=== PATIENT | female | born 1960 | race Caucasian/White ===

== ENCOUNTER 2022-04-19 19:52 | Inpatient (IN) | payer MEDICARE, OTHER ==
--- NOTE | 2022-04-19 20:38 | ED ---
Altered Mental Status HPI - General Chief Complaint: Altered Mental Status Stated Complaint: Urosepsis Time Seen by Provider: 04/19/22 19:55 - History of Present Illness Initial Comments: 61-year-old female with past medical history of developmental delay, cerebral palsy, seizure disorder presents to the emergency department at [facility] for altered mental status. The patient's sister went to see her today at her ECF and noted that she was not at her baseline. She was taken to [facility] where they found that she had urosepsis. Blood pressures are low and therefore central line was placed and the patient was started on levothyroid. She did receive a dose of Zosyn for her UTI. She did receive 3 L of fluid. She arrives on 30 mics of levo. Lactic was 3.5. Urinalysis shows 3+ bacteria. Creatinine 0.5. Mag 2. White count 2.6. Patient cannot provide any history and family is not at bedside. She does have a public guardian - Related Data Home Medications Medication Instructions Recorded Confirmed Acetaminophen Tab [Tylenol] 650 mg PO Q4H PRN MDD 3000 04/19/22 04/19/22 Apixaban [Eliquis] 5 mg PO BID@0700,1700 04/19/22 04/19/22 Docusate [Colace] 100 mg PO BID@0700,1700 04/19/22 04/19/22 Furosemide [Lasix] 80 mg PO DAILY@0700 04/19/22 04/19/22 Losartan Potassium [Cozaar] 100 mg PO DAILY@0700 04/19/22 04/19/22 Potassium Chloride [Potassium 20 meq PO DAILY@1700 04/19/22 04/19/22 Chloride ER] amLODIPine [Norvasc] 5 mg PO DAILY@0700 04/19/22 04/19/22 bisacodyL 10 mg RECTAL Q72H PRN 04/19/22 04/19/22 Allergies Allergy/AdvReac Type Severity Reaction Status Date / Time cephalexin [From Keflex] Allergy Unknown Verified 04/19/22 20:46 doxycycline Allergy Unknown Verified 04/19/22 20:46 sulfamethoxazole Allergy Unknown Verified 04/19/22 20:46 [From Bactrim] trimethoprim [From Bactrim] Allergy Unknown Verified 04/19/22 20:46 vancomycin Allergy Unknown Verified 04/19/22 20:46 Review of Systems ROS Statement: Those systems with pertinent positive or pertinent negative responses have been documented in the HPI. ROS Other: All systems not noted in ROS Statement are negative. General Exam Limitations: altered mental status, physical limitation General appearance: in no apparent distress, other (Nonverbal. moaning) Head exam: Present: atraumatic, normocephalic, normal inspection Eye exam: Present: normal appearance, PERRL, EOMI. Absent: scleral icterus, conjunctival injection, periorbital swelling ENT exam: Present: mucous membranes dry Respiratory exam: Present: rales, decreased breath sounds. Absent: respiratory distress, accessory muscle use Cardiovascular Exam: Present: regular rate, normal rhythm, normal heart sounds. Absent: systolic murmur, diastolic murmur, rubs, gallop, clicks GI/Abdominal exam: Present: soft Rectal exam: Present: other (Contreras in place. Significant amount of watery, yellow stool) Extremities exam: Present: pedal edema Neurological exam: Present: altered Skin exam: Present: warm, dry, intact, normal color. Absent: rash Course Vital Signs 04/19/22 04/19/22 04/19/22 19:53 20:33 20:40 Temperature Pulse Rate 50 L 81 83 Respiratory 18 13 14 Rate Blood Pressure 54/36 84/57 90/57 O2 Sat by Pulse 97 100 99 Oximetry 04/19/22 04/19/22 04/19/22 20:50 21:00 21:30 Temperature Pulse Rate 84 88 91 Respiratory 14 9 L 10 L Rate Blood Pressure 71/48 86/32 103/66 O2 Sat by Pulse 92 L 98 Oximetry 04/19/22 04/19/22 04/19/22 21:37 21:40 21:50 Temperature 88.7 F L Pulse Rate 66 68 Respiratory 6 L 14 Rate Blood Pressure 103/66 91/46 O2 Sat by Pulse 95 99 Oximetry 04/19/22 04/19/22 04/19/22 22:00 22:10 22:20 Temperature Pulse Rate 79 82 80 Respiratory 10 L 13 7 L Rate Blood Pressure 81/58 82/45 81/58 O2 Sat by Pulse 100 100 100 Oximetry 04/19/22 04/19/22 04/19/22 22:30 22:40 22:50 Temperature Pulse Rate 88 89 88 Respiratory 7 L 5 L 6 L Rate Blood Pressure 77/65 96/81 78/54 O2 Sat by Pulse 97 96 97 Oximetry 04/19/22 04/19/22 04/19/22 23:00 23:10 23:20 Temperature Pulse Rate 89 88 93 Respiratory 6 L 3 L 4 L Rate Blood Pressure 85/28 94/52 90/70 O2 Sat by Pulse 97 97 98 Oximetry 04/19/22 04/19/22 04/19/22 23:30 23:40 23:50 Temperature Pulse Rate 93 96 94 Respiratory 13 5 L 9 L Rate Blood Pressure 133/48 77/62 95/47 O2 Sat by Pulse 97 97 97 Oximetry 04/20/22 04/20/22 04/20/22 00:00 00:10 00:14 Temperature Pulse Rate 96 100 99 Respiratory 8 L 6 L 8 L Rate Blood Pressure 86/58 77/59 103/68 O2 Sat by Pulse 98 98 98 Oximetry 04/20/22 00:15 Temperature Pulse Rate 98 Respiratory 5 L Rate Blood Pressure 103/68 O2 Sat by Pulse 97 Oximetry Medical Decision Making - Medical Decision Making Upon arrival the patient was placed in trauma 1. I did review her labs at the outside facility. CT had not been performed at the patient's abdomen and therefore I did obtain one. It shows bilateral lower lobe pulmonary infiltrates and atelectasis. Small pleural effusions. Dilated gallbladder. No bowel obstruction. No septic stone. Chest x-ray demonstrates appropriate placement of the right sided central line in the superior vena cava. I did repeat laboratory studies which demonstrated continued lactic of 3.3. Patient will be admitted to ICU as she is on Levophed. Spoke with Carley from [facility]. Spoke with Dr. Auguste from ICU - Lab Data Result diagrams: 04/23/22 05:21 04/23/22 05:21 Lab Results 04/19/22 04/19/22 04/19/22 Range/Units 21:30 21:30 21:30 WBC 26.8 H (3.8-10.6) k/uL RBC 4.75 (3.80-5.40) m/uL Hgb 14.9 (11.4-16.0) gm/dL Hct 47.7 H (34.0-46.0) % MCV 100.6 H (80.0-100.0) fL MCH 31.5 (25.0-35.0) pg MCHC 31.3 (31.0-37.0) g/dL RDW 15.6 H (11.5-15.5) % Plt Count 224 (150-450) k/uL MPV 9.1 Neutrophils % (Manual) 65 % Band Neuts % (Manual) 28 % Lymphocytes % (Manual) 2 % Monocytes % (Manual) 2 % Eosinophils % (Manual) 1 % Metamyelocytes % 3 % Neutrophils # (Manual) 24.90 H (1.3-7.7) k/uL Lymphocytes # (Manual) 0.54 L (1.0-4.8) k/uL Monocytes # (Manual) 0.54 (0-1.0) k/uL Eosinophils # (Manual) 0.27 (0-0.7) k/uL Metamyelocytes # (Man) 0.80 H (0) k/uL Nucleated RBCs 5 H (0-0) /100 WBC Manual Slide Review Performed Toxic Vacuolation Present Large Platelets Present Polychromasia Present Hypochromasia Marked Poikilocytosis (manual Present Anisocytosis (manual) Present Macrocytosis Slight VBG pH (7.31-7.41) VBG pCO2 (37-51) mmHg VBG HCO3 (24-28) mmol/L Sodium 138 (137-145) mmol/L Potassium 4.4 (3.5-5.1) mmol/L Chloride 109 H (98-107) mmol/L Carbon Dioxide 15 L (22-30) mmol/L Anion Gap 14 mmol/L BUN 22 H (7-17) mg/dL Creatinine 0.64 (0.52-1.04) mg/dL Est GFR (CKD-EPI)AfAm >90 (>60 ml/min/1.73 sqM) Est GFR (CKD-EPI)NonAf >90 (>60 ml/min/1.73 sqM) Glucose 184 H (74-99) mg/dL Lactic Ac Sepsis Rflx Plasma Lactic Acid Miquel 3.3 H* (0.7-2.0) mmol/L Calcium 8.4 (8.4-10.2) mg/dL Total Bilirubin 0.2 (0.2-1.3) mg/dL AST 31 (14-36) U/L ALT 28 (4-34) U/L Alkaline Phosphatase 171 H (38-126) U/L Total Protein 5.8 L (6.3-8.2) g/dL Albumin 3.0 L (3.5-5.0) g/dL C. difficile (EIA) Intrp (Negative) 04/19/22 04/19/22 04/19/22 Range/Units 21:30 21:30 22:02 WBC (3.8-10.6) k/uL RBC (3.80-5.40) m/uL Hgb (11.4-16.0) gm/dL Hct (34.0-46.0) % MCV (80.0-100.0) fL MCH (25.0-35.0) pg MCHC (31.0-37.0) g/dL RDW (11.5-15.5) % Plt Count (150-450) k/uL MPV Neutrophils % (Manual) % Band Neuts % (Manual) % Lymphocytes % (Manual) % Monocytes % (Manual) % Eosinophils % (Manual) % Metamyelocytes % % Neutrophils # (Manual) (1.3-7.7) k/uL Lymphocytes # (Manual) (1.0-4.8) k/uL Monocytes # (Manual) (0-1.0) k/uL Eosinophils # (Manual) (0-0.7) k/uL Metamyelocytes # (Man) (0) k/uL Nucleated RBCs (0-0) /100 WBC Manual Slide Review Toxic Vacuolation Large Platelets Polychromasia Hypochromasia Poikilocytosis (manual Anisocytosis (manual) Macrocytosis VBG pH 7.11 L* (7.31-7.41) VBG pCO2 59 H (37-51) mmHg VBG HCO3 19 L (24-28) mmol/L Sodium (137-145) mmol/L Potassium (3.5-5.1) mmol/L Chloride (98-107) mmol/L Carbon Dioxide (22-30) mmol/L Anion Gap mmol/L BUN (7-17) mg/dL Creatinine (0.52-1.04) mg/dL Est GFR (CKD-EPI)AfAm (>60 ml/min/1.73 sqM) Est GFR (CKD-EPI)NonAf (>60 ml/min/1.73 sqM) Glucose (74-99) mg/dL Lactic Ac Sepsis Rflx Y Plasma Lactic Acid Miquel (0.7-2.0) mmol/L Calcium (8.4-10.2) mg/dL Total Bilirubin (0.2-1.3) mg/dL AST (14-36) U/L ALT (4-34) U/L Alkaline Phosphatase (38-126) U/L Total Protein (6.3-8.2) g/dL Albumin (3.5-5.0) g/dL C. difficile (EIA) Intrp Negative (Negative) Critical Care Time Critical Care Time: Yes Critical Care Time: 35 minutes Disposition Clinical Impression: UTI (urinary tract infection), Lactic acid acidosis, Septic shock Disposition: ADMITTED IP TO THIS [facility] Condition: Serious Is patient prescribed a controlled substance at d/c from ED?: No Time of Disposition: 22:05 Decision to Admit Reason: Admit from EC Decision Date: 04/19/22 Decision Time: 22:05
--- NOTE | 2022-04-19 21:13 | XR ---
EXAMINATION TYPE: XR chest [facility] DATE OF EXAM: 04/19/2022 COMPARISON: NONE HISTORY: Line placement TECHNIQUE: Single view FINDINGS: There is some mild infiltrate left lower lobe. The right lung is clear. There is right jugu lar catheter with tip in the superior vena cava. There is left axillary pacemaker. No heart failure. IMPRESSION: There is some left lower lobe pneumonia and atelectasis. No heart failure seen.
[2022-04-19 21:47] LABS: VBG PH 7.11 (7.31-7.41)
[2022-04-19] MEDS: NOREPINEPHRINE 32 MG in SODIUM CHLORIDE 0.9% 218 ML IV ONE (21:50)
[2022-04-19 22:00] LABS: ALT 28 U/L (4-34); AST 31 U/L (14-36); African American GFR (CKD) >90 (>60 ml/min/1.73 sqM); Alkaline Phosphatase 171 U/L (38-126); Anion Gap 14 mmol/L; Blood Urea Nitrogen 22 mg/dL (7-17); Calcium 8.4 mg/dL (8.4-10.2); Carbon Dioxide 15 mmol/L (22-30); Chloride 109 mmol/L (98-107); Glucose 184 mg/dL (74-99); Non-African American GFR(CKD) >90 (>60 ml/min/1.73 sqM); Potassium 4.4 mmol/L (3.5-5.1); Sodium 138 mmol/L (137-145); Total Bilirubin 0.2 mg/dL (0.2-1.3); Total Protein 5.8 g/dL (6.3-8.2)
--- NOTE | 2022-04-19 22:01 | CT ---
EXAMINATION TYPE: CT abdomen pelvis w con DATE OF EXAM: 04/19/2022 COMPARISON: None HISTORY: Abdominal pain, urosepsis. CT DLP: 2975.4 mGycm Automated exposure control for dose reduction was used. CONTRAST: Performed with IV Contrast, patient injected with 100 mL of Isovue 300. Images obtained from the diaphragm to the floor the pelvis with IV contrast. There is infiltrate or atelectasis at both lung bases. Heart is enlarged. No pericardial effusion. Th ere are small pleural effusions. There is abdominal ascites fluid. Gallbladder is dilated and measure s 5 cm in diameter. No pancreatic mass. Spleen is intact. The bile ducts are not dilated. No focal li manan defect. The stomach is intact. There is no adrenal mass. Kidneys show satisfactory contrast opacification. Th ere is no hydronephrosis. Ureters are not dilated. No retroperitoneal adenopathy. There is a Contreras ca theter in urinary bladder. Bladder is empty. No pelvic mass. There is a 3 cm cyst on the left ovary. Appendix not definitely seen. No sign of thickened appendix. No sign of a bowel obstruction. There is multilevel lumbar spondylotic changes. There is posterior fusion surgery from L4 to L5. The lumbar v ertebrae have normal alignment. Delayed images show very little renal excretion. The bony pelvis is intact. The hip joints are intact. No evidence of free air. IMPRESSION: Bilateral lower lobe pulmonary infiltrates and atelectasis. Small pleural effusions. Abdominal ascite s. Dilated gallbladder suggestive of cholecystitis. Left ovarian cyst. No bowel obstruction. Decreased renal excretion on the delayed images could be some renal failure.
[2022-04-19] MEDS ORDERED: NALOXONE 0.4 MG/ML 1 ML VIAL IV PRN (22:05)
[2022-04-19 22:10] LABS: HCT 47.7 % (34.0-46.0); HGB 14.9 gm/dL (11.4-16.0); Hypochromasia Marked; MCH 31.5 pg (25.0-35.0); MCHC 31.3 g/dL (31.0-37.0); MCV 100.6 fL (80.0-100.0); Macrocytosis Slight; Mean Platelet Volume 9.1; Platelet Count 224 k/uL (150-450); RBC 4.75 m/uL (3.80-5.40); RDW 15.6 % (11.5-15.5)
[2022-04-19 22:41] LABS: ABG Base Excess -13.3 mmol/L; ABG HCO3 14 mmol/L (21-25); ABG Oxygen Saturation 97.9 % (94-97); ABG PCO2 34 mmHg (35-45); ABG PH 7.23 (7.35-7.45); ABG PO2 146 mmHg (83-108); ABG TCO2 15 mmol/L (19-24); Allen Test Performed? Yes
[2022-04-20] MEDS: PIPERACILLIN-TAZOBACTAM 3.375 GM in SODIUM CHLORIDE 0.9% 100 ML IVPB SCH ×3 (00:24→14:39)
[2022-04-20 00:30] LABS: Band Neutrophils % 28 %; Eosinophils # (M) 0.27 k/uL (0-0.7); Lymphocytes # (M) 0.54 k/uL (1.0-4.8); Metamyelocytes % 3 %; Monocytes # (M) 0.54 k/uL (0-1.0); Neutrophils % (M) 65 %; Nucleated Red Blood Cells 5 /100 WBC (0-0); Total Cells Counted 200; WBC 26.8 k/uL (3.8-10.6)
[2022-04-20 00:31] LABS: Anisocytosis (M) Present; Poikilocytosis (M) Present
[2022-04-20 00:33] LABS: Polychromasia Present
[2022-04-20 00:41] LABS: Glucose,Whole Blood 152 mg/dL (70-110)
[2022-04-20 01:03] LABS: Large Platelets Present; Toxic Vacuolation Present
[2022-04-20] MEDS: SODIUM CHLORIDE 0.9% 1,000 ML IV SCH ×2 (02:48→08:12)
[2022-04-20] MEDS ORDERED: FUROSEMIDE 10 MG/ML 10 ML VIAL IV STA (02:50)
[2022-04-20 04:04] LABS: African American GFR (CKD) >90 (>60 ml/min/1.73 sqM); Anion Gap 14 mmol/L; Blood Urea Nitrogen 23 mg/dL (7-17); Calcium 8.8 mg/dL (8.4-10.2); Carbon Dioxide 15 mmol/L (22-30); Chloride 111 mmol/L (98-107); Glucose 184 mg/dL (74-99); Magnesium 1.6 mg/dL (1.6-2.3); Non-African American GFR(CKD) 82 (>60 ml/min/1.73 sqM); Potassium 4.7 mmol/L (3.5-5.1); Sodium 140 mmol/L (137-145)
[2022-04-20 04:29] LABS: HCT 48.3 % (34.0-46.0); HGB 14.9 gm/dL (11.4-16.0); Hypochromasia Marked; MCH 31.5 pg (25.0-35.0); MCHC 30.8 g/dL (31.0-37.0); MCV 102.2 fL (80.0-100.0); Macrocytosis Slight; Mean Platelet Volume 11.2; Platelet Count 197 k/uL (150-450); RBC 4.72 m/uL (3.80-5.40); RDW 15.5 % (11.5-15.5)
[2022-04-20 05:52] LABS: Band Neutrophils % 43 %; Metamyelocytes % 1 %; Neutrophils % (M) 54 %; Nucleated Red Blood Cells 5 /100 WBC (0-0); Total Cells Counted 200
[2022-04-20 05:53] LABS: Large Platelets Present; Lymphocytes # (M) 0.77 k/uL (1.0-4.8); Metamyelocytes # (M) 0.39 k/uL (0); Monocytes # (M) 0.77 k/uL (0-1.0); WBC 38.7 k/uL (3.8-10.6)
[2022-04-20 05:54] LABS: Anisocytosis (M) Present; Toxic Vacuolation Present
[2022-04-20 05:57] LABS: Poikilocytosis (M) Present
[2022-04-20 06:32] LABS: Calcium 8.9 mg/dL (8.4-10.2)
[2022-04-20 06:53] LABS: HCT 45.3 % (34.0-46.0); HGB 14.1 gm/dL (11.4-16.0); Hypochromasia Marked; MCH 31.7 pg (25.0-35.0); MCV 102.3 fL (80.0-100.0); Macrocytosis Slight; Mean Platelet Volume 9.1; Platelet Count 175 k/uL (150-450); RBC 4.43 m/uL (3.80-5.40); RDW 15.7 % (11.5-15.5)
--- NOTE | 2022-04-20 08:11 | US ---
EXAMINATION TYPE: US kidneys/renal and bladder DATE OF EXAM: 04/20/2022 COMPARISON: CT abdomen and pelvis 04/19/2022 CLINICAL HISTORY: low urine output. EXAM MEASUREMENTS: Right Kidney: Accurate measurements unable to be obtained due to diffuse shadowing and technical limi tations. Left Kidney: 9.8 x 5.1 x 5.6 cm Technically difficult study performed portably on an ICU patient who is unable to cooperate for exam. Right Kidney: Only the upper pole is visualized due to overlying bowel gas and patient body habitus, there is no hydro seen in this limited visualization. Left Kidney: No hydronephrosis or masses seen Bladder: Not visualized, patient has catheter IMPRESSION: Technically limited examination with suboptimal visualization of the right kidney. There is no eviden ce for hydronephrosis bilaterally.
[2022-04-20] MEDS: NOREPINEPHRINE 32 MG in SODIUM CHLORIDE 0.9% 218 ML IV ONE ×2 (08:12→19:02)
[2022-04-20 08:30] LABS: Band Neutrophils % 6 %
[2022-04-20 08:34] LABS: Neutrophils % (M) 89 %; Nucleated Red Blood Cells 2 /100 WBC (0-0); Total Cells Counted 300; WBC 39.9 k/uL (3.8-10.6)
[2022-04-20 08:36] LABS: Toxic Vacuolation Present
[2022-04-20] MEDS ORDERED: SODIUM BICARB 8.4% 50 ML SYR (1 MEQ/ML) IV STA (08:49)
[2022-04-20] MEDS ORDERED: FUROSEMIDE 100 MG in SODIUM CHLORIDE 0.9% 90 ML IV SCH (09:00)
[2022-04-20 09:11] LABS: ABG Base Excess -12.2 mmol/L; ABG HCO3 15 mmol/L (21-25); ABG Oxygen Saturation 96.9 % (94-97); ABG PCO2 33 mmHg (35-45); ABG PH 7.26 (7.35-7.45); ABG PO2 106 mmHg (83-108); ABG TCO2 16 mmol/L (19-24); Allen Test Performed? Yes
[2022-04-20] MEDS ORDERED: HEPARIN SODIUM,PORCINE/PF 5,000 UNIT/0.5 ML SYRINGE SQ SCH (09:15)
[2022-04-20 10:00] LABS: Appearance,Urine Turbid (Clear); Bacteria,Urine Occasional /hpf; Bilirubin,Urine Negative (Negative); Blood,Urine Large (Negative); Budding Yeast,Urine Few /hpf; Color,Urine Yellow; Glucose,Urine (UA) Trace (Negative); Ketones,Urine Trace (Negative); Leukocyte Esterase,Urine Large (Negative); Nitrite,Urine Negative (Negative); Protein,Urine 1+ (Negative); RBC,Urine >182 /hpf (0-5); Squamous Epithelial Cell,Urine 3 /hpf (0-4); Urobilinogen,Urine <2.0 mg/dL (<2.0); WBC,Urine 111 /hpf (0-5)
[2022-04-20 10:04] LABS: Specific Gravity,Urine >1.050 (1.001-1.035)
[2022-04-20] MEDS: FUROSEMIDE 10 MG/ML 10 ML VIAL IV STA ×2 (10:18→10:19)
[2022-04-20] MEDS: PANTOPRAZOLE 40 MG/10 ML VIAL IVP SCH ×2 (10:18→21:11)
[2022-04-20] MEDS: DEXTROSE 5% IN WATER 1,000 ML with SODIUM BICARB (1 MEQ/ML) 150 ML IV SCH (10:20)
--- NOTE | 2022-04-20 11:22 | P.NPCON ---
History of Present Illness - Reason for Consult Consult date: 04/20/22 acute renal failure - Chief Complaint MS changes - History of Present Illness 61-year-old female who is seen in consultation because of acute kidney injury. Her creatinine is 0.9 but she is not making any urine in spite of being on Lasix IV drip that was just started She was initially admitted to [facility] for altered mental status after being noted to have changes in her mental status. She has developmental delay and she is somewhat obese supposedly a longterm resident. She was supposedly diagnosed as UTI and received a dose of Zosyn. She also received 3 L of IV fluids. Here in the ICU she is obtunded, Currently on levo fed up 0.3 mics, sodium chloride with bicarbonate at 50 mL an hour and IV Lasix drip, just started. Prior to this she was given 80 mg of IV Lasix twice since midnight Pain ultrasound of the kidney shows left kidney is 9.8) is not well visualized computed tomography scan of the abdomen with contrast showed bilateral pneumonia no hydronephrosis noted. Labs showed creatinine 0.97 BUN 25 Sodium 140 potassium 5 chloride 110 bicarb 13 and anion gap 17 Blood gases 7.26 PCO2 33 PO2 106 on Room Air Chest X-Ray Is Suggested Pneumonia No CHF Reported Urinalysis Shows 1+ Protein WBCs 111 and RBCs Greater Than 182 Large Leukocyte Estrace. Past Medical History History of Any Multi-Drug Resistant Organisms: Unobtainable Smoking Status: Unknown if ever smoked Medications and Allergies Home Medications Medication Instructions Recorded Confirmed Type Acetaminophen Tab [Tylenol] 650 mg PO Q4H PRN MDD 3000 04/19/22 04/19/22 History Apixaban [Eliquis] 5 mg PO BID@0700,1700 04/19/22 04/19/22 History Docusate [Colace] 100 mg PO BID@0700,1700 04/19/22 04/19/22 History Furosemide [Lasix] 80 mg PO DAILY@0704/19/22 04/19/22 History Losartan Potassium [Cozaar] 100 mg PO DAILY@0704/19/22 04/19/22 History Potassium Chloride [Potassium 20 meq PO DAILY@1700 04/19/22 04/19/22 History Chloride ER] amLODIPine [Norvasc] 5 mg PO DAILY@0704/19/22 04/19/22 History bisacodyL 10 mg RECTAL Q72H PRN 04/19/22 04/19/22 History Allergies Allergy/AdvReac Type Severity Reaction Status Date / Time cephalexin [From Keflex] Allergy Unknown Verified 04/19/22 20:46 doxycycline Allergy Unknown Verified 04/19/22 20:46 sulfamethoxazole Allergy Unknown Verified 04/19/22 20:46 [From Bactrim] trimethoprim [From Bactrim] Allergy Unknown Verified 04/19/22 20:46 vancomycin Allergy Unknown Verified 04/19/22 20:46 Physical Exam Vitals: Vital Signs Temp Pulse Resp BP Pulse Ox 04/20/22 08:00 97.7 F 111 H 18 97/54 98 04/20/22 07:00 117 H 19 103/56 95 04/20/22 06:00 116 H 18 104/50 93 L 04/20/22 05:15 118 H 3 L 95/72 96 04/20/22 05:00 116 H 21 103/61 95 04/20/22 04:45 111 H 10 L 89/72 96 04/20/22 04:30 108 H 19 88/65 97 04/20/22 04:15 105 H 18 89/68 97 04/20/22 04:00 104 H 24 97/67 96 04/20/22 03:45 104 H 22 93/62 91 L 04/20/22 03:30 105 H 20 78/58 96 04/20/22 03:15 99 24 91/57 96 04/20/22 03:00 104 H 12 93/66 97 04/20/22 02:45 99 12 95/52 95 04/20/22 02:30 101 H 16 90/62 97 04/20/22 02:18 100 17 90/62 97 04/20/22 00:30 100/42 04/20/22 00:15 98 5 L 103/68 97 04/20/22 00:14 99 8 L 103/68 98 04/20/22 00:10 100 6 L 77/59 98 04/20/22 00:00 96 8 L 86/58 98 04/19/22 23:50 94 9 L 95/47 97 04/19/22 23:40 96 5 L 77/62 97 04/19/22 23:30 93 13 133/48 97 04/19/22 23:20 93 4 L 90/70 98 04/19/22 23:10 88 3 L 94/52 97 04/19/22 23:00 89 6 L 85/28 97 04/19/22 22:50 88 6 L 78/54 97 04/19/22 22:40 89 5 L 96/81 96 04/19/22 22:30 88 7 L 77/65 97 04/19/22 22:20 80 7 L 81/58 100 04/19/22 22:10 82 13 82/45 100 04/19/22 22:00 79 10 L 81/58 100 04/19/22 21:50 68 14 91/46 99 04/19/22 21:40 66 6 L 103/66 95 04/19/22 21:37 88.7 F L 04/19/22 21:30 91 10 L 103/66 98 04/19/22 21:00 88 9 L 86/32 92 L 04/19/22 20:50 84 14 71/48 04/19/22 20:40 83 14 90/57 99 04/19/22 20:33 81 13 84/57 100 04/19/22 19:53 50 L 18 54/36 97 Intake and Output 04/19/22 04/20/22 04/20/22 22:59 06:59 14:59 Intake Total 12.105 482.430 284.787 Output Total 0 5 Balance 12.105 482.430 279.787 Intake: IV 400 100 Sodium Chloride 0.9% 1, 400 100 000 ml @ 100 mls/hr IV . Q10H [facility] Rx#:[id number] Intake, IV Titration 12.105 82.430 184.787 Amount Norepinephrine 32 mg In 12.105 82.430 84.787 Sodium Chloride 0.9% 218 ml @ 0.05 MCG/KG/MIN 3. 117 mls/hr IV .Q24H [facility] Rx#:[id number] Piperacillin-Tazobactam 3 100 .375 gm In Sodium Chloride 0.9% 100 ml @ 25 mls/hr IVPB Q8HR [facility] Rx# :[id number] Output: Urine 0 5 Other: Voiding Method Indwelling Catheter Weight 132.5 kg 132.5 kg Exam she is obtunded. On nasal cannula oxygen HEENT exam no facial asymmetry noted Lungs are clear to auscultation fair air entry bilaterally Heart sounds unremarkable for any murmur rub gallop Abdomen obese no masses felt Extremity examination reveals trace edema Neurologically obtunded Results - Lab Results Most recent lab results ABG pH 7.26 (7.35-7.45) L 04/20/22 09:09 ABG pCO2 33 mmHg (35-45) L 04/20/22 09:09 ABG pO2 106 mmHg (83-108) 04/20/22 09:09 ABG HCO3 15 mmol/L (21-25) L 04/20/22 09:09 ABG O2 Saturation 96.9 % (94-97) 04/20/22 09:09 Calcium 8.9 mg/dL (8.4-10.2) 04/20/22 05:54 Magnesium 1.6 mg/dL (1.6-2.3) 04/20/22 01:07 04/20/22 05:54 04/20/22 05:54 Assessment and Plan Assessment: Impression 1. Acute kidney injury with minimal urine output. Etiology is combination of toxicity from computed tomography scan as well as from possible sepsis, and low blood pressure. 2. Bilateral pneumonia on computed tomography scan, Rule out urine tract infection and pyelonephritis. COVID status is negative PCR 3. Significant lactic acidosis from sepsis. 4. History of developmental delay. 5. Mental status changes and obtundation secondary to sepsis, and low blood p ressure. Recommendation 1. Redo blood gases to see where her acid base status is as lactic acidosis would revert if her blood pressure improves and antibiotics aren't effective 2. Reassess need for sodium bicarbonate. 3. Continue IV fluids to maintain blood pressure under careful monitoring b ecause of possibility of congestive heart failure. Thank you for this consultation and we'll continue to follow closely
--- NOTE | 2022-04-20 11:25 | P.CNPUL ---
History of Present Illness Consult date: 04/20/22 Requesting physician: Rosalee Marr Reason for consult: other (Sepsis and septic shock) Chief complaint: Altered mental status History of present illness: This is a 61-year-old female with history of cerebral palsy, developmental delay, seizure disorder, patient was seen yesterday at [facility] with altered mental status according to her sister. Apparently the patient lives at [facility] and with her sister saw her yesterday she felt that she was off her baseline/had altered mental status. Patient was sent to [place] [facility], and she was noted to have abnormal urinalysis, and she was hypotensive. Patient was felt to have urosepsis. A right IJ central line was placed in the ER, patient was placed on norepinephrine and transferred to [facility]. Her lactic acid initially was 3.5. Patient arrived, briefly evaluated in our ER, I was made aware about this patient by the ER physician, and arrange for the patient to be started on antibiotics empirically, continue norepinephrine, and transfer the patient to the ICU. Labs in our ER showed leukocytosis with WBC count almost 40 ,000. Hemoglobin of 14.1. ABG this morning showed a pO2 of 106 pCO2 33 pH of 7.26 and this was on 2 L nasal cannula. Basic metabolic profile showed low bicarb of 13 with anion gap of 17. BUN of 25 creatinine 0.9 7 repeat lactic acid this morning was 5.8. Patient did receive at least 4 L of fluid boluses and her IV fluid is running at 1 25 mL per hour. Urinalysis is showing evidence of pyuria and bacteriuria. Patient is oliguric. In spite of multiple liters of fluid boluses given chest x-ray showed mostly left lower lobe atelectasis, possible pneumonia I favor atelectasis rather than pneumonia. CT abdomen and pelvis showed bibasilar atelectasis, possible infiltrates, small pleural ef fusions, abdominal ascites, dilated gallbladder suggestive of cholecystitis Review of Systems ROS unobtainable: due to mental status Past Medical History History of Any Multi-Drug Resistant Organisms: Unobtainable Smoking Status: Unknown if ever smoked Medications and Allergies Home Medications Medication Instructions Recorded Confirmed Type Acetaminophen Tab [Tylenol] 650 mg PO Q4H PRN MDD 3000 04/19/22 04/19/22 History Apixaban [Eliquis] 5 mg PO BID@0700,1700 04/19/22 04/19/22 History Docusate [Colace] 100 mg PO BID@0700,1700 04/19/22 04/19/22 History Furosemide [Lasix] 80 mg PO DAILY@0700 04/19/22 04/19/22 History Losartan Potassium [Cozaar] 100 mg PO DAILY@0700 04/19/22 04/19/22 History Potassium Chloride [Potassium 20 meq PO DAILY@17004/19/22 04/19/22 History Chloride ER] amLODIPine [Norvasc] 5 mg PO DAILY@0704/19/22 04/19/22 History bisacodyL 10 mg RECTAL Q72H PRN 04/19/22 04/19/22 History Allergies Allergy/AdvReac Type Severity Reaction Status Date / Time cephalexin [From Keflex] Allergy Unknown Verified 04/19/22 20:46 doxycycline Allergy Unknown Verified 04/19/22 20:46 sulfamethoxazole Allergy Unknown Verified 04/19/22 20:46 [From Bactrim] trimethoprim [From Bactrim] Allergy Unknown Verified 04/19/22 20:46 vancomycin Allergy Unknown Verified 04/19/22 20:46 Physical Exam Vitals: Vital Signs Temp Pulse Resp BP Pulse Ox 04/20/22 08:00 97.7 F 111 H 18 97/54 98 04/20/22 07:00 117 H 19 103/56 95 04/20/22 06:00 116 H 18 104/50 93 L 04/20/22 05:15 118 H 3 L 95/72 96 04/20/22 05:00 116 H 21 103/61 95 04/20/22 04:45 111 H 10 L 89/72 96 04/20/22 04:30 108 H 19 88/65 97 04/20/22 04:15 105 H 18 89/68 97 04/20/22 04:00 104 H 24 97/67 96 04/20/22 03:45 104 H 22 93/62 91 L 04/20/22 03:30 105 H 20 78/58 96 04/20/22 03:15 99 24 91/57 96 04/20/22 03:00 104 H 12 93/66 97 04/20/22 02:45 99 12 95/52 95 04/20/22 02:30 101 H 16 90/62 97 08/21/22 02:18 100 17 90/62 97 04/20/22 00:30 100/42 04/20/22 00:15 98 5 L 103/68 97 04/20/22 00:14 99 8 L 103/68 98 04/20/22 00:10 100 6 L 77/59 98 04/20/22 00:00 96 8 L 86/58 98 04/19/22 23:50 94 9 L 95/47 97 04/19/22 23:40 96 5 L 77/62 97 04/19/22 23:30 93 13 133/48 97 04/19/22 23:20 93 4 L 90/70 98 04/19/22 23:10 88 3 L 94/52 97 04/19/22 23:00 89 6 L 85/28 97 04/19/22 22:50 88 6 L 78/54 97 04/19/22 22:40 89 5 L 96/81 96 04/19/22 22:30 88 7 L 77/65 97 04/19/22 22:20 80 7 L 81/58 100 04/19/22 22:10 82 13 82/45 100 04/19/22 22:00 79 10 L 81/58 100 04/19/22 21:50 68 14 91/46 99 04/19/22 21:40 66 6 L 103/66 95 04/19/22 21:37 88.7 F L 04/19/22 21:30 91 10 L 103/66 98 04/19/22 21:00 88 9 L 86/32 92 L 04/19/22 20:50 84 14 71/48 04/19/22 20:40 83 14 90/57 99 04/19/22 20:33 81 13 84/57 100 04/19/22 19:53 50 L 18 54/36 97 Intake and Output 04/19/22 04/20/22 04/20/22 22:59 06:59 14:59 Intake Total 12.105 482.430 284.787 Output Total 0 5 Balance 12.105 482.430 279.787 Intake: IV 400 100 Sodium Chloride 0.9% 1, 400 100 000 ml @ 100 mls/hr IV . Q10H [facility] Rx#:[id number] Intake, IV Titration 12.105 82.430 184.787 Amount Norepinephrine 32 mg In 12.105 82.430 84.787 Sodium Chloride 0.9% 218 ml @ 0.05 MCG/KG/MIN 3. 117 mls/hr IV .Q24H ONE Rx#:[id number] Piperacillin-Tazobactam 3 100 .375 gm In Sodium Chloride 0.9% 100 ml @ 25 mls/hr IVPB Q8HR [facility] Rx# :[id number] Output: Urine 0 5 Other: Voiding Method Indwelling Catheter Weight 132.5 kg 132.5 kg Limitations: Patient has cerebral palsy and developmental delay. General appearance: Revealed a 61-year-old female, obese, on room air during my evaluation, not in distress. Head exam: Atraumatic, normocephalic Eye exam: PERRLA, EOMI, nonicteric, no neck masses, no JVD. ENT exam: Dry mucous membranes, otherwise unremarkable. Respiratory exam: Diminished breath sounds at the bases, no crackles or rhonchi or wheezes Cardiovascular Exam: Distant S1 and S2, no S3 gallop, no murmur. GI/Abdominal exam: Obese, soft, nontender, no megaly, no rebound, no guarding. Extremities exam: No clubbing, trace of bipedal edema, no cyanosis. Neurological exam: Patient grimaces and moans with deep painful stimuli. Pupils are equally reactive to light. Patient does not respond to any other stimuli. No purposeful movement. Skin exam: No rashes. Results - Laboratory Findings CBC and BMP: 04/20/22 05:54 04/20/22 05:54 ABG ABG pH 7.26 (7.35-7.45) L 04/20/22 09:09 ABG pCO2 33 mmHg (35-45) L 04/20/22 09:09 ABG pO2 106 mmHg (83-108) 04/20/22 09:09 ABG O2 Saturation 96.9 % (94-97) 04/20/22 09:09 Abnormal lab findings: Abnormal Labs 04/19/22 04/19/22 04/19/22 21:30 21:30 21:30 WBC 26.8 H Hct 47.7 H MCV 100.6 H MCHC RDW 15.6 H Neutrophils # (Manual) 24.90 H Lymphocytes # (Manual) 0.54 L Monocytes # (Manual) Metamyelocytes # (Man) 0.80 H Nucleated RBCs 5 H ABG pH ABG pCO2 ABG pO2 ABG HCO3 ABG Total CO2 ABG O2 Saturation VBG pH VBG pCO2 VBG HCO3 Chloride 109 H Carbon Dioxide 15 L BUN 22 H Glucose 184 H POC Glucose (mg/dL) Plasma Lactic Acid [place] 3.3 H* Alkaline Phosphatase 171 H Total Protein 5.8 L Albumin 3.0 L Urine Appearance Ur Specific [place] Urine Protein Urine Glucose (UA) Urine Ketones Urine Blood Ur Leukocyte Esterase Urine RBC Urine WBC Urine Bacteria Urine Yeast (Budding) 04/19/22 04/19/22 04/20/22 21:30 22:40 00:39 WBC Hct MCV MCHC RDW Neutrophils # (Manual) Lymphocytes # (Manual) Monocytes # (Manual) Metamyelocytes # (Man) Nucleated RBCs ABG pH 7.23 L ABG pCO2 34 L ABG pO2 146 H ABG HCO3 14 L ABG Total CO2 15 L ABG O2 Saturation 97.9 H VBG pH 7.11 L* VBG pCO2 59 H VBG HCO3 19 L Chloride Carbon Dioxide BUN Glucose POC Glucose (mg/dL) 152 H Plasma Lactic Acid [place] Alkaline Phosphatase Total Protein Albumin Urine Appearance Ur Specific [place] Urine Protein Urine Glucose (UA) Urine Ketones Urine Blood Ur Leukocyte Esterase Urine RBC Urine WBC Urine Bacteria Urine Yeast (Budding) 04/20/22 04/20/22 04/20/22 01:07 01:07 01:07 WBC 38.7 H Hct 48.3 H MCV 102.2 H MCHC 30.8 L RDW Neutrophils # (Manual) 37.50 H Lymphocytes # (Manual) 0.77 L Monocytes # (Manual) Metamyelocytes # (Man) 0.39 H Nucleated RBCs 5 H ABG pH ABG pCO2 ABG pO2 ABG HCO3 ABG Total CO2 ABG O2 Saturation VBG pH VBG pCO2 VBG HCO3 Chloride 111 H Carbon Dioxide 15 L BUN 23 H Glucose 184 H POC Glucose (mg/dL) Plasma Lactic Acid [place] 3.7 H* Alkaline Phosphatase Total Protein Albumin Urine Appearance Ur Specific [place] Urine Protein Urine Glucose (UA) Urine Ketones Urine Blood Ur Leukocyte Esterase Urine RBC Urine WBC Urine Bacteria Urine Yeast (Budding) 04/20/22 04/20/22 04/20/22 05:54 05:54 05:54 WBC 39.9 H Hct MCV 102.3 H MCHC RDW 15.7 H Neutrophils # (Manual) 37.90 H Lymphocytes # (Manual) 0.40 L Monocytes # (Manual) 1.20 H Metamyelocytes # (Man) Nucleated RBCs 2 H ABG pH ABG pCO2 ABG pO2 ABG HCO3 ABG Total CO2 ABG O2 Saturation VBG pH VBG pCO2 VBG HCO3 Chloride 110 H Carbon Dioxide 13 L BUN 25 H Glucose 192 H POC Glucose (mg/dL) Plasma Lactic Acid [place] 5.8 H* Alkaline Phosphatase Total Protein Albumin Urine Appearance Ur Specific [place] Urine Protein Urine Glucose (UA) Urine Ketones Urine Blood Ur Leukocyte Esterase Urine RBC Urine WBC Urine Bacteria Urine Yeast (Budding) 04/20/22 04/20/22 09:09 09:17 WBC Hct MCV MCHC RDW Neutrophils # (Manual) Lymphocytes # (Manual) Monocytes # (Manual) Metamyelocytes # (Man) Nucleated RBCs ABG pH 7.26 L ABG pCO2 33 L ABG pO2 ABG HCO3 15 L ABG Total CO2 16 L ABG O2 Saturation VBG pH VBG pCO2 VBG HCO3 Chloride Carbon Dioxide BUN Glucose POC Glucose (mg/dL) Plasma Lactic Acid [place] Alkaline Phosphatase Total Protein Albumin Urine Appearance Turbid H Ur Specific [place] >1.050 H Urine Protein 1+ H Urine Glucose (UA) Trace H Urine Ketones Trace H Urine Blood Large H Ur Leukocyte Esterase Large H Urine RBC >182 H Urine WBC 111 H Urine Bacteria Occasional H Urine Yeast (Budding) Few H - Diagnostic Findings Chest x-ray: image reviewed (As noted in HPI) Additional studies: CT of abdomen and pelvis as noted in HPI Assessment and Plan Assessment: Impression: Sepsis secondary to acute urinary tract infection Septic shock secondary to UTI and possible pneumonia, healthcare acquired pneumonia. Oliguria secondary to sepsis Acute anion gap metabolic acidosis History of cerebral palsy History of hypertension Multiple ALLERGIES to different antibiotics Acute metabolic encephalopathy Recommendation: Continue present supportive care measures Continue to monitor in the ICU Continue norepinephrine, continue hemodynamic monitoring right brachial arterial line was placed. Continue fluids however considering the patient is oliguric, may have to stop fluid boluses and possibly give the patient Lasix trial. Otherwise the patient rosibel likely develop pulmonary edema and fluid overload. Patient received at least 4 L of fluid boluses since admission. Continue antibiotics patient is presently on Zosyn and adjust according to final cultures of urine and blood sputum Continue sepsis protocol. GI and DVT prophylaxis Sodium bicarb drip Nephrology consultation Infectious disease consultation Prognosis is guarded, we'll continue to follow. Patient is critically ill, Critical care time is over 55 minutes not including the time spent on p rocedures. Time with Patient: Greater than 30
[2022-04-20] MEDS ORDERED: SODIUM CHLORIDE 0.9% 1,000 ML IV ONE (13:20)
[2022-04-20] MEDS: SODIUM CHLORIDE 0.9% 50 ML with VASOPRESSIN 20 UNIT IVPB SCH ×4 (14:39→21:49)
[2022-04-20] MEDS: APIXABAN 5 MG TAB PO SCH ×2 (14:40→21:11)
--- NOTE | 2022-04-20 16:54 | OP ---
OPERATIVE REPORT PROCEDURE PERFORMED: Placement of right brachial arterial line. PREOPERATIVE DIAGNOSES: Sepsis and septic shock. POSTOPERATIVE DIAGNOSES: Sepsis and septic shock. ANESTHESIA USED: None deployed. DESCRIPTION OF PROCEDURE: The patient was placed in a supine position. The right brachial area was prepared in a sterile fashion, and the drapes were applied. The right brachial artery was palpated, cannulated, and a guidewire was placed. A Cook catheter was inserted over the guidewire, and the guidewire was removed. Good blood flow and good waveform noted. No complications. Line was secured using 3-0 silk sutures. MMODL / IJN: [id number] /
[2022-04-20] MEDS: NOREPINEPHRINE 32 MG in SODIUM CHLORIDE 0.9% 218 ML IV SCH (21:53)
[2022-04-21] MEDS: PIPERACILLIN-TAZOBACTAM 3.375 GM in SODIUM CHLORIDE 0.9% 100 ML IVPB SCH ×4 (00:06→23:40)
[2022-04-21] MEDS: DEXTROSE 5% IN WATER 1,000 ML with SODIUM BICARB (1 MEQ/ML) 150 ML IV SCH (01:36)
[2022-04-21] MEDS: SODIUM CHLORIDE 0.9% 1,000 ML IV SCH ×2 (04:16→06:53)
[2022-04-21 06:29] LABS: Basophils # (A) 0.1 k/uL (0-0.2); Basophils % (A) 1 %; Eosinophils # (A) 0.2 k/uL (0-0.7); Eosinophils % (A) 2 %; HCT 27.5 % (34.0-46.0); Hypochromasia Moderate; Lymphocytes # (A) 0.5 k/uL (1.0-4.8); Lymphocytes % (A) 4 %; MCH 31.9 pg (25.0-35.0); MCHC 32.4 g/dL (31.0-37.0); MCV 98.4 fL (80.0-100.0); Macrocytosis Slight; Mean Platelet Volume 8.8; Monocytes # (A) 0.6 k/uL (0-1.0); Monocytes % (A) 5 %; Neutrophils % (A) 88 %; RBC 2.79 m/uL (3.80-5.40); RDW 15.7 % (11.5-15.5); WBC 12.4 k/uL (3.8-10.6)
[2022-04-21 06:33] LABS: HGB 8.9 gm/dL (11.4-16.0)
[2022-04-21 07:00] LABS: Platelet Count 47 k/uL (150-450)
[2022-04-21 07:14] LABS: Calcium 7.4 mg/dL (8.4-10.2); Potassium 4.4 mmol/L (3.5-5.1)
[2022-04-21] MEDS: PANTOPRAZOLE 40 MG/10 ML VIAL IVP SCH ×2 (08:36→21:08)
--- NOTE | 2022-04-21 09:37 | P.PN ---
Subjective Patient is seen for follow-up for acute kidney injury secondary to severe anemia and hemoglobin of 3.3 on admission associated with hypotension from vaginal bleeding from fibroids. Patient has had multiple packed RBCs transfusion. Hemoglobin today at 7.1 g/dL. Patient continueS to have vaginal clots although not as much as on initial admission. Serum creatinine down to 1.06 from 1.7 on initial admission. Objective - Vital Signs Vital signs: Vital Signs Temp 97.9 F 04/21/22 04:00 Pulse 71 04/21/22 07:00 Resp 16 04/21/22 07:00 BP 97/57 04/21/22 07:00 Pulse Ox 99 04/21/22 07:00 FiO2 Intake & Output 04/20/22 04/21/22 04/21/22 18:59 06:59 18:59 Intake Total 2975.502 1580.694 132.349 Output Total 1080 1700 175 Balance 1895.502 -119.306 -42.651 Weight 134.5 kg Intake: IV 650 1475 125 Dextrose 5% in Water 1, 825 75 000 ml @ 75 mls/hr IV . [id number] MAC with Sodium Bicarb (1 Meq/ml) 150 ml Rx#:[id number] Piperacillin-Tazobactam 3 100 .375 gm In Sodium Chloride 0.9% 100 ml @ 25 mls/hr IVPB Q8HR [facility] Rx# :[id number] Sodium Chloride 0.9% 1, 650 550 50 000 ml @ 50 mls/hr IV . Q20H [facility] Rx#:[id number] Intake, IV Titration 2325.502 105.694 7.349 Amount Dextrose 5% in Water 1, 825 000 ml @ 75 mls/hr IV . [id number] MAC with Sodium Bicarb (1 Meq/ml) 150 ml Rx#:[id number] Furosemide 100 mg In 11.333 Sodium Chloride 0.9% 90 ml @ 10 MG/HR 10 mls/hr IV .Q10H [facility] Rx#: [id number] Norepinephrine 32 mg In 61.077 7.349 Sodium Chloride 0.9% 218 ml @ 0.05 MCG/KG/MIN 3. 105 mls/hr IV .Q24H [facility] Rx#:[id number] Norepinephrine 32 mg In 289.169 44.617 Sodium Chloride 0.9% 218 ml @ 0.05 MCG/KG/MIN 3. 117 mls/hr IV .Q24H [facility] Rx#:[id number] Piperacillin-Tazobactam 3 200 .375 gm In Sodium Chloride 0.9% 100 ml @ 25 mls/hr IVPB Q8HR [facility] Rx# :[id number] Sodium Chloride 0.9% 1, 1000 000 ml @ 999 mls/hr IV . Q1H1M ONE Rx#:[id number] Output: Urine 1080 1700 175 Other: Voiding Method Indwelling Catheter ABP, PAP, CO, CI - Last Documented Arterial Blood Pressure 106/52 - Exam Awake, comfortable, not in any acute distress Examination of the heart S1 and S2 Examination of the lungs bilateral breath sounds are heard Abdomen is soft morbidly obese Examination lower extremity shows chronic edema with chronic skin changes edema 2-3+ bilaterally [employer] exam is grossly intact - Labs CBC & Chem 7: 04/21/22 06:06 04/21/22 06:06 Labs: Abnormal Lab Results - Last 24 Hours (Table) 04/20/22 04/20/22 04/21/22 Range/Units 09:17 11:00 06:06 WBC 12.4 H (3.8-10.6) k/uL RBC 2.79 L (3.80-5.40) m/uL Hgb 8.9 L D (11.4-16.0) gm/dL Hct 27.5 L (34.0-46.0) % RDW 15.7 H (11.5-15.5) % Plt Count 47 L D (150-450) k/uL Neutrophils # 11.0 H (1.3-7.7) k/uL Lymphocytes # 0.5 L (1.0-4.8) k/uL Chloride (98-107) mmol/L BUN (7-17) mg/dL Glucose (74-99) mg/dL Plasma Lactic Acid Miquel 4.3 H* (0.7-2.0) mmol/L Calcium (8.4-10.2) mg/dL Urine Appearance Turbid H (Clear) Ur Specific [place] >1.050 H (1.001-1.035) Urine Protein 1+ H (Negative) Urine Glucose (UA) Trace H (Negative) Urine Ketones Trace H (Negative) Urine Blood Large H (Negative) Ur Leukocyte Esterase Large H (Negative) Urine RBC >182 H (0-5) /hpf Urine WBC 111 H (0-5) /hpf Urine Bacteria Occasional H (None) /hpf Urine Yeast (Budding) Few H (None) /hpf 04/21/22 Range/Units 06:06 WBC (3.8-10.6) k/uL RBC (3.80-5.40) m/uL Hgb (11.4-16.0) gm/dL Hct (34.0-46.0) % RDW (11.5-15.5) % Plt Count (150-450) k/uL Neutrophils # (1.3-7.7) k/uL Lymphocytes # (1.0-4.8) k/uL Chloride 108 H (98-107) mmol/L BUN 24 H (7-17) mg/dL Glucose 213 H (74-99) mg/dL Plasma Lactic Acid Miquel (0.7-2.0) mmol/L Calcium 7.4 L (8.4-10.2) mg/dL Urine Appearance (Clear) Ur Specific [place] (1.001-1.035) Urine Protein (Negative) Urine Glucose (UA) (Negative) Urine Ketones (Negative) Urine Blood (Negative) Ur Leukocyte Esterase (Negative) Urine RBC (0-5) /hpf Urine WBC (0-5) /hpf Urine Bacteria (None) /hpf Urine Yeast (Budding) (None) /hpf Assessment and Plan Assessment: 1. Acute kidney injury secondary to severe anemia with hemoglobin of 3.3 and hypotension. Currently improved 2. Severe blood loss from vaginal bleeding from fibroids. Status post 7 units packed RBCs. Hemoglobin 7.1 today. Bleeding has slowed down 3. Chronic leukocytosis with possible myelodysplastic syndrome 4. Morbid obesity 5. Severe bilateral lower extremity edema with chronic stasis 6. Mild hyponatremia associated with acute kidney injury. Sodium at 132 and staying stable. Currently off of IV fluids Plan: Continue with by mouth Lasix. Increase to twice a day Continue to monitor renal function and electrolytes Continue to avoid nephrotoxic agents
--- NOTE | 2022-04-21 09:54 | P.PN ---
Subjective Progress Note Date: 04/21/22 Principal diagnosis: Sepsis. This is a 61-year-old female with history of cerebral palsy, developmental delay, seizure disorder, patient was seen yesterday at [facility] with altered mental status according to her sister. Apparently the patient lives at [facility] and with her sister saw her yesterday she felt that she was off her baseline/had altered mental status. Patient was sent to [facility], and she was noted to have abnormal urinalysis, and she was hypotensive. Patient was felt to have urosepsis. A right IJ central line was placed in the ER, patient was placed on norepinephrine and transferred to [facility]. Her lactic acid initially was 3.5. Patient arrived, briefly evaluated in our ER, I was made aware about this patient by the ER physician, and arrange for the patient to be started on antibiotics empirically, continue norepinephrine, and transfer the patient to the ICU. Labs in our ER showed leukocytosis with WBC count almost 40,000. Hemoglobin of 14.1. ABG this morning showed a pO2 of 106 pCO2 33 pH of 7.26 and this was on 2 L nasal cannula. Basic metabolic profile showed low bicarb of 13 with anion gap of 17. BUN of 25 creatinine 0.9 7 repeat lactic acid this morning was 5.8. Patient did receive at least 4 L of fluid boluses and her IV fluid is running at 1 25 mL per hour. Urinalysis is showing evidence of pyuria and bacteriuria. Patient is oliguric. In spite of multiple liters of fluid boluses given chest x-ray showed mostly left lower lobe atelectasis, possible pneumonia I favor atelectasis rather than pneumonia. CT abdomen and pelvis showed bibasilar atelectasis, possible infiltrates, small pleural effusions, abdominal ascites, dilated gallbladder suggestive of cholecystitis Progress note dated 04/21/2022. 61-year-old female seen by my partner yesterday in consultation. She apparently was transferred down from one of the outside hospitals, with mental status changes, and suspected urosepsis. She has a history of cerebral palsy, developmental delay, seizure disorder. She has an indwelling Contreras catheter. Currently, she is on 2 L nasal cannula. She has an NG tube in place. She's getting saline at 50 mL an hour, and dextrose with 3 ampules of sodium bicarbonate at 75 mL an hour. She's doing norepinephrine at 3-4 mcg/m, and vasopressin at 0.03 units per minute. She is on IV Zosyn. I've asked the nurses to check a random cortisol level and TSH. I've also asked the nurses to attempt to wean one or both of the pressors, and discontinue the sodium bicarbonate drip. White count 12.4, hemoglobin 8.9, hematocrit 27.5, platelet count 47,000. Sodium 140, potassium 4.4, chlorides 108, CO2 24, BUN and creatinine were 24 and 0.90 respectively. Lactic acid was 4.3, and repeat was 1.6. Urine is suspicious for urinary tract infection. Testing for campos virus was negative. Chest x-ray shows some left lower lobe infiltrate. Objective - Vital Signs Vital signs: Vital Signs Temp 97.9 F 04/21/22 04:00 Pulse 71 04/21/22 07:00 Resp 16 04/21/22 07:00 BP 97/57 04/21/22 07:00 Pulse Ox 99 04/21/22 07:00 FiO2 Intake & Output 04/20/22 04/21/22 04/21/22 18:59 06:59 18:59 Intake Total 2975.502 1580.694 132.349 Output Total 1080 1700 175 Balance 1895.502 -119.306 -42.651 Weight 134.5 kg Intake: IV 650 1475 125 Dextrose 5% in Water 1, 825 75 000 ml @ 75 mls/hr IV . [id number] MAC with Sodium Bicarb (1 Meq/ml) 150 ml Rx#:[id number] Piperacillin-Tazobactam 3 100 .375 gm In Sodium Chloride 0.9% 100 ml @ 25 mls/hr IVPB Q8HR MAC Rx# :[id number] Sodium Chloride 0.9% 1, 650 550 50 000 ml @ 50 mls/hr IV . Q20H MAC Rx#:[id number] Intake, IV Titration 2325.502 105.694 7.349 Amount Dextrose 5% in Water 1, 825 000 ml @ 75 mls/hr IV . [id number] MAC with Sodium Bicarb (1 Meq/ml) 150 ml Rx#:[id number] Furosemide 100 mg In 11.333 Sodium Chloride 0.9% 90 ml @ 10 MG/HR 10 mls/hr IV .Q10H [facility] Rx#: [id number] Norepinephrine 32 mg In 61.077 7.349 Sodium Chloride 0.9% 218 ml @ 0.05 MCG/KG/MIN 3. 105 mls/hr IV .Q24H [facility] Rx#:[id number] Norepinephrine 32 mg In 289.169 44.617 Sodium Chloride 0.9% 218 ml @ 0.05 MCG/KG/MIN 3. 117 mls/hr IV .Q24H [facility] Rx#:[id number] Piperacillin-Tazobactam 3 200 .375 gm In Sodium Chloride 0.9% 100 ml @ 25 mls/hr IVPB Q8HR [facility] Rx# :[id number] Sodium Chloride 0.9% 1, 1000 000 ml @ 999 mls/hr IV . Q1H1M [facility] Rx#:[id number] Output: Urine 1080 1700 175 Other: Voiding Method Indwelling Catheter ABP, PAP, CO, CI - Last Documented Arterial Blood Pressure 106/52 - Exam No acute distress, patient moans, nasal O2 in place, along with an NG tube. HEENT examination is grossly unremarkable. Neck supple. Full range of motion. No adenopathy thyromegaly or neck vein distention. Cardiovascular examination reveals regular rhythm rate. S1-S2 normal. No S3 or S4. No discernible murmur noted. Heart rate 71 bpm. Lungs reveal mostly clear breath sounds. Minimal rhonchi. No wheezes. No crackles. 2 L saturation 99%. Abdomen soft bowel sounds are heard. No masses or tenderness. Extremities are intact. No cyanosis clubbing or edema. Skin is without rash or lesion. Neurologic examination is difficult to evaluate given her history of developmental delay, and cerebral palsy. - Labs CBC & Chem 7: 04/21/22 06:06 04/21/22 06:06 Labs: Abnormal Lab Results - Last 24 Hours (Table) 04/20/22 04/20/22 04/21/22 Range/Units 09:17 11:00 06:06 WBC 12.4 H (3.8-10.6) k/uL RBC 2.79 L (3.80-5.40) m/uL Hgb 8.9 L D (11.4-16.0) gm/dL Hct 27.5 L (34.0-46.0) % RDW 15.7 H (11.5-15.5) % Plt Count 47 L D (150-450) k/uL Neutrophils # 11.0 H (1.3-7.7) k/uL Lymphocytes # 0.5 L (1.0-4.8) k/uL Chloride (98-107) mmol/L BUN (7-17) mg/dL Glucose (74-99) mg/dL Plasma Lactic Acid Miquel 4.3 H* (0.7-2.0) mmol/L Calcium (8.4-10.2) mg/dL Urine Appearance Turbid H (Clear) Ur Specific Ch[place]m >1.050 H (1.001-1.035) Urine Protein 1+ H (Negative) Urine Glucose (UA) Trace H (Negative) Urine Ketones Trace H (Negative) Urine Blood Large H (Negative) Ur Leukocyte Esterase Large H (Negative) Urine RBC >182 H (0-5) /hpf Urine WBC 111 H (0-5) /hpf Urine Bacteria Occasional H (None) /hpf Urine Yeast (Budding) Few H (None) /hpf 04/21/ Range/Units 06:06 WBC (3.8-10.6) k/uL RBC (3.80-5.40) m/uL Hgb (11.4-16.0) gm/dL Hct (34.0-46.0) % RDW (11.5-15.5) % Plt Count (150-450) k/uL Neutrophils # (1.3-7.7) k/uL Lymphocytes # (1.0-4.8) k/uL Chloride 108 H (98-107) mmol/L BUN 24 H (7-17) mg/dL Glucose 213 H (74-99) mg/dL Plasma Lactic Acid Miquel (0.7-2.0) mmol/L Calcium 7.4 L (8.4-10.2) mg/dL Urine Appearance (Clear) Ur Specific Ch[place]m (1.001-1.035) Urine Protein (Negative) Urine Glucose (UA) (Negative) Urine Ketones (Negative) Urine Blood (Negative) Ur Leukocyte Esterase (Negative) Urine RBC (0-5) /hpf Urine WBC (0-5) /hpf Urine Bacteria (None) /hpf Urine Yeast (Budding) (None) /hpf Assessment and Plan Assessment: Sepsis/septic shock, secondary to presumed urinary tract infection. Possible pneumonia, left lower lobe. Oliguria, secondary to sepsis. Acute anion gap metabolic acidosis. History of cerebral palsy. History of hypertension. Multiple ALLERGIES to antibiotics. Acute metabolic encephalopathy. History of DVT. Plan: Plan dated 04/21/2022. The patient remains on both vasopressin and norepinephrine. The patient will have a stat cortisol done and TSH. We'll attempt to wean the pressors. The patient's sodium bicarbonate drip can be discontinued. Patient remains on IV Zosyn. Cultures are currently pending. Urine is suspicious for urinary tract infection. In addition, chest x-ray shows either infiltrate or atelectasis in the left lower lobe. We will continue to follow make recommendations where appropriate. Prognosis is guarded. Time with Patient: Greater than 30
[2022-04-21] MEDS: LACTATED RINGERS 1,000 ML IV SCH ×2 (10:33→23:39)
[2022-04-21] MEDS: APIXABAN 5 MG TAB PO SCH ×2 (10:34→21:08)
[2022-04-21] MEDS: SODIUM CHLORIDE 0.9% 50 ML with VASOPRESSIN 20 UNIT IVPB SCH ×4 (10:34→23:37)
--- NOTE | 2022-04-21 17:42 | CA ---
Transthoracic Echo Report Name: Nay Brownlee Age: 61 Gender: F : 1960 Exam Date: 04/21/2022 07:58 Exam Location: [facility] Ht (in): 64 Wt (lb): 296 Ordering Physician: Briana Luz Attending/Referring Phys: [id number], S[employer] Support Technician Nella Martinez RDCS Procedure CPT: Indications: hypotension, sepsis Cardiac Hx: Technical Quality: Technically difficult study Contrast 1: Lumason Total Dose (mL): 3 Contrast 2: Total Dose (mL): MEASUREMENTS (Male / Female) Normal Values 2D ECHO LV Diastolic Diameter PLAX 5.0 cm 4.2 - 5.9 / 3.9 - 5.3 cm LV Systolic Diameter PLAX 3.8 cm IVS Diastolic Thickness 1.0 cm 0.6 - 1.0 / 0.6 - 0.9 cm LVPW Diastolic Thickness 1.2 cm 0.6 - 1.0 / 0.6 - 0.9 cm LV Relative Wall Thickness 0.5 RV Internal Dim ED PLAX 3.0 cm M-MODE Aortic Root Diameter MM 2.8 cm LA Systolic Diameter MM 3.1 cm LA Ao Ratio MM 1.1 AV Cusp Separation MM 1.6 cm DOPPLER AV Peak Velocity 151.2 cm/s AV Peak Gradient 9.1 mmHg LVOT Peak Velocity 110.9 cm/s LVOT Peak Gradient 4.9 mmHg MV Area PHT 5.0 cm??? Mitral E Point Velocity 88.1 cm/s Mitral A Point Velocity 92.8 cm/s Mitral E to A Ratio 0.9 MV Deceleration Time 151.7 ms MV E' Velocity 11.1 cm/s Mitral E to MV E' Ratio 7.9 TR Peak Velocity 270.6 cm/s TR Peak Gradient 29.3 mmHg Right Ventricular Systolic Press 34.3 mmHg FINDINGS Left Ventricle Mildly increased left ventricular wall thickness. Left ventricular ejection fraction is estimated at 45-50 %. Mildly reduced global left ventricular systolic function. Right Ventricle Normal right ventricular size and function. Right ventricular systolic pressure within normal limits. Right Atrium Right atrium not well visualized. Left Atrium Normal left atrial size. Mitral Valve Structurally normal mitral valve. No mitral stenosis. Mild mitral regurgitation. Aortic Valve Not well-visualized Tricuspid Valve Mild tricuspid regurgitation.structurally normal tricuspid valve. Pulmonic Valve Pulmonic valve not well visualized. Pericardium No pericardial effusion. Aorta Normal size aortic root and proximal ascending aorta. CONCLUSIONS Technically difficult study. 1. Mildly impaired systolic function with global hypokinesis 2. Mild mitral and tricuspid regurgitation with no evidence of pulmonary hypertension Previewed by: Dr. Estella Yancey MD (Electronically Signed) Final Date: 21 April 2022 17:42
[2022-04-21] MEDS: NOREPINEPHRINE 32 MG in SODIUM CHLORIDE 0.9% 218 ML IV SCH (22:00)
--- NOTE | 2022-04-21 22:20 | P.CONS ---
History of Present Illness - Reason for Consult Consult date: 04/21/22 sepsis/pneumonia Requesting physician: Carley Salazar - Chief Complaint Mental status changes x 1 day - History of Present Illness History of Present Illness : Patient is 61 female with a past medical history significant for developmental delay cerebral palsy seizure disorder presented to hospital 2 days ago for evaluation of mental status changes apparently the patient's sister went to check on her the day of presentation to the hospital at the [facility] and noted the patient to be not herself patient was evaluated at [facility] and has been diagnosed with urosepsis she received a dose of Zosyn and subsequently transferred to [facility] for further evaluation on arrival to this hospital the patient was hypothermic tachycardic and hypertensive requiring pressor support and admission to the ICU patient did have white count of 26.8 which has come down to 12.4 lactic acid was elevated creatinine has been normal liver enzymes are normal patient did have a positive UA stool for C. difficile: Patient was negative blood cultures obtained which are currently pending patient did have a chest x-ray some left lower lobe pneumonia versus atelectasis CT abdominal pelvis dilated however suggestive of cholecystitis bilateral lower lobe infiltrate ultrasound abdomen no evidence of hydronephrosis bilaterally patient is currently being treated with Zosyn infectious disease was consulted for further management of antibiotic therapy most information has been obtained from review the chart talking to nursing staff and the patient did not provide any history Review of system: Positive points mentioned in history of present illness complete review could not be obtained because of his underlying medical condition. Past medical history : Reviewed, documented below Past surgical history : Reviewed, documented below Social history: Reviewed, documented below Medications: Reviewed, as documented below EXAMINATION: Vital sigans= Reviewed and documented below GENERAL DESCRIPTION: Middle-aged female lying in bed, no distress. No tachypnea or accessory muscle of respiration use. HEENT: Shows Pallor , no scleral icterus. Oral mucous membrane is dry. NECK: Trachea central, no thyromegaly. LUNGS: Unlabored breathing. Decreased breath sound at the base HEART: S1, S2, regular rate and rhythm. ABDOMEN: Soft, no tenderness , guarding or rigidity EXTREMITIES: No edema feet SKIN: No rash, no masses palpable. NEUROLOGICAL: The patient is awake, but nonverbal orientation could not be determined because of underlying mental status LABS AND RADIOLOGY: Reviewed results see below Assessment : Patient presented to hospital with sepsis in this patient who did have a hypothermic tachycardia elevated lactic acid and leukocytosis concerning for a urinary source plus minus a left lower lobe pneumonia as it is very hard to get any history from this patient and likely from a enteric gram-negative pathogen Plan: 1-patient to continue with Zosyn in view of clinical response while waiting for the culture to finalize 2-gentle IV fluid We will follow on clinical condition and cultures to further adjust medication if needed Thank you for this consultation we will follow the patient along with you Past Medical History Past Medical History: Hypertension, Pneumonia, Seizure Disorder History of Any Multi-Drug Resistant Organisms: Unobtainable Past Surgical History: AICD, Back Surgery Past Anesthesia/Blood Transfusion Reactions: No Reported Reaction Type of Cardiac Device: AICD Device Placement Date:: 2021 Smoking Status: Unknown if ever smoked Medications and Allergies Home Medications Medication Instructions Recorded Confirmed Type Acetaminophen Tab [Tylenol] 650 mg PO Q4H PRN MDD 3000 04/19/22 04/19/22 History Apixaban [Eliquis] 5 mg PO BID@0700,1700 04/19/22 04/19/22 History Docusate [Colace] 100 mg PO BID@0700,1700 04/19/22 04/19/22 History Furosemide [Lasix] 80 mg PO DAILY@0700 04/19/22 04/19/22 History Losartan Potassium [Cozaar] 100 mg PO DAILY@0700 04/19/22 04/19/22 History Potassium Chloride [Potassium 20 meq PO DAILY@1700 04/19/22 04/19/22 History Chloride ER] amLODIPine [Norvasc] 5 mg PO DAILY@0700 04/19/22 04/19/22 History bisacodyL 10 mg RECTAL Q72H PRN 04/19/22 04/19/22 History Allergies Allergy/AdvReac Type Severity Reaction Status Date / Time cephalexin [From Keflex] Allergy Unknown Verified 04/19/22 20:46 doxycycline Allergy Unknown Verified 04/19/22 20:46 sulfamethoxazole Allergy Unknown Verified 04/19/22 20:46 [From Bactrim] trimethoprim [From Bactrim] Allergy Unknown Verified 04/19/22 20:46 vancomycin Allergy Unknown Verified 04/19/22 20:46 Physical Exam Vitals: Vital Signs Temp Pulse Resp BP Pulse Ox 04/21/22 22:00 94.8 F L 60 17 93/60 96 04/21/22 21:00 94 F L 60 13 93/60 96 04/21/22 20:00 93 F L 60 16 112/67 96 04/21/22 19:00 60 7 L 96 04/21/22 18:00 60 13 95 04/21/22 17:00 71 13 151/74 98 04/21/22 16:00 60 4 L 86/63 94 L 04/21/22 15:00 60 8 L 120/66 96 04/21/22 14:00 62 6 L 86/45 98 04/21/22 13:00 67 12 158/84 98 04/21/22 12:00 96.0 F L 68 9 L 88/42 97 04/21/22 11:00 60 7 L 110/63 100 04/21/22 10:00 66 6 L 100/59 100 04/21/22 09:00 74 8 L 97/59 99 04/21/22 08:00 96.8 F L 70 13 119/60 99 04/21/22 07:00 71 16 97/57 99 04/21/22 06:00 73 18 106/60 99 04/21/22 05:00 74 12 106/61 99 04/21/22 04:00 97.9 F 76 16 106/55 99 04/21/22 03:00 81 13 101/64 99 04/21/22 02:00 86 12 106/60 100 04/21/22 01:00 85 13 127/69 100 04/21/22 00:00 98.2 F 90 18 126/65 99 04/20/22 23:00 89 12 138/57 100 Intake and Output 04/21/22 04/21/22 04/21/22 06:59 14:59 22:59 Intake Total 1153.272 913.736 709.687 Output Total 1200 810 500 Balance -46.728 103.736 209.687 Intake: IV 1100 600 325 Dextrose 5% in Water 1, 600 300 000 ml @ 75 mls/hr IV . [id number] MAC with Sodium Bicarb (1 Meq/ml) 150 ml Rx#:[id number] Lactated Ringers 1,000 ml 225 @ 75 mls/hr IV .[id number] MAC Rx#:[id number] Piperacillin-Tazobactam 3 100 100 100 .375 gm In Sodium Chloride 0.9% 100 ml @ 25 mls/hr IVPB Q8HR [facility] Rx# :[id number] Sodium Chloride 0.9% 1, 400 200 000 ml @ 50 mls/hr IV . Q20H [facility] Rx#:[id number] Intake, IV Titration 53.272 313.736 384.687 Amount Lactated Ringers 1,000 ml 300 375 @ 75 mls/hr IV .[id number] [facility] Rx#:[id number] Norepinephrine 32 mg In 53.272 13.736 9.687 Sodium Chloride 0.9% 218 ml @ 0.05 MCG/KG/MIN 3. 105 mls/hr IV .Q24H [facility] Rx#:[id number] Output: Urine 1200 810 500 Other: Voiding Method Indwelling Catheter Indwelling Catheter Indwelling Catheter Weight 134.5 kg 134.5 kg ABP, PAP, CO, CI - Last 8 Hours Arterial Blood Pressure 96/51 Arterial Blood Pressure 93/53 Arterial Blood Pressure 124/67 Arterial Blood Pressure 140/75 Arterial Blood Pressure 132/70 Arterial Blood Pressure 143/73 Arterial Blood Pressure 82/50 Arterial Blood Pressure 113/62 Results CBC & Chem 7: 04/21/22 06:06 04/21/22 06:06 Labs: Abnormal Lab Results - Last 24 Hours (Table) 04/21/22 04/21/22 Range/Units 06:06 06:06 WBC 12.4 H (3.8-10.6) k/uL RBC 2.79 L (3.80-5.40) m/uL Hgb 8.9 L D (11.4-16.0) gm/dL Hct 27.5 L (34.0-46.0) % RDW 15.7 H (11.5-15.5) % Plt Count 47 L D (150-450) k/uL Neutrophils # 11.0 H (1.3-7.7) k/uL Lymphocytes # 0.5 L (1.0-4.8) k/uL Chloride 108 H (98-107) mmol/L BUN 24 H (7-17) mg/dL Glucose 213 H (74-99) mg/dL Calcium 7.4 L (8.4-10.2) mg/dL Microbiology - Last 24 Hours (Table) 04/20/22 11:00 Blood Culture - Preliminary Blood No Growth after 24 hours 04/20/22 11:00 Blood Culture - Preliminary Blood No Growth after 24 hours 04/20/22 09:17 Urine Culture - Preliminary Urine,Voided
--- NOTE | 2022-04-21 23:57 | HP ---
HISTORY AND PHYSICAL CHIEF COMPLAINT: Change in mental status, UTI with sepsis. HISTORY OF PRESENT ILLNESS: This is a 61-year-old woman with a past medical history of multiple medical problems including hypertension, seizure disorder, cerebral palsy, resident of [facility]. The patient was subsequently sent to [facility] and admitted to [facility] for change in mental status as well as hypotension. The patient was found to have UTI with sepsis. The patient is on broad-spectrum antibiotics. Cultures are pending at this time. The patient is monitored in ICU. The patient is on Levophed drip at this time. Multiple consultants are following the patient. PAST MEDICAL HISTORY: Reviewed and includes cerebral palsy and hypertension. HOME MEDICATIONS: Reviewed and include: 1. Norvasc. 2. Lasix. Doses and rest of medications are noted. ALLERGIES: Reviewed and include Keflex. Rest of the allergies are noted. FAMILY HISTORY AND SOCIAL HISTORY: Could not be taken because the patient's change in mental status. PHYSICAL EXAMINATION: VITAL SIGNS: Pulse is 68, blood pressure 88/42, respirations 20, temperature 96 degrees, pulse ox 97% on room air. HEENT: Conjunctivae are normal. Oral mucosa moist. NECK: No jugular venous distention. CARDIOVASCULAR: S1 and S2 muffled. RESPIRATORY: Few scattered rhonchi and crackles. ABDOMEN: Soft and obese. LEGS: No edema. NERVOUS SYSTEM: Could not be examined completely. SKIN: No ulcer, rash, or bleeding. LYMPHATICS: No lymphadenopathy in neck, axilla, or groin. LABORATORY DATA: Initial WBC 12.2, hemoglobin is 8.9. Other labs are reviewed. ASSESSMENT: 1. Acute urinary tract infection with sepsis present on admission. 2. Change in mental status, acute metabolic encephalopathy. 3. Cerebral palsy. 4. Hypertension. 5. Pneumonia. 6. History of automatic implantable cardioverter-defibrillator. 7. History of back surgery. 8. FULL CODE. RECOMMENDATIONS AND DISCUSSION: This is a 61-year-old woman, who was admitted with UTI with sepsis. At this time, we will initiate broad-spectrum IV antibiotics. Final cultures are pending at this time. I would also recommend Infectious Disease evaluation. Nephrology also has been consulted. We will continue to monitor. Repeat labs will be ordered. Overall prognosis is extremely guarded because of multiple complex medical issues. Levophed has been initiated. Lactic acid is still high. COVID is negative. Further recommendations to follow. MMODL / IJN: [id number] /
[2022-04-22 05:16] LABS: African American GFR (CKD) >90 (>60 ml/min/1.73 sqM); Anion Gap 7 mmol/L; Blood Urea Nitrogen 17 mg/dL (7-17); Calcium 8.6 mg/dL (8.4-10.2); Carbon Dioxide 24 mmol/L (22-30); Chloride 109 mmol/L (98-107); Glucose 82 mg/dL (74-99); Non-African American GFR(CKD) >90 (>60 ml/min/1.73 sqM); Potassium 4.2 mmol/L (3.5-5.1); Sodium 140 mmol/L (137-145)
[2022-04-22 05:23] LABS: Basophils % (A) 0 %; Eosinophils # (A) 0.5 k/uL (0-0.7); Eosinophils % (A) 7 %; HCT 25.6 % (34.0-46.0); HGB 8.2 gm/dL (11.4-16.0); Hypochromasia Slight; Lymphocytes # (A) 0.6 k/uL (1.0-4.8); Lymphocytes % (A) 8 %; MCH 30.9 pg (25.0-35.0); MCHC 32.2 g/dL (31.0-37.0); Monocytes # (A) 0.2 k/uL (0-1.0); Monocytes % (A) 3 %; Neutrophils # (A) 6.2 k/uL (1.3-7.7); Neutrophils % (A) 82 %; RBC 2.67 m/uL (3.80-5.40); WBC 7.6 k/uL (3.8-10.6)
[2022-04-22 05:24] LABS: Platelet Count 32 k/uL (150-450)
--- NOTE | 2022-04-22 06:48 | P.PN ---
Subjective Progress Note Date: 04/22/22 Principal diagnosis: Sepsis. This is a 61-year-old female with history of cerebral palsy, developmental delay, seizure disorder, patient was seen yesterday at [facility] with altered mental status according to her sister. Apparently the patient lives at [facility] and with her sister saw her yesterday she felt that she was off her baseline/had altered mental status. Patient was sent to [facility], and she was noted to have abnormal urinalysis, and she was hypotensive. Patient was felt to have urosepsis. A right IJ central line was placed in the ER, patient was placed on norepinephrine and transferred to [facility]. Her lactic acid initially was 3.5. Patient arrived, briefly evaluated in our ER, I was made aware about this patient by the ER physician, and arrange for the patient to be started on antibiotics empirically, continue norepinephrine, and transfer the patient to the ICU. Labs in our ER showed leukocytosis with WBC count almost 40,000. Hemoglobin of 14.1. ABG this morning showed a pO2 of 106 pCO2 33 pH of 7.26 and this was on 2 L nasal cannula. Basic metabolic profile showed low bicarb of 13 with anion gap of 17. BUN of 25 creatinine 0.9 7 repeat lactic acid this morning was 5.8. Patient did receive at least 4 L of fluid boluses and her IV fluid is running at 1 25 mL per hour. Urinalysis is showing evidence of pyuria and bacteriuria. Patient is oliguric. In spite of multiple liters of fluid boluses given chest x-ray showed mostly left lower lobe atelectasis, possible pneumonia I favor atelectasis rather than pneumonia. CT abdomen and pelvis showed bibasilar atelectasis, possible infiltrates, small pleural effusions, abdominal ascites, dilated gallbladder suggestive of cholecystitis Progress note dated 04/21/2022. 61-year-old female seen by my partner yesterday in consultation. She apparently was transferred down from one of the outside hospitals, with mental status changes, and suspected urosepsis. She has a history of cerebral palsy, developmental delay, seizure disorder. She has an indwelling Contreras catheter. Currently, she is on 2 L nasal cannula. She has an NG tube in place. She's getting saline at 50 mL an hour, and dextrose with 3 ampules of sodium bicarbonate at 75 mL an hour. She's doing norepinephrine at 3-4 mcg/m, and vasopressin at 0.03 units per minute. She is on IV Zosyn. I've asked the nurses to check a random cortisol level and TSH. I've also asked the nurses to attempt to wean one or both of the pressors, and discontinue the sodium bicarbonate drip. White count 12.4, hemoglobin 8.9, hematocrit 27.5, platelet count 47,000. Sodium 140, potassium 4.4, chlorides 108, CO2 24, BUN and creatinine were 24 and 0.90 respectively. Lactic acid was 4.3, and repeat was 1.6. Urine is suspicious for urinary tract infection. Testing for campos virus was negative. Chest x-ray shows some left lower lobe infiltrate. Progress note dated 04/22/2022. 61-year-old female seen 2 days ago in consultation. The patient is again seen in room 263. She was transferred down from an outside hospital with mental status changes, and suspected sepsis, from a urinary source. She has a history of cerebral palsy, developmental delay, and seizure disorder. Currently, she is on room air. An NG tube is noted. She's getting saline at 10 mL an hour. Vasopressin has been off. The nurse tells me that periodically, she needs to restart the norepinephrine, and a very small dose, her transient periods of time. White count 7.6, hemoglobin 8.2, hematocrit 25.6, and platelet count is 32,000. Sodium 140, potassium 4.2, chlorides 109, CO2 24, BUN 17, and creatinine 0.69. Microbiologic studies are pending or negative. No chest x-ray today. Objective - Vital Signs Vital signs: Vital Signs Temp 97.7 F 04/22/22 04:00 Pulse 60 04/22/22 06:00 Resp 12 04/22/22 06:00 BP 107/66 04/22/22 06:00 Pulse Ox 97 04/22/22 06:00 FiO2 Intake & Output 04/21/22 04/21/22 04/22/22 06:59 18:59 06:59 Intake Total 7295.444 9121.158 1011.716 Output Total 1700 1035 665 Balance -119.306 281.158 346.716 Weight 134.5 kg 134.5 kg 134.8 kg Intake: IV 1475 700 925 Dextrose 5% in Water 1, 825 300 000 ml @ 75 mls/hr IV . [id number] MAC with Sodium Bicarb (1 Meq/ml) 150 ml Rx#:[id number] Lactated Ringers 1,000 ml 825 @ 75 mls/hr IV .[id number] MAC Rx#:[id number] Piperacillin-Tazobactam 3 100 200 100 .375 gm In Sodium Chloride 0.9% 100 ml @ 25 mls/hr IVPB Q8HR MAC Rx# :[id number] Sodium Chloride 0.9% 1, 550 200 000 ml @ 50 mls/hr IV . Q20H MAC Rx#:[id number] Intake, IV Titration 105.694 616.158 86.716 Amount Lactated Ringers 1,000 ml 600 75 @ 75 mls/hr IV .[id number] MAC Rx#:[id number] Norepinephrine 32 mg In 61.077 16.158 11.716 Sodium Chloride 0.9% 218 ml @ 0.05 MCG/KG/MIN 3. 105 mls/hr IV .Q24H [facility] Rx#:[id number] Norepinephrine 32 mg In 44.617 Sodium Chloride 0.9% 218 ml @ 0.05 MCG/KG/MIN 3. 117 mls/hr IV .Q24H [facility] Rx#:[id number] Output: Urine 1700 1035 665 Other: Voiding Method Indwelling Catheter Indwelling Catheter Indwelling Catheter ABP, PAP, CO, CI - Last Documented Arterial Blood Pressure 111/60 - Exam No acute distress, patient moans, NG tube in place. Patient on room air. HEENT examination is grossly unremarkable. Neck supple. Full range of motion. No adenopathy thyromegaly or neck vein distention. Cardiovascular examination reveals regular rhythm rate. S1-S2 normal. No S3 or S4. No discernible murmur noted. Heart rate 60 bpm. Lungs reveal mostly clear breath sounds. Minimal rhonchi. No wheezes. No crackles. Room air saturation is 97%. Abdomen soft bowel sounds are heard. No masses or tenderness. Extremities are intact. No cyanosis clubbing or edema. Skin is without rash or lesion. Neurologic examination is difficult to evaluate given her history of developmental delay, and cerebral palsy. - Labs CBC & Chem 7: 04/22/22 04:40 04/22/22 04:40 Labs: Abnormal Lab Results - Last 24 Hours (Table) 04/21/22 04/21/22 04/22/22 Range/Units 06:06 06:06 04:40 RBC 2.67 L (3.80-5.40) m/uL Hgb 8.2 L (11.4-16.0) gm/dL Hct 25.6 L (34.0-46.0) % RDW 16.0 H (11.5-15.5) % Plt Count 47 L D 32 L (150-450) k/uL Neutrophils # 11.0 H (1.3-7.7) k/uL Lymphocytes # 0.5 L 0.6 L (1.0-4.8) k/uL Chloride 108 H (98-107) mmol/L BUN 24 H (7-17) mg/dL Glucose 213 H (74-99) mg/dL Calcium 7.4 L (8.4-10.2) mg/dL 04/22/22 Range/Units 04:40 RBC (3.80-5.40) m/uL Hgb (11.4-16.0) gm/dL Hct (34.0-46.0) % RDW (11.5-15.5) % Plt Count (150-450) k/uL Neutrophils # (1.3-7.7) k/uL Lymphocytes # (1.0-4.8) k/uL Chloride 109 H (98-107) mmol/L BUN (7-17) mg/dL Glucose (74-99) mg/dL Calcium (8.4-10.2) mg/dL Microbiology - Last 24 Hours (Table) 04/20/22 11:00 Blood Culture - Preliminary Blood No Growth after 24 hours 04/20/22 11:00 Blood Culture - Preliminary Blood No Growth after 24 hours 04/20/22 09:17 Urine Culture - Preliminary Urine,Voided Assessment and Plan Assessment: Sepsis/septic shock, secondary to presumed urinary tract infection. Possible pneumonia, left lower lobe. Oliguria, secondary to sepsis. Acute anion gap metabolic acidosis. History of cerebral palsy. History of hypertension. Multiple ALLERGIES to antibiotics. Acute metabolic encephalopathy. History of DVT. Plan: Plan dated 04/21/2022. The patient remains on both vasopressin and norepinephrine. The patient will have a stat cortisol done and TSH. We'll attempt to wean the pressors. The patient's sodium bicarbonate drip can be discontinued. Patient remains on IV Zosyn. Cultures are currently pending. Urine is suspicious for urinary tract infection. In addition, chest x-ray shows either infiltrate or atelectasis in the left lower lobe. We will continue to follow make recommendations where appropriate. Prognosis is guarded. Plan dated 04/22/2022. The patient is better today than she was yesterday. She's been off the vasopre ssin for some time. In addition, she goes on and off the norepinephrine at a relatively low dose, periodically. The patient is now on room air. Saturations are excellent. NG tube remains in place. Currently, the patient is on Zosyn. She is getting lactated Ringer's at 75 mL an hour. Overall prognosis remains very guarded. Time with Patient: Less than 30
[2022-04-22] MEDS: PIPERACILLIN-TAZOBACTAM 3.375 GM in SODIUM CHLORIDE 0.9% 100 ML IVPB SCH ×3 (07:54→23:54)
[2022-04-22] MEDS: PANTOPRAZOLE 40 MG/10 ML VIAL IVP SCH ×2 (07:54→21:06)
[2022-04-22] MEDS: APIXABAN 5 MG TAB PO SCH ×2 (07:54→21:06)
--- NOTE | 2022-04-22 09:48 | P.PN ---
Subjective Patient is seen for follow-up for acute kidney injury secondary to severe anemia and hemoglobin of 3.3 on admission associated with hypotension from vaginal bleeding from fibroids. Patient has had multiple packed RBCs transfusion. Hemoglobin today at 8.2 g/dL. Vaginal bleeding has significantly decreased Maintained on low-dose levo fed Objective - Vital Signs Vital signs: Vital Signs Temp 97.0 F L 04/22/22 08:00 Pulse 60 04/22/22 08:00 Resp 10 L 04/22/22 08:00 BP 131/77 04/22/22 08:00 Pulse Ox 97 04/22/22 08:00 FiO2 Intake & Output 04/21/22 04/22/22 04/22/22 18:59 06:59 18:59 Intake Total 1753.296 6755.716 76.294 Output Total 1035 665 40 Balance 281.158 346.716 36.294 Weight 134.5 kg 134.8 kg Intake: IV 700 925 75 Dextrose 5% in Water 1, 300 000 ml @ 75 mls/hr IV . [id number] MAC with Sodium Bicarb (1 Meq/ml) 150 ml Rx#:[id number] Lactated Ringers 1,000 ml 825 75 @ 75 mls/hr IV .[id number] [facility] Rx#:[id number] Piperacillin-Tazobactam 3 200 100 .375 gm In Sodium Chloride 0.9% 100 ml @ 25 mls/hr IVPB Q8HR MAC Rx# :[id number] Sodium Chloride 0.9% 1, 200 000 ml @ 50 mls/hr IV . Q20H MAC Rx#:[id number] Intake, IV Titration 616.158 86.716 1.294 Amount Lactated Ringers 1,000 ml 600 75 @ 75 mls/hr IV .[id number] MAC Rx#:[id number] Norepinephrine 32 mg In 16.158 11.716 1.294 Sodium Chloride 0.9% 218 ml @ 0.05 MCG/KG/MIN 3. 105 mls/hr IV .Q24H MAC Rx#:[id number] Output: Urine 1035 665 40 Other: Voiding Method Indwelling Catheter Indwelling Catheter Indwelling Catheter ABP, PAP, CO, CI - Last Documented Arterial Blood Pressure 132/69 - Exam Awake, comfortable, not in any acute distress Patient does not communicate much Examination of the heart S1 and S2 Examination of the lungs bilateral breath sounds are heard Abdomen is soft morbidly obese Examination lower extremity shows chronic edema with chronic skin changes edema 1+ bilaterally [employer] exam is grossly intact - Labs CBC & Chem 7: 04/22/22 04:40 04/22/22 04:40 Labs: Abnormal Lab Results - Last 24 Hours (Table) 04/22/22 04/22/22 Range/Units 04:40 04:40 RBC 2.67 L (3.80-5.40) m/uL Hgb 8.2 L (11.4-16.0) gm/dL Hct 25.6 L (34.0-46.0) % RDW 16.0 H (11.5-15.5) % Plt Count 32 L (150-450) k/uL Lymphocytes # 0.6 L (1.0-4.8) k/uL Chloride 109 H (98-107) mmol/L Microbiology - Last 24 Hours (Table) 04/20/22 11:00 Blood Culture - Preliminary Blood No Growth after 24 hours 04/20/22 11:00 Blood Culture - Preliminary Blood No Growth after 24 hours 04/20/22 09:17 Urine Culture - Preliminary Urine,Voided Assessment and Plan Assessment: 1. Acute kidney injury secondary to severe anemia with hemoglobin of 3.3 and hypotension. Currently improved. Urine output was low but but currently adequate. 2. Severe blood loss from vaginal bleeding from fibroids. Status post 7 units packed RBCs. Hemoglobin 7.1 today. Bleeding has slowed down 3. Chronic leukocytosis with possible myelodysplastic syndrome 4. Morbid obesity 5. Severe bilateral lower extremity edema with chronic stasis 6. Mild hyponatremia associated with acute kidney injury. Sodium at 132 and staying stable. Currently off of IV fluids Plan: Continue to monitor renal function and electrolytes Continue to avoid nephrotoxic agents Add midodrine Decrease IV fluids
[2022-04-22] MEDS: MIDODRINE 5 MG TAB PO SCH ×2 (12:48→16:27)
[2022-04-22] MEDS: LACTATED RINGERS 1,000 ML IV SCH (12:49)
[2022-04-22] MEDS: NOREPINEPHRINE 32 MG in SODIUM CHLORIDE 0.9% 218 ML IV SCH (23:53)
[2022-04-23 06:17] LABS: African American GFR (CKD) >90 (>60 ml/min/1.73 sqM); Anion Gap 7 mmol/L; Blood Urea Nitrogen 16 mg/dL (7-17); Calcium 8.6 mg/dL (8.4-10.2); Carbon Dioxide 22 mmol/L (22-30); Chloride 113 mmol/L (98-107); Glucose 61 mg/dL (74-99); Non-African American GFR(CKD) 87 (>60 ml/min/1.73 sqM); Potassium 4.2 mmol/L (3.5-5.1); Sodium 142 mmol/L (137-145)
[2022-04-23 06:32] LABS: Basophils % (A) 1 %; Eosinophils # (A) 0.5 k/uL (0-0.7); Eosinophils % (A) 15 %; HCT 25.8 % (34.0-46.0); HGB 8.4 gm/dL (11.4-16.0); Hypochromasia Slight; Lymphocytes # (A) 0.6 k/uL (1.0-4.8); Lymphocytes % (A) 18 %; MCH 31.2 pg (25.0-35.0); MCHC 32.6 g/dL (31.0-37.0); MCV 95.9 fL (80.0-100.0); Mean Platelet Volume 11.9; Monocytes # (A) 0.2 k/uL (0-1.0); Monocytes % (A) 4 %; Neutrophils # (A) 2.1 k/uL (1.3-7.7); Neutrophils % (A) 61 %; RBC 2.69 m/uL (3.80-5.40); RDW 15.6 % (11.5-15.5); WBC 3.4 k/uL (3.8-10.6)
--- NOTE | 2022-04-23 06:32 | PN ---
PROGRESS NOTE This is a 61-year-old woman who was admitted with UTI and sepsis, is being closely monitored. Apparently, the patient was in rehab and the sister is concerned that the patient is admitted with multiple episodes of hospitalization recently with multiple episodes of sepsis, at least 2 or them were E coli related to UTI and subsequently aspiration pneumonia. The patient is slightly more alert today. PAST MEDICAL HISTORY: Reviewed. REVIEW OF SYSTEMS: Could not be taken. MEDICATIONS: Current medications reviewed include norepinephrine and Zosyn. Doses are reviewed. PHYSICAL EXAMINATION: VITAL SIGNS: Pulse is 69, blood pressure 107/60, respirations 20. HEENT: Conjunctivae normal. NECK: No JVD. CARDIOVASCULAR: S1, S2 muffled. RESPIRATION: Breath sounds diminished at the bases. A few scattered rhonchi. ABDOMEN: Soft, obese. LEGS: No edema. NERVOUS SYSTEM: Diffusely weak. LABS: Reviewed. Hemoglobin 8.2. The rest of the labs are reviewed. ASSESSMENT: 1. Acute urinary tract infection with possible sepsis present on admission. 2. Change in mental status and acute metabolic encephalopathy. 3. History of recent multiple episodes of sepsis, urinary tract infection, and aspiration pneumonia. 4. Cerebral palsy. 5. Hypertension. 6. History of pneumonia. 7. History of automatic implantable cardioverter-defibrillator. 8. History of back surgery. 9. FULL CODE. RECOMMENDATIONS AND DISCUSSION: I recommend to continue current management. Continue with broad-spectrum IV antibiotics. Continue rest of medications. Follow the cultures. The final cultures are pending at this time. Repeat labs. Closely follow. The patient is off pressor support. The patient is closely monitored in ICU. Discussed with staff and as well as I discussed at length with sister at the bedside and further recommendations to follow. MMODL / IJN: [id number] /
[2022-04-23] MEDS ORDERED: DEXTROSE 50% SYRINGE 50 ML IVP STA (06:39)
[2022-04-23 06:40] LABS: Platelet Count 24 k/uL (150-450)
[2022-04-23] MEDS: LACTATED RINGERS 1,000 ML IV SCH ×2 (06:43→13:56)
[2022-04-23 06:48] LABS: Glucose,Whole Blood 64 mg/dL (70-110)
[2022-04-23 07:09] LABS: Glucose,Whole Blood 156 mg/dL (70-110)
[2022-04-23] MEDS: MIDODRINE 5 MG TAB PO SCH ×3 (07:23→16:50)
--- NOTE | 2022-04-23 07:36 | P.PN ---
Subjective Progress Note Date: 04/23/22 Principal diagnosis: Sepsis. This is a 61-year-old female with history of cerebral palsy, developmental delay, seizure disorder, patient was seen yesterday at [facility] with altered mental status according to her sister. Apparently the patient lives at [facility] and with her sister saw her yesterday she felt that she was off her baseline/had altered mental status. Patient was sent to [facility], and she was noted to have abnormal urinalysis, and she was hypotensive. Patient was felt to have urosepsis. A right IJ central line was placed in the ER, patient was placed on norepinephrine and transferred to [facility]. Her lactic acid initially was 3.5. Patient arrived, briefly evaluated in our ER, I was made aware about this patient by the ER physician, and arrange for the patient to be started on antibiotics empirically, continue norepinephrine, and transfer the patient to the ICU. Labs in our ER showed leukocytosis with WBC count almost 40,000. Hemoglobin of 14.1. ABG this morning showed a pO2 of 106 pCO2 33 pH of 7.26 and this was on 2 L nasal cannula. Basic metabolic profile showed low bicarb of 13 with anion gap of 17. BUN of 25 creatinine 0.9 7 repeat lactic acid this morning was 5.8. Patient did receive at least 4 L of fluid boluses and her IV fluid is running at 1 25 mL per hour. Urinalysis is showing evidence of pyuria and bacteriuria. Patient is oliguric. In spite of multiple liters of fluid boluses given chest x-ray showed mostly left lower lobe atelectasis, possible pneumonia I favor atelectasis rather than pneumonia. CT abdomen and pelvis showed bibasilar atelectasis, possible infiltrates, small pleural effusions, abdominal ascites, dilated gallbladder suggestive of cholecystitis Progress note dated 04/21/2022. 61-year-old female seen by my partner yesterday in consultation. She apparently was transferred down from one of the outside hospitals, with mental status changes, and suspected urosepsis. She has a history of cerebral palsy, developmental delay, seizure disorder. She has an indwelling Contreras catheter. Currently, she is on 2 L nasal cannula. She has an NG tube in place. She's getting saline at 50 mL an hour, and dextrose with 3 ampules of sodium bicarbonate at 75 mL an hour. She's doing norepinephrine at 3-4 mcg/m, and vasopressin at 0.03 units per minute. She is on IV Zosyn. I've asked the nurses to check a random cortisol level and TSH. I've also asked the nurses to attempt to wean one or both of the pressors, and discontinue the sodium bicarbonate drip. White count 12.4, hemoglobin 8.9, hematocrit 27.5, platelet count 47,000. Sodium 140, potassium 4.4, chlorides 108, CO2 24, BUN and creatinine were 24 and 0.90 respectively. Lactic acid was 4.3, and repeat was 1.6. Urine is suspicious for urinary tract infection. Testing for campos virus was negative. Chest x-ray shows some left lower lobe infiltrate. Progress note dated 04/22/2022. 61-year-old female seen 2 days ago in consultation. The patient is again seen in room 263. She was transferred down from an outside hospital with mental status changes, and suspected sepsis, from a urinary source. She has a history of cerebral palsy, developmental delay, and seizure disorder. Currently, she is on room air. An NG tube is noted. She's getting saline at 10 mL an hour. Vasopressin has been off. The nurse tells me that periodically, she needs to restart the norepinephrine, and a very small dose, her transient periods of time. White count 7.6, hemoglobin 8.2, hematocrit 25.6, and platelet count is 32,000. Sodium 140, potassium 4.2, chlorides 109, CO2 24, BUN 17, and creatinine 0.69. Microbiologic studies are pending or negative. No chest x-ray today. Progress note dated 04/23/2022. 61-year-old female seen 3 days ago in consultation. She seen again in room 263. Her mental status is unchanged. She's on room air. NG tube is noted. She's getting lactated Ringer's at 75 mL an hour. She's also getting saline at KVO. This morning's glucose was a bit low. She did receive convalescent dextrose. Yesterday, she failed her swallow evaluation, and I will be readdressed today. Today's lab work showing white count of 3.4, he will 8.4, hematocrit 25.8, and a platelet count that is 24,000. Sodium 142, potassium 4.2, chlorides 113, CO2 22, within normal BUN and creatinine. Cortisol level from April 21 was 13. Blood and urine cultures are negative. Objective - Vital Signs Vital signs: Vital Signs Temp 97.4 F L 04/23/22 04:00 Pulse 73 04/23/22 07:00 Resp 10 L 04/23/22 07:00 BP 151/133 04/23/22 07:00 Pulse Ox 97 04/23/22 06:00 FiO2 Intake & Output 04/22/22 04/23/22 04/23/22 18:59 06:59 18:59 Intake Total 5926.316 4225 Output Total 440 461 25 Balance 661.978 649 -25 Weight 132.9 kg Intake: IV 1000 1110 KVO 110 Lactated Ringers 1,000 ml 900 900 @ 75 mls/hr IV .[id number] MAC Rx#:[id number] Piperacillin-Tazobactam 3 100 100 .375 gm In Sodium Chloride 0.9% 100 ml @ 25 mls/hr IVPB Q8HR MAC Rx# :[id number] Intake, IV Titration 101.978 Amount Norepinephrine 32 mg In 1.978 Sodium Chloride 0.9% 218 ml @ 0.05 MCG/KG/MIN 3. 105 mls/hr IV .Q24H MAC Rx#:[id number] Piperacillin-Tazobactam 3 100 .375 gm In Sodium Chloride 0.9% 100 ml @ 25 mls/hr IVPB Q8HR MAC Rx# :[id number] Output: Urine 440 461 25 Other: Voiding Method Indwelling Catheter Indwelling Catheter ABP, PAP, CO, CI - Last Documented Arterial Blood Pressure 153/90 - Exam No acute distress, patient moans, NG tube in place. Patient on room air. HEENT examination is grossly unremarkable. Neck supple. Full range of motion. No adenopathy thyromegaly or neck vein distention. Cardiovascular examination reveals regular rhythm rate. S1-S2 normal. No S3 or S4. No discernible murmur noted. Heart rate 73 bpm. Lungs reveal mostly clear breath sounds. Minimal rhonchi. No wheezes. No crackles. Room air saturation is 97%. Abdomen soft bowel sounds are heard. No masses or tenderness. Extremities are intact. No cyanosis clubbing or edema. Skin is without rash or lesion. Neurologic examination is difficult to evaluate given her history of developmental delay, and cerebral palsy. - Labs CBC & Chem 7: 04/23/22 05:21 04/23/22 05:21 Labs: Abnormal Lab Results - Last 24 Hours (Table) 04/23/22 04/23/22 04/23/22 Range/Units 05:21 05:21 06:35 WBC 3.4 L (3.8-10.6) k/uL RBC 2.69 L (3.80-5.40) m/uL Hgb 8.4 L (11.4-16.0) gm/dL Hct 25.8 L (34.0-46.0) % RDW 15.6 H (11.5-15.5) % Plt Count 24 L (150-450) k/uL Lymphocytes # 0.6 L (1.0-4.8) k/uL Chloride 113 H (98-107) mmol/L Glucose 61 L (74-99) mg/dL POC Glucose (mg/dL) 64 L (70-110) mg/dL 04/23/22 Range/Units 07:07 WBC (3.8-10.6) k/uL RBC (3.80-5.40) m/uL Hgb (11.4-16.0) gm/dL Hct (34.0-46.0) % RDW (11.5-15.5) % Plt Count (150-450) k/uL Lymphocytes # (1.0-4.8) k/uL Chloride (98-107) mmol/L Glucose (74-99) mg/dL POC Glucose (mg/dL) 156 H (70-110) mg/dL Microbiology - Last 24 Hours (Table) 04/20/22 11:00 Blood Culture - Preliminary Blood No Growth after 48 hours 04/20/22 11:00 Blood Culture - Preliminary Blood No Growth after 48 hours 04/20/22 09:17 Urine Culture - Final Urine,Voided Assessment and Plan Assessment: Sepsis/septic shock, secondary to presumed urinary tract infection. Possible pneumonia, left lower lobe. Oliguria, secondary to sepsis. Acute anion gap metabolic acidosis. History of cerebral palsy. History of hypertension. Multiple ALLERGIES to antibiotics. Acute metabolic encephalopathy. History of DVT. Plan: Plan dated 04/21/2022. The patient remains on both vasopressin and norepinephrine. The patient will have a stat cortisol done and TSH. We'll attempt to wean the pressors. The patient's sodium bicarbonate drip can be discontinued. Patient remains on IV Zosyn. Cultures are currently pending. Urine is suspicious for urinary tract infection. In addition, chest x-ray shows either infiltrate or atelectasis in the left lower lobe. We will continue to follow make recommendations where appropriate. Prognosis is guarded. Plan dated 04/22/2022. The patient is better today than she was yesterday. She's been off the vasopr essin for some time. In addition, she goes on and off the norepinephrine at a relatively low dose, periodically. The patient is now on room air. Saturations are excellent. NG tube remains in place. Currently, the patient is on Zosyn. She is getting lactated Ringer's at 75 mL an hour. Overall prognosis remains very guarded. Plan dated 04/23/2022. The patient remains on Zosyn empirically, with all cultures as far been negative. The patient's also getting lactated Ringer's, and saline as mentioned above. She did fail her swallow evaluation. That will be reevaluated today. She's on room air. NG tube in place. Mental status is unchanged. This is likely her baseline. We will continue to follow make recommendations along the way. Overall prognosis remains guarded. Hematology consultation should be considered for low platelet count. Time with Patient: Less than 30
[2022-04-23] MEDS: PANTOPRAZOLE 40 MG/10 ML VIAL IVP SCH ×2 (08:00→20:44)
[2022-04-23] MEDS: APIXABAN 5 MG TAB PO SCH ×2 (08:00→20:44)
[2022-04-23] MEDS: PIPERACILLIN-TAZOBACTAM 3.375 GM in SODIUM CHLORIDE 0.9% 100 ML IVPB SCH ×2 (08:00→16:50)
--- NOTE | 2022-04-23 10:22 | P.PN ---
Subjective Progress Note Date: 04/22/22 Principal diagnosis: Sepsis/UTI ?Pneumonia Patient is a 61-year-old female with a past medical history significant for developmental delay cerebral palsy seizure disorder presented to hospital mental status changes, diagnosed with the sepsis source likely urinary and a question of left lower lobe pneumonia. On today's evaluation that is 04/22/2022, the patient is afebrile the patient is slightly more awake and alert patient is hemodynamically stable not requiring pressor support no vomiting diarrhea or any other changes reported by nursing staff. Objective - Vital Signs Vital signs: Vital Signs Temp 96.9 F L 04/22/22 13:00 Pulse 70 04/22/22 14:00 Resp 0 L 04/22/22 14:00 BP 110/76 04/22/22 14:00 Pulse Ox 95 04/22/22 14:00 FiO2 Intake & Output 04/21/22 04/22/22 04/22/22 18:59 06:59 18:59 Intake Total 2898.773 4750.716 701.978 Output Total 1035 665 295 Balance 281.158 346.716 406.978 Weight 134.5 kg 134.8 kg Intake: IV 700 925 600 Dextrose 5% in Water 1, 300 000 ml @ 75 mls/hr IV . [id number] MAC with Sodium Bicarb (1 Meq/ml) 150 ml Rx#:[id number] Lactated Ringers 1,000 ml 825 600 @ 75 mls/hr IV .[id number] MAC Rx#:[id number] Piperacillin-Tazobactam 3 200 100 .375 gm In Sodium Chloride 0.9% 100 ml @ 25 mls/hr IVPB Q8HR MAC Rx# :[id number] Sodium Chloride 0.9% 1, 200 000 ml @ 50 mls/hr IV . Q20H MAC Rx#:[id number] Intake, IV Titration 616.158 86.716 101.978 Amount Lactated Ringers 1,000 ml 600 75 @ 75 mls/hr IV .[id number] MAC Rx#:[id number] Norepinephrine 32 mg In 16.158 11.716 1.978 Sodium Chloride 0.9% 218 ml @ 0.05 MCG/KG/MIN 3. 105 mls/hr IV .Q24H MAC Rx#:[id number] Piperacillin-Tazobactam 3 100 .375 gm In Sodium Chloride 0.9% 100 ml @ 25 mls/hr IVPB Q8HR [facility] Rx# :[id number] Output: Urine 1035 665 295 Other: Voiding Method Indwelling Catheter Indwelling Catheter Indwelling Catheter ABP, PAP, CO, CI - Last Documented Arterial Blood Pressure 99/59 - Exam GENERAL DESCRIPTION: Middle-aged female lying in bed, no distress. No tachypnea or accessory muscle of respiration use. LUNGS: Unlabored breathing. Decreased breath sound at the base HEART: S1, S2, regular rate and rhythm. No loud murmur ABDOMEN: Soft, no tenderness , guarding or rigidity, no organomegaly EXTREMITIES: No edema of feet. - Labs CBC & Chem 7: 04/23/22 05:21 04/23/22 05:21 Labs: Abnormal Lab Results - Last 24 Hours (Table) 04/22/22 04/22/22 Range/Units 04:40 04:40 RBC 2.67 L (3.80-5.40) m/uL Hgb 8.2 L (11.4-16.0) gm/dL Hct 25.6 L (34.0-46.0) % RDW 16.0 H (11.5-15.5) % Plt Count 32 L (150-450) k/uL Lymphocytes # 0.6 L (1.0-4.8) k/uL Chloride 109 H (98-107) mmol/L Microbiology - Last 24 Hours (Table) 04/20/22 11:00 Blood Culture - Preliminary Blood No Growth after 48 hours 04/20/22 11:00 Blood Culture - Preliminary Blood No Growth after 48 hours 04/20/22 09:17 Urine Culture - Final Urine,Voided Assessment and Plan (1) UTI (urinary tract infection) Current Visit: Yes Status: Acute Code(s): N39.0 - URINARY TRACT INFECTION, SITE NOT SPECIFIED SNOMED Code(s): 07289662 Plan: 1patient presented to hospital with sepsis source likely urinary plus minus a left lower lobe pneumonia in this patient seem to have shown some clinical improvement the patient is afebrile white count has normalized cultures so far negative to continue with Zosyn and monitor clinical course closely Time with Patient: Less than 30
--- NOTE | 2022-04-23 10:24 | P.PN ---
Subjective Progress Note Date: 04/23/22 Principal diagnosis: Sepsis/UTI ?Pneumonia Patient is a 61-year-old female with a past medical history significant for developmental delay cerebral palsy seizure disorder presented to hospital mental status changes, diagnosed with the sepsis source likely urinary and a question of left lower lobe pneumonia. On today's evaluation that is 04/23/2022, the patient remains to be afebrile the patient is slightly more sleepy and lethargic today per the nursing staff however the patient is hemodynamically stable not requiring pressor support no vomiting diarrhea or any other changes reported patient was unable to provide any history. Objective - Vital Signs Vital signs: Vital Signs Temp 97.1 F L 04/23/22 08:00 Pulse 60 04/23/22 09:00 Resp 12 04/23/22 09:00 BP 131/89 04/23/22 09:00 Pulse Ox 94 L 04/23/22 09:00 FiO2 Intake & Output 04/22/22 04/23/22 04/23/22 18:59 06:59 18:59 Intake Total 9463.539 5767 Output Total 440 461 25 Balance 661.978 649 -25 Weight 132.9 kg Intake: IV 1000 1110 KVO 110 Lactated Ringers 1,000 ml 900 900 @ 75 mls/hr IV .[id number] MAC Rx#:[id number] Piperacillin-Tazobactam 3 100 100 .375 gm In Sodium Chloride 0.9% 100 ml @ 25 mls/hr IVPB Q8HR MAC Rx# :[id number] Intake, IV Titration 101.978 Amount Norepinephrine 32 mg In 1.978 Sodium Chloride 0.9% 218 ml @ 0.05 MCG/KG/MIN 3. 105 mls/hr IV .Q24H MAC Rx#:[id number] Piperacillin-Tazobactam 3 100 .375 gm In Sodium Chloride 0.9% 100 ml @ 25 mls/hr IVPB Q8HR MAC Rx# :[id number] Output: Urine 440 461 25 Other: Voiding Method Indwelling Catheter Indwelling Catheter Indwelling Catheter ABP, PAP, CO, CI - Last Documented Arterial Blood Pressure 134/78 - Exam GENERAL DESCRIPTION: Middle-aged female lying in bed, no distress. No tachypnea or accessory muscle of respiration use. LUNGS: Unlabored breathing. Decreased breath sound at the base HEART: S1, S2, regular rate and rhythm. No loud murmur ABDOMEN: Soft, no tenderness , guarding or rigidity, no organomegaly EXTREMITIES: No edema of feet. - Labs CBC & Chem 7: 04/23/22 05:21 04/23/22 05:21 Labs: Abnormal Lab Results - Last 24 Hours (Table) 04/23/22 04/23/22 04/23/22 Range/Units 05:21 05:21 06:35 WBC 3.4 L (3.8-10.6) k/uL RBC 2.69 L (3.80-5.40) m/uL Hgb 8.4 L (11.4-16.0) gm/dL Hct 25.8 L (34.0-46.0) % RDW 15.6 H (11.5-15.5) % Plt Count 24 L (150-450) k/uL Lymphocytes # 0.6 L (1.0-4.8) k/uL Chloride 113 H (98-107) mmol/L Glucose 61 L (74-99) mg/dL POC Glucose (mg/dL) 64 L (70-110) mg/dL 04/23/22 Range/Units 07:07 WBC (3.8-10.6) k/uL RBC (3.80-5.40) m/uL Hgb (11.4-16.0) gm/dL Hct (34.0-46.0) % RDW (11.5-15.5) % Plt Count (150-450) k/uL Lymphocytes # (1.0-4.8) k/uL Chloride (98-107) mmol/L Glucose (74-99) mg/dL POC Glucose (mg/dL) 156 H (70-110) mg/dL Microbiology - Last 24 Hours (Table) 04/20/22 11:00 Blood Culture - Preliminary Blood No Growth after 48 hours 04/20/22 11:00 Blood Culture - Preliminary Blood No Growth after 48 hours 04/20/22 09:17 Urine Culture - Final Urine,Voided Assessment and Plan (1) UTI (urinary tract infection) Current Visit: Yes Status: Acute Code(s): N39.0 - URINARY TRACT INFECTION, SITE NOT SPECIFIED SNOMED Code(s): 02275926 Plan: patient presented to hospital with sepsis source likely urinary plus minus a left lower lobe pneumonia, patient has shown clinical improvement as the patient is afebrile white count has normalized, both blood and urine cultures has been negative so far, patient to continue with Zosyn and monitor clinical course closely Time with Patient: Less than 30
[2022-04-23] MEDS ORDERED: FUROSEMIDE 10 MG/ML 4 ML VIAL IV STA (11:22)
[2022-04-23 11:52] LABS: Glucose,Whole Blood 70 mg/dL (70-110)
[2022-04-23 14:25] VITALS: BMI 50.3
[2022-04-23 16:27] LABS: Glucose,Whole Blood 76 mg/dL (70-110)
[2022-04-24] MEDS: PIPERACILLIN-TAZOBACTAM 3.375 GM in SODIUM CHLORIDE 0.9% 100 ML IVPB SCH ×2 (00:54→08:43)
[2022-04-24] MEDS: NOREPINEPHRINE 32 MG in SODIUM CHLORIDE 0.9% 218 ML IV SCH (01:52)
--- NOTE | 2022-04-24 04:16 | PN ---
PROGRESS NOTE SUBJECTIVE: This 61-year-old woman was admitted with acute UTI and sepsis, is being closely monitored. The patient continues to be confused. The patient had multiple episodes of sepsis recently with related aspiration pneumonia as well as UTI according to the family. The most recent cultures are negative. The patient is on broad spectrum IV antibiotics. PAST MEDICAL HISTORY: Reviewed. REVIEW OF SYSTEMS: Could not be taken. CURRENT MEDICATIONS: Reviewed include Zosyn, dose and rest of medications reviewed. PHYSICAL EXAMINATION: VITAL SIGNS: Pulse is 62, blood pressure is 113/80, respiration 12. HEENT: Conjunctivae normal. CARDIOVASCULAR: S1, S2 muffled. RESPIRATION: Breath sounds diminished at the bases. No rhonchi. No crackles. ABDOMEN: Soft, nontender. LEGS: No edema. NERVOUS SYSTEM: Unresponsive. LABS: Reviewed include WBC ntd, hemoglobin is 8.5. The rest of labs reviewed. ASSESSMENT: 1. Acute urinary tract infection with possible sepsis present on admission. 2. Negative cultures so far. 3. Change in mental status, acute metabolic encephalopathy. 4. History of recent multiple episodes of sepsis, urinary tract infection, and aspiration pneumonia. 5. Cerebral palsy. 6. Hypertension. 7. History of pneumonia. 8. History of automatic implantable cardioverter-defibrillator. 9. History of back surgery. 10.FULL CODE. RECOMMENDATIONS AND DISCUSSION: I recommend to continue current management. Continue with broad-spectrum IV antibiotics. Continue the rest of supporting treatment. Repeat labs. Overall prognosis guarded. The patient is off pressor support. Further recommendations to follow. See orders for further details. MMODL / IJN: [id number] / MTDD
[2022-04-24 06:47] LABS: Basophils % (A) 1 %; Eosinophils # (A) 0.4 k/uL (0-0.7); Eosinophils % (A) 16 %; HCT 25.1 % (34.0-46.0); HGB 8.3 gm/dL (11.4-16.0); Hypochromasia Slight; Lymphocytes # (A) 0.4 k/uL (1.0-4.8); Lymphocytes % (A) 18 %; MCH 31.9 pg (25.0-35.0); MCHC 33.1 g/dL (31.0-37.0); MCV 96.5 fL (80.0-100.0); Mean Platelet Volume 12.5; Monocytes # (A) 0.1 k/uL (0-1.0); Monocytes % (A) 4 %; Neutrophils # (A) 1.3 k/uL (1.3-7.7); Neutrophils % (A) 59 %; RDW 15.4 % (11.5-15.5); WBC 2.3 k/uL (3.8-10.6)
[2022-04-24 06:52] LABS: Platelet Count 21 k/uL (150-450)
[2022-04-24 06:55] LABS: African American GFR (CKD) >90 (>60 ml/min/1.73 sqM); Anion Gap 6 mmol/L; Blood Urea Nitrogen 16 mg/dL (7-17); Calcium 8.1 mg/dL (8.4-10.2); Carbon Dioxide 25 mmol/L (22-30); Chloride 111 mmol/L (98-107); Glucose 116 mg/dL (74-99); Non-African American GFR(CKD) 88 (>60 ml/min/1.73 sqM); Potassium 3.7 mmol/L (3.5-5.1); Sodium 142 mmol/L (137-145)
[2022-04-24] MEDS: MIDODRINE 5 MG TAB PO SCH ×3 (08:36→16:53)
[2022-04-24] MEDS: APIXABAN 5 MG TAB PO SCH (08:43)
[2022-04-24] MEDS: PANTOPRAZOLE 40 MG/10 ML VIAL IVP SCH ×2 (08:44→20:55)
[2022-04-24] MEDS: LACTATED RINGERS 1,000 ML IV SCH (08:44)
--- NOTE | 2022-04-24 08:59 | PN ---
PROGRESS NOTE SUBJECTIVE: The patient is seen for followup for acute kidney injury. The patient is currently comfortable. She denies any significant complaints. The patient does not communicate much. Blood pressure had been on the lower side and the patient was started on midodrine. PHYSICAL EXAMINATION: VITAL SIGNS: This morning, blood pressure was 149/88, heart rate 60 per minute. The patient is afebrile. HEART: Examination of the heart S1, S2. LUNGS: Examination of lungs, bilateral breath sounds are heard. ABDOMEN: Soft, obese. EXTREMITIES: Examination of lower extremities shows 1+ edema bilaterally. OPTOMETRIC AIDE: Exam shows the patient does not communicate much. LAB: Shows sodium 142, potassium 4.2, BUN 16, serum creatinine 0.74, hemoglobin 8.4 g/dL. ASSESSMENT: 1. Acute kidney injury with decreased urine output initially, now resolved. 2. Cerebral palsy with developmental delay. 3. Sepsis possibly related to pneumonia and underlying urinary tract infection. Urine culture, however, did not grow any specific bacteria. I am not sure if this was after the antibiotics. 4. Volume overload. 5. Anemia. Check iron profile. PLAN: Check iron profile. Continue with midodrine. Continue off IV fluids and repeat labs in a.m. MMODL / IJN: [id number] /
[2022-04-24] MEDS ORDERED: FUROSEMIDE 10 MG/ML 4 ML VIAL IV STA (09:16)
--- NOTE | 2022-04-24 10:22 | P.PN ---
Subjective Progress Note Date: 04/24/22 Principal diagnosis: Sepsis. This is a 61-year-old female with history of cerebral palsy, developmental delay, seizure disorder, patient was seen yesterday at [facility] with altered mental status according to her sister. Apparently the patient lives at [facility] and with her sister saw her yesterday she felt that she was off her baseline/had altered mental status. Patient was sent to [facility], and she was noted to have abnormal urinalysis, and she was hypotensive. Patient was felt to have urosepsis. A right IJ central line was placed in the ER, patient was placed on norepinephrine and transferred to [facility]. Her lactic acid initially was 3.5. Patient arrived, briefly evaluated in our ER, I was made aware about this patient by the ER physician, and arrange for the patient to be started on antibiotics empirically, continue norepinephrine, and transfer the patient to the ICU. Labs in our ER showed leukocytosis with WBC count almost 40,000. Hemoglobin of 14.1. ABG this morning showed a pO2 of 106 pCO2 33 pH of 7.26 and this was on 2 L nasal cannula. Basic metabolic profile showed low bicarb of 13 with anion gap of 17. BUN of 25 creatinine 0.9 7 repeat lactic acid this morning was 5.8. Patient did receive at least 4 L of fluid boluses and her IV fluid is running at 1 25 mL per hour. Urinalysis is showing evidence of pyuria and bacteriuria. Patient is oliguric. In spite of multiple liters of fluid boluses given chest x-ray showed mostly left lower lobe atelectasis, possible pneumonia I favor atelectasis rather than pneumonia. CT abdomen and pelvis showed bibasilar atelectasis, possible infiltrates, small pleural effusions, abdominal ascites, dilated gallbladder suggestive of cholecystitis Progress note dated 04/21/2022. 61-year-old female seen by my partner yesterday in consultation. She apparently was transferred down from one of the outside hospitals, with mental status changes, and suspected urosepsis. She has a history of cerebral palsy, developmental delay, seizure disorder. She has an indwelling Contreras catheter. Currently, she is on 2 L nasal cannula. She has an NG tube in place. She's getting saline at 50 mL an hour, and dextrose with 3 ampules of sodium bicarbonate at 75 mL an hour. She's doing norepinephrine at 3-4 mcg/m, and vasopressin at 0.03 units per minute. She is on IV Zosyn. I've asked the nurses to check a random cortisol level and TSH. I've also asked the nurses to attempt to wean one or both of the pressors, and discontinue the sodium bicarbonate drip. White count 12.4, hemoglobin 8.9, hematocrit 27.5, platelet count 47,000. Sodium 140, potassium 4.4, chlorides 108, CO2 24, BUN and creatinine were 24 and 0.90 respectively. Lactic acid was 4.3, and repeat was 1.6. Urine is suspicious for urinary tract infection. Testing for campos virus was negative. Chest x-ray shows some left lower lobe infiltrate. Progress note dated 04/22/2022. 61-year-old female seen 2 days ago in consultation. The patient is again seen in room 263. She was transferred down from an outside hospital with mental status changes, and suspected sepsis, from a urinary source. She has a history of cerebral palsy, developmental delay, and seizure disorder. Currently, she is on room air. An NG tube is noted. She's getting saline at 10 mL an hour. Vasopressin has been off. The nurse tells me that periodically, she needs to restart the norepinephrine, and a very small dose, her transient periods of time. White count 7.6, hemoglobin 8.2, hematocrit 25.6, and platelet count is 32,000. Sodium 140, potassium 4.2, chlorides 109, CO2 24, BUN 17, and creatinine 0.69. Microbiologic studies are pending or negative. No chest x-ray today. Progress note dated 04/23/2022. 61-year-old female seen 3 days ago in consultation. She seen again in room 263. Her mental status is unchanged. She's on room air. NG tube is noted. She's getting lactated Ringer's at 75 mL an hour. She's also getting saline at KVO. This morning's glucose was a bit low. She did receive convalescent dextrose. Yesterday, she failed her swallow evaluation, and I will be readdressed today. Today's lab work showing white count of 3.4, he will 8.4, hematocrit 25.8, and a platelet count that is 24,000. Sodium 142, potassium 4.2, chlorides 113, CO2 22, within normal BUN and creatinine. Cortisol level from April 21 was 13. Blood and urine cultures are negative. Progress note dated 04/24/2022. 61-year-old female again seen in room 263. The patient's mental status is about the same, or slightly improved. She remains on 2 L nasal cannula, and lactated Ringer's at 75 mL an hour. She's getting an NG tube in place. She is going for a modified barium swallow today. She is also getting saline at 10 mL an hour, and Jevity 30 mL an hour, with a goal of 40. She will get Lasix 40 mg IV push t heather. She remains on Zosyn empirically. The patient is a candidate to go to the general medical floor, with telemetry. We also will have hematology see her, for her low platelet count. White count 2.3, hemoglobin 8.3, hematocrit 25.1, and platelet count 21,000. Sodium 142, potassium 3.7, chlorides 111, CO2 25, BUN 16, creatinine 0.73. Blood and urine cultures are currently negative. No recent chest x-ray. Objective - Vital Signs Vital signs: Vital Signs Temp 99 F 04/24/22 04:00 Pulse 60 04/24/22 08:00 Resp 12 04/24/22 08:00 BP 144/87 04/24/22 08:00 Pulse Ox 98 04/24/22 08:00 FiO2 Intake & Output 04/23/22 04/24/22 04/24/22 18:59 06:59 18:59 Intake Total 1135 1120 435 Output Total 1685 490 60 Balance -550 630 375 Weight 132.9 kg Intake: IV 1135 1120 355 KVO 110 120 30 Lactated Ringers 1,000 ml 825 900 225 @ 75 mls/hr IV .[id number] MAC Rx#:[id number] Piperacillin-Tazobactam 3 200 100 100 .375 gm In Sodium Chloride 0.9% 100 ml @ 25 mls/hr IVPB Q8HR MAC Rx# :[id number] Tube Feeding 50 Other 30 Output: Urine 1685 490 60 Other: Voiding Method Indwelling Catheter Indwelling Catheter Indwelling Catheter ABP, PAP, CO, CI - Last Documented Arterial Blood Pressure 136/80 - Exam No acute distress, patient moans, NG tube in place. Patient on nasal cannula at 2 L. HEENT examination is grossly unremarkable. Neck supple. Full range of motion. No adenopathy thyromegaly or neck vein distention. Cardiovascular examination reveals regular rhythm rate. S1-S2 normal. No S3 or S4. No discernible murmur noted. Heart rate 60 bpm. Lungs reveal mostly clear breath sounds. Minimal rhonchi. No wheezes. No crackles. Room air saturation is 98 %. Abdomen soft bowel sounds are heard. No masses or tenderness. Extremities are intact. No cyanosis clubbing or edema. Skin is without rash or lesion. Neurologic examination is difficult to evaluate given her history of developmental delay, and cerebral palsy. - Labs CBC & Chem 7: 04/24/22 06:25 04/24/22 06:25 Labs: Abnormal Lab Results - Last 24 Hours (Table) 04/24/22 04/24/22 Range/Units 06:25 06:25 WBC 2.3 L (3.8-10.6) k/uL RBC 2.60 L (3.80-5.40) m/uL Hgb 8.3 L (11.4-16.0) gm/dL Hct 25.1 L (34.0-46.0) % Plt Count 21 L (150-450) k/uL Lymphocytes # 0.4 L (1.0-4.8) k/uL Chloride 111 H (98-107) mmol/L Glucose 116 H (74-99) mg/dL Calcium 8.1 L (8.4-10.2) mg/dL Microbiology - Last 24 Hours (Table) 04/20/22 11:00 Blood Culture - Preliminary Blood No Growth after 72 hours 04/20/22 11:00 Blood Culture - Preliminary Blood No Growth after 72 hours Assessment and Plan Assessment: Sepsis/septic shock, secondary to presumed urinary tract infection. Possible pneumonia, left lower lobe. Oliguria, secondary to sepsis. Acute anion gap metabolic acidosis. History of cerebral palsy. History of hypertension. Multiple ALLERGIES to antibiotics. Acute metabolic encephalopathy. History of DVT. Plan: Plan dated 04/21/2022. The patient remains on both vasopressin and norepinephrine. The patient will have a stat cortisol done and TSH. We'll attempt to wean the pressors. The patient's sodium bicarbonate drip can be discontinued. Patient remains on IV Zosyn. Cultures are currently pending. Urine is suspicious for urinary tract infection. In addition, chest x-ray shows either infiltrate or atelectasis in the left lower lobe. We will continue to follow make recommendations where appropriate. Prognosis is guarded. Plan dated 04/22/2022. The patient is better today than she was yesterday. She's been off the vasopressin for some time. In addition, she goes on and off the norepinephrine at a relatively low dose, periodically. The patient is now on room air. Saturations are excellent. NG tube remains in place. Currently, the patient is on Zosyn. She is getting lactated Ringer's at 75 mL an hour. Overall prognosis remains very guarded. Plan dated 04/23/2022. The patient remains on Zosyn empirically, with all cultures as far been negative. The patient's also getting lactated Ringer's, and saline as mentioned above. She did fail her swallow evaluation. That will be reevaluated today. She's on room air. NG tube in place. Mental status is unchanged. This is likely her baseline. We will continue to follow make recommendations along the way. Overall prognosis remains guarded. Hematology consultation should be considered for low platelet count. Plan dated 04/24/2022. The patient remains on Zosyn. The patient's also getting LR at 75 mL an hour. We'll have hematology see her for her thrombocytopenia, as well as her pancytopenia. She does remain on Zosyn which may be the culprit drug. She will get Lasix 40 mg IV push today. She will have a modified barium swallow. We will continue to follow and make recommendations along the way. Labs, x-rays, and medications are reviewed. Prognosis is guarded. Time with Patient: Less than 30
[2022-04-24] MEDS ORDERED: SODIUM CHLORIDE 0.9% 500 ML 500 ML IV ONE (16:17)
[2022-04-24] MEDS: SODIUM CHLORIDE 0.9% 1,000 ML IV SCH (16:32)
[2022-04-24 18:45] LABS: Glucose,Whole Blood 119 mg/dL (70-110)
[2022-04-24] MEDS: CHOLESTYRAMINE (WITH SUGAR) 4 GM PACKET PO SCH (18:45)
--- NOTE | 2022-04-24 18:46 | CT ---
EXAMINATION TYPE: CT brain wo con DATE OF EXAM: 04/24/2022 HISTORY: ams CT DLP: 1141.4 mGycm. Automated Exposure Control for Dose Reduction was Utilized. TECHNIQUE: CT scan of the head is performed without contrast. COMPARISON: None. FINDINGS: There is no acute intracranial hemorrhage or midline shift identified. There is diffuse moise tricular and sulcal prominence consistent with diffuse age-related cerebral atrophy. There is low-at tenuation in the periventricular white matter consistent with chronic small vessel ischemic change. The globes are intact and the visualized sinuses are clear. IMPRESSION: No acute intracranial hemorrhage or midline shift. There is diffuse age-related cerebra l atrophy and chronic small vessel ischemic change noted.
--- NOTE | 2022-04-24 19:34 | P.CONS ---
History of Present Illness - Reason for Consult Consult date: 04/24/22 Thrombocytopenia Requesting physician: Qian Arias - Chief Complaint Altered mental status - History of Present Illness Patient has a history of cerebral palsy and developmental this leg, seizure disorder, she can relay no history. She presented to the emergency department at [facility] for altered mental status. Her sister was visiting her at the [facility] when she noted that she was not behaving normally. Patient was diagnosed at that time with urosepsis. Patient was experiencing hypotension so she had a central line placed and was started on vasoconstrictive medications and transferred here. CT of the abdomen and pelvis shows bilateral lower lobe pulmonary infiltrates and atelectasis. Small pleural effusions. Some abdominal ascites. No masses, left ovarian cyst. Dilated gallbladder, possible old cholecystitis, decrease renal excretion. We have been consulted for progressive pancytopenia. Review of Systems ROS unobtainable: due to mental status Past Medical History Past Medical History: Hypertension, Pneumonia, Seizure Disorder History of Any Multi-Drug Resistant Organisms: Unobtainable Past Surgical History: AICD, Back Surgery Past Anesthesia/Blood Transfusion Reactions: No Reported Reaction Type of Cardiac Device: AICD Device Placement Date:: 2021 Smoking Status: Unknown if ever smoked Medications and Allergies Home Medications Medication Instructions Recorded Confirmed Type Acetaminophen Tab [Tylenol] 650 mg PO Q4H PRN MDD 3000 04/19/22 04/19/22 History Apixaban [Eliquis] 5 mg PO BID@0700,1700 04/19/22 04/19/22 History Docusate [Colace] 100 mg PO BID@0700,1700 04/19/22 04/19/22 History Furosemide [Lasix] 80 mg PO DAILY@0700 04/19/22 04/19/22 History Losartan Potassium [Cozaar] 100 mg PO DAILY@0700 04/19/22 04/19/22 History Potassium Chloride [Potassium 20 meq PO DAILY@1700 04/19/22 04/19/22 History Chloride ER] amLODIPine [Norvasc] 5 mg PO DAILY@0700 04/19/22 04/19/22 History bisacodyL 10 mg RECTAL Q72H PRN 04/19/22 04/19/22 History Allergies Allergy/AdvReac Type Severity Reaction Status Date / Time cephalexin [From Keflex] Allergy Unknown Verified 04/19/22 20:46 doxycycline Allergy Unknown Verified 04/19/22 20:46 sulfamethoxazole Allergy Unknown Verified 04/19/22 20:46 [From Bactrim] trimethoprim [From Bactrim] Allergy Unknown Verified 04/19/22 20:46 vancomycin Allergy Unknown Verified 04/19/22 20:46 Physical Exam Vitals: Vital Signs Temp Pulse Pulse Resp BP BP Pulse Ox 04/24/22 16:54 96.2 F L 60 14 90/52 97 04/24/22 15:07 82/42 04/24/22 14:00 68 8 L 111/66 91 L 04/24/22 13:00 68 12 106/65 94 L 04/24/22 12:00 92.9 F L 60 12 95/56 94 L 04/24/22 11:00 60 11 L 107/65 97 04/24/22 10:25 92.9 F L 04/24/22 10:00 60 18 98 04/24/22 09:00 62 12 135/83 99 04/24/22 08:00 60 12 144/87 98 04/24/22 07:00 60 19 128/74 99 04/24/22 06:00 64 16 130/80 99 04/24/22 05:00 60 18 140/79 99 04/24/22 04:00 99 F 60 18 143/93 98 04/24/22 03:00 60 20 127/72 99 04/24/22 02:00 60 18 99 04/24/22 01:00 60 18 134/86 99 04/24/22 00:00 60 21 141/86 99 04/23/22 23:00 60 20 129/79 98 04/23/22 22:00 60 20 122/72 100 04/23/22 21:00 60 18 125/76 100 04/23/22 20:00 60 19 139/88 99 04/23/22 19:00 60 10 L 144/91 Intake and Output 04/24/22 04/24/22 04/24/22 06:59 14:59 22:59 Intake Total 780 930 Output Total 250 2780 Balance 530 -1850 Intake: IV 780 520 KVO 80 80 Lactated Ringers 1,000 ml 600 340 @ 20 mls/hr IV .Q24H [facility] Rx#:[id number] Piperacillin-Tazobactam 3 100 100 .375 gm In Sodium Chloride 0.9% 100 ml @ 25 mls/hr IVPB Q8HR [facility] Rx# :[id number] Oral 0 Tube Feeding 200 Other 210 Output: Urine 250 2780 Other: Voiding Method Indwelling Catheter Indwelling Catheter ABP, PAP, CO, CI - Last 8 Hours Arterial Blood Pressure 102/56 Arterial Blood Pressure 110/61 Arterial Blood Pressure 108/59 Arterial Blood Pressure 104/59 - Constitutional General appearance: mild distress, obese - EENT Eyes: anicteric sclerae, EOMI ENT: normal oropharynx - Neck Neck: no lymphadenopathy - Respiratory Respiratory: bilateral: CTA - Cardiovascular Rhythm: regular Heart sounds: normal: S1, S2 Abnormal Heart Sounds: no systolic murmur, no diastolic murmur, no rub, no S3 Gallop, no S4 Gallop, no click, no other leg Peripheral Edema: bilateral: 1+ - Gastrointestinal General gastrointestinal: normal bowel sounds, soft - Musculoskeletal Musculoskeletal: generalized weakness - Psychiatric Psychiatric: no A&O x's 3, no appropriate affect, no intact judgment & insight Results CBC & Chem 7: 04/24/22 06:25 04/24/22 06:25 Labs: Abnormal Lab Results - Last 24 Hours (Table) 04/24/22 04/24/22 Range/Units 06:25 06:25 WBC 2.3 L (3.8-10.6) k/uL RBC 2.60 L (3.80-5.40) m/uL Hgb 8.3 L (11.4-16.0) gm/dL Hct 25.1 L (34.0-46.0) % Plt Count 21 L (150-450) k/uL Lymphocytes # 0.4 L (1.0-4.8) k/uL Chloride 111 H (98-107) mmol/L Glucose 116 H (74-99) mg/dL Calcium 8.1 L (8.4-10.2) mg/dL Microbiology - Last 24 Hours (Table) 04/20/22 11:00 Blood Culture - Preliminary Blood No Growth after 96 hours 04/20/22 11:00 Blood Culture - Preliminary Blood No Growth after 96 hours Abdominal x-ray: report reviewed CT scan - abdomen: report reviewed CT Scan - head: report reviewed CT scan - pelvis: report reviewed Assessment and Plan (1) Pancytopenia Current Visit: Yes Status: Acute Priority: High Code(s): D61.818 - OTHER PANCYTOPENIA SNOMED Code(s): 976621400 Plan: Eliquis was held for platelets below 50,000. SCDs for DVT prophylaxis. Baseline plt count for pt is low normal. Noted to drop with acute illness. Transfuse for plt <10K or if symptomatic. WBC slightly low, ANC is adequate. No G-CSF needed. Hemoglobin did drop since admit. When labs reviewed her hemoglobin was as high as 11, mostly 9-10 range at baseline. No documentation or signs or symptoms of overt bleeding. Continue to monitor CBC. Transfuse for hemoglobin less than 7. Pancytopenia work up ordered.
[2022-04-24] MEDS: AMOXIC-POT CLAV 875-125MG 1 EACH TAB PO SCH (21:56)
[2022-04-25 00:23] LABS: Glucose,Whole Blood 130 mg/dL (70-110)
[2022-04-25 04:47] LABS: Basophils % (A) 0 %; Eosinophils # (A) 0.5 k/uL (0-0.7); Eosinophils % (A) 10 %; HCT 25.4 % (34.0-46.0); HGB 8.3 gm/dL (11.4-16.0); Hypochromasia Slight; Lymphocytes # (A) 0.4 k/uL (1.0-4.8); Lymphocytes % (A) 8 %; MCH 31.5 pg (25.0-35.0); MCHC 32.7 g/dL (31.0-37.0); MCV 96.3 fL (80.0-100.0); Mean Platelet Volume 12.8; Monocytes # (A) 0.2 k/uL (0-1.0); Monocytes % (A) 3 %; Neutrophils # (A) 3.7 k/uL (1.3-7.7); Neutrophils % (A) 77 %; RBC 2.64 m/uL (3.80-5.40); RDW 15.8 % (11.5-15.5); WBC 4.8 k/uL (3.8-10.6)
[2022-04-25 04:52] LABS: Platelet Count 31 k/uL (150-450)
[2022-04-25 04:53] LABS: ALT 24 U/L (4-34); AST 26 U/L (14-36); African American GFR (CKD) >90 (>60 ml/min/1.73 sqM); Albumin 2.7 g/dL (3.5-5.0); Alkaline Phosphatase 97 U/L (38-126); Anion Gap 6 mmol/L; Blood Urea Nitrogen 16 mg/dL (7-17); Calcium 7.9 mg/dL (8.4-10.2); Carbon Dioxide 27 mmol/L (22-30); Chloride 110 mmol/L (98-107); Glucose 126 mg/dL (74-99); Non-African American GFR(CKD) >90 (>60 ml/min/1.73 sqM); Potassium 3.5 mmol/L (3.5-5.1); Sodium 143 mmol/L (137-145); Total Bilirubin 0.1 mg/dL (0.2-1.3); Total Protein 5.3 g/dL (6.3-8.2)
[2022-04-25] MEDS: LACTATED RINGERS 1,000 ML IV SCH (06:49)
[2022-04-25] MEDS: NOREPINEPHRINE 32 MG in SODIUM CHLORIDE 0.9% 218 ML IV SCH (06:49)
[2022-04-25] MEDS: POTASSIUM CHLORIDE 20 MEQ in WATER FOR INJECTION 1 100ML.BAG IVPB SCH ×2 (06:50→09:00)
[2022-04-25] MEDS: SODIUM CHLORIDE 0.9% 1,000 ML IV SCH ×2 (06:51→15:45)
[2022-04-25 06:58] LABS: Glucose,Whole Blood 141 mg/dL (70-110)
--- NOTE | 2022-04-25 08:16 | PN ---
PROGRESS NOTE SUBJECTIVE: This 61-year-old woman was admitted with UTI, sepsis, continues to be minimally responsive. The patient on IV antibiotics. Cultures are negative so far. The patient is hypotensive, the patient. The patient is closely monitored in ICU. PAST MEDICAL HISTORY: Reviewed. REVIEW OF SYSTEMS: Could not be taken. The patient is nonverbal at this time. CURRENT MEDICATIONS: Reviewed include Protonix, and Augmentin. Doses are reviewed. PHYSICAL EXAMINATION: VITAL SIGNS: Pulse is 68, blood pressure is 100/60, respiration 18. HEENT: Conjunctivae normal. NECK: No JVD. CARDIOVASCULAR: S1, S2 muffled. RESPIRATIONS: Breath sounds diminished in the bases. Scattered rhonchi and crackles. ABDOMEN: Soft, nontender. LEGS: No edema. NERVOUS SYSTEM: Could not be examined completely. LABS: Reviewed. Hemoglobin 8.3. Other labs are reviewed. ASSESSMENT: 1. Acute urinary tract infection with possible sepsis present on admission with negative cultures. 2. Change in mental status, acute metabolic encephalopathy. 3. History of recent multiple episodes of sepsis, urinary tract infection, and aspiration pneumonia. 4. Cerebral palsy. 5. Hypertension. 6. History of pneumonia. 7. History of automatic implantable cardioverter-defibrillator. 8. History of back surgery. 9. FULL CODE. RECOMMENDATIONS AND DISCUSSION: I recommend to continue current management. Continue with antibiotics. Continue with bronchodilators. Continue with rest of medications. I would also recommend a CT scan of the brain to complete the workup. Closely follow with multiple consultants. Prognosis guarded. Further recommendation to follow. MMODL / IJN: [id number] / MTDD
[2022-04-25] MEDS: MIDODRINE 5 MG TAB PO SCH ×3 (09:00→17:37)
[2022-04-25] MEDS: AMOXIC-POT CLAV 875-125MG 1 EACH TAB PO SCH ×2 (09:00→20:39)
[2022-04-25] MEDS: CHOLESTYRAMINE (WITH SUGAR) 4 GM PACKET PO SCH ×2 (09:01→18:37)
[2022-04-25] MEDS: PANTOPRAZOLE 40 MG/10 ML VIAL IVP SCH ×2 (09:01→20:40)
[2022-04-25] MEDS ORDERED: Magnesium Replacement Protocol 1 EACH MISC MISCELLANE PRN (10:14)
--- NOTE | 2022-04-25 10:18 | P.PN ---
Subjective Progress Note Date: 04/25/22 Principal diagnosis: Sepsis. This is a 61-year-old female with history of cerebral palsy, developmental delay, seizure disorder, patient was seen yesterday at [facility] with altered mental status according to her sister. Apparently the patient lives at [facility] and with her sister saw her yesterday she felt that she was off her baseline/had altered mental status. Patient was sent to [facility], and she was noted to have abnormal urinalysis, and she was hypotensive. Patient was felt to have urosepsis. A right IJ central line was placed in the ER, patient was placed on norepinephrine and transferred to [facility]. Her lactic acid initially was 3.5. Patient arrived, briefly evaluated in our ER, I was made aware about this patient by the ER physician, and arrange for the patient to be started on antibiotics empirically, continue norepinephrine, and transfer the patient to the ICU. Labs in our ER showed leukocytosis with WBC count almost 40,000. Hemoglobin of 14.1. ABG this morning showed a pO2 of 106 pCO2 33 pH of 7.26 and this was on 2 L nasal cannula. Basic metabolic profile showed low bicarb of 13 with anion gap of 17. BUN of 25 creatinine 0.9 7 repeat lactic acid this morning was 5.8. Patient did receive at least 4 L of fluid boluses and her IV fluid is running at 1 25 mL per hour. Urinalysis is showing evidence of pyuria and bacteriuria. Patient is oliguric. In spite of multiple liters of fluid boluses given chest x-ray showed mostly left lower lobe atelectasis, possible pneumonia I favor atelectasis rather than pneumonia. CT abdomen and pelvis showed bibasilar atelectasis, possible infiltrates, small pleural effusions, abdominal ascites, dilated gallbladder suggestive of cholecystitis Progress note dated 04/21/2022. 61-year-old female seen by my partner yesterday in consultation. She apparently was transferred down from one of the outside hospitals, with mental status changes, and suspected urosepsis. She has a history of cerebral palsy, developmental delay, seizure disorder. She has an indwelling Contreras catheter. Currently, she is on 2 L nasal cannula. She has an NG tube in place. She's getting saline at 50 mL an hour, and dextrose with 3 ampules of sodium bicarbonate at 75 mL an hour. She's doing norepinephrine at 3-4 mcg/m, and vasopressin at 0.03 units per minute. She is on IV Zosyn. I've asked the nurses to check a random cortisol level and TSH. I've also asked the nurses to attempt to wean one or both of the pressors, and discontinue the sodium bicarbonate drip. White count 12.4, hemoglobin 8.9, hematocrit 27.5, platelet count 47,000. Sodium 140, potassium 4.4, chlorides 108, CO2 24, BUN and creatinine were 24 and 0.90 respectively. Lactic acid was 4.3, and repeat was 1.6. Urine is suspicious for urinary tract infection. Testing for campos virus was negative. Chest x-ray shows some left lower lobe infiltrate. Progress note dated 04/22/2022. 61-year-old female seen 2 days ago in consultation. The patient is again seen in room 263. She was transferred down from an outside hospital with mental status changes, and suspected sepsis, from a urinary source. She has a history of cerebral palsy, developmental delay, and seizure disorder. Currently, she is on room air. An NG tube is noted. She's getting saline at 10 mL an hour. Vasopressin has been off. The nurse tells me that periodically, she needs to restart the norepinephrine, and a very small dose, her transient periods of time. White count 7.6, hemoglobin 8.2, hematocrit 25.6, and platelet count is 32,000. Sodium 140, potassium 4.2, chlorides 109, CO2 24, BUN 17, and creatinine 0.69. Microbiologic studies are pending or negative. No chest x-ray today. Progress note dated 04/23/2022. 61-year-old female seen 3 days ago in consultation. She seen again in room 263. Her mental status is unchanged. She's on room air. NG tube is noted. She's getting lactated Ringer's at 75 mL an hour. She's also getting saline at KVO. This morning's glucose was a bit low. She did receive convalescent dextrose. Yesterday, she failed her swallow evaluation, and I will be readdressed today. Today's lab work showing white count of 3.4, he will 8.4, hematocrit 25.8, and a platelet count that is 24,000. Sodium 142, potassium 4.2, chlorides 113, CO2 22, within normal BUN and creatinine. Cortisol level from April 21 was 13. Blood and urine cultures are negative. Progress note dated 04/24/2022. 61-year-old female again seen in room 263. The patient's mental status is about the same, or slightly improved. She remains on 2 L nasal cannula, and lactated Ringer's at 75 mL an hour. She's getting an NG tube in place. She is going for a modified barium swallow today. She is also getting saline at 10 mL an hour, and Jevity 30 mL an hour, with a goal of 40. She will get Lasix 40 mg IV push t heather. She remains on Zosyn empirically. The patient is a candidate to go to the general medical floor, with telemetry. We also will have hematology see her, for her low platelet count. White count 2.3, hemoglobin 8.3, hematocrit 25.1, and platelet count 21,000. Sodium 142, potassium 3.7, chlorides 111, CO2 25, BUN 16, creatinine 0.73. Blood and urine cultures are currently negative. No recent chest x-ray. Progress note dated 04/25/2022. 61-year-old female again seen in room 263. Mental status is unchanged. Her blood pressure was a bit low yesterday, but she never required norepinephrine. She's currently on room air. NG tube is in place. She's getting saline at 75 mL an hour. Jevity is running at 40 mL an hour. White count 4.8, hemoglobin 8.3, hematocrit 25.4, and platelet count is 31,000. Sodium 143, potassium 3.5, chlorides 110, CO2 27, BUN 16, creatinine 0.68. Albumin is 2.7. Microbiologic data is thus far negative. Brain CT was negative for anything acute. Objective - Vital Signs Vital signs: Vital Signs Temp 97.5 F L 04/25/22 08:00 Pulse 60 04/25/22 08:00 Resp 16 04/25/22 08:00 BP 90/46 04/24/22 19:10 Pulse Ox 96 04/25/22 08:00 FiO2 Intake & Output 08/25/22 08/26/22 08/26/22 18:59 06:59 18:59 Intake Total 1330 1416 118 Output Total 3380 440 35 Balance -2049 976 83 Intake: IV 520 936 78 KVO 80 Lactated Ringers 1,000 ml 340 @ 20 mls/hr IV .Q24H [facility] Rx#:[id number] Piperacillin-Tazobactam 3 100 .375 gm In Sodium Chloride 0.9% 100 ml @ 25 mls/hr IVPB Q8HR [facility] Rx# :[id number] Pressure Bag 36 3 Sodium Chloride 0.9% 1, 900 75 000 ml @ 75 mls/hr IV . [id number] [facility] Rx#:[id number] Intake, IV Titration 400 Amount Sodium Chloride 0.9% 1, 150 000 ml @ 75 mls/hr IV . [id number] [facility] Rx#:[id number] Sodium Chloride 0.9% 500 250 ml 500 ml @ 250 mls/hr IV .Q2H [facility] Rx#:[id number] Oral 0 Tube Feeding 200 480 40 Other 210 Output: Urine 3380 440 35 Other: Voiding Method Indwelling Catheter Indwelling Catheter Indwelling Catheter ABP, PAP, CO, CI - Last Documented Arterial Blood Pressure 108/59 - Exam No acute distress, patient moans, NG tube in place. Patient on room air. HEENT examination is grossly unremarkable. Neck supple. Full range of motion. No adenopathy thyromegaly or neck vein distention. Cardiovascular examination reveals regular rhythm rate. S1-S2 normal. No S3 or S4. No discernible murmur noted. Heart rate 60 bpm. Lungs reveal mostly clear breath sounds. Minimal rhonchi. No wheezes. No crackles. Room air saturation is 97 %. Abdomen soft bowel sounds are heard. No masses or tenderness. Extremities are intact. No cyanosis clubbing or edema. Skin is without rash or lesion. Neurologic examination is difficult to evaluate given her history of developmental delay, and cerebral palsy. - Labs CBC & Chem 7: 04/25/22 04:20 04/25/22 04:20 Labs: Abnormal Lab Results - Last 24 Hours (Table) 04/24/22 04/25/22 04/25/22 Range/Units 18:43 00:21 04:20 RBC 2.64 L (3.80-5.40) m/uL Hgb 8.3 L (11.4-16.0) gm/dL Hct 25.4 L (34.0-46.0) % RDW 15.8 H (11.5-15.5) % Plt Count 31 L (150-450) k/uL Lymphocytes # 0.4 L (1.0-4.8) k/uL Chloride (98-107) mmol/L Glucose (74-99) mg/dL POC Glucose (mg/dL) 119 H 130 H (70-110) mg/dL Calcium (8.4-10.2) mg/dL Total Bilirubin (0.2-1.3) mg/dL Total Protein (6.3-8.2) g/dL Albumin (3.5-5.0) g/dL 04/25/22 04/25/22 Range/Units 04:20 06:56 RBC (3.80-5.40) m/uL Hgb (11.4-16.0) gm/dL Hct (34.0-46.0) % RDW (11.5-15.5) % Plt Count (150-450) k/uL Lymphocytes # (1.0-4.8) k/uL Chloride 110 H (98-107) mmol/L Glucose 126 H (74-99) mg/dL POC Glucose (mg/dL) 141 H (70-110) mg/dL Calcium 7.9 L (8.4-10.2) mg/dL Total Bilirubin 0.1 L (0.2-1.3) mg/dL Total Protein 5.3 L (6.3-8.2) g/dL Albumin 2.7 L (3.5-5.0) g/dL Microbiology - Last 24 Hours (Table) 04/20/22 11:00 Blood Culture - Preliminary Blood No Growth after 96 hours 04/20/22 11:00 Blood Culture - Preliminary Blood No Growth after 96 hours Assessment and Plan Assessment: Sepsis/septic shock, secondary to presumed urinary tract infection. Possible pneumonia, left lower lobe. Oliguria, secondary to sepsis. Acute anion gap metabolic acidosis. History of cerebral palsy. History of hypertension. Multiple ALLERGIES to antibiotics. Acute metabolic encephalopathy. History of DVT. Plan: Plan dated 04/21/2022. The patient remains on both vasopressin and norepinephrine. The patient will have a stat cortisol done and TSH. We'll attempt to wean the pressors. The patient's sodium bicarbonate drip can be discontinued. Patient remains on IV Zosyn. Cultures are currently pending. Urine is suspicious for urinary tract infection. In addition, chest x-ray shows either infiltrate or atelectasis in the left lower lobe. We will continue to follow make recommendations where appropriate. Prognosis is guarded. Plan dated 04/22/2022. The patient is better today than she was yesterday. She's been off the v asopressin for some time. In addition, she goes on and off the norepinephrine at a relatively low dose, periodically. The patient is now on room air. Saturations are excellent. NG tube remains in place. Currently, the patient is on Zosyn. She is getting lactated Ringer's at 75 mL an hour. Overall prognosis remains very guarded. Plan dated 04/23/2022. The patient remains on Zosyn empirically, with all cultures as far been negative. The patient's also getting lactated Ringer's, and saline as mentioned above. She did fail her swallow evaluation. That will be reevaluated today. She's on room air. NG tube in place. Mental status is unchanged. This is likely her baseline. We will continue to follow make recommendations along the way. Overall prognosis remains guarded. Hematology consultation should be considered for low platelet count. Plan dated 04/24/2022. The patient remains on Zosyn. The patient's also getting LR at 75 mL an hour. We'll have hematology see her for her thrombocytopenia, as well as her pancytopenia. She does remain on Zosyn which may be the culprit drug. She will get Lasix 40 mg IV push today. She will have a modified barium swallow. We will continue to follow and make recommendations along the way. Labs, x-rays, and medications are reviewed. Prognosis is guarded. Plan dated 04/25/2022. The patient appears to be stable. She's currently on Augmentin per infectious diseases. The patient never required norepinephrine yesterday. The patient could be considered for transfer out to the general medical floor. Telemetry is not necessary. Other medications are reviewed. Labs, x-rays, and medications are all reviewed. Prognosis is certainly guarded given her mental status. Time with Patient: Less than 30
[2022-04-25 11:03] LABS: % Iron Saturation 22.49 (12.00-45.00); Iron 64 ug/dL (50-170); Rheumatoid Factor, Qnt <10 IU/mL (0-15); Total Iron Binding Capacity 283 ug/dL (228-460)
--- NOTE | 2022-04-25 12:03 | FL ---
EXAMINATION TYPE: FL barium swallow w video DATE OF EXAM: 04/25/2022 COMPARISON: NONE HISTORY: Aspiration TECHNIQUE: Fluoroscopy. FINDINGS: Fluoroscopic guidance was provided for the procedure performed in conjunction with the [facility] pathology department. Please see complete report forthcoming from the Speech Pathology departmen t. Various consistencies from thin liquid to solids were administered. Fluoroscopy time 1 minute 36 seconds. Number of images: 0. No aspiration or penetration was evident. There is moderate pooling within the vallecula. There was normal propulsion of the bolus. IMPRESSION: 1. No aspiration or penetration evident during this exam.
[2022-04-25 12:17] LABS: Glucose,Whole Blood 97 mg/dL (70-110)
--- NOTE | 2022-04-25 15:18 | P.PN ---
Subjective Progress Note Date: 04/24/22 Principal diagnosis: Sepsis/UTI ?Pneumonia Patient is a 61-year-old female with a past medical history significant for developmental delay cerebral palsy seizure disorder presented to hospital mental status changes, diagnosed with the sepsis source likely urinary and a question of left lower lobe pneumonia. On today's evaluation that is 04/24/2022, the patient continues to be afebrile the patient is slightly more awake today however not a good historian, the patient is hemodynamically stable not requiring pressor support no vomiting has been reported by the nursing staff, however the patient did have significant diarrhea requiring the fecal management system Objective - Vital Signs Vital signs: Vital Signs Temp 92.9 F L 04/24/22 12:00 Pulse 60 04/24/22 12:00 Resp 12 04/24/22 12:00 BP 95/56 04/24/22 12:00 Pulse Ox 94 L 04/24/22 12:00 FiO2 Intake & Output 04/23/22 04/24/22 04/24/22 18:59 06:59 18:59 Intake Total 1135 1120 830 Output Total 1685 490 855 Balance -550 630 -25 Weight 132.9 kg Intake: IV 1135 1120 480 KVO 110 120 60 Lactated Ringers 1,000 ml 825 900 320 @ 20 mls/hr IV .Q24H [facility] Rx#:[id number] Piperacillin-Tazobactam 3 200 100 100 .375 gm In Sodium Chloride 0.9% 100 ml @ 25 mls/hr IVPB Q8HR [facility] Rx# :[id number] Tube Feeding 140 Other 210 Output: Urine 1685 490 855 Other: Voiding Method Indwelling Catheter Indwelling Catheter Indwelling Catheter ABP, PAP, CO, CI - Last Documented Arterial Blood Pressure 108/59 - Exam GENERAL DESCRIPTION: Middle-aged female lying in bed, no distress. No tachypnea or accessory muscle of respiration use. LUNGS: Unlabored breathing. Decreased breath sound at the base HEART: S1, S2, regular rate and rhythm. No loud murmur ABDOMEN: Soft, no tenderness , guarding or rigidity, no organomegaly EXTREMITIES: No edema of feet. - Labs CBC & Chem 7: 04/25/22 04:20 04/25/22 04:20 Labs: Abnormal Lab Results - Last 24 Hours (Table) 04/24/22 04/24/22 Range/Units 06:25 06:25 WBC 2.3 L (3.8-10.6) k/uL RBC 2.60 L (3.80-5.40) m/uL Hgb 8.3 L (11.4-16.0) gm/dL Hct 25.1 L (34.0-46.0) % Plt Count 21 L (150-450) k/uL Lymphocytes # 0.4 L (1.0-4.8) k/uL Chloride 111 H (98-107) mmol/L Glucose 116 H (74-99) mg/dL Calcium 8.1 L (8.4-10.2) mg/dL Microbiology - Last 24 Hours (Table) 04/20/22 11:00 Blood Culture - Preliminary Blood No Growth after 72 hours 04/20/22 11:00 Blood Culture - Preliminary Blood No Growth after 72 hours Assessment and Plan (1) UTI (urinary tract infection) Current Visit: Yes Status: Acute Code(s): N39.0 - URINARY TRACT INFECTION, SITE NOT SPECIFIED SNOMED Code(s): 18766039 Plan: patient presented to hospital with sepsis source likely urinary plus minus a left lower lobe pneumonia, patient has shown clinical improvement as the patient is afebrile white count has normalized, both blood and urine cultures has been negative so far, patient has developed significant diarrhea could be related to Zosyn with a culture negative for any resistant pathogen antibiotic will be switched to Augmentin and we'll monitor clinical course closely Time with Patient: Less than 30
--- NOTE | 2022-04-25 15:32 | P.PN ---
Subjective Progress Note Date: 04/25/22 Principal diagnosis: Sepsis/UTI ?Pneumonia Patient is a 61-year-old female with a past medical history significant for developmental delay cerebral palsy seizure disorder presented to hospital mental status changes, diagnosed with the sepsis source likely urinary and a question of left lower lobe pneumonia. On today's evaluation that is 04/25/2022, the patient remains to be afebrile the patient is more awake today however did not answer any question, the patient is hemodynamically stable not requiring pressor support no vomiting has been reported by the nursing staff, and the patient diarrhea has decreased in frequency per the nursing staff Objective - Vital Signs Vital signs: Vital Signs Temp 97.5 F L 04/25/22 08:00 Pulse 60 04/25/22 08:00 Resp 16 04/25/22 08:00 BP 90/46 04/24/22 19:10 Pulse Ox 96 04/25/22 08:00 FiO2 Intake & Output 04/24/22 04/25/22 04/25/22 18:59 06:59 18:59 Intake Total 1330 1416 426 Output Total 3380 440 120 Balance -2050 976 306 Intake: IV 520 936 306 KVO 80 Lactated Ringers 1,000 ml 340 @ 20 mls/hr IV .Q24H [facility] Rx#:[id number] Piperacillin-Tazobactam 3 100 .375 gm In Sodium Chloride 0.9% 100 ml @ 25 mls/hr IVPB Q8HR [facility] Rx# :[id number] Pressure Bag 36 6 Sodium Chloride 0.9% 1, 900 300 000 ml @ 75 mls/hr IV . [id number] [facility] Rx#:[id number] Intake, IV Titration 400 Amount Sodium Chloride 0.9% 1, 150 000 ml @ 75 mls/hr IV . [id number] [facility] Rx#:[id number] Sodium Chloride 0.9% 500 250 ml 500 ml @ 250 mls/hr IV .Q2H [facility] Rx#:[id number] Oral 0 Tube Feeding 200 480 120 Other 210 Output: Urine 3380 440 120 Other: Voiding Method Indwelling Catheter Indwelling Catheter Indwelling Catheter ABP, PAP, CO, CI - Last Documented Arterial Blood Pressure 108/59 - Exam GENERAL DESCRIPTION: Middle-aged female lying in bed, no distress. No tachypnea or accessory muscle of respiration use. LUNGS: Unlabored breathing. Decreased breath sound at the base HEART: S1, S2, regular rate and rhythm. No loud murmur ABDOMEN: Soft, no tenderness , guarding or rigidity, no organomegaly EXTREMITIES: No edema of feet. - Labs CBC & Chem 7: 04/25/22 04:20 04/25/22 04:20 Labs: Abnormal Lab Results - Last 24 Hours (Table) 04/24/22 04/25/22 04/25/22 Range/Units 18:43 00:21 04:20 RBC 2.64 L (3.80-5.40) m/uL Hgb 8.3 L (11.4-16.0) gm/dL Hct 25.4 L (34.0-46.0) % RDW 15.8 H (11.5-15.5) % Plt Count 31 L (150-450) k/uL Lymphocytes # 0.4 L (1.0-4.8) k/uL Chloride (98-107) mmol/L Glucose (74-99) mg/dL POC Glucose (mg/dL) 119 H 130 H (70-110) mg/dL Calcium (8.4-10.2) mg/dL Transferrin (204.0-354.0) mg/dL Ferritin (10.0-291.0) ng/mL Total Bilirubin (0.2-1.3) mg/dL Total Protein (6.3-8.2) g/dL Albumin (3.5-5.0) g/dL Vitamin B12 (200.0-944.0) pg/mL 04/25/22 04/25/22 Range/Units 04:20 06:56 RBC (3.80-5.40) m/uL Hgb (11.4-16.0) gm/dL Hct (34.0-46.0) % RDW (11.5-15.5) % Plt Count (150-450) k/uL Lymphocytes # (1.0-4.8) k/uL Chloride 110 H (98-107) mmol/L Glucose 126 H (74-99) mg/dL POC Glucose (mg/dL) 141 H (70-110) mg/dL Calcium 7.9 L (8.4-10.2) mg/dL Transferrin 202.0 L (204.0-354.0) mg/dL Ferritin 444.0 H (10.0-291.0) ng/mL Total Bilirubin 0.1 L (0.2-1.3) mg/dL Total Protein 5.3 L (6.3-8.2) g/dL Albumin 2.7 L (3.5-5.0) g/dL Vitamin B12 946.0 H (200.0-944.0) pg/mL Microbiology - Last 24 Hours (Table) 04/20/22 11:00 Blood Culture - Preliminary Blood No Growth after 96 hours 04/20/22 11:00 Blood Culture - Preliminary Blood No Growth after 96 hours Assessment and Plan (1) UTI (urinary tract infection) Current Visit: Yes Status: Acute Code(s): N39.0 - URINARY TRACT INFECTION, SITE NOT SPECIFIED SNOMED Code(s): 04235958 Plan: patient presented to hospital with sepsis source likely urinary plus minus a left lower lobe pneumonia, patient has shown clinical improvement as the patient is afebrile white count has normalized, both blood and urine cultures has been negative so far, patient has developed significant diarrhea more likely related to Zosyn and the patient had improved after discontinuation of Zosyn we will continue Augmentin and monitor clinical course closely Time with Patient: Less than 30
[2022-04-25] MEDS ORDERED: FUROSEMIDE 10 MG/ML 4 ML VIAL IV STA (15:37)
[2022-04-25] MEDS: MAGNESIUM SULFATE-D5W PMX 1 GM in DEXTROSE/WATER 1 100ML.BAG IVPB SCH ×2 (15:44→18:38)
[2022-04-25 16:05] LABS: INR 0.9 (<1.2); Prothrombin Time 10.3 sec (9.0-12.0)
[2022-04-25 16:30] LABS: Glucose,Whole Blood 148 mg/dL (70-110)
[2022-04-25 16:45] LABS: Protein, Total 5.3 g/dL (6.2-8.2)
[2022-04-25] MEDS ORDERED: Potassium Replacement Protocol 1 EACH MISC MISCELLANE PRN (19:14)
[2022-04-25] MEDS ORDERED: POTASSIUM BICARBONATE/CIT AC 20 MEQ TABLET.EFF NG-TUBE SCH (20:00)
--- NOTE | 2022-04-25 20:33 | P.PN ---
Subjective Progress Note Date: 04/25/22 will check coags in additition to other cytopenia work up Objective - Vital Signs Vital signs: Vital Signs Temp 97.5 F L 04/25/22 08:00 Pulse 60 04/25/22 08:00 Resp 16 04/25/22 08:00 BP 90/46 04/24/22 19:10 Pulse Ox 96 04/25/22 08:00 FiO2 Intake & Output 04/24/22 04/25/22 04/25/22 18:59 06:59 18:59 Intake Total 1330 1416 426 Output Total 3380 440 120 Balance -205 976 306 Intake: IV 520 936 306 KVO 80 Lactated Ringers 1,000 ml 340 @ 20 mls/hr IV .Q24H [facility] Rx#:[id number] Piperacillin-Tazobactam 3 100 .375 gm In Sodium Chloride 0.9% 100 ml @ 25 mls/hr IVPB Q8HR [facility] Rx# :[id number] Pressure Bag 36 6 Sodium Chloride 0.9% 1, 900 300 000 ml @ 75 mls/hr IV . [id number] [facility] Rx#:[id number] Intake, IV Titration 400 Amount Sodium Chloride 0.9% 1, 150 000 ml @ 75 mls/hr IV . [id number] [facility] Rx#:[id number] Sodium Chloride 0.9% 500 250 ml 500 ml @ 250 mls/hr IV .Q2H [facility] Rx#:[id number] Oral 0 Tube Feeding 200 480 120 Other 210 Output: Urine 3380 440 120 Other: Voiding Method Indwelling Catheter Indwelling Catheter Indwelling Catheter ABP, PAP, CO, CI - Last Documented Arterial Blood Pressure 108/59 - Exam - Constitutional General appearance: mild distress, obese - EENT Eyes: anicteric sclerae, EOMI ENT: normal oropharynx - Neck Neck: no lymphadenopathy - Respiratory Respiratory: bilateral: CTA - Cardiovascular Rhythm: regular Heart sounds: normal: S1, S2 Abnormal Heart Sounds: no systolic murmur, no diastolic murmur, no rub, no S3 Gallop, no S4 Gallop, no click, no other leg Peripheral Edema: bilateral: 1+ - Gastrointestinal General gastrointestinal: normal bowel sounds, soft - Musculoskeletal Musculoskeletal: generalized weakness - Psychiatric Psychiatric: no A&O x's 3, no appropriate affect, no intact judgment & insight - Labs CBC & Chem 7: 04/25/22 04:20 04/25/22 15:42 Labs: Abnormal Lab Results - Last 24 Hours (Table) 04/24/22 04/25/22 04/25/22 Range/Units 18:43 00:21 04:20 RBC 2.64 L (3.80-5.40) m/uL Hgb 8.3 L (11.4-16.0) gm/dL Hct 25.4 L (34.0-46.0) % RDW 15.8 H (11.5-15.5) % Plt Count 31 L (150-450) k/uL Lymphocytes # 0.4 L (1.0-4.8) k/uL Chloride (98-107) mmol/L Glucose (74-99) mg/dL POC Glucose (mg/dL) 119 H 130 H (70-110) mg/dL Calcium (8.4-10.2) mg/dL Transferrin (204.0-354.0) mg/dL Ferritin (10.0-291.0) ng/mL Total Bilirubin (0.2-1.3) mg/dL Total Protein (6.3-8.2) g/dL Albumin (3.5-5.0) g/dL Vitamin B12 (200.0-944.0) pg/mL 04/25/22 04/25/22 Range/Units 04:20 06:56 RBC (3.80-5.40) m/uL Hgb (11.4-16.0) gm/dL Hct (34.0-46.0) % RDW (11.5-15.5) % Plt Count (150-450) k/uL Lymphocytes # (1.0-4.8) k/uL Chloride 110 H (98-107) mmol/L Glucose 126 H (74-99) mg/dL POC Glucose (mg/dL) 141 H (70-110) mg/dL Calcium 7.9 L (8.4-10.2) mg/dL Transferrin 202.0 L (204.0-354.0) mg/dL Ferritin 444.0 H (10.0-291.0) ng/mL Total Bilirubin 0.1 L (0.2-1.3) mg/dL Total Protein 5.3 L (6.3-8.2) g/dL Albumin 2.7 L (3.5-5.0) g/dL Vitamin B12 946.0 H (200.0-944.0) pg/mL Microbiology - Last 24 Hours (Table) 04/20/22 11:00 Blood Culture - Preliminary Blood No Growth after 96 hours 04/20/22 11:00 Blood Culture - Preliminary Blood No Growth after 96 hours Assessment and Plan Plan: Assessment and Plan (1) Pancytopenia Current Visit: Yes Status: Acute Priority: High Code(s): D61.818 - OTHER PANCYTOPENIA SNOMED Code(s): 875432098 Plan: Eliquis was held for platelets below 50,000. Platelets 31K today SCDs for DVT prophylaxis. Baseline plt count for pt is low normal. Noted to drop with acute illness. Transfuse for plt <10K or if symptomatic. WBC slightly low, ANC is adequate. No G-CSF needed. Transfuse hg less than 7 Monitor Daily CBC
[2022-04-26 00:39] LABS: Glucose,Whole Blood 71 mg/dL (70-110)
--- NOTE | 2022-04-26 04:49 | PN ---
PROGRESS NOTE SUBJECTIVE: This is a 61-year-old woman who was admitted with UTI and sepsis, continues to be confused. The sensorium is slightly improved. The patient is hypotensive. A CT of the brain was done yesterday, which was reviewed personally by me and showed no acute abnormality. The patient failed swallow evaluation. The patient has G-tube at this time. The cultures are negative so far. PAST MEDICAL HISTORY: Could not be taken. REVIEW OF SYSTEMS: Could not be taken. CURRENT MEDICATIONS: Reviewed, which include Zofran, rest of the medications. PHYSICAL EXAMINATION: VITAL SIGNS: Pulse is 60, blood pressure is NTD, respirations 16. HEENT: Conjunctivae normal. CARDIOVASCULAR: S1, S2. RESPIRATIONS: Breath sounds diminished at the bases. A few scattered rhonchi. ABDOMEN: Soft. NERVOUS SYSTEM: Diffusely weak. SKIN: No ulcer. LABS: Hemoglobin 8.3. Other labs are noted. Ferritin is elevated. ASSESSMENT: 1. Acute urinary tract infection with possible sepsis, present on admission with negative cultures. 2. Change in mental status, acute metabolic encephalopathy. 3. History of recent multiple episodes of urosepsis, urinary tract infection and aspiration pneumonia. 4. Dysphagia. 5. Cerebral palsy. 6. Hypertension. 7. History of pneumonia. 8. History of AICD. 9. History of back surgery. 10.FULL CODE. RECOMMENDATIONS AND DISCUSSION: I recommend to continue the current management and symptomatic treatment. Continue the bronchodilators. Continue the antibiotics. Speech pathology to evaluate swallow eval. Prognosis guarded. Further recommendations to follow. See orders for further details. MMODL / IJN: [id number] / THERESA
[2022-04-26 08:14] LABS: ALT 21 U/L (4-34); AST 25 U/L (14-36); African American GFR (CKD) >90 (>60 ml/min/1.73 sqM); Albumin 2.9 g/dL (3.5-5.0); Alkaline Phosphatase 103 U/L (38-126); Anion Gap 6 mmol/L; Blood Urea Nitrogen 12 mg/dL (7-17); Calcium 8.3 mg/dL (8.4-10.2); Carbon Dioxide 25 mmol/L (22-30); Chloride 110 mmol/L (98-107); Glucose 65 mg/dL (74-99); Magnesium 2.1 mg/dL (1.6-2.3); Non-African American GFR(CKD) >90 (>60 ml/min/1.73 sqM); Potassium 4.2 mmol/L (3.5-5.1); Sodium 141 mmol/L (137-145); Total Bilirubin 0.2 mg/dL (0.2-1.3); Total Protein 5.6 g/dL (6.3-8.2)
[2022-04-26] MEDS: LACTATED RINGERS 1,000 ML IV SCH (08:25)
--- NOTE | 2022-04-26 09:26 | P.PN ---
Subjective Patient is seen in follow-up for low urine output. She did receive a dose of IV Lasix yesterday and urine output overnight was over 1 L. She has been refusing medications per the nurse. Tolerating oral intake. Vital signs are stable. General: Awake. HEENT: NG tube noted. LUNGS: Breath sounds decreased. HEART: Rate and Rhythm are regular. ABDOMEN: Soft, obese. EXTREMITITES: 2+ edema. Objective - Vital Signs Vital signs: Vital Signs Temp 97.5 F L 04/25/22 20:00 Pulse 60 04/25/22 20:00 Resp 16 04/25/22 20:00 BP 112/72 04/25/22 20:00 Pulse Ox 96 04/25/22 08:00 FiO2 Intake & Output 04/25/22 04/26/22 04/26/22 18:59 06:59 18:59 Intake Total 1101 1000 Output Total 2395 1100 Balance -1294 -100 Weight 127.732 kg 133.6 kg Intake: IV 831 1000 Pressure Bag 6 Sodium Chloride 0.9% 1, 825 1000 000 ml @ 75 mls/hr IV . [id number] [facility] Rx#:[id number] Oral 150 Tube Feeding 120 Output: Urine 2395 1100 Other: Voiding Method Indwelling Catheter Indwelling Catheter ABP, PAP, CO, CI - Last Documented Arterial Blood Pressure 108/59 - Labs CBC & Chem 7: 04/25/22 04:20 04/26/22 07:34 Labs: Abnormal Lab Results - Last 24 Hours (Table) 04/25/22 04/25/22 04/25/22 Range/Units 04:20 04:20 16:27 Chloride (98-107) mmol/L Glucose (74-99) mg/dL POC Glucose (mg/dL) 148 H (70-110) mg/dL Calcium (8.4-10.2) mg/dL Transferrin 202.0 L (204.0-354.0) mg/dL Ferritin 444.0 H (10.0-291.0) ng/mL Total Protein (6.3-8.2) g/dL Total Protein (PEP) 5.3 L (6.2-8.2) g/dL Albumin (3.5-5.0) g/dL Vitamin B12 946.0 H (200.0-944.0) pg/mL 04/26/22 Range/Units 07:34 Chloride 110 H (98-107) mmol/L Glucose 65 L (74-99) mg/dL POC Glucose (mg/dL) (70-110) mg/dL Calcium 8.3 L (8.4-10.2) mg/dL Transferrin (204.0-354.0) mg/dL Ferritin (10.0-291.0) ng/mL Total Protein 5.6 L (6.3-8.2) g/dL Total Protein (PEP) (6.2-8.2) g/dL Albumin 2.9 L (3.5-5.0) g/dL Vitamin B12 (200.0-944.0) pg/mL Microbiology - Last 24 Hours (Table) 04/20/22 11:00 Blood Culture - Preliminary Blood No Growth after 120 hours 04/20/22 11:00 Blood Culture - Preliminary Blood No Growth after 120 hours Assessment and Plan Plan: Assessment: 1. Low urine output. Resolved post IV Lasix. Creatinine 0.6 today. 2. Pancytopenia. Hematology following. 3. Lower extremity edema. Plan: Hep-Lock IV fluids. Add oral Lasix 40 mg once daily. Continue to monitor renal function and urine output. Repeat labs in the morning.
[2022-04-26 09:58] LABS: Glucose,Whole Blood 69 mg/dL (70-110)
[2022-04-26] MEDS: MIDODRINE 5 MG TAB PO SCH ×3 (10:30→17:14)
[2022-04-26] MEDS: PANTOPRAZOLE 40 MG/10 ML VIAL IVP SCH ×2 (10:30→21:00)
[2022-04-26] MEDS: AMOXIC-POT CLAV 875-125MG 1 EACH TAB PO SCH ×2 (10:30→20:59)
[2022-04-26] MEDS: FUROSEMIDE 40 MG TAB PO SCH (10:31)
[2022-04-26] MEDS: CHOLESTYRAMINE (WITH SUGAR) 4 GM PACKET PO SCH ×2 (10:31→17:15)
[2022-04-26] MEDS: SODIUM CHLORIDE 0.9% 1,000 ML IV SCH (10:32)
[2022-04-26 10:41] LABS: Glucose,Whole Blood 103 mg/dL (70-110)
--- NOTE | 2022-04-26 10:52 | P.PN ---
Subjective Progress Note Date: 04/26/22 Principal diagnosis: Sepsis. This is a 61-year-old female with history of cerebral palsy, developmental delay, seizure disorder, patient was seen yesterday at [facility] with altered mental status according to her sister. Apparently the patient lives at [facility] and with her sister saw her yesterday she felt that she was off her baseline/had altered mental status. Patient was sent to [facility], and she was noted to have abnormal urinalysis, and she was hypotensive. Patient was felt to have urosepsis. A right IJ central line was placed in the ER, patient was placed on norepinephrine and transferred to [facility]. Her lactic acid initially was 3.5. Patient arrived, briefly evaluated in our ER, I was made aware about this patient by the ER physician, and arrange for the patient to be started on antibiotics empirically, continue norepinephrine, and transfer the patient to the ICU. Labs in our ER showed leukocytosis with WBC count almost 40,000. Hemoglobin of 14.1. ABG this morning showed a pO2 of 106 pCO2 33 pH of 7.26 and this was on 2 L nasal cannula. Basic metabolic profile showed low bicarb of 13 with anion gap of 17. BUN of 25 creatinine 0.9 7 repeat lactic acid this morning was 5.8. Patient did receive at least 4 L of fluid boluses and her IV fluid is running at 1 25 mL per hour. Urinalysis is showing evidence of pyuria and bacteriuria. Patient is oliguric. In spite of multiple liters of fluid boluses given chest x-ray showed mostly left lower lobe atelectasis, possible pneumonia I favor atelectasis rather than pneumonia. CT abdomen and pelvis showed bibasilar atelectasis, possible infiltrates, small pleural effusions, abdominal ascites, dilated gallbladder suggestive of cholecystitis Progress note dated 04/21/2022. 61-year-old female seen by my partner yesterday in consultation. She apparently was transferred down from one of the outside hospitals, with mental status changes, and suspected urosepsis. She has a history of cerebral palsy, developmental delay, seizure disorder. She has an indwelling Contreras catheter. Currently, she is on 2 L nasal cannula. She has an NG tube in place. She's getting saline at 50 mL an hour, and dextrose with 3 ampules of sodium bicarbonate at 75 mL an hour. She's doing norepinephrine at 3-4 mcg/m, and vasopressin at 0.03 units per minute. She is on IV Zosyn. I've asked the nurses to check a random cortisol level and TSH. I've also asked the nurses to attempt to wean one or both of the pressors, and discontinue the sodium bicarbonate drip. White count 12.4, hemoglobin 8.9, hematocrit 27.5, platelet count 47,000. Sodium 140, potassium 4.4, chlorides 108, CO2 24, BUN and creatinine were 24 and 0.90 respectively. Lactic acid was 4.3, and repeat was 1.6. Urine is suspicious for urinary tract infection. Testing for campos virus was negative. Chest x-ray shows some left lower lobe infiltrate. Progress note dated 04/22/2022. 61-year-old female seen 2 days ago in consultation. The patient is again seen in room 263. She was transferred down from an outside hospital with mental status changes, and suspected sepsis, from a urinary source. She has a history of cerebral palsy, developmental delay, and seizure disorder. Currently, she is on room air. An NG tube is noted. She's getting saline at 10 mL an hour. Vasopressin has been off. The nurse tells me that periodically, she needs to restart the norepinephrine, and a very small dose, her transient periods of time. White count 7.6, hemoglobin 8.2, hematocrit 25.6, and platelet count is 32,000. Sodium 140, potassium 4.2, chlorides 109, CO2 24, BUN 17, and creatinine 0.69. Microbiologic studies are pending or negative. No chest x-ray today. Progress note dated 04/23/2022. 61-year-old female seen 3 days ago in consultation. She seen again in room 263. Her mental status is unchanged. She's on room air. NG tube is noted. She's getting lactated Ringer's at 75 mL an hour. She's also getting saline at KVO. This morning's glucose was a bit low. She did receive convalescent dextrose. Yesterday, she failed her swallow evaluation, and I will be readdressed today. Today's lab work showing white count of 3.4, he will 8.4, hematocrit 25.8, and a platelet count that is 24,000. Sodium 142, potassium 4.2, chlorides 113, CO2 22, within normal BUN and creatinine. Cortisol level from April 21 was 13. Blood and urine cultures are negative. Progress note dated 04/24/2022. 61-year-old female again seen in room 263. The patient's mental status is about the same, or slightly improved. She remains on 2 L nasal cannula, and lactated Ringer's at 75 mL an hour. She's getting an NG tube in place. She is going for a modified barium swallow today. She is also getting saline at 10 mL an hour, and Jevity 30 mL an hour, with a goal of 40. She will get Lasix 40 mg IV push t heather. She remains on Zosyn empirically. The patient is a candidate to go to the general medical floor, with telemetry. We also will have hematology see her, for her low platelet count. White count 2.3, hemoglobin 8.3, hematocrit 25.1, and platelet count 21,000. Sodium 142, potassium 3.7, chlorides 111, CO2 25, BUN 16, creatinine 0.73. Blood and urine cultures are currently negative. No recent chest x-ray. Progress note dated 04/25/2022. 61-year-old female again seen in room 263. Mental status is unchanged. Her blood pressure was a bit low yesterday, but she never required norepinephrine. She's currently on room air. NG tube is in place. She's getting saline at 75 mL an hour. Jevity is running at 40 mL an hour. White count 4.8, hemoglobin 8.3, hematocrit 25.4, and platelet count is 31,000. Sodium 143, potassium 3.5, chlorides 110, CO2 27, BUN 16, creatinine 0.68. Albumin is 2.7. Microbiologic data is thus far negative. Brain CT was negative for anything acute. Progress note dated 04/26/2022. 61-year-old female again seen in room 263. Her mental status is unchanged. She is on 2 L of O2. She's got an NG tube in place. She's getting saline at 75 mL an hour, to be reduced on the 20 mL an hour. Currently, tube feedings on hold. She apparently passed her modified barium swallow. Recommendations regards to oral feeds, had been given by dietary. Labs today include a sodium 141, potassium 4.2, chlorides 110, CO2 25 BUN 12, creatinine 0.6. Albumin is 2.9. No chest x-ray today. Microbiologic studies are thus far negative. Objective - Vital Signs Vital signs: Vital Signs Temp 97.5 F L 04/25/22 20:00 Pulse 60 04/25/22 20:00 Resp 16 04/25/22 20:00 BP 112/72 04/25/22 20:00 Pulse Ox 96 04/25/22 08:00 FiO2 Intake & Output 04/25/22 04/26/22 04/26/22 18:59 06:59 18:59 Intake Total 1101 1000 Output Total 2395 1100 Balance -1294 -100 Weight 127.732 kg 133.6 kg Intake: IV 831 1000 Pressure Bag 6 Sodium Chloride 0.9% 1, 825 1000 000 ml @ 75 mls/hr IV . [id number] [facility] Rx#:[id number] Oral 150 Tube Feeding 120 Output: Urine 2395 1100 Other: Voiding Method Indwelling Catheter Indwelling Catheter ABP, PAP, CO, CI - Last Documented Arterial Blood Pressure 108/59 - Exam No acute distress, patient moans, NG tube in place. Patient on room air. HEENT examination is grossly unremarkable. Neck supple. Full range of motion. No adenopathy thyromegaly or neck vein distention. Cardiovascular examination reveals regular rhythm rate. S1-S2 normal. No S3 or S4. No discernible murmur noted. Heart rate 60 bpm. Lungs reveal mostly clear breath sounds. Minimal rhonchi. No wheezes. No crackles. Room air saturation is 96 %. Abdomen soft bowel sounds are heard. No masses or tenderness. Extremities are intact. No cyanosis clubbing or edema. Skin is without rash or lesion. Neurologic examination is difficult to evaluate given her history of developmental delay, and cerebral palsy. - Labs CBC & Chem 7: 04/25/22 04:20 04/26/22 07:34 Labs: Abnormal Lab Results - Last 24 Hours (Table) 04/25/22 04/25/22 04/25/22 Range/Units 04:20 04:20 16:27 Chloride (98-107) mmol/L Glucose (74-99) mg/dL POC Glucose (mg/dL) 148 H (70-110) mg/dL Calcium (8.4-10.2) mg/dL Transferrin 202.0 L (204.0-354.0) mg/dL Ferritin 444.0 H (10.0-291.0) ng/mL Total Protein (6.3-8.2) g/dL Total Protein (PEP) 5.3 L (6.2-8.2) g/dL Albumin (3.5-5.0) g/dL Vitamin B12 946.0 H (200.0-944.0) pg/mL 04/26/22 04/26/22 Range/Units 07:34 09:55 Chloride 110 H (98-107) mmol/L Glucose 65 L (74-99) mg/dL POC Glucose (mg/dL) 69 L (70-110) mg/dL Calcium 8.3 L (8.4-10.2) mg/dL Transferrin (204.0-354.0) mg/dL Ferritin (10.0-291.0) ng/mL Total Protein 5.6 L (6.3-8.2) g/dL Total Protein (PEP) (6.2-8.2) g/dL Albumin 2.9 L (3.5-5.0) g/dL Vitamin B12 (200.0-944.0) pg/mL Microbiology - Last 24 Hours (Table) 04/20/22 11:00 Blood Culture - Preliminary Blood No Growth after 120 hours 04/20/22 11:00 Blood Culture - Preliminary Blood No Growth after 120 hours Assessment and Plan Assessment: Sepsis/septic shock, secondary to presumed urinary tract infection. Possible pneumonia, left lower lobe. Oliguria, secondary to sepsis. Acute anion gap metabolic acidosis. History of cerebral palsy. History of hypertension. Multiple ALLERGIES to antibiotics. Acute metabolic encephalopathy. History of DVT. Plan: Plan dated 04/21/2022. The patient remains on both vasopressin and norepinephrine. The patient will have a stat cortisol done and TSH. We'll attempt to wean the pressors. The patient's sodium bicarbonate drip can be discontinued. Patient remains on IV Zosyn. Cultures are currently pending. Urine is suspicious for urinary tract infection. In addition, chest x-ray shows either infiltrate or atelectasis in the left lower lobe. We will continue to follow make recommendations where appropriate. Prognosis is guarded. Plan dated 04/22/2022. The patient is better today than she was yesterday. She's been off the vasopressin for some time. In addition, she goes on and off the norepinephrine at a relatively low dose, periodically. The patient is now on room air. Saturations are excellent. NG tube remains in place. Currently, the patient is on Zosyn. She is getting lactated Ringer's at 75 mL an hour. Overall prognosis remains very guarded. Plan dated 04/23/2022. The patient remains on Zosyn empirically, with all cultures as far been negative. The patient's also getting lactated Ringer's, and saline as mentioned above. She did fail her swallow evaluation. That will be reevaluated today. She's on room air. NG tube in place. Mental status is unchanged. This is likely her baseline. We will continue to follow make recommendations along the way. Overall prognosis remains guarded. Hematology consultation should be considered for low platelet count. Plan dated 04/24/2022. The patient remains on Zosyn. The patient's also getting LR at 75 mL an hour. We'll have hematology see her for her thrombocytopenia, as well as her pancytopenia. She does remain on Zosyn which may be the culprit drug. She will get Lasix 40 mg IV push today. She will have a modified barium swallow. We will continue to follow and make recommendations along the way. Labs, x-rays, and medications are reviewed. Prognosis is guarded. Plan dated 04/25/2022. The patient appears to be stable. She's currently on Augmentin per infectious diseases. The patient never required norepinephrine yesterday. The patient could be considered for transfer out to the general medical floor. Telemetry is not necessary. Other medications are reviewed. Labs, x-rays, and medications are all reviewed. Prognosis is certainly guarded given her mental status. Plan dated 04/26/2022. The patient appears to be doing about the same. The patient remains on antibiotics as per infectious diseases. The patient did pass her modified barium swallow. She remains on 2 L, and an NG tube is still in place. She's getting saline now at 20 mL an hour. Labs, x-rays, and medications are all reviewed. Prognosis is guarded. The patient is a candidate for general medical floor, without telemetry. No beds are apparently available. Time with Patient: Less than 30
[2022-04-26 12:04] LABS: Glucose,Whole Blood 80 mg/dL (70-110)
[2022-04-26 13:35] LABS: Albumin 2.64 g/dL (3.80-4.90); Gamma Globulin 0.88 g/dL (0.70-1.50)
[2022-04-26 17:21] LABS: Glucose,Whole Blood 76 mg/dL (70-110)
[2022-04-26] MEDS ORDERED: IPRATROPIUM-ALBUTEROL 3 ML NEB INHALATION PRN (21:04)
--- NOTE | 2022-04-26 21:48 | XR ---
EXAMINATION TYPE: XR chest 1V portable DATE OF EXAM: 04/26/2022 COMPARISON: 04/19/2022 HISTORY: Short of breath TECHNIQUE: FINDINGS: There is left axillary pacemaker. There is nasogastric tube in the stomach. There is appare nt right jugular catheter with tip in the superior vena cava. There is some atelectasis left lung bas e. No heart failure. There are chest leads. IMPRESSION: Atelectasis left lung base not significantly different than recent exam. No heart failure seen.
--- NOTE | 2022-04-26 23:04 | P.PN ---
Subjective Progress Note Date: 04/26/22 Principal diagnosis: Sepsis/UTI ?Pneumonia Patient is a 61-year-old female with a past medical history significant for developmental delay cerebral palsy seizure disorder presented to hospital mental status changes, diagnosed with the sepsis source likely urinary and a question of left lower lobe pneumonia. On today's evaluation that is 04/26/2022, the patient continues to be afebrile the patient is hemodynamically stable not requiring pressor support no vomiting has been reported by the nursing staff, the patient diarrhea has resolved and the fecal management system has been discontinued Objective - Vital Signs Vital signs: Vital Signs Temp 97.5 F L 04/25/22 20:00 Pulse 60 04/25/22 20:00 Resp 16 04/25/22 20:00 BP 112/72 04/25/22 20:00 Pulse Ox 96 04/25/22 08:00 FiO2 Intake & Output 04/25/22 04/26/22 04/26/22 18:59 06:59 18:59 Intake Total 1101 1000 Output Total 2395 1100 Balance -1294 -100 Weight 127.732 kg 133.6 kg Intake: IV 831 1000 Pressure Bag 6 Sodium Chloride 0.9% 1, 825 1000 000 ml @ 75 mls/hr IV . [id number] [facility] Rx#:[id number] Oral 150 Tube Feeding 120 Output: Urine 2395 1100 Other: Voiding Method Indwelling Catheter Indwelling Catheter Indwelling Catheter ABP, PAP, CO, CI - Last Documented Arterial Blood Pressure 108/59 - Exam GENERAL DESCRIPTION: Middle-aged female lying in bed, no distress. No tachypnea or accessory muscle of respiration use. LUNGS: Unlabored breathing. Decreased breath sound at the base HEART: S1, S2, regular rate and rhythm. No loud murmur ABDOMEN: Soft, no tenderness , guarding or rigidity, no organomegaly EXTREMITIES: No edema of feet. - Labs CBC & Chem 7: 04/25/22 04:20 04/26/22 07:34 Labs: Abnormal Lab Results - Last 24 Hours (Table) 04/25/22 04/25/22 04/26/22 Range/Units 04:20 16:27 07:34 Chloride 110 H (98-107) mmol/L Glucose 65 L (74-99) mg/dL POC Glucose (mg/dL) 148 H (70-110) mg/dL Calcium 8.3 L (8.4-10.2) mg/dL Total Protein 5.6 L (6.3-8.2) g/dL Total Protein (PEP) 5.3 L (6.2-8.2) g/dL Albumin 2.9 L (3.5-5.0) g/dL Albumin (PEP) 2.64 L (3.80-4.90) g/dL [id number]-6-[id number] 0.45 H (0.10-0.40) g/dL 04/26/22 Range/Units 09:55 Chloride (98-107) mmol/L Glucose (74-99) mg/dL POC Glucose (mg/dL) 69 L (70-110) mg/dL Calcium (8.4-10.2) mg/dL Total Protein (6.3-8.2) g/dL Total Protein (PEP) (6.2-8.2) g/dL Albumin (3.5-5.0) g/dL Albumin (PEP) (3.80-4.90) g/dL Bjgqg-7-Rqzgtgjjo (0.10-0.40) g/dL Microbiology - Last 24 Hours (Table) 04/20/22 11:00 Blood Culture - Final Blood No Growth after 144 hours 04/20/22 11:00 Blood Culture - Final Blood No Growth after 144 hours Assessment and Plan (1) UTI (urinary tract infection) Current Visit: Yes Status: Acute Code(s): N39.0 - URINARY TRACT INFECTION, SITE NOT SPECIFIED SNOMED Code(s): 07243729 Plan: patient presented to hospital with sepsis source likely urinary plus minus a left lower lobe pneumonia, patient has shown clinical improvement as the patient is afebrile white count has normalized, both blood and urine cultures has been negative so far, patient has developed significant diarrhea more likely related to Zosyn and the patient diarrhea did improved after discontinuation of Zosyn, the patient will continue Augmentin and monitor clinical course closely Time with Patient: Less than 30
[2022-04-26 23:55] LABS: Glucose,Whole Blood 69 mg/dL (70-110)
[2022-04-26] MEDS ORDERED: DEXTROSE 50% SYRINGE 50 ML IVP STA (23:56)
[2022-04-27] MEDS ORDERED: DEXTROSE 50% SYRINGE 50 ML IVP ONE (00:06)
--- NOTE | 2022-04-27 01:05 | PN ---
PROGRESS NOTE SUBJECTIVE: This is a 61-year-old woman who was admitted with acute urinary tract infection with sepsis and change in mental status also. The patient also had a very diminished p.o. intake. The patient apparently is in the ECF for the last 1 year. According to the family, the patient currently is noncommunicative. CT brain has been noted. PAST MEDICAL HISTORY: Reviewed. REVIEW OF SYSTEMS: Could not be taken. CURRENT MEDICATIONS: Reviewed and include Questran, Augmentin, doses and rest of medication noted. PHYSICAL EXAMINATION: VITAL SIGNS: Pulse is 60, blood pressure is 112/72, respirations 16. HEENT: Conjunctivae normal. NECK: No JVD. CARDIOVASCULAR: S1, S2 muffled. RESPIRATIONS: Breath sounds diminished at the bases. A few scattered rhonchi. ABDOMEN: Soft, obese. NERVOUS SYSTEM: Diffuse weakness. LABS: Reviewed. Calcium 8.3. The rest of the labs are reviewed. ASSESSMENT: 1. Acute urinary tract infection with possible sepsis, present on admission with negative cultures. 2. Change in mental status, acute metabolic encephalopathy. 3. History of recent multiple episodes of sepsis including urinary tract infection and aspiration pneumonia. 4. Dysphagia. 5. Cerebral palsy. 6. Hypertension. 7. Multiple complex medical issues. RECOMMENDATIONS AND DISCUSSION: This is a 61-year-old woman who presented with multiple complex medical issues, we will monitor the patient closely. Continue the current management and symptomatic treatment. Continue the antibiotics. Continue the bronchodilators. Continue with feeding. Otherwise, prognosis guarded. PT/OT evaluation, possible ECF rehab. Further recommendations to follow. MMODL / IJN: [id number] /
[2022-04-27 02:21] LABS: Glucose,Whole Blood 86 mg/dL (70-110)
[2022-04-27] MEDS: LACTATED RINGERS 1,000 ML IV SCH (04:54)
[2022-04-27] MEDS: MIDODRINE 5 MG TAB PO SCH ×3 (06:09→16:57)
[2022-04-27 06:17] LABS: Glucose,Whole Blood 69 mg/dL (70-110)
[2022-04-27 06:37] LABS: ALT 19 U/L (4-34); AST 28 U/L (14-36); African American GFR (CKD) >90 (>60 ml/min/1.73 sqM); Alkaline Phosphatase 90 U/L (38-126); Anion Gap 4 mmol/L; Blood Urea Nitrogen 11 mg/dL (7-17); Calcium 8.4 mg/dL (8.4-10.2); Carbon Dioxide 25 mmol/L (22-30); Chloride 111 mmol/L (98-107); Glucose 63 mg/dL (74-99); Magnesium 2.2 mg/dL (1.6-2.3); Non-African American GFR(CKD) >90 (>60 ml/min/1.73 sqM); Potassium 4.5 mmol/L (3.5-5.1); Sodium 140 mmol/L (137-145); Total Bilirubin 0.3 mg/dL (0.2-1.3); Total Protein 6.1 g/dL (6.3-8.2)
[2022-04-27] MEDS: IPRATROPIUM-ALBUTEROL 3 ML NEB INHALATION SCH ×3 (07:33→19:17)
[2022-04-27 09:00] LABS: Glucose,Whole Blood 141 mg/dL (70-110)
[2022-04-27] MEDS: SODIUM CHLORIDE 0.9% 1,000 ML IV SCH (09:03)
[2022-04-27] MEDS: PANTOPRAZOLE 40 MG/10 ML VIAL IVP SCH ×2 (09:07→20:02)
[2022-04-27] MEDS: FUROSEMIDE 40 MG TAB PO SCH (09:07)
[2022-04-27] MEDS: CHOLESTYRAMINE (WITH SUGAR) 4 GM PACKET PO SCH ×2 (09:07→18:45)
[2022-04-27] MEDS: AMOXIC-POT CLAV 875-125MG 1 EACH TAB PO SCH ×2 (09:07→20:02)
[2022-04-27] MEDS: DEXTROSE 5% IN WATER 1,000 ML IV SCH (09:08)
--- NOTE | 2022-04-27 09:12 | P.PN ---
Subjective Patient is seen in follow-up for low urine output - resolved. She is on oral Lasix. NG tube removed. Tolerating oral intake. Vital signs are stable. General: Awake. HEENT: Atraumatic. LUNGS: Breath sounds decreased. HEART: Rate and Rhythm are regular. ABDOMEN: Soft, obese. EXTREMITITES: 2+ edema. Chronic changes noted. Objective - Vital Signs Vital signs: Vital Signs Temp 97.2 F L 04/27/22 08:00 Pulse 60 04/27/22 08:00 Resp 16 04/27/22 08:00 BP 108/51 04/27/22 08:00 Pulse Ox 96 04/27/22 08:00 FiO2 Intake & Output 04/26/22 04/27/22 04/27/22 18:59 06:59 18:59 Intake Total 1240 470 Output Total 1435 540 Balance -195 -70 Weight 136.3 kg Intake: IV 1240 220 Sodium Chloride 0.9% 1, 1240 220 000 ml @ 20 mls/hr IV . Q24H [facility] Rx#:[id number] Oral 250 Output: Urine 1435 540 Other: Voiding Method Indwelling Catheter Indwelling Catheter ABP, PAP, CO, CI - Last Documented Arterial Blood Pressure 108/59 - Labs CBC & Chem 7: 04/25/22 04:20 04/27/22 05:33 Labs: Abnormal Lab Results - Last 24 Hours (Table) 04/25/22 04/26/22 04/26/22 Range/Units 04:20 09:55 23:52 Chloride (98-107) mmol/L Glucose (74-99) mg/dL POC Glucose (mg/dL) 69 L 69 L (70-110) mg/dL Total Protein (6.3-8.2) g/dL Albumin (3.5-5.0) g/dL Albumin (PEP) 2.64 L (3.80-4.90) g/dL [id number]-2-Halvlplfk 0.45 H (0.10-0.40) g/dL 04/27/22 04/27/22 04/27/22 Range/Units 05:33 06:15 08:58 Chloride 111 H (98-107) mmol/L Glucose 63 L (74-99) mg/dL POC Glucose (mg/dL) 69 L 141 H (70-110) mg/dL Total Protein 6.1 L (6.3-8.2) g/dL Albumin 3.0 L (3.5-5.0) g/dL Albumin (PEP) (3.80-4.90) g/dL Ndhoh-3-Mspfyzcix (0.10-0.40) g/dL Microbiology - Last 24 Hours (Table) 04/20/22 11:00 Blood Culture - Final Blood No Growth after 144 hours 04/20/22 11:00 Blood Culture - Final Blood No Growth after 144 hours Assessment and Plan Plan: Assessment: 1. Low urine output. Resolved. Creatinine 0.61 today. 2. Pancytopenia. Hematology following. 3. Lower extremity edema. Plan: Maintain oral Lasix. I will sign off. Please call with any questions or concerns.
--- NOTE | 2022-04-27 10:46 | P.PN ---
Subjective Progress Note Date: 04/27/22 Principal diagnosis: Sepsis. This is a 61-year-old female with history of cerebral palsy, developmental delay, seizure disorder, patient was seen yesterday at [facility] with altered mental status according to her sister. Apparently the patient lives at [facility], [facility] and with her sister saw her yesterday she felt that she was off her baseline/had altered mental status. Patient was sent to [facility], and she was noted to have abnormal urinalysis, and she was hypotensive. Patient was felt to have urosepsis. A right IJ central line was placed in the ER, patient was placed on norepinephrine and transferred to [facility]. Her lactic acid initially was 3.5. Patient arrived, briefly evaluated in our ER, I was made aware about this patient by the ER physician, and arrange for the patient to be started on antibiotics empirically, continue norepinephrine, and transfer the patient to the ICU. Labs in our ER showed leukocytosis with WBC count almost 40,000. Hemoglobin of 14.1. ABG this morning showed a pO2 of 106 pCO2 33 pH of 7.26 and this was on 2 L nasal cannula. Basic metabolic profile showed low bicarb of 13 with anion gap of 17. BUN of 25 creatinine 0.9 7 repeat lactic acid this morning was 5.8. Patient did receive at least 4 L of fluid boluses and her IV fluid is running at 1 25 mL per hour. Urinalysis is showing evidence of pyuria and bacteriuria. Patient is oliguric. In spite of multiple liters of fluid boluses given chest x-ray showed mostly left lower lobe atelectasis, possible pneumonia I favor atelectasis rather than pneumonia. CT abdomen and pelvis showed bibasilar atelectasis, possible infiltrates, small pleural effusions, abdominal ascites, dilated gallbladder suggestive of cholecystitis Progress note dated 04/21/2022. 61-year-old female seen by my partner yesterday in consultation. She apparently was transferred down from one of the outside hospitals, with mental status changes, and suspected urosepsis. She has a history of cerebral palsy, developmental delay, seizure disorder. She has an indwelling Contreras catheter. Currently, she is on 2 L nasal cannula. She has an NG tube in place. She's getting saline at 50 mL an hour, and dextrose with 3 ampules of sodium bicarbonate at 75 mL an hour. She's doing norepinephrine at 3-4 mcg/m, and vasopressin at 0.03 units per minute. She is on IV Zosyn. I've asked the nurses to check a random cortisol level and TSH. I've also asked the nurses to attempt to wean one or both of the pressors, and discontinue the sodium bicarbonate drip. White count 12.4, hemoglobin 8.9, hematocrit 27.5, platelet count 47,000. Sodium 140, potassium 4.4, chlorides 108, CO2 24, BUN and creatinine were 24 and 0.90 respectively. Lactic acid was 4.3, and repeat was 1.6. Urine is suspicious for urinary tract infection. Testing for campos virus was negative. Chest x-ray shows some left lower lobe infiltrate. Progress note dated 04/22/2022. 61-year-old female seen 2 days ago in consultation. The patient is again seen in room 263. She was transferred down from an outside hospital with mental status changes, and suspected sepsis, from a urinary source. She has a history of cerebral palsy, developmental delay, and seizure disorder. Currently, she is on room air. An NG tube is noted. She's getting saline at 10 mL an hour. Vasopressin has been off. The nurse tells me that periodically, she needs to restart the norepinephrine, and a very small dose, her transient periods of time. White count 7.6, hemoglobin 8.2, hematocrit 25.6, and platelet count is 32,000. Sodium 140, potassium 4.2, chlorides 109, CO2 24, BUN 17, and creatinine 0.69. Microbiologic studies are pending or negative. No chest x-ray today. Progress note dated 04/23/2022. 61-year-old female seen 3 days ago in consultation. She seen again in room 263. Her mental status is unchanged. She's on room air. NG tube is noted. She's getting lactated Ringer's at 75 mL an hour. She's also getting saline at KVO. This morning's glucose was a bit low. She did receive convalescent dextrose. Yesterday, she failed her swallow evaluation, and I will be readdressed today. Today's lab work showing white count of 3.4, he will 8.4, hematocrit 25.8, and a platelet count that is 24,000. Sodium 142, potassium 4.2, chlorides 113, CO2 22, within normal BUN and creatinine. Cortisol level from April 21 was 13. Blood and urine cultures are negative. Progress note dated 04/24/2022. 61-year-old female again seen in room 263. The patient's mental status is about the same, or slightly improved. She remains on 2 L nasal cannula, and lactated Ringer's at 75 mL an hour. She's getting an NG tube in place. She is going for a modified barium swallow today. She is also getting saline at 10 mL an hour, and Jevity 30 mL an hour, with a goal of 40. She will get Lasix 40 mg IV push t heather. She remains on Zosyn empirically. The patient is a candidate to go to the general medical floor, with telemetry. We also will have hematology see her, for her low platelet count. White count 2.3, hemoglobin 8.3, hematocrit 25.1, and platelet count 21,000. Sodium 142, potassium 3.7, chlorides 111, CO2 25, BUN 16, creatinine 0.73. Blood and urine cultures are currently negative. No recent chest x-ray. Progress note dated 04/25/2022. 61-year-old female again seen in room 263. Mental status is unchanged. Her blood pressure was a bit low yesterday, but she never required norepinephrine. She's currently on room air. NG tube is in place. She's getting saline at 75 mL an hour. Jevity is running at 40 mL an hour. White count 4.8, hemoglobin 8.3, hematocrit 25.4, and platelet count is 31,000. Sodium 143, potassium 3.5, chlorides 110, CO2 27, BUN 16, creatinine 0.68. Albumin is 2.7. Microbiologic data is thus far negative. Brain CT was negative for anything acute. Progress note dated 04/26/2022. 61-year-old female again seen in room 263. Her mental status is unchanged. She is on 2 L of O2. She's got an NG tube in place. She's getting saline at 75 mL an hour, to be reduced on the 20 mL an hour. Currently, tube feedings on hold. She apparently passed her modified barium swallow. Recommendations regards to oral feeds, had been given by dietary. Labs today include a sodium 141, potassium 4.2, chlorides 110, CO2 25 BUN 12, creatinine 0.6. Albumin is 2.9. No chest x-ray today. Microbiologic studies are thus far negative. Progress note dated 04/27/2022. 61-year-old female again seen in room 263. He is a bit more alert today. She is on room air. NG tube is out. She ate about 70% of her morning meal. She is getting dextrose, at 40 mL an hour. Tube feedings are off. Today's labs include a sodium 140, potassium 4.5, chlorides 111, CO2 25, BUN 11, creatinine 0.61. Albumin is 3. Chest x-ray from yesterday shows some atelectasis at the left lung base. Objective - Vital Signs Vital signs: Vital Signs Temp 97.2 F L 04/27/22 08:00 Pulse 60 04/27/22 08:00 Resp 16 04/27/22 08:00 BP 108/51 04/27/22 08:00 Pulse Ox 96 04/27/22 08:00 FiO2 Intake & Output 04/26/22 04/27/22 04/27/22 18:59 06:59 18:59 Intake Total 1240 470 Output Total 1435 540 Balance -195 -70 Weight 136.3 kg Intake: IV 1240 220 Sodium Chloride 0.9% 1, 1240 220 000 ml @ 20 mls/hr IV . Q24H [facility] Rx#:[id number] Oral 250 Output: Urine 1435 540 Other: Voiding Method Indwelling Catheter Indwelling Catheter ABP, PAP, CO, CI - Last Documented Arterial Blood Pressure 108/59 - Exam No acute distress, patient is much more awake today. Patient on room air. HEENT examination is grossly unremarkable. Neck supple. Full range of motion. No adenopathy thyromegaly or neck vein distention. Cardiovascular examination reveals regular rhythm rate. S1-S2 normal. No S3 or S4. No discernible murmur noted. Heart rate 60 bpm. Lungs reveal mostly clear breath sounds. Minimal rhonchi. No wheezes. No crackles. Room air saturation is 96 %. Abdomen soft bowel sounds are heard. No masses or tenderness. Extremities are intact. No cyanosis clubbing or edema. Skin is without rash or lesion. Neurologic examination is difficult to evaluate given her history of developmental delay, and cerebral palsy. - Labs CBC & Chem 7: 04/25/22 04:20 04/27/22 05:33 Labs: Abnormal Lab Results - Last 24 Hours (Table) 04/25/22 04/26/22 04/27/22 Range/Units 04:20 23:52 05:33 Chloride 111 H (98-107) mmol/L Glucose 63 L (74-99) mg/dL POC Glucose (mg/dL) 69 L (70-110) mg/dL Total Protein 6.1 L (6.3-8.2) g/dL Albumin 3.0 L (3.5-5.0) g/dL Albumin (PEP) 2.64 L (3.80-4.90) g/dL Coaje-4-Oykdjdsnb 0.45 H (0.10-0.40) g/dL 04/27/22 04/27/22 Range/Units 06:15 08:58 Chloride (98-107) mmol/L Glucose (74-99) mg/dL POC Glucose (mg/dL) 69 L 141 H (70-110) mg/dL Total Protein (6.3-8.2) g/dL Albumin (3.5-5.0) g/dL Albumin (PEP) (3.80-4.90) g/dL Rrmyc-3-Iuneeylxx (0.10-0.40) g/dL Microbiology - Last 24 Hours (Table) 04/20/22 11:00 Blood Culture - Final Blood No Growth after 144 hours 04/20/22 11:00 Blood Culture - Final Blood No Growth after 144 hours Assessment and Plan Assessment: Sepsis/septic shock, secondary to presumed urinary tract infection. Possible pneumonia, left lower lobe. Oliguria, secondary to sepsis. Acute anion gap metabolic acidosis. History of cerebral palsy. History of hypertension. Multiple ALLERGIES to antibiotics. Acute metabolic encephalopathy. History of DVT. Plan: Plan dated 04/21/2022. The patient remains on both vasopressin and norepinephrine. The patient will have a stat cortisol done and TSH. We'll attempt to wean the pressors. The patient's sodium bicarbonate drip can be discontinued. Patient remains on IV Zosyn. Cultures are currently pending. Urine is suspicious for urinary tract infection. In addition, chest x-ray shows either infiltrate or atelectasis in the left lower lobe. We will continue to follow make recommendations where appropriate. Prognosis is guarded. Plan dated 04/22/2022. The patient is better today than she was yesterday. She's been off the vasopressin for some time. In addition, she goes on and off the norepinephrine at a relatively low dose, periodically. The patient is now on room air. Saturations are excellent. NG tube remains in place. Currently, the patient is on Zosyn. She is getting lactated Ringer's at 75 mL an hour. Overall prognosis remains very guarded. Plan dated 04/23/2022. The patient remains on Zosyn empirically, with all cultures as far been negativ e. The patient's also getting lactated Ringer's, and saline as mentioned above. She did fail her swallow evaluation. That will be reevaluated today. She's on room air. NG tube in place. Mental status is unchanged. This is likely her baseline. We will continue to follow make recommendations along the way. Overall prognosis remains guarded. Hematology consultation should be considered for low platelet count. Plan dated 04/24/2022. The patient remains on Zosyn. The patient's also getting LR at 75 mL an hour. We'll have hematology see her for her thrombocytopenia, as well as her panc ytopenia. She does remain on Zosyn which may be the culprit drug. She will get Lasix 40 mg IV push today. She will have a modified barium swallow. We will continue to follow and make recommendations along the way. Labs, x-rays, and medications are reviewed. Prognosis is guarded. Plan dated 04/25/2022. The patient appears to be stable. She's currently on Augmentin per infectious diseases. The patient never required norepinephrine yesterday. The patient could be considered for transfer out to the general medical floor. Telemetry is not necessary. Other medications are reviewed. Labs, x-rays, and medications are all reviewed. Prognosis is certainly guarded given her mental status. Plan dated 04/26/2022. The patient appears to be doing about the same. The patient remains on a ntibiotics as per infectious diseases. The patient did pass her modified barium swallow. She remains on 2 L, and an NG tube is still in place. She's getting saline now at 20 mL an hour. Labs, x-rays, and medications are all reviewed. Prognosis is guarded. The patient is a candidate for general medical floor, without telemetry. No beds are apparently available. Plan dated 04/27/2022. She is on room air. The NG tube removed. The patient is getting dextrose at 40 mL an hour. Labs are reviewed. Medications and x-rays are reviewed. The patient is a bit more awake today. No additional recommendations are made. We will continue to follow. Prognosis is guarded. The patient is a candidate for the general medical floor, without telemetry. Time with Patient: Less than 30
[2022-04-27 12:00] LABS: Glucose,Whole Blood 123 mg/dL (70-110)
--- NOTE | 2022-04-27 15:44 | P.PN ---
Subjective Progress Note Date: 04/27/22 Principal diagnosis: Sepsis/UTI ?Pneumonia Patient is a 61-year-old female with a past medical history significant for developmental delay cerebral palsy seizure disorder presented to hospital mental status changes, diagnosed with the sepsis source likely urinary and a question of left lower lobe pneumonia. On today's evaluation that is 04/27/2022, the patient remains to be afebrile the patient is breathing comfortably on room air the patient is slightly more awake and the NG tube is out however the patient did not answer any questions no vomiting or diarrhea was reported by the nursing staff Objective - Vital Signs Vital signs: Vital Signs Temp 97.2 F L 04/27/22 08:00 Pulse 62 04/27/22 11:42 Resp 16 04/27/22 08:00 BP 98/73 04/27/22 11:43 Pulse Ox 96 04/27/22 08:00 FiO2 Intake & Output 04/26/22 04/27/22 04/27/22 18:59 06:59 18:59 Intake Total 1240 470 Output Total 1435 540 Balance -195 -70 Weight 136.3 kg Intake: IV 1240 220 Sodium Chloride 0.9% 1, 1240 220 000 ml @ 20 mls/hr IV . Q24H [facility] Rx#:[id number] Oral 250 Output: Urine 1435 540 Other: Voiding Method Indwelling Catheter Indwelling Catheter Indwelling Catheter ABP, PAP, CO, CI - Last Documented Arterial Blood Pressure 108/59 - Exam GENERAL DESCRIPTION: Middle-aged female lying in bed, no distress. No tachypnea or accessory muscle of respiration use. LUNGS: Unlabored breathing. Decreased breath sound at the base HEART: S1, S2, regular rate and rhythm. No loud murmur ABDOMEN: Soft, no tenderness , guarding or rigidity, no organomegaly EXTREMITIES: No edema of feet. - Labs CBC & Chem 7: 04/25/22 04:20 04/27/22 05:33 Labs: Abnormal Lab Results - Last 24 Hours (Table) 04/26/22 04/27/22 04/27/22 Range/Units 23:52 05:33 06:15 Chloride 111 H (98-107) mmol/L Glucose 63 L (74-99) mg/dL POC Glucose (mg/dL) 69 L 69 L (70-110) mg/dL Total Protein 6.1 L (6.3-8.2) g/dL Albumin 3.0 L (3.5-5.0) g/dL 04/27/22 04/27/22 Range/Units 08:58 11:58 Chloride (98-107) mmol/L Glucose (74-99) mg/dL POC Glucose (mg/dL) 141 H 123 H (70-110) mg/dL Total Protein (6.3-8.2) g/dL Albumin (3.5-5.0) g/dL Microbiology - Last 24 Hours (Table) 04/20/22 11:00 Blood Culture - Final Blood No Growth after 144 hours 04/20/22 11:00 Blood Culture - Final Blood No Growth after 144 hours Assessment and Plan (1) UTI (urinary tract infection) Current Visit: Yes Status: Acute Code(s): N39.0 - URINARY TRACT INFECTION, S ITE NOT SPECIFIED SNOMED Code(s): 28068466 Plan: 1-patient presented to hospital with sepsis source likely urinary plus minus a left lower lobe pneumonia, patient has shown clinical improvement as the patient is afebrile white count has normalized, both blood and urine cultures has been negative so far, patient did developed significant diarrhea more likely related to Zosyn which was discontinued and that he has resolved 2-patient to continue with Augmentin and we'll monitor clinical course closely Time with Patient: Less than 30
[2022-04-27 17:52] LABS: Glucose,Whole Blood 122 mg/dL (70-110)
[2022-04-27 22:06] LABS: Glucose,Whole Blood 123 mg/dL (70-110)
[2022-04-28 02:16] LABS: Glucose,Whole Blood 112 mg/dL (70-110)
[2022-04-28] MEDS: LACTATED RINGERS 1,000 ML IV SCH (05:10)
[2022-04-28 06:00] LABS: Anisocytosis Slight; Basophils % (A) 0 %; Eosinophils # (A) 0.5 k/uL (0-0.7); Eosinophils % (A) 16 %; HCT 24.3 % (34.0-46.0); HGB 7.9 gm/dL (11.4-16.0); Hypochromasia Slight; Lymphocytes # (A) 0.6 k/uL (1.0-4.8); Lymphocytes % (A) 18 %; MCH 30.7 pg (25.0-35.0); MCHC 32.3 g/dL (31.0-37.0); MCV 94.9 fL (80.0-100.0); Mean Platelet Volume 8.9; Monocytes # (A) 0.2 k/uL (0-1.0); Monocytes % (A) 5 %; Neutrophils # (A) 2.1 k/uL (1.3-7.7); Neutrophils % (A) 60 %; RBC 2.56 m/uL (3.80-5.40); WBC 3.4 k/uL (3.8-10.6)
[2022-04-28 06:19] LABS: African American GFR (CKD) >90 (>60 ml/min/1.73 sqM); Anion Gap 8 mmol/L; Blood Urea Nitrogen 8 mg/dL (7-17); Calcium 8.6 mg/dL (8.4-10.2); Carbon Dioxide 24 mmol/L (22-30); Chloride 109 mmol/L (98-107); Glucose 86 mg/dL (74-99); Non-African American GFR(CKD) >90 (>60 ml/min/1.73 sqM); Sodium 141 mmol/L (137-145)
[2022-04-28 06:25] LABS: Platelet Count 93 k/uL (150-450)
[2022-04-28 06:27] LABS: Glucose,Whole Blood 88 mg/dL (70-110)
[2022-04-28] MEDS: IPRATROPIUM-ALBUTEROL 3 ML NEB INHALATION SCH ×3 (08:46→20:26)
[2022-04-28] MEDS: SODIUM CHLORIDE 0.9% 1,000 ML IV SCH (09:35)
[2022-04-28] MEDS: PANTOPRAZOLE 40 MG/10 ML VIAL IVP SCH ×2 (09:57→20:43)
[2022-04-28] MEDS: FUROSEMIDE 40 MG TAB PO SCH (09:57)
[2022-04-28] MEDS: AMOXIC-POT CLAV 875-125MG 1 EACH TAB PO SCH ×2 (09:57→20:43)
[2022-04-28] MEDS: MIDODRINE 5 MG TAB PO SCH ×4 (09:57→17:29)
[2022-04-28] MEDS: CHOLESTYRAMINE (WITH SUGAR) 4 GM PACKET PO SCH ×2 (09:58→17:29)
[2022-04-28] MEDS: DEXTROSE 5% IN WATER 1,000 ML IV SCH (09:59)
--- NOTE | 2022-04-28 10:29 | P.PN ---
Subjective Progress Note Date: 04/28/22 Platelets are greater than 50K, ok to restart summer from oncology, monitor closely Objective - Vital Signs Vital signs: Vital Signs Temp 96.3 F L 04/28/22 09:16 Pulse 60 04/28/22 05:00 Resp 16 04/28/22 05:00 BP 139/84 04/28/22 05:00 Pulse Ox 97 04/28/22 05:00 FiO2 Intake & Output 04/27/22 04/28/22 04/28/22 18:59 06:59 18:59 Intake Total 480 790 Output Total 1200 2000 Balance -720 -1210 Weight 133 kg Intake: IV 480 200 Dextrose 5% in Water 1, 480 200 000 ml @ 40 mls/hr IV . Q24H [facility] Rx#:[id number] Oral 590 Output: Urine 1200 2000 Other: Voiding Method External Catheter External Catheter ABP, PAP, CO, CI - Last Documented Arterial Blood Pressure 108/59 - Exam - Constitutional General appearance: mild distress, obese - EENT Eyes: anicteric sclerae, EOMI ENT: normal oropharynx - Neck Neck: no lymphadenopathy - Respiratory Respiratory: bilateral: CTA - Cardiovascular Rhythm: regular Heart sounds: normal: S1, S2 Abnormal Heart Sounds: no systolic murmur, no diastolic murmur, no rub, no S3 Gallop, no S4 Gallop, no click, no other leg Peripheral Edema: bilateral: 1+ - Gastrointestinal General gastrointestinal: normal bowel sounds, soft - Musculoskeletal Musculoskeletal: generalized weakness - Psychiatric Psychiatric: no A&O x's 3, no appropriate affect, no intact judgment & insight - Labs CBC & Chem 7: 04/28/22 05:38 04/28/22 05:38 Labs: Abnormal Lab Results - Last 24 Hours (Table) 04/27/22 04/27/22 04/27/22 Range/Units 11:58 17:50 21:54 WBC (3.8-10.6) k/uL RBC (3.80-5.40) m/uL Hgb (11.4-16.0) gm/dL Hct (34.0-46.0) % RDW (11.5-15.5) % Plt Count (150-450) k/uL Lymphocytes # (1.0-4.8) k/uL Chloride (98-107) mmol/L Creatinine (0.52-1.04) mg/dL POC Glucose (mg/dL) 123 H 122 H 123 H (70-110) mg/dL 04/28/22 04/28/22 04/28/22 Range/Units 02:14 05:38 05:38 WBC 3.4 L (3.8-10.6) k/uL RBC 2.56 L (3.80-5.40) m/uL Hgb 7.9 L (11.4-16.0) gm/dL Hct 24.3 L (34.0-46.0) % RDW 16.0 H (11.5-15.5) % Plt Count 93 L D (150-450) k/uL Lymphocytes # 0.6 L (1.0-4.8) k/uL Chloride 109 H (98-107) mmol/L Creatinine 0.51 L (0.52-1.04) mg/dL POC Glucose (mg/dL) 112 H (70-110) mg/dL Assessment and Plan Plan: Assessment and Plan (1) Pancytopenia Current Visit: Yes Status: Acute Priority: High Code(s): D61.818 - OTHER PANCYTOPENIA SNOMED Code(s): 699588943 Plan: Eliquis was held for platelets below 50,000. Platelets are greater than 50K today Baseline plt count for pt is low normal. Noted to drop with acute illness. Transfuse for plt <10K or if symptomatic. Transfuse hg less than 7 Monitor Daily CBC
--- NOTE | 2022-04-28 10:39 | PN ---
PROGRESS NOTE SUBJECTIVE: This is a 61 year old woman, who was admitted with acute UTI with sepsis, is being closely monitored. The patient's mentation has slightly improved. The patient has failed swallow evaluation, but currently able to tolerate some p.o. fluids. Chest x-ray was done today, which was reviewed. Multiple consultants are following the patient closely. The patient is on , with a recent history of multiple episodes of sepsis. The patient is closely monitored in the ICU. PAST MEDICAL HISTORY: Reviewed. REVIEW OF SYSTEMS: Could not be taken, the patient is still confused. CURRENT MEDICATIONS: Reviewed, include DuoNeb. Doses and rest of medication noted. PHYSICAL EXAMINATION: VITAL SIGNS: Pulse is 60, blood pressure ntd, respirations 16. HEENT: Conjunctivae normal. NECK: No JVD. CARDIOVASCULAR: S1, S2. RESPIRATION: Few scattered rhonchi. ABDOMEN: Soft, obese. NERVOUS SYSTEM: Diffusely weak. Contreras catheter present. LABORATORY DATA: Labs are reviewed. Hemoglobin 8.3. ASSESSMENT: 1. Acute urinary tract infection with possible sepsis, present on admission with negative cultures. 2. Change in mental status, acute metabolic encephalopathy. 3. History of recent multiple episodes of sepsis including urinary tract infection and aspiration pneumonia. 4. Dysphagia. 5. Cerebral palsy. 6. Hypertension. 7. Multiple medical problems. RECOMMENDATIONS AND DISCUSSION: I recommend to continue current management and symptomatic treatment. Repeat labs tomorrow. PT/OT evaluation. Remove the Contreras catheter. Otherwise, once the patient is stabilized back to the overall prognosis remains extremely guarded because of the multiple complex medical issues as mentioned earlier. Aspiration precautions. Head of the bed elevated to 45 degrees. Discussed with staff. Further recommendations to follow. MMODL / IJN: [id number] / MTDD
[2022-04-28 11:48] LABS: Glucose,Whole Blood 92 mg/dL (70-110)
--- NOTE | 2022-04-28 12:42 | P.PN ---
Subjective Progress Note Date: 04/28/22 The patient is seen today April 28 and in follow-up on the regular medical floor. She is transferred out of the ICU. She had been found to have altered mental status and possible urosepsis. She does have a history of cerebral palsy, developmental delay, seizure disorder. She is presently resting comfortably in bed. Awake and alert. Minimal verbal response. Cultures had revealed no growth. Urine culture no growth. White count 3.4. Hemoglobin 7.9. Platelets 93,000. Sodium 141. Potassium 4.0. Chloride 109. Bicarb 24. BUN 8. Creatinine 0.51. Glucose 86. She remains on DuoNeb inhalations, antibiotics in form of Augmentin. She is maintaining good O2 saturations in the 90s on room air. Afebrile. Hemodynamically stable. Objective - Vital Signs Vital signs: Vital Signs Temp 96.2 F L 04/28/22 11:27 Pulse 61 04/28/22 12:28 Resp 16 04/28/22 11:27 BP 125/80 04/28/22 11:27 Pulse Ox 94 L 04/28/22 11:27 FiO2 Intake & Output 04/27/22 04/28/22 04/28/22 18:59 06:59 18:59 Intake Total 480 790 Output Total 1200 2000 Balance -720 -1210 Weight 133 kg Intake: IV 480 200 Dextrose 5% in Water 1, 480 200 000 ml @ 40 mls/hr IV . Q24H [facility] Rx#:[id number] Oral 590 Output: Urine 1200 2000 Other: Voiding Method External Catheter External Catheter External Catheter ABP, PAP, CO, CI - Last Documented Arterial Blood Pressure 108/59 - Exam Alert, 62-year-old female patient, minimal verbal response. No acute distress, patient is more awake today. Patient on room air. HEENT examination is grossly unremarkable. Neck supple. Full range of motion. No adenopathy thyromegaly or neck vein distention. Cardiovascular examination reveals regular rhythm rate. S1-S2 normal. No S3 or S4. No discernible murmur noted. m. Lungs reveal mostly clear breath sounds. Minimal rhonchi. No wheezes. No crackles. Room air saturation is 94 %. Abdomen soft bowel sounds are heard. No masses or tenderness. Extremities are intact. No cyanosis clubbing or edema. Skin is without rash or lesion. Neurologic examination is difficult to evaluate given her history of developme ntal delay, and cerebral palsy. - Labs CBC & Chem 7: 04/28/22 05:38 04/28/22 05:38 Labs: Abnormal Lab Results - Last 24 Hours (Table) 04/25/22 04/27/22 04/27/22 Range/Units 04:20 17:50 21:54 WBC (3.8-10.6) k/uL RBC (3.80-5.40) m/uL Hgb (11.4-16.0) gm/dL Hct (34.0-46.0) % RDW (11.5-15.5) % Plt Count (150-450) k/uL Lymphocytes # (1.0-4.8) k/uL Chloride (98-107) mmol/L Creatinine (0.52-1.04) mg/dL POC Glucose (mg/dL) 122 H 123 H (70-110) mg/dL RBC Folate 1,181 H (280 - 791) ng/mL 04/28/22 04/28/22 04/28/22 Range/Units 02:14 05:38 05:38 WBC 3.4 L (3.8-10.6) k/uL RBC 2.56 L (3.80-5.40) m/uL Hgb 7.9 L (11.4-16.0) gm/dL Hct 24.3 L (34.0-46.0) % RDW 16.0 H (11.5-15.5) % Plt Count 93 L D (150-450) k/uL Lymphocytes # 0.6 L (1.0-4.8) k/uL Chloride 109 H (98-107) mmol/L Creatinine 0.51 L (0.52-1.04) mg/dL POC Glucose (mg/dL) 112 H (70-110) mg/dL RBC Folate (280 - 791) ng/mL Assessment and Plan Assessment: Sepsis/septic shock, secondary to presumed urinary tract infection. Possible pneumonia, left lower lobe. Oliguria, secondary to sepsis. Acute anion gap metabolic acidosis. History of cerebral palsy. History of hypertension. Multiple ALLERGIES to antibiotics. Acute metabolic encephalopathy. History of DVT. Plan: The patient was seen and evaluated Medications and labs reviewed Currently stable and on room air Tolerating a dysphagia level II ground diet We will continue to follow and make further recommendations based on her clinical status I have personally seen and examined the patient, performed the documentation and the assessment and plan as written. Number of minutes spent on the visit: 10. I have personally seen and examined the patient and reviewed the documentation. I performed a joint evaluation with the nurse practitioner in this evaluation was done more than 20 minutes. I fully agree with the documentation above and the plan of care.. The patient is doing well. Patient is currently on room air oxygen. Triple-lumen catheter over the right IJ can be removed and the patient should be able to given a peripheral line. Continue oral Augmentin. Aspiration precautions. Level II diet
[2022-04-28 17:55] LABS: Glucose,Whole Blood 109 mg/dL (70-110)
--- NOTE | 2022-04-29 00:52 | P.PN ---
Subjective Progress Note Date: 04/28/22 This is a 61-year-old female who was recently admitted with an acute urinary tract infection with sepsis, present on admission and being closely monitored. Patient was monitored closely in the ICU and currently transition to a MedSur unit. Mentation slightly improved. Patient continues to be delayed and currently under a bear hugger for temperature maintenance. Per nursing staff patient's temperatures have been low. Multiple medical consultations following including hematology, infectious disease, pulmonary, nephrology. Platelets today are improved above 93 and hematology reports okay to resume anticoagulant. Hemoglobin is 7.9 with no active bleeding noted. Recommend continue monitoring blood sugars before meals and at bedtime. Patient is also maintained on daily Lasix with nephrology following closely and oral Augmentin. Cultures have been negative and ID following. Recommend strict aspiration precautions and head of the bed elevated 30-45 at all times with supervision with meals as patient is high risk for aspiration. Patient is maintained on dysphasia to ground diet. Afebrile with no chest pain or shortness of breath noted. Review of systems: unable to completely assess as patient is mostly nonverbal All medications have been reviewed Active Medications Albuterol/Ipratropium (Ipratropium-Albuterol 3 Ml Neb) 3 ml INHALATION RT-TID PRN PRN Reason: Shortness Of Breath Or Wheezing Last Admin: 04/26/22 21:14 Dose: 3 ml Albuterol/Ipratropium (Ipratropium-Albuterol 3 Ml Neb) 3 ml INHALATION RT-TID [facility] Last Admin: 04/28/22 20:26 Dose: 3 ml Amoxicillin/Clavulanate Potassium (Amoxic-Pot Clav 875-125mg 1 Each Tab) 1 each PO Q12HR [facility]; Protocol Last Admin: 04/28/22 20:43 Dose: 1 each Cholestyramine Resin (Cholestyramine (With Sugar) 4 Gm Packet) 4 gm PO BID@1000,1800 [facility] Last Admin: 04/28/22 17:29 Dose: 4 gm Furosemide (Furosemide 40 Mg Tab) 40 mg PO DAILY [facility] Last Admin: 04/28/22 09:57 Dose: 40 mg Lactated Ringer's (Lactated Ringers) 1,000 mls @ 20 mls/hr IV .Q24H [facility] Last Admin: 04/28/22 05:10 Dose: Not Given Sodium Chloride (Saline 0.9%) 1,000 mls @ 20 mls/hr IV .Q24H [facility] Last Admin: 04/28/22 09:35 Dose: Not Given Dextrose/Water (Dextrose 5%-Water Iv Soln) 1,000 mls @ 40 mls/hr IV .Q24H [facility] Last Admin: 04/28/22 09:59 Dose: Not Given Midodrine (Midodrine 5 Mg Tab) 5 mg PO AC-TID [facility] Last Admin: 04/28/22 17:29 Dose: 5 mg Miscellaneous Information (Magnesium Replacement Protocol 1 Each Misc) 1 each MISCELLANE DAILY PRN; Protocol PRN Reason: Per Protocol Miscellaneous Information (Potassium Replacement Protocol 1 Each Misc) 1 each MISCELLANE DAILY PRN; Protocol PRN Reason: Per Protocol Naloxone HCl (Naloxone 0.4 Mg/Ml 1 Ml Vial) 0.2 mg IV Q2M PRN PRN Reason: Opioid Reversal Pantoprazole Sodium (Pantoprazole 40 Mg/10 Ml Vial) 40 mg IVP BID [facility] Last Admin: 04/28/22 20:43 Dose: 40 mg PHYSICAL EXAMINATION: GENERAL: The patient is alert and oriented x1-2, Well developed, well nourished. HEENT: Pupils are round and equally reacting to light. EOMI. no scleral icterus. No conjunctival pallor. Normocephalic, atraumatic. No pharyngeal erythema. No thyromegaly. CARDIOVASCULAR: S1 and S2 muffled PULMONARY: diminished breath sounds bilaterally with no wheezing, some scattered rhonchi noted. ABDOMEN: soft. Nontender on exam. obese. non-distended, normoactive bowel sounds. No palpable organomegaly. MUSCULOSKELETAL: No joint swelling or deformity. EXTREMITIES: No cyanosis, clubbing, generalized edema. NEUROLOGICAL: Gross neurological examination did not reveal any focal deficits. Diffuse weakness SKIN: No rashes. Assessment: Acute urinary tract infection with possible sepsis, present on admission with negative cultures Change in mental status, acute metabolic encephalopathy History of recent multiple episodes of sepsis including UTIs and aspiration pneumonia dysphagia cerebral palsy hypertension multiple medical issues GI prophylaxis DVT prophylaxis Full code Plan: Recommend to continue with current medications and management with multiple medical consultations following. Cultures have been negative with ID following and has been transitioned from IV abx to oral augmentin. Recommend dysphagia 2 diet and strict aspiration precautions. Supervised feeds. Patient is having low temp readings per nursing staff and being placed on bear hugger. Patient also being followed by hematology for thrombocytopenia and platelets above 50 and ok to resume anticoagulant of eliquis. Patient is documented to be on 5mg bid and unsure why and will call sister or [facility]. Recommend repeat labs and PT/OT evaluation. Case management following and will be returning to [facility] once stabilized and discharged. Due to multiple complex medical issues, prognosis is guarded. The impression and plan of care has been dictated by Carley Salazar, nurse practitioner as directed. Dr. Tejinder MD I have performed a history and examination and MDM of this patient, discussed the same with the dictator, and agree with the dictator's assessment and plan as written ,documented as a scribe. Based on total visit time, I have performed more than 50% of the visit. Any additional findings or plans will be noted. Objective - Vital Signs Vital signs: Vital Signs Temp 96.2 F L 04/28/22 11:27 Pulse 61 04/28/22 12:28 Resp 16 04/28/22 11:27 BP 125/80 04/28/22 11:27 Pulse Ox 94 L 04/28/22 11:27 FiO2 Intake & Output 04/27/22 04/28/22 04/28/22 18:59 06:59 18:59 Intake Total 480 790 Output Total 1200 2000 Balance -720 -1210 Weight 133 kg Intake: IV 480 200 Dextrose 5% in Water 1, 480 200 000 ml @ 40 mls/hr IV . Q24H [facility] Rx#:[id number] Oral 590 Output: Urine 1200 2000 Other: Voiding Method External Catheter External Catheter External Catheter ABP, PAP, CO, CI - Last Documented Arterial Blood Pressure 108/59 - Labs CBC & Chem 7: 04/28/22 05:38 04/28/22 05:38 Labs: Abnormal Lab Results - Last 24 Hours (Table) 04/25/22 04/27/22 04/27/22 Range/Units 04:20 17:50 21:54 WBC (3.8-10.6) k/uL RBC (3.80-5.40) m/uL Hgb (11.4-16.0) gm/dL Hct (34.0-46.0) % RDW (11.5-15.5) % Plt Count (150-450) k/uL Lymphocytes # (1.0-4.8) k/uL Chloride (98-107) mmol/L Creatinine (0.52-1.04) mg/dL POC Glucose (mg/dL) 122 H 123 H (70-110) mg/dL RBC Folate 1,181 H (280 - 791) ng/mL 04/28/22 04/28/22 04/28/22 Range/Units 02:14 05:38 05:38 WBC 3.4 L (3.8-10.6) k/uL RBC 2.56 L (3.80-5.40) m/uL Hgb 7.9 L (11.4-16.0) gm/dL Hct 24.3 L (34.0-46.0) % RDW 16.0 H (11.5-15.5) % Plt Count 93 L D (150-450) k/uL Lymphocytes # 0.6 L (1.0-4.8) k/uL Chloride 109 H (98-107) mmol/L Creatinine 0.51 L (0.52-1.04) mg/dL POC Glucose (mg/dL) 112 H (70-110) mg/dL RBC Folate (280 - 791) ng/mL
[2022-04-29 01:05] LABS: Glucose,Whole Blood 124 mg/dL (70-110)
[2022-04-29] MEDS: LACTATED RINGERS 1,000 ML IV SCH (05:18)
[2022-04-29 05:50] VITALS: RESP 18
[2022-04-29 06:24] LABS: Glucose,Whole Blood 99 mg/dL (70-110)
[2022-04-29 07:50] LABS: Methylmalonic Acid 0.17 umol/L (<0.40)
[2022-04-29] MEDS: MIDODRINE 5 MG TAB PO SCH ×2 (07:54→12:02)
[2022-04-29] MEDS: SODIUM CHLORIDE 0.9% 1,000 ML IV SCH (07:55)
[2022-04-29] MEDS: IPRATROPIUM-ALBUTEROL 3 ML NEB INHALATION SCH ×2 (07:57→12:28)
[2022-04-29] MEDS: CHOLESTYRAMINE (WITH SUGAR) 4 GM PACKET PO SCH (09:07)
[2022-04-29] MEDS: FUROSEMIDE 40 MG TAB PO SCH (09:07)
[2022-04-29] MEDS: PANTOPRAZOLE 40 MG/10 ML VIAL IVP SCH (09:07)
[2022-04-29] MEDS: AMOXIC-POT CLAV 875-125MG 1 EACH TAB PO SCH (09:07)
[2022-04-29] MEDS: DEXTROSE 5% IN WATER 1,000 ML IV SCH (09:08)
[2022-04-29 11:48] LABS: Glucose,Whole Blood 105 mg/dL (70-110)
--- NOTE | 2022-04-29 12:24 | P.PN ---
Subjective Progress Note Date: 04/29/22 The patient is seen today April 28 in follow-up on the regular medical floor. She is transferred out of the ICU. She had been found to have altered mental status and possible urosepsis. She does have a history of cerebral palsy, developmental delay, seizure disorder. She is presently resting comfortably in bed. Awake and alert. Minimal verbal response. Cultures had revealed no growth. Urine culture no growth. White count 3.4. Hemoglobin 7.9. Platelets 93,000. Sodium 141. Potassium 4.0. Chloride 109. Bicarb 24. BUN 8. Creatinine 0.51. Glucose 86. She remains on DuoNeb inhalations, antibiotics in form of Augmentin. She is maintaining good O2 saturations in the 90s on room air. Afebrile. Hemodynamically stable. The patient is seen today 04/29/2022 in follow-up on the regular medical floor. She is currently sitting up in bed. Awake and alert. Minimal conversation but appears more interactive today. She is maintaining O2 saturations in the mid 90s on room air. She's been afebrile. Urine culture revealed no growth. Blood cultures reveal no growth. Blood glucose 105. Remains in a -1.9 L balance. Continued on bronchodilators, Augmentin, and oral diuretics. Objective - Vital Signs Vital signs: Vital Signs Temp 97.8 F 04/29/22 05:00 Pulse 72 04/29/22 08:08 Resp 18 04/29/22 05:00 BP 135/78 04/29/22 05:00 Pulse Ox 96 04/29/22 05:00 FiO2 21 04/28/22 20:27 Intake & Output 04/28/22 04/29/22 04/29/22 18:59 06:59 18:59 Intake Total 480 Output Total 600 1650 1 Balance -120 -1650 -1 Weight 136 kg Intake: IV 480 Dextrose 5% in Water 1, 480 000 ml @ 40 mls/hr IV . Q24H [facility] Rx#:[id number] Output: Urine 600 1650 Stool 1 Other: Voiding Method External Catheter External Catheter External Catheter ABP, PAP, CO, CI - Last Documented Arterial Blood Pressure 108/59 - Exam Alert, 62-year-old female patient, minimal verbal response. No acute distress, patient is more awake today. Patient on room air. HEENT examination is grossly unremarkable. Neck supple. Full range of motion. No adenopathy thyromegaly or neck vein distention. Cardiovascular examination reveals regular rhythm rate. S1-S2 normal. No S3 or S4. No discernible murmur noted. m. Lungs reveal mostly clear breath sounds. Minimal rhonchi. No wheezes. No crackles. Room air saturation is 94 %. Abdomen soft bowel sounds are heard. No masses or tenderness. Extremities are intact. No cyanosis clubbing or edema. Skin is without rash or lesion. Neurologic examination is difficult to evaluate given her history of developmental delay, and cerebral palsy. - Labs CBC & Chem 7: 04/28/22 05:38 04/28/22 05:38 Labs: Abnormal Lab Results - Last 24 Hours (Table) 04/29/22 Range/Units 01:03 POC Glucose (mg/dL) 124 H (70-110) mg/dL Assessment and Plan Assessment: Sepsis/septic shock, secondary to presumed urinary tract infection. Recovered Possible pneumonia, left lower lobe. Remains on Augmentin Oliguria, secondary to sepsis. Improved Acute anion gap metabolic acidosis. Recovered History of cerebral palsy. History of hypertension. Multiple ALLERGIES to antibiotics. Acute metabolic encephalopathy. History of DVT. Plan: The patient was seen and evaluated Currently stable and on room air Cleared for discharge from pulmonary standpoint We will see as needed I have personally seen and examined the patient, performed the documentation and the assessment and plan as written. Number of minutes spent on the visit: 10. I have personally seen and examined the patient and reviewed the documentation. I performed a joint evaluation with the nurse practitioner in this evaluation was done more than 20 minutes. I fully agree with the documentation above and the plan of care.
[2022-04-29 12:26] VITALS: BP 130/78
[2022-04-29 12:31] VITALS: PULSE 72
--- NOTE | 2022-04-29 13:34 | P.DS ---
Providers Date of admission: 04/19/22 22:05 Expected date of discharge: 04/29/22 Attending physician: Rosalee Marr Consults: 04/19/22 22:05 Consult Physician Stat Consulting Provider: Guanako Auguste Consult Reason/Comments: acute encephalopathy, acute uti, septic shock Do you want consulting provider notified?: Already Contacted 04/20/22 02:51 Consult Physician Routine Consulting Provider: Jonh Mayen Consult Reason/Comments: low urine output Do you want consulting provider notified?: Yes, Notify in am 04/21/22 12:48 Consult Physician Urgent Consulting Provider: Zechariah Hayward Consult Reason/Comments: Sepsis, pneumonia Do you want consulting provider notified?: Yes 04/24/22 09:13 Consult Physician Routine Consulting Provider: William Giordano Consult Reason/Comments: Thrombocytopenia Do you want consulting provider notified?: Yes Primary care physician: Allan Coats Hospital Course: Final diagnosis Acute urinary tract infection with possible sepsis, present on admission with negative cultures Change in mental status, acute metabolic encephalopathy, improved History of recent multiple episodes of sepsis including UTIs and aspiration pneumonia dysphagia cerebral palsy hypertension multiple medical issues GI prophylaxis DVT prophylaxis Full code Discharge disposition Patient is being discharged in a stable condition with guarded prognosis to [facility]. Patient will follow-up with Dr. Allan Coats in the outpatient setting upon discharge. Patient is to continue with oral Augmentin twice daily for the next 1 week as scheduled. Recommend strict aspiration precautions. Total time taken is greater than 35 minutes. Hospital course This is a 62-year-old female who was recently admitted with acute urinary tract infection with sepsis, present on admission and was closely monitored in the ICU. Patient mentation was altered and confused and was also being treated for possible aspiration pneumonia with multiple medical consultations following. Patient has had prolonged hospitalization with improvement and tolerating dysphagia 2 ground diet and recommend strict aspiration precautions with head of the bed elevated 30-45 at all times along with supervision with meals. Patient is high risk for aspiration. Patient to continue with oral Augmentin twice daily for the next 1 week to complete the course. Patient also taking Eliquis prior to arrival and has been okay to resume per hematology as platelet levels have improved. Recommend repeat labs of CBC BMP in the next 2-3 days. Patient has no reports of chest pain, shortness of breath, or palpitations. Patient is afebrile. No reports of nausea or vomiting and patient is tolerating diet. Patient will be going to [facility] where she resides today. Guarded prognosis. Physical exam: Gen: This is a 62-year-old female awake, alert and oriented 2, well-developed, well-nourished, morbidly obese, mostly bedbound HEENT: Head is atraumatic, normocephalic. Pupils equal, round. Sclerae is anicteric. NECK: Supple. No JVD. No lymphadenopathy. No thyromegaly. LUNGS: Diminished breath sounds bilaterally with no wheezing or rhonchi noted No intercostal retractions. HEART: S1, S2 are muffled ABDOMEN: Soft. Obese. Bowel sounds are present. No masses. No tenderness. EXTREMITIES: No pedal edema. No calf tenderness. Generalized bilateral lower extremity edema noted. NEUROLOGICAL: Patient is awake, alert and oriented x2. Diffusely weak Please refer to medication reconciliation sheet for a list of medications. The impression and plan of care has been dictated by Carley Salazar, Nurse Practitioner as directed. Dr. Tejinder MD I have performed a history and examination and MDM of this patient, discussed the same with the dictator, and agree with the dictator's assessment and plan as written ,documented as a scribe. Based on total visit time, I have performed more than 50% of the visit. Patient Condition at Discharge: Fair Plan - Discharge Summary New Discharge Prescriptions: New Amoxic-Pot Clav 875-125Mg [Augmentin 875-125] 1 each PO Q12HR 7 Days #14 tab Midodrine [ProAmatine] 5 mg PO AC-TID tab Cholestyramine (with Sugar) [Questran Packet] 4 gm PO BID@1000,1800 #10 packet Ipratropium-Albuterol Nebulize [Duoneb 0.5 mg-3 mg/3 ml Soln] 3 ml INHALATION RT-TID each Ipratropium-Albuterol Nebulize [Duoneb 0.5 mg-3 mg/3 ml Soln] 3 ml INHALATION RT-TID PRN each PRN Reason: Shortness Of Breath Or Wheezing Furosemide [Lasix] 40 mg PO DAILY tab Continue Apixaban [Eliquis] 5 mg PO BID@0700,1700 Docusate [Colace] 100 mg PO BID@0700,1700 Acetaminophen Tab [Tylenol] 650 mg PO Q4H PRN MDD 3000 PRN Reason: General Discomfort Potassium Chloride [Potassium Chloride ER] 20 meq PO DAILY@1700 bisacodyL 10 mg RECTAL Q72H PRN PRN Reason: Constipation amLODIPine [Norvasc] 5 mg PO DAILY@0700 Discontinued Furosemide [Lasix] 80 mg PO DAILY@0700 Losartan Potassium [Cozaar] 100 mg PO DAILY@0700 Discharge Medication List Acetaminophen Tab [Tylenol] 650 mg PO Q4H PRN MDD 3000 04/19/22 [History] Apixaban [Eliquis] 5 mg PO BID@0700,1700 04/19/22 [History] Docusate [Colace] 100 mg PO BID@0700,1700 04/19/22 [History] Potassium Chloride [Potassium Chloride ER] 20 meq PO DAILY@1700 04/19/22 [History] amLODIPine [Norvasc] 5 mg PO DAILY@0700 04/19/22 [History] bisacodyL 10 mg RECTAL Q72H PRN 04/19/22 [History] Amoxic-Pot Clav 875-125Mg [Augmentin 875-125] 1 each PO Q12HR 7 Days #14 tab 04/29/22 [Rx] Cholestyramine (with Sugar) [Questran Packet] 4 gm PO BID@1000,1800 #10 packet 04/29/22 [Rx] Furosemide [Lasix] 40 mg PO DAILY tab 04/29/22 [Rx] Ipratropium-Albuterol Nebulize [Duoneb 0.5 mg-3 mg/3 ml Soln] 3 ml INHALATION RT-TID each 04/29/22 [Rx] Ipratropium-Albuterol Nebulize [Duoneb 0.5 mg-3 mg/3 ml Soln] 3 ml INHALATION RT-TID PRN each 04/29/22 [Rx] Midodrine [ProAmatine] 5 mg PO AC-TID tab 04/29/22 [Rx] Follow up Appointment(s)/Referral(s): Allan Coats DO [Primary Care Provider] - 1-2 days Activity/Diet/Wound Care/Special Instructions: Patient is going to [facility] Activity as tolerated Continue with Augmentin twice daily for the next 1 week Continue with aspiration precautions with dysphasia to ground diet and strict aspiration precautions of the head of the bed elevated 30-45 at all times and supervision with meals Continue with medications as prescribed Okay to resume eliquis 5 mg twice a day per hematology with close monitoring of platelets Continue oral supplements twice a day with meals of Magic cups with breakfast and dinner Discharge Disposition: TRANSFER TO SNF/ECF
[2022-04-29 14:09] VITALS: TEMP 96
--- NOTE | 2022-04-29 22:24 | P.PN ---
Subjective Progress Note Date: 04/29/22 Principal diagnosis: pancytopenia Pt denies pain, difficulty breathing. Objective - Vital Signs Vital signs: Vital Signs Temp 97.8 F 04/29/22 05:00 Pulse 72 04/29/22 12:40 Resp 18 04/29/22 11:45 BP 130/78 04/29/22 11:45 Pulse Ox 99 04/29/22 11:45 FiO2 21 04/28/22 20:27 Intake & Output 04/28/22 04/29/22 04/29/22 18:59 06:59 18:59 Intake Total 480 Output Total 600 1650 1 Balance -120 -1650 -1 Weight 136 kg Intake: IV 480 Dextrose 5% in Water 1, 480 000 ml @ 40 mls/hr IV . Q24H [facility] Rx#:[id number] Output: Urine 600 1650 Stool 1 Other: Voiding Method External Catheter External Catheter External Catheter ABP, PAP, CO, CI - Last Documented Arterial Blood Pressure 108/59 - Constitutional General appearance: Present: cooperative, morbidly obese - EENT Eyes: Present: anicteric sclerae, EOMI ENT: Present: hearing grossly normal - Respiratory Details: resp even and unlabored at rest - Psychiatric Psychiatric Comment(s): Alert, oriented to self - Labs CBC & Chem 7: 04/28/22 05:38 04/28/22 05:38 Labs: Abnormal Lab Results - Last 24 Hours (Table) 04/29/22 Range/Units 01:03 POC Glucose (mg/dL) 124 H (70-110) mg/dL Assessment and Plan (1) Pancytopenia Status: Acute Priority: High Code(s): D61.818 - OTHER PANCYTOPENIA SNOMED Code(s): 599599009 Plan: Pancytopenia work up did not reveal any acute process. No iron deficiency. Hemoglobin has remained low since acute drop on admit. Baseline 9-10 range at baseline. No evidence of bleeding. Retic is low for her degree of anemia. Possibly an underlying myeloproliferative disorder, exacerbated by infection. Plt improving, >50,000, her anticoagulation was resumed. WBC is still slightly low, ANC adequate. Plan will be to f/u outpt and monitor counts. Further testing if needed.
--- OUTSIDE RECORDS SUMMARY | 2022-04-30 12:03 | XMS REPORT ---
Patient Summary 2.1 Created on:April 19, 2022 Patient:MATILDE HEATH Sex:Female :1960 Author Name H,, ADELAIDEAN Address [address] [facility] Unavailable [place], [place] [id number] Care Team Providers Name Role Phone RELL SYKES Registered Nurse Unavailable MARK BARRETO DO Attending Unavailable ELICIA BOSE Primary Unavailable MARK BARRETO DO Transferring Provider Unavailable Functional Status No Data Found Immunization Immunization Date Status Additional Notes Code Code S ystem influenza, injectable, 08/18/2019 Completed 150 C VX quadrivalent, preservative free COVID-19, mRNA, LNP-S, 12/13/2020 Completed 207 C VX PF, 100 mcg/0.5mL dose or 50 mcg/0.25mL dose COVID-19, mRNA, LNP-S, 01/10/2021 Completed 207 C VX PF, 100 mcg/0.5mL dose or 50 mcg/0.25mL dose COVID-19, mRNA, LNP-S, 07/30/2021 Completed 207 C VX PF, 100 mcg/0.5mL dose or 50 mcg/0.25mL dose Pneumococcal conjugate 04/02/2022 Completed 216 C VX PCV20, polysaccharide [id number] conjugate, adjuvant, PF COVID-19, mRNA, LNP-S, 04/01/2022 Completed 217 C VX PF, 30 mcg/0.3 mL dose, joan-sucrose Mental Status No Data Found Results LACTATE/LACTIC ACID - Collect Date/Time: 04/19/2022 15:15 [employer] ID: [id number] [address] [place], [place], [address] 09 LOINC: Test Value Unit Reference Range Code Code Syst em LACTIC ACID 2.5 mmol/L L=0.7 H=2.1 SARS-COV-2 PCR+ - Collect Date/Time: 14:30 [employer] ID: [id number] [address] [place], [place], [address] 09 LOINC: 66108-4 Test Value Unit Reference Range Code Code Syst em SARS-CoV-2 PCR NEGATIVE NORMAL:NEGATIVE 26132-1 LOIN C URINALYSIS W REFLEX CULTURE/SENSI IF IND - Collect Date/Time: 04/19/2022 14:22 [employer] ID: [id number] [address] [place], [place], [address] 09 LOINC: 17781-3 Test Value Unit Reference Range Code Code Syst em SOURCE BRAY CATH COLOR Lt Yellow NORMAL: Straw CLARITY Hazy NORMAL: Clear SPEC GRAVITY 1.020 1.003 - 1.035 GLUCOSE NEGATIVE NORMAL: NEGATIVE BILIRUBIN NEGATIVE NORMAL: NEGATIVE KETONE NEGATIVE NORMAL: NEGATIVE BLOOD TRACE-LY NORMAL: NEGATIVE pH 5.5 5.0 - 8.0 PROTEIN NEGATIVE NORMAL: NEGATIVE UROBILINOGEN 0.2 0.2 - 1.0 mg/dL NITRITE NEGATIVE NORMAL: NEGATIVE LEUK EST 2+ NORMAL: NEGATIVE MICROSCOPIC See Below WBC 50 - 100 NORMAL: None Seen RBC 1 - 3 NORMAL: None Seen EPITHELIAL See Below NORMAL: None Seen RENAL EPI NORMAL: None Seen SQUAMOUS EPI 2-4/Hpf NORMAL: None Seen TRANS EPI NORMAL: None Seen BACTERIA 3+/hpf NORMAL: None Seen MUCOUS NORMAL: None Seen YEAST NORMAL: None Seen CASTS CRYSTALS URINE CULTURE SENT YES C DIFF/EPI+ - Collect Date/Time: 022 14:00 [employer] ID: [id number] [address] [place], [place], [address] 09 LOINC: Test Value Unit Reference Range Code Code Syst em TOXIGENIC C. DIFF NEGATIVE NORMAL: NEGATIVE 83993-6 LOINC 027 STRAIN PROBABLE NEG NORMAL: PROBABLE NEG 04075-9 L OINC LACTATE/LACTIC ACID - Collect Date/Time: 04/19/2022 13:37 [employer] ID: [id number] [address] [place], [place], [address] 09 LOINC: Test Value Unit Reference Range Code Code Syst em LACTIC ACID 3.5 mmol/L L=0.7 H=2.1 N-TERMINAL PRO BRAIN NATRIURETIC PEPTIDE - Collect Date/Time: 04/19/2022 13:36 [employer]A [employer] ID: [id number] [address] [place], [place], [address] 09 LOINC: 19599-3 Test Value Unit Reference Range Code Code Syst em NT-pro BNP 170 pg/ml L=0 H=142 85431-1 LOINC TROPONIN-I - Collect Date/Time: 04/19/20 13:35 [employer] ID: [id number] [address] [place], [place], [address] 09 LOINC: 27508-2 Test Value Unit Reference Range Code Code Syst em TROPONIN I < 0.012 ng/mL L=0.000 H=0.030 96544-3 LOINC CMP - Collect Date/Time: 04/19/2022 13:3 5 [employer] ID: [id number] [address] [place], [place], [address] 09 LOINC: 27979-6 Test Value Unit Reference Range Code Code Syst em SODIUM 139 mmol/L L=137 H=145 2951-2 LOINC POTASSIUM 5.3 mmol/L L=3.5 H=5.1 2823-3 LOINC CHLORIDE 110 mmol/L L=89 H=107 2075-0 LOINC CO2 23 mmol/L L=22 H=30 2028-9 LOINC GLUCOSE 160 mg/dL L=74 H=106 2345-7 LOINC BUN 22 mg/dL L=9 H=20 3094-0 LOINC CREAT SERUM 0.5 mg/dL L=0.5 H=1.2 17090-5 LOINC CALCIUM 9.3 mg/dL L=8.4 H=10.2 31637-5 LOINC SGOT/AST 37 U/L L=14 H=36 1920-8 LOINC SGPT/ALT 33 U/L L=0 H=35 1742-6 LOINC ALKALINE PHOS 110 U/L L=38 H=126 6768-6 LOINC TOTAL BILI 0.1 mg/dL L=0.2 H=1.3 1975-2 LOINC TOTAL PROTEIN 6.8 g/dL L=6.3 H=8.2 2885-2 LOINC ALBUMIN 3.6 g/dL L=3.5 H=5.0 1751-7 LOINC GLOBULIN 3.2 g/dL L=2.5 H=4.0 08347-5 LOINC A/G RATIO 1.1 1759-0 LOINC AGE 61 yrs RACE White OR His AMER NO GFR COMPONENT 1.00 GFR 132.45 mL/min 35797-3 LOINC CK MB - Collect Date/Time: 04/19/2022 13 :35 [employer] ID: [id number] [address] [place], [place], [address] 09 LOINC: 65847-0 Test Value Unit Reference Range Code Code Syst em CKMB 1.33 ng/mL L=0.00 H=2.37 70694-9 LOINC CPK 37 U/L L=30 H=135 2157-6 LOINC %MB N/A MAG PHOS+ - Collect Date/Time: 13:35 ROSA MARIA[employer] ID: [id number] [address] [place], [place], [address] 09 LOINC: Test Value Unit Reference Range Code Code Syst em MAGNESIUM 2.0 mg/dL L=1.6 H=2.3 03583-5 LOINC PHOSPHORUS 3.6 mg/dL L=2.5 H=4.5 73046-5 LOINC COAGULATION PANEL+ - Collect Date/Time: 04/19/2022 13:35 ROSA MARIA[employer] ID: [id number] [address] [place], [place], [address] 09 LOINC: 46495-2 Test Value Unit Reference Range Code Code Syst em PROTIME 11.0 Secs L=10.0 H=12.0 5902-2 LOINC INR 1.01 L=0.90 H=1.10 31516-9 LOINC PTT 37.2 Secs L=23.0 H=31.0 97081-2 LOINC CBC ORDER / AUTO DIFF - Collect Date/Ravin e: 04/19/2022 13:35 [facility] ID: [id number] [address], [place], [address] 09 LOINC: 20493-8 Test Value Unit Reference Range Code Code Syst em WBC 2.61 10*3/uL L=4.00 H=10.50 730-2 LOINC RBC 2.93 10*6/uL L=3.50 H=6.00 789-8 LOINC HEMOGLOBIN 9.1 g/dL L=12.5 H=16.0 718-7 LOINC HEMATOCRIT 28.3 % L=42.0 H=52.0 4544-3 LOINC MCV 96.6 fL L=78.0 H=100 787-2 LOINC MCH 31.1 pg L=27.0 H=31.0 785-6 LOINC MCHC 32.2 g/dL L=33.0 H=35.0 RDW 15.0 % L=11.5 H=14.0 788-0 LOINC PLATELETS 108 10*3/uL L=150 H=450 9317-9 LOINC MPV 10.90 fL L=7.40 H=9.50 29198-1 LOINC %NEUT 61.7 % L=42.2 H=75.2 %LYMPH 19.5 % L=20.5 H=51.1 %MONO 5.00 % L=1.70 H=9.30 %EOS 12.60 % L=0.00 H=7.00 713-8 LOINC %BASO 0.400 % L=0.000 H=2.500 %IG 0.800 % L=0.001 H=0.429 %NRBC 1.10 % L=0.00 H=0.20 #NEUT 1.61 10*3/uL L=1.40 H=6.50 751-8 LOINC #LYMPH 0.51 10*3/uL L=1.20 H=3.40 14993-1 LOINC #MONO 0.130 10*3/uL L=0.100 H=0.600 742-7 LOINC #EOS 0.330 10*3/uL L=0.000 H=0.700 713-8 LOINC #BASO 0.01 10*3/uL L=0.00 H=0.20 52881-9 LOINC #IG 0.020 10*3/uL L=0.000 H=0.031 #NRBC 0.03 10*3/uL L=0.00 H=0.01 MANUAL DIFF SLIDE REVIEW 62258-7 LOINC RBC MORPH NOT INDICATED 6742-1 LOINC CPK - Collect Date/Time: 04/19/2022 13:3 5 [facility] ID: [id number] [address], [place], [address] 09 LOINC: 2157-6 Test Value Unit Reference Range Code Code Syst em CPK 37 U/L L=30 H=135 2157-6 LOINC CHEST 1V XRAY - Completed: 04/19/2022 17 :05 LOINC: 82700-3 EXAMINATION TYPE: CHEST 1V XRAYDATE OF E XAM: 2COMPARISON: TodayCLINICAL HISTORY: REASON FOR CHEST: central line placement.CT DLP: mGycmThere is right jugular catheter with the tip in the superior ve na cava. There is left axillary pacemaker. No obvious heart failure. There are chest l samson. No pleural effusion.IMPRESSION:Mild cardiomegaly. No acute lung disease. Cat heter in good position.Electronically Reviewed and Signed by: Doug perez MD on 04/19/2022 5:34 PM CHEST 1V XRAY - Completed: 04/19/2022 14 :00 LOINC: 47209-9 EXAMINATION TYPE: CHEST 1V XRAYDATE OF E XAM: 2COMPARISON: 1CLINICAL HISTORY: REASON FOR CHEST: cough.CT DLP: mGycmThere is coarsening of the interstitial markings. Heart appears enlarged. There is left axillary pacemaker. There are cervical spine fusion surgery. No pleura l effusion.IMPRESSION:There is new mild pulmonary vascular congestion compared t o old exam. This could be mild acute heart failure.Electronically Reviewed and Sign ed by: Doug Martel MD on 04/19/2022 2:[address] HEAD WO CONTRAST - Completed: 022 14:00 LOINC: 31630-6 EXAMINATION TYPE: CT HEAD WO CONTRASTDAT E OF EXAM: 2COMPARISON: 05/11/2019CLINICAL HISTORY: Reason for te st: AMS.CT DLP: mGycmVentricles and sulci appear normal. There is no mass effect o r midline shift. No sign of intracranial hemorrhage. Calvarium is intact. The sku ll base is intact.IMPRESSION:Negative unenhanced head CT scan. No change.Elect ronically Reviewed and Signed by: Doug Martel MD on 04/19/2022 2:24 PM Social History Type Status Start Date End Date Code Code System Smoking History Never smoker (Never 221228295 SNOMED-CT Smoked) Vital Signs Vital Sign Value Unit Hunt Hunt Date/Time Recent/Initial? C ode Code Value Unit System Body Mass 46.59 kg/m2 04/19/2022 Initial 59282 [facility] NC Index 16:14 -5 Systolic 91 mm[Hg] 04/19/2022 Initial 8480- LOIN C Blood 13:32 6 Pressure Diastolic 54 mm[Hg] 04/19/2022 Initial 8462- AIXA NC Blood 13:32 4 Pressure Body Surface 2.41 m2 04/19/2022 Initial 3140- LOINC Area 16:14 1 Height 165.10 cm 65.00 in 04/19/2022 Initial 8302- LOINC 00 16:14 2 O2 Saturation 99 % 04/19/2022 Initial 04125 LOINC 13:32 -5 Pulse 70.0 /min 04/19/2022 Initial 8867- LOINC 13:32 4 Respiration 12 /min 04/19/2022 Initial 9279- L OINC 13:32 1 Temperature 36.1 Ana 97.0 F 04/19/2022 Initial 8310- L OINC 13:32 5 Weight 127.01 kg 280.00 lbs 04/19/2022 Initial 77595 [facility] 16:14 -7 Medications Medication Start End Date Route Frequency Dose Code Code Me dication Date System Instruct ions Orders NS 0.9% 04/19/2022 04/19/2022 INTRAVENOUS X1 2651710 RxNor m BOLUS IV 500ML INTRAVE NOUS ONE TIME DOSE ~~~NS 0.9% IV 500ML 500 ML RxNo rm ZOSYN 04/19/2022 04/19/2022 IV PIGGY X1 950 0572515 RxNorm 200 3.375GM/ NS ml/hr ml/h r IV 100ML IV PIGGY PREDEFINE ONE TI ME DOSE ~~~ZOSYN 3.375GM/ VIAL (PIPRACILLIN/TAZOBA 3.375 GM RxNorm ~~~NS 0.9% 100ML MNBG+ 100 ML R xNorm NS 0.9% 04/19/2022 04/19/2022 INTRAVENOUS X1 7410426 RxNo rm BOLUS IV 500ML INTRAVE NOUS ONE TIME DOS E ~~~NS 0.9% IV 500ML 500 ML RxNo rm NS 0.9% 04/19/2022 04/19/2022 INTRAVENOUS X1 1711400 RxNor m BOLUS 1000ML INTRAVEN OUS ONE TIME DOSE ~~~NS 0.9% 1000ML 1000 ML RxNorm NS 0.9% 04/19/2022 04/19/2022 INTRAVENOUS X1 5905477 RxNor m continuous 1000ML INTRAVEN OUS ONE TIME DOSE ~~~NS 0.9% 1000ML 1000 ML RxNorm LEVOPHED 04/19/2022 04/19/2022 INTRAVENOUS X1 30 358116 RxNo rm 30 ml/hr 1MG/ML 4 ml/hr INTRAVE NOUS ML VIAL IV ONE T URSULA DOSE ~~~LEVOPHED 1MG/ML 4 ML VIAL IV 4 MG RxNorm Assessment You had the following problems: CEREB RAL PALSY SEIZURE ANEMIA HYPERTENSION LONG-TERM (CURRENT) USE OF ANTICOAGULANT S LAMINECTOMY WITH SPINAL FUSION HTN EDEMA OTHER CEREBRAL PALSY [facility] Discharge Instructions Should you have any questions prior to discharge, please contact a member of your healthcare team. If you have left the ho spital and have any questions, please contact your primary care physician. Reason For Referral Receiving Provider: jeffrey Procedures No Data Found Implants No Data Found Problems Problem Start Date Resolved Date Status Code Code System CEREBRAL PALSY active 711908706 SNOMED-CT SEIZURE active 26653046 SNOMED-CT ANEMIA active 124342936 SNOMED-CT HYPERTENSION active 66464402 SNOMED-CT LONG-TERM (CURRENT) USE active S NOMED-CT OF ANTICOAGULANTS LAMINECTOMY WITH SPINAL active 73857027 S NOMED-CT FUSION HTN active 83996363 SNOMED-CT EDEMA active 924135718 SNOMED-CT OTHER CEREBRAL PALSY active 093490874 SNOM ED-CT ANKLE SPRAIN active 50215207 SNOMED-CT POST LAMINECTOMY 05/31/2014 resolved 157790444 SNOMED-C T SYNDROME OF LUMBAR REGION SWELLING OF LIMB 03/04/2012 resolved 98352176 SNOMED-C T DERMATOPHYTOSIS OF NAIL 05/07/2012 resolved S NOMED-CT CUTANEOUS CANDIDIASIS 05/07/2012 resolved 07166494 SNO MED-CT LIMB SWELLING 05/05/2012 resolved 75933849 SNOMED-CT CELLULITIS OF EXTREMITY 03/04/2014 resolved S NOMED-CT Allergies Allergy Substance Reaction Severity Start Date Concern Status Code Code System CEPHALEXIN Active 2231 SNOMED-C T VANCOMYCIN Severe Active 91014 RxNorm DOXYCYCLINE Active 3640 SNOMED- CT LATEX Active 7655791 RxNorm BACTRIM Active 835802 SNOMED-CT Plan of Treatment ULTRASOUND VENOUS DUPLEX CORRIE 04/18/2022 BONE SCAN 3 PHASE [employer] 10/18/2020 Encounters No Data Found Goals No Data Found Health Concerns Section No Data Found
[2022-04-30 13:51] LABS: Free Kappa Lt Chain Qnt, Serum 4.01 mg/dL (0.33-1.94); Free Lambda Lt Chain Qnt, Seru 2.02 mg/dL (0.57-2.63)
== END 2022-04-29 15:15 | DRG 871 ==
LOC: EEVIPCON 19:52 → EC 19:52 → 2SICU 22:05 → 5NMEDONC 04-27 23:44
PROVIDERS: ADMIT Hospitalist; ATTEND Hospitalist
PROC: 3E043XZ Introduction of Vasopressor into Central Vein, Percutaneous Approach (ICD-10-PCS; principal; 2022-04-19)
PROC: 03HY32Z Insertion of Monitoring Device into Upper Artery, Percutaneous Approach (ICD-10-PCS; 2022-04-21)
PROC: 4A133B1 Monitoring of Arterial Pressure, Peripheral, Percutaneous Approach (ICD-10-PCS; 2022-04-21)
PROC: 4A133J1 Monitoring of Arterial Pulse, Peripheral, Percutaneous Approach (ICD-10-PCS; 2022-04-21)
PROC: 0D9670Z Drainage of Stomach with Drainage Device, Via Natural or Artificial Opening (ICD-10-PCS; 2022-04-21)
PROC: 3E0G76Z Introduction of Nutritional Substance into Upper GI, Via Natural or Artificial Opening (ICD-10-PCS; 2022-04-23)
DX: A41.9 Sepsis, unspecified organism (principal); G93.41 Metabolic encephalopathy; R65.21 Severe sepsis with septic shock; J69.0 Pneumonitis due to inhalation of food and vomit; N39.0 Urinary tract infection, site not specified; E87.2 Acidosis; R18.8 Other ascites; N17.9 Acute kidney failure, unspecified; J98.11 Atelectasis; E87.1 Hypo-osmolality and hyponatremia; D61.818 Other pancytopenia; J90 Pleural effusion, not elsewhere classified; K52.1 Toxic gastroenteritis and colitis; T36.0X5A Adverse effect of penicillins, initial encounter; E66.01 Morbid (severe) obesity due to excess calories; R13.10 Dysphagia, unspecified; I10 Essential (primary) hypertension; G80.9 Cerebral palsy, unspecified; G40.909 Epilepsy, unspecified, not intractable, without status epilepticus; E87.70 Fluid overload, unspecified; D25.9 Leiomyoma of uterus, unspecified; R62.50 Unspecified lack of expected normal physiological development in childhood; Z20.822 Contact with and (suspected) exposure to COVID-19; K81.9 Cholecystitis, unspecified; R34 Anuria and oliguria; D50.0 Iron deficiency anemia secondary to blood loss (chronic); D46.9 Myelodysplastic syndrome, unspecified; I87.8 Other specified disorders of veins; Z95.810 Presence of automatic (implantable) cardiac defibrillator; Z88.1 Allergy status to other antibiotic agents; Z87.01 Personal history of pneumonia (recurrent); Z86.718 Personal history of other venous thrombosis and embolism; Z79.899 Other long term (current) drug therapy; Z79.01 Long term (current) use of anticoagulants; Z88.2 Allergy status to sulfonamides; Z86.19 Personal history of other infectious and parasitic diseases; Z71.3 Dietary counseling and surveillance; Z91.14 Patient's other noncompliance with medication regimen
CPT/HCPCS: 36415; 36600; 70450; 71045; 74177; 74230; 76770; 80048; 80053; 81001; 82533; 82607; 82728; 82747; 82803; 82805; 83540; 83550; 83605; 83735; 83883; 83921; 84132; 84165; 84443; 85025; 85045; 85384; 85610; 85730; 86038; 86431; 87040; 87086; 87324; 87635; 93306; 94640; 94760; 96365; 96366; 99291

== ENCOUNTER 2022-05-10 12:51 | Inpatient (IN) | payer MEDICARE, OTHER ==
--- NOTE | 2022-05-10 13:26 | ED ---
General Adult HPI - General Chief complaint: Altered Mental Status Stated complaint: AMS Time Seen by Provider: 05/10/22 12:53 Source: RN/, RN notes reviewed, old records reviewed (Reviewed report from [facility]) Mode of arrival: EMS Limitations: altered mental status, physical limitation - History of Present Illness Initial comments: Patient is a pleasant [age]-year-old female presenting to the emergency Department as a transfer from [place] with concern for altered mental status. Patient apparently had similar symptoms several weeks ago associated with urinary tract infection. While there patient was found to be hypothermic with neutropenia. Questionable infiltrate on x-ray. Patient is nonverbal and provides no additional history. Chart reviewed. - Related Data Home Medications Medication Instructions Recorded Confirmed Acetaminophen Tab [Tylenol] 650 mg PO Q4H PRN MDD 3000 04/19/22 04/19/22 Apixaban [Eliquis] 5 mg PO BID@0700,1700 04/19/22 04/19/22 Docusate [Colace] 100 mg PO BID@0700,1700 04/19/22 04/19/22 Potassium Chloride [Potassium 20 meq PO DAILY@1700 04/19/22 04/19/22 Chloride ER] amLODIPine [Norvasc] 5 mg PO DAILY@0700 04/19/22 04/19/22 bisacodyL 10 mg RECTAL Q72H PRN 04/19/22 04/19/22 Previous Rx's Medication Instructions Recorded Amoxic-Pot Clav 875-125Mg 1 each PO Q12HR 7 Days #14 tab 04/29/22 [Augmentin 875-125] Cholestyramine (with Sugar) 4 gm PO BID@1000,1800 #10 packet 04/29/22 [Questran Packet] Furosemide [Lasix] 40 mg PO DAILY tab 04/29/22 Ipratropium-Albuterol Nebulize 3 ml INHALATION RT-TID each 04/29/22 [Duoneb 0.5 mg-3 mg/3 ml Soln] Ipratropium-Albuterol Nebulize 3 ml INHALATION RT-TID PRN each 04/29/22 [Duoneb 0.5 mg-3 mg/3 ml Soln] Midodrine [ProAmatine] 5 mg PO AC-TID tab 04/29/22 Allergies Allergy/AdvReac Type Severity Reaction Status Date / Time cephalexin [From Keflex] Allergy Unknown Verified 05/10/22 13:10 doxycycline Allergy Unknown Verified 05/10/22 13:10 sulfamethoxazole Allergy Unknown Verified 05/10/22 13:10 [From Bactrim] trimethoprim [From Bactrim] Allergy Unknown Verified 05/10/22 13:10 vancomycin Allergy Unknown Verified 05/10/22 13:10 Review of Systems ROS Statement: Those systems with pertinent positive or pertinent negative responses have been documented in the HPI. ROS Other: All systems not noted in ROS Statement are negative. Limitations: ROS unobtainable due to patients medical condition Constitutional: Reports: as per HPI Past Medical History Past Medical History: Hypertension, Pneumonia, Seizure Disorder History of Any Multi-Drug Resistant Organisms: Unobtainable Past Surgical History: AICD, Back Surgery Past Anesthesia/Blood Transfusion Reactions: No Reported Reaction Type of Cardiac Device: AICD Device Placement Date:: 2021 Past Psychological History: No Psychological Hx Reported Smoking Status: Unknown if ever smoked Past Alcohol Use History: None Reported Past Drug Use History: None Reported General Exam Limitations: altered mental status, physical limitation General appearance: alert, in no apparent distress Head exam: Present: atraumatic Eye exam: Present: normal appearance, PERRL ENT exam: Present: normal oropharynx Neck exam: Present: normal inspection Respiratory exam: Present: wheezes Cardiovascular Exam: Present: regular rate, normal rhythm GI/Abdominal exam: Present: soft. Absent: tenderness Extremities exam: Present: pedal edema. Absent: calf tenderness Neurological exam: Present: alert Psychiatric exam: Present: normal affect, normal mood Skin exam: Present: normal color Course Vital Signs 05/10/22 13:06 Temperature 31.7 F L Pulse Rate 60 Respiratory 22 Rate Blood Pressure 111/80 O2 Sat by Pulse 97 Oximetry Medical Decision Making - Medical Decision Making Case discussed with Dr. Howard, who will admit covering hospital call Disposition Clinical Impression: Sepsis, Pneumonia Disposition: ADMITTED IP TO THIS HOSP Condition: Serious Is patient prescribed a controlled substance at d/c from ED?: No Referrals: Allan Coats DO [Primary Care Provider] - 1-2 days Time of Disposition: 14:04
[2022-05-10] MEDS: SODIUM CHLORIDE 0.9% 1,000 ML IV SCH ×2 (14:41→22:22)
--- NOTE | 2022-05-10 15:44 | XR ---
EXAMINATION TYPE: XR chest 1V portable DATE OF EXAM: 05/10/2022 COMPARISON: Today HISTORY: Short of breath. Pneumonia TECHNIQUE: FINDINGS: Heart is enlarged. No obvious heart failure. There is coarsening of the interstitial markin gs. There is left axillary pacemaker. There are chest leads. IMPRESSION: No pulmonary consolidation or heart failure. Coarse lung markings. No adverse change comp ared to exam this morning.
[2022-05-10] MEDS ORDERED: SODIUM CHLORIDE 0.9% 2,000 ML IV ONE (16:07)
[2022-05-10] MEDS ORDERED: NALOXONE 0.4 MG/ML 1 ML VIAL IV PRN (17:25)
[2022-05-10] MEDS ORDERED: ACETAMINOPHEN TAB 325 MG TAB PO PRN (17:26)
[2022-05-10] MEDS ORDERED: MAGNESIUM HYDROXIDE 2,400 MG/10 ML CUP PO PRN (17:26)
[2022-05-10] MEDS ORDERED: IPRATROPIUM-ALBUTEROL 3 ML NEB INHALATION PRN (17:26)
[2022-05-10] MEDS ORDERED: bisacodyL 10 MG SUPP RECTAL PRN (17:26)
--- NOTE | 2022-05-10 17:32 | P.HPIM ---
History of Present Illness H&P Date: 05/10/22 Chief Complaint: fever 62-year-old female with history of cerebral palsy, seizure disorder, hypertension, spinal fusion, anemia presented to the emergency Department as a transfer from [place] with concern for altered mental status and hypothermia, according to the skilled nursing staff patient was not feeding herself and was not talking like she normally does.. 3 weeks ago she had this similarly when she was septic from UTI. At baseline she is not ambulatory due to cerebral palsy. Upon my evaluation she was not following any commands. Nonverbal. Not answering any questions. Evaluation in the emergency department revealed temperature 87.7 Fahrenheit, pulse 71, blood pressure 87/60. Laboratory analysis showed leukopenia with WBC count of 1.65, lactic acid and procrastinate was normal. Sodium 142, potassium 5.1, chloride 110, bicarb 30, BUN 17, creatinine 0.4, hemoglobin 9, platelet count 90, procalcitonin and lactic acid level was normal. Covid negative. Surprisingly urinalysis was negative for pyuria. Troponin negative. Computed tomography scan of the head did not show any acute intracranial abnormalities. Chest x-ray showed possible cardiomegaly and congestive heart failure/vascular congestion versus atypical pneumonia, correlate with BNP. She was treated with IV Levaquin and normal saline then was admitted for further evaluation and treatment. Past Medical History Past Medical History: Hypertension, Pneumonia, Seizure Disorder History of Any Multi-Drug Resistant Organisms: Unobtainable Past Surgical History: AICD, Back Surgery Past Anesthesia/Blood Transfusion Reactions: No Reported Reaction Type of Cardiac Device: AICD Device Placement Date:: 2021 Past Psychological History: No Psychological Hx Reported Smoking Status: Unknown if ever smoked Past Alcohol Use History: None Reported Past Drug Use History: None Reported Medications and Allergies Home Medications Medication Instructions Recorded Confirmed Type Acetaminophen Tab [Tylenol] 650 mg PO Q4H PRN MDD 3000 04/19/22 05/10/22 History Apixaban [Eliquis] 5 mg PO BID@0700,1700 04/19/22 05/10/22 History Docusate [Colace] 100 mg PO BID@0700,1700 04/19/22 05/10/22 History Potassium Chloride [Potassium 20 meq PO DAILY@17004/19/22 05/10/22 History Chloride ER] amLODIPine [Norvasc] 5 mg PO DAILY@0700 04/19/22 05/10/22 History bisacodyL 10 mg RECTAL Q72H PRN 04/19/22 05/10/22 History Cholestyramine (with Sugar) 4 gm PO BID@1000,1800 #10 packet 04/29/22 05/10/22 Rx [Questran Packet] Ipratropium-Albuterol Nebulize 3 ml INHALATION RT-TID each 04/29/22 05/10/22 Rx [Duoneb 0.5 mg-3 mg/3 ml Soln] Furosemide [Lasix] 80 mg PO DAILY 05/10/22 05/10/22 History Ipratropium-Albuterol Nebulize 3 ml INHALATION RT-Q4H PRN 05/10/22 05/10/22 History [Duoneb 0.5 mg-3 mg/3 ml Soln] L.acidoph,Paracasei, B.lactis 1 cap PO DAILY 05/10/22 05/10/22 History [Probiotic] Magnesium Hydroxide [Milk of 7,200 mg PO DAILY PRN 05/10/22 05/10/22 History Magnesia Concentrate] Midodrine [ProAmatine] 5 mg PO TID 05/10/22 05/10/22 History Allergies Allergy/AdvReac Type Severity Reaction Status Date / Time cephalexin [From Keflex] Allergy Unknown Verified 05/10/22 14:36 doxycycline Allergy Unknown Verified 05/10/22 14:36 sulfamethoxazole Allergy Unknown Verified 05/10/22 14:36 [From Bactrim] trimethoprim [From Bactrim] Allergy Unknown Verified 05/10/22 14:36 vancomycin Allergy Unknown Verified 05/10/22 14:36 Physical Exam Vitals: Vital Signs Temp Pulse Resp BP Pulse Ox 05/10/22 14:36 32.8 F L 60 22 97/59 97 05/10/22 13:06 31.7 F L 60 22 111/80 97 Intake and Output 05/10/22 05/10/22 05/10/22 06:59 14:59 22:59 Other: Weight 127.006 kg Constitutional: No acute distress Eyes:Anicteric sclerae, moist conjunctiva, no lid-lag, PERRLA, ENMT: Oropharynx clear, no erythema, exudates Neck: Supple, FROM, no masses, or JVD, No carotid bruits, No thyromegaly Lungs: Clear to auscultation, Clear to percussion, Normal respiratory effort, no accessory muscle use Cardiovascular: Heart regular in rate and rhythm, No murmurs, gallops, or rubs, No peripheral edema Abdominal: Soft, Nontender, no guarding, rebound or rigidity, Normoactive bowel sounds, No hepatomegaly, No splenomegaly, No palpable mass Skin: Normal temperature, tone, texture, turgor, no induration, No subcutaneous nodules, No rash, lesions, No ulcers Extremities: No digital cyanosis, No clubbing, Pedal pulses intact and symmetrical, Radial pulses intact and symmetrical, No calf tenderness Neuro: Not verbal not following commands Assessment and Plan Plan: Sepsis/septic shock, secondary to presumed pneumonia. IV fluids Started on Levaquin Monitor blood pressure Blood cultures Recheck UA Hold BP meds Hypothermia Acute metabolic encephalopathy. Treatment as above History of cerebral palsy History of DVT. All stable Resume meds DVT prophylaxis On AC, resume Admit to inpatient, expected length of stay more than 2 midnights.
[2022-05-10] MEDS: MIDODRINE 5 MG TAB PO SCH ×2 (17:42→21:11)
[2022-05-10 17:53] LABS: Appearance,Urine Clear (Clear); Bilirubin,Urine Negative (Negative); Blood,Urine Negative (Negative); Color,Urine Light Yellow; Glucose,Urine (UA) Negative (Negative); Ketones,Urine Negative (Negative); Leukocyte Esterase,Urine Negative (Negative); Nitrite,Urine Negative (Negative); PH, Urine 5.5 (5.0-8.0); Protein,Urine Negative (Negative); Specific Gravity,Urine 1.011 (1.001-1.035); Urobilinogen,Urine <2.0 mg/dL (<2.0)
[2022-05-10] MEDS: NOREPINEPHRINE 4 MG in SODIUM CHLORIDE 0.9% 250 ML IV SCH (18:19)
[2022-05-10 18:51] LABS: Glucose,Whole Blood 73 mg/dL (70-110)
[2022-05-10] MEDS: IPRATROPIUM-ALBUTEROL 3 ML NEB INHALATION SCH (19:00)
[2022-05-10 19:21] LABS: ABG Base Excess 4.1 mmol/L; ABG HCO3 28 mmol/L (21-25); ABG Hematocrit 28 % (34.0-46.0); ABG Oxygen Saturation 75.4 % (94-97); ABG PCO2 42 mmHg (35-45); ABG PH 7.44 (7.35-7.45); ABG TCO2 30 mmol/L (19-24); Allen Test Performed? Yes
[2022-05-10 19:27] LABS: ABG PO2 39 mmHg (83-108)
[2022-05-10] MEDS ORDERED: HEPARIN SODIUM 1,000 UN/ML (10ML VL) IV PRN (19:42)
[2022-05-10 19:44] LABS: Anisocytosis Slight; Basophils % (A) 0 %; Eosinophils # (A) 0.1 k/uL (0-0.7); Eosinophils % (A) 3 %; HGB 9.2 gm/dL (11.4-16.0); Hypochromasia Moderate; Lymphocytes # (A) 0.5 k/uL (1.0-4.8); Lymphocytes % (A) 14 %; MCH 31.3 pg (25.0-35.0); MCHC 31.8 g/dL (31.0-37.0); MCV 98.4 fL (80.0-100.0); Macrocytosis Slight; Mean Platelet Volume 9.7; Monocytes # (A) 0.2 k/uL (0-1.0); Monocytes % (A) 6 %; Neutrophils # (A) 2.3 k/uL (1.3-7.7); Neutrophils % (A) 75 %; Platelet Count 105 k/uL (150-450); Poikilocytosis Slight; RBC 2.95 m/uL (3.80-5.40); RDW 17.2 % (11.5-15.5); WBC 3.1 k/uL (3.8-10.6)
[2022-05-10 19:58] LABS: African American GFR (CKD) >90 (>60 ml/min/1.73 sqM); Anion Gap 8 mmol/L; Blood Urea Nitrogen 19 mg/dL (7-17); Calcium 9.2 mg/dL (8.4-10.2); Carbon Dioxide 24 mmol/L (22-30); Chloride 109 mmol/L (98-107); Glucose 70 mg/dL (74-99); Magnesium 1.7 mg/dL (1.6-2.3); Non-African American GFR(CKD) >90 (>60 ml/min/1.73 sqM); Sodium 141 mmol/L (137-145)
[2022-05-10] MEDS ORDERED: FUROSEMIDE 10 MG/ML 4 ML VIAL IV STA (20:03)
[2022-05-10 20:29] LABS: Potassium 6.5 mmol/L (3.5-5.1)
[2022-05-10 20:45] LABS: Partial Thromboplastin Time 30.2 sec (22.0-30.0); Prothrombin Time 10.7 sec (9.0-12.0)
[2022-05-10] MEDS ORDERED: CALCIUM GLUCONATE IN NACL 2 GM in SALINE 1 100ML.BAG IVPB ONE (21:08)
[2022-05-10] MEDS ORDERED: ALBUTEROL NEBULIZED 2.5 MG/3 ML INHALATION STA (21:10)
[2022-05-10] MEDS ORDERED: SODIUM POLYSTYRENE SULFONATE 15 GM/60 ML BOTTLE PO STA (21:10)
[2022-05-10] MEDS: HEPARIN SOD,PORK IN 0.45% NACL 25,000 UNIT in 0.45% NACL 1 250ML.BAG IV SCH (21:16)
[2022-05-10] MEDS: FAMOTIDINE 20 MG/2 ML VIAL IV SCH (21:50)
[2022-05-10] MEDS ORDERED: SODIUM POLYSTYRENE SULFONATE 30 GM/120 ML BOTTLE RECTAL STA (22:28)
[2022-05-11 00:36] LABS: Glucose,Whole Blood 94 mg/dL (70-110)
[2022-05-11 04:24] LABS: Anisocytosis Slight; Basophils % (A) 0 %; Eosinophils # (A) 0.2 k/uL (0-0.7); Eosinophils % (A) 3 %; HGB 8.9 gm/dL (11.4-16.0); Hypochromasia Marked; Lymphocytes # (A) 0.4 k/uL (1.0-4.8); Lymphocytes % (A) 9 %; MCH 31.7 pg (25.0-35.0); MCHC 31.8 g/dL (31.0-37.0); MCV 99.7 fL (80.0-100.0); Macrocytosis Slight; Mean Platelet Volume 9.6; Monocytes # (A) 0.3 k/uL (0-1.0); Monocytes % (A) 6 %; Neutrophils # (A) 3.6 k/uL (1.3-7.7); Neutrophils % (A) 79 %; Platelet Count 106 k/uL (150-450); Poikilocytosis Slight; RBC 2.81 m/uL (3.80-5.40); RDW 17.3 % (11.5-15.5); WBC 4.5 k/uL (3.8-10.6)
[2022-05-11] MEDS: NOREPINEPHRINE 4 MG in SODIUM CHLORIDE 0.9% 250 ML IV SCH ×2 (04:28→15:35)
[2022-05-11 04:40] LABS: ALT 20 U/L (4-34); AST 28 U/L (14-36); African American GFR (CKD) >90 (>60 ml/min/1.73 sqM); Albumin 3.3 g/dL (3.5-5.0); Alkaline Phosphatase 128 U/L (38-126); Anion Gap 8 mmol/L; Blood Urea Nitrogen 20 mg/dL (7-17); Calcium 9.2 mg/dL (8.4-10.2); Carbon Dioxide 25 mmol/L (22-30); Chloride 110 mmol/L (98-107); Glucose 75 mg/dL (74-99); Magnesium 1.8 mg/dL (1.6-2.3); Non-African American GFR(CKD) >90 (>60 ml/min/1.73 sqM); Potassium 5.8 mmol/L (3.5-5.1); Sodium 143 mmol/L (137-145); Total Bilirubin 0.2 mg/dL (0.2-1.3); Total Protein 6.1 g/dL (6.3-8.2)
[2022-05-11] MEDS ORDERED: MAGNESIUM SULFATE-D5W PMX 1 GM in DEXTROSE/WATER 1 100ML.BAG IVPB ONE (04:54)
[2022-05-11] MEDS ORDERED: SODIUM POLYSTYRENE SULFONATE 30 GM/120 ML BOTTLE RECTAL STA (04:54)
[2022-05-11] MEDS: SODIUM CHLORIDE 0.9% 1,000 ML IV SCH (05:09)
[2022-05-11 06:00] LABS: Glucose,Whole Blood 83 mg/dL (70-110)
[2022-05-11] MEDS: APIXABAN 5 MG TAB PO SCH ×2 (06:13→15:35)
[2022-05-11] MEDS ORDERED: LEVOFLOXACIN 750MG-D5W PMX 750 MG in DEXTROSE/WATER 1 150ML.BAG IVPB SCH ×2 (07:00→14:15)
[2022-05-11] MEDS: FAMOTIDINE 20 MG/2 ML VIAL IV SCH (08:03)
[2022-05-11] MEDS: MIDODRINE 5 MG TAB PO SCH ×3 (08:03→21:03)
[2022-05-11] MEDS: IPRATROPIUM-ALBUTEROL 3 ML NEB INHALATION SCH ×3 (08:30→20:29)
[2022-05-11] MEDS ORDERED: FUROSEMIDE 10 MG/ML 2 ML VIAL IV ONE (08:45)
[2022-05-11] MEDS: PIPERACILLIN-TAZOBACTAM 3.375 GM in SODIUM CHLORIDE 0.9% 100 ML IVPB SCH ×3 (08:45→23:05)
--- NOTE | 2022-05-11 11:32 | P.CNPUL ---
History of Present Illness Consult date: 05/11/22 Reason for consult: other (Hypotension, possible sepsis and septic shock) Chief complaint: Altered mental status. History of present illness: This is a 62-year-old female with history of cerebral palsy, seizure disorder, hypertension, chronic anemia, recurrent episodes of urosepsis, patient was transferred yesterday from [facility] to our ER mostly with concern of altered mental status, hypothermia, and apparently the patient was not able to feed herself although she normally does, and was not talking properly as she normally does. Apparently 3 weeks ago she had a similar episode where in she was found septic from UTI. Upon arrival to the ER, patient was evaluated, she was noted to be nonverbal, not answering any questions, she was noted to be hypothermic with a temp of 87.7, blood pressure was 87/60, patient was noted to be relatively leukopenic with WBC count of 1.65, her lactic acid was normal. Pro-calcitonin was normal. Her electrolytes were normal. Platelets were relatively low at 90,000. And her urinalysis were relatively unremarkable, no evidence of pyuria. CT of the brain was unremarkable. Chest x-ray showed pulmonary vascular congestion, no clear-cut evidence of pneumonia. Patient was given fluid boluses about 3 L in the ER, and considering her blood pressure remained relatively low and she remained hypothermic patient was admitted to the ICU and she was on a very low dose of norepinephrine which I will discontinue this morning. Overnight the patient was getting more and more congested, and I recommended Lasix 40 mg IV push given last night, patient responded well to Lasix, and she had a significant urine output. Today she is on 0.9 normal saline at 1 50 mL per hour and I'm cutting down to KVO. Patient had a swallow evaluation which she failed. She is now on 50% Ventimask continues to have gurgling with secretions in her upper airways, easily suctioned without any difficulty. She does follow simple instructions but does not seem to be verbal. Her temp today is up to 97.7, blood pressure is 103/52 with a mean of 70 she is on 50% Ventimask and her O2 sat is 97%. Heart rate is 73 and respirations 14. Obviously overnight the patient made a significant and dramatic improvement. And I plan to discontinue norepinephrine this morning. Patient tested negative for COVID-19, potassium is a bit high today at 5.8, but she also has a normal sodium. PTT is over 200. Patient is on heparin, normally on eliquis for DVT history Review of Systems ROS unobtainable: due to mental status Past Medical History Past Medical History: Hypertension, Pneumonia, Seizure Disorder History of Any Multi-Drug Resistant Organisms: Unobtainable Past Surgical History: AICD, Back Surgery Past Anesthesia/Blood Transfusion Reactions: No Reported Reaction Type of Cardiac Device: AICD Device Placement Date:: 2021 Past Psychological History: No Psychological Hx Reported Smoking Status: Unknown if ever smoked Past Alcohol Use History: None Reported Past Drug Use History: None Reported Medications and Allergies Home Medications Medication Instructions Recorded Confirmed Type Acetaminophen Tab [Tylenol] 650 mg PO Q4H PRN MDD 3000 04/19/22 05/10/22 History Apixaban [Eliquis] 5 mg PO BID@0700,1700 04/19/22 05/10/22 History Docusate [Colace] 100 mg PO BID@0700,1700 04/19/22 05/10/22 History Potassium Chloride [Potassium 20 meq PO DAILY@1700 04/19/22 05/10/22 History Chloride ER] amLODIPine [Norvasc] 5 mg PO DAILY@0700 04/19/22 05/10/22 History bisacodyL 10 mg RECTAL Q72H PRN 04/19/22 05/10/22 History Cholestyramine (with Sugar) 4 gm PO BID@1000,1800 #10 packet 04/29/22 05/10/22 Rx [Questran Packet] Ipratropium-Albuterol Nebulize 3 ml INHALATION RT-TID each 04/29/22 05/10/22 Rx [Duoneb 0.5 mg-3 mg/3 ml Soln] Furosemide [Lasix] 80 mg PO DAILY 05/10/22 05/10/22 History Ipratropium-Albuterol Nebulize 3 ml INHALATION RT-Q4H PRN 05/10/22 05/10/22 History [Duoneb 0.5 mg-3 mg/3 ml Soln] L.acidoph,Paracasei, B.lactis 1 cap PO DAILY 05/10/22 05/10/22 History [Probiotic] Magnesium Hydroxide [Milk of 7,200 mg PO DAILY PRN 05/10/22 05/10/22 History Magnesia Concentrate] Midodrine [ProAmatine] 5 mg PO TID 05/10/22 05/10/22 History Allergies Allergy/AdvReac Type Severity Reaction Status Date / Time cephalexin [From Keflex] Allergy Unknown Verified 05/10/22 14:36 doxycycline Allergy Unknown Verified 05/10/22 14:36 sulfamethoxazole Allergy Unknown Verified 05/10/22 14:36 [From Bactrim] trimethoprim [From Bactrim] Allergy Unknown Verified 05/10/22 14:36 vancomycin Allergy Unknown Verified 05/10/22 14:36 Physical Exam Vitals: Vital Signs Temp Pulse Resp BP Pulse Ox FiO2 05/11/22 11:00 97.6 F 73 14 103/52 97 50 05/11/22 10:45 77 14 103/60 95 05/11/22 10:30 76 16 106/56 95 05/11/22 10:15 77 12 97/57 98 05/11/22 10:00 97.7 F 75 18 104/55 96 50 05/11/22 09:45 75 14 101/57 96 05/11/22 09:30 74 15 96/54 98 05/11/22 09:15 70 18 96/53 96 05/11/22 09:00 94.6 F L 71 16 99/51 96 50 05/11/22 08:45 66 16 121/63 98 05/11/22 08:39 70 10 L 05/11/22 08:30 70 14 132/71 98 40 05/11/22 08:15 72 18 109/67 99 05/11/22 08:00 94.5 F L 71 16 122/64 99 50 05/11/22 07:45 70 18 109/66 99 05/11/22 07:30 71 12 111/57 99 05/11/22 07:15 71 16 85/50 99 05/11/22 07:00 71 13 85/50 98 05/11/22 06:45 72 10 L 92/54 99 05/11/22 06:30 73 11 L 146/72 99 05/11/22 06:15 74 15 99/48 99 05/11/22 06:00 64 10 L 108/55 99 05/11/22 05:45 75 14 97/51 98 05/11/22 05:30 75 20 91/75 96 05/11/22 05:15 76 12 100/50 98 05/11/22 05:00 77 13 103/49 97 05/11/22 04:45 76 10 L 100/47 97 05/11/22 04:30 78 12 105/48 97 05/11/22 04:15 68 12 119/56 98 05/11/22 04:00 62 15 98/49 99 50 05/11/22 03:45 66 13 126/48 98 05/11/22 03:35 98 50 05/11/22 03:30 59 L 16 108/50 98 05/11/22 03:15 59 L 16 104/48 99 05/11/22 03:00 60 21 101/50 99 05/11/22 02:45 59 L 17 98/50 98 05/11/22 02:30 60 26 H 99/46 99 05/11/22 02:15 59 L 22 100/46 98 05/11/22 02:00 60 22 104/49 98 05/11/22 01:45 68 18 94/53 97 05/11/22 01:30 86 15 110/55 98 05/11/22 01:15 89 21 117/57 97 05/11/22 01:00 84 16 112/61 99 05/11/22 00:45 85 15 109/61 98 05/11/22 00:30 88 16 108/58 98 05/11/22 00:15 89 16 113/54 98 05/11/22 00:00 97.3 F L 89 22 113/58 98 50 05/10/22 23:45 90 20 100/52 98 05/10/22 23:30 100 12 116/57 98 05/10/22 23:15 90 12 84/58 99 05/10/22 23:14 81 9 L 84/58 99 05/10/22 23:00 61 84/58 96 05/10/22 22:45 73 15 116/90 97 05/10/22 22:30 75 16 112/54 98 05/10/22 22:15 72 36 H 109/46 98 05/10/22 22:00 70 23 130/59 98 05/10/22 21:52 71 05/10/22 21:45 69 21 105/47 98 05/10/22 21:39 71 05/10/22 21:30 65 26 H 118/52 97 05/10/22 21:15 71 32 H 95/51 97 05/10/22 21:00 69 21 95/51 94 L 05/10/22 20:45 105 H 22 117/60 97 05/10/22 20:30 106 H 21 135/67 97 05/10/22 20:15 99 29 H 121/60 97 05/10/22 20:00 99.7 F H 114 H 18 103/65 98 50 05/10/22 19:45 70 12 123/55 99 05/10/22 19:31 50 05/10/22 19:25 97 05/10/22 19:11 60 05/10/22 19:01 62 05/10/22 19:00 98.1 F 60 13 126/60 96 05/10/22 18:30 97.2 F L 70 22 91/52 98 05/10/22 18:00 35.8 F L 60 22 78/45 96 05/10/22 17:37 95.9 F L 60 22 87/55 96 05/10/22 17:03 35.1 F L 60 22 83/53 98 05/10/22 16:33 60 22 86/45 98 05/10/22 15:35 92.8 F L 68 24 71/41 97 05/10/22 14:36 32.8 F L 60 22 97/59 97 05/10/22 13:06 31.7 F L 60 22 111/80 97 Intake and Output 05/10/22 05/11/22 05/11/22 22:59 06:59 14:59 Intake Total 390 1492.271 304.678 Output Total 455 1050 800 Balance -65 442.271 -495.322 Intake: IV 390 1170 190 Sodium Chloride 0.9% 1, 390 1170 190 000 ml @ 20 mls/hr IV . Q24H MAC Rx#:[id number] Intake, IV Titration 322.271 114.678 Amount Heparin Sod,Pork in 0.45% 120.404 NaCl 25,000 unit In 0.45 % NaCl 1 250ml.bag @ 12 UNITS/KG/HR 15.241 mls/hr IV .[id number] MAC Rx#: [id number] Norepinephrine 4 mg In 201.867 14.678 Sodium Chloride 0.9% 250 ml @ 0.05 MCG/KG/MIN 24. 195 mls/hr IV .[id number] MAC Rx#:[id number] Piperacillin-Tazobactam 3 100 .375 gm In Sodium Chloride 0.9% 100 ml @ 25 mls/hr IVPB Q8HR MAC Rx# :[id number] Output: Urine 455 1050 800 Other: Voiding Method Indwelling Catheter Indwelling Catheter Indwelling Catheter # Bowel Movements 1 Weight 127.006 kg 133.2 kg Constitutional: Reveals 62-year-old female, obese, on 50% Ventimask, gurgling with secretions which were easily suctioned. Patient does not seem to be in any form of distress Eyes: PERRLA, EOMI, nonicteric, no neck masses, no JVD, no stridor. ENMT: Gurgling with secretions, easily suctioned, moist mucous membranes. Neck: Supple no neck masses no JVD. Lungs: Symmetrical chest expansion, diminished breath sounds at the bases no crackles or rhonchi or wheezes Cardiovascular: Regular rhythm, no S3 gallop. No murmur. Abdominal: Obese, soft, nontender, no megaly, no rebound, no guarding. Positive bowel sounds. Skin: No rashes. No cyanosis. Extremities: No clubbing edema or cyanosis, good pulses bilaterally. Neuro: Patient follows simple instructions but does not verbalize Results - Laboratory Findings CBC and BMP: 05/11/22 03:26 05/11/22 03:26 ABG ABG pH 7.44 (7.35-7.45) 05/10/22 19:19 ABG pCO2 42 mmHg (35-45) 05/10/22 19:19 ABG pO2 39 mmHg (83-108) L* 05/10/22 19:19 ABG O2 Saturation 75.4 % (94-97) L 05/10/22 19:19 PT/INR, D-dimer PT 10.7 sec (9.0-12.0) 05/10/22 20:20 INR 1.0 (<1.2) 05/10/22 20:20 Abnormal lab findings: Abnormal Labs 05/10/22 05/10/22 05/10/22 19:19 19:29 19:29 WBC 3.1 L RBC 2.95 L Hgb 9.2 L Hct 29.0 L RDW 17.2 H Plt Count 105 L Lymphocytes # 0.5 L APTT ABG pO2 39 L* ABG HCO3 28 H ABG Total CO2 30 H ABG O2 Saturation 75.4 L ABG Hematocrit 28 L Hemoglobin 9.0 L Potassium 6.5 H* Chloride 109 H BUN 19 H Glucose 70 L Alkaline Phosphatase Total Protein Albumin 05/10/22 05/11/22 05/11/22 20:20 03:26 03:26 WBC RBC 2.81 L Hgb 8.9 L Hct 28.0 L RDW 17.3 H Plt Count 106 L Lymphocytes # 0.4 L APTT 30.2 H ABG pO2 ABG HCO3 ABG Total CO2 ABG O2 Saturation ABG Hematocrit Hemoglobin Potassium 5.8 H Chloride 110 H BUN 20 H Glucose Alkaline Phosphatase 128 H Total Protein 6.1 L Albumin 3.3 L 05/11/22 03:26 WBC RBC Hgb Hct RDW Plt Count Lymphocytes # APTT >200.0 H* ABG pO2 ABG HCO3 ABG Total CO2 ABG O2 Saturation ABG Hematocrit Hemoglobin Potassium Chloride BUN Glucose Alkaline Phosphatase Total Protein Albumin - Diagnostic Findings Chest x-ray: image reviewed (As noted in HPI.) Assessment and Plan Assessment: Impression: Possible sepsis and septic shock Suspect profound dehydration on admission Hypothermia, possibly secondary to above./Secondary to sepsis. Serum cortisol level is pending Vick profile is pending blood cultures are pending urine cultures are pending Acute metabolic encephalopathy History of cerebral palsy History of DVT patient is on eliquis. History of hypertension Recommendation: Continue present supportive care measures Continue to monitor in the ICU Taper and discontinue norepinephrine Continue IV fluids however monitor for potential fluid overload Continue antibiotics however discontinue Levaquin and treat the patient with Zosyn empirically. Continue GI and DVT prophylaxis Monitor electrolytes and correct accordingly Seizure precautions as the patient is known to have history of seizures Serum cortisol level and thyroid profile are pending. We'll continue to follow. Patient will remain in the ICU for the next 24 hours. Time with Patient: Greater than 30
--- NOTE | 2022-05-11 11:37 | P.PN ---
Subjective Progress Note Date: 05/11/22 Principal diagnosis: Hypothermia Due to persistent hypotension despite IV fluid boluses patient was admitted to the ICU for pressors. She was started on norepinephrine, currently in the low dose. Blood pressure stabilized. She is currently edematous and was hypoxic earlier, IV fluids discontinued and she was given Lasix. Anticoagulation was switched to heparin drip due to unreliable oral intake. This morning patient mental status slightly improved, she is currently following commands but very weak. She is still on a bear hugger. Objective - Vital Signs Vital signs: Vital Signs Temp 97.6 F 05/11/22 11:00 Pulse 73 05/11/22 11:00 Resp 14 05/11/22 11:00 BP 103/52 05/11/22 11:00 Pulse Ox 97 05/11/22 11:00 FiO2 50 05/11/22 11:00 Intake & Output 05/10/22 05/11/22 05/11/22 18:59 06:59 18:59 Intake Total 1882.271 304.678 Output Total 1505 800 Balance 377.271 -495.322 Weight 127.006 kg 133.2 kg Intake: IV 1560 190 Sodium Chloride 0.9% 1, 1560 190 000 ml @ 20 mls/hr IV . Q24H MAC Rx#:[id number] Intake, IV Titration 322.271 114.678 Amount Heparin Sod,Pork in 0.45% 120.404 NaCl 25,000 unit In 0.45 % NaCl 1 250ml.bag @ 12 UNITS/KG/HR 15.241 mls/hr IV .[id number] MAC Rx#: [id number] Norepinephrine 4 mg In 201.867 14.678 Sodium Chloride 0.9% 250 ml @ 0.05 MCG/KG/MIN 24. 195 mls/hr IV .[id number] MAC Rx#:[id number] Piperacillin-Tazobactam 3 100 .375 gm In Sodium Chloride 0.9% 100 ml @ 25 mls/hr IVPB Q8HR MAC Rx# :[id number] Output: Urine 1505 800 Other: Voiding Method Indwelling Catheter Indwelling Catheter # Bowel Movements 1 - Exam Constitutional: No acute distress Eyes:Anicteric sclerae, moist conjunctiva, no lid-lag, PERRLA, ENMT: Oropharynx clear, no erythema, exudates Neck: Supple, FROM, no masses, or JVD, No carotid bruits, No thyromegaly Lungs: Clear to auscultation, Clear to percussion, Normal respiratory effort, no accessory muscle use Cardiovascular: Heart regular in rate and rhythm, No murmurs, gallops, or rubs, No peripheral edema Abdominal: Soft, Nontender, no guarding, rebound or rigidity, Normoactive bowel sounds, No hepatomegaly, No splenomegaly, No palpable mass Skin: Normal temperature, tone, texture, turgor, no induration, No subcutaneous nodules, No rash, lesions, No ulcers Extremities: No digital cyanosis, No clubbing, Pedal pulses intact and symmetrical, Radial pulses intact and symmetrical, No calf tenderness Neuro: Not verbal but following simple commands - Labs CBC & Chem 7: 05/11/22 03:26 05/11/22 03:26 Labs: Abnormal Lab Results - Last 24 Hours (Table) 05/10/22 05/10/22 05/10/22 Range/Units 19:19 19:29 19:29 WBC 3.1 L (3.8-10.6) k/uL RBC 2.95 L (3.80-5.40) m/uL Hgb 9.2 L (11.4-16.0) gm/dL Hct 29.0 L (34.0-46.0) % RDW 17.2 H (11.5-15.5) % Plt Count 105 L (150-450) k/uL Lymphocytes # 0.5 L (1.0-4.8) k/uL APTT (22.0-30.0) sec ABG pO2 39 L* (83-108) mmHg ABG HCO3 28 H (21-25) mmol/L ABG Total CO2 30 H (19-24) mmol/L ABG O2 Saturation 75.4 L (94-97) % ABG Hematocrit 28 L (34.0-46.0) % Hemoglobin 9.0 L (11.4-16.0) gm/dL Potassium 6.5 H* (3.5-5.1) mmol/L Chloride 109 H (98-107) mmol/L BUN 19 H (7-17) mg/dL Glucose 70 L (74-99) mg/dL Alkaline Phosphatase (38-126) U/L Total Protein (6.3-8.2) g/dL Albumin (3.5-5.0) g/dL 05/10/22 05/11/22 05/11/22 Range/Units 20:20 03:26 03:26 WBC (3.8-10.6) k/uL RBC 2.81 L (3.80-5.40) m/uL Hgb 8.9 L (11.4-16.0) gm/dL Hct 28.0 L (34.0-46.0) % RDW 17.3 H (11.5-15.5) % Plt Count 106 L (150-450) k/uL Lymphocytes # 0.4 L (1.0-4.8) k/uL APTT 30.2 H (22.0-30.0) sec ABG pO2 (83-108) mmHg ABG HCO3 (21-25) mmol/L ABG Total CO2 (19-24) mmol/L ABG O2 Saturation (94-97) % ABG Hematocrit (34.0-46.0) % Hemoglobin (11.4-16.0) gm/dL Potassium 5.8 H (3.5-5.1) mmol/L Chloride 110 H (98-107) mmol/L BUN 20 H (7-17) mg/dL Glucose (74-99) mg/dL Alkaline Phosphatase 128 H (38-126) U/L Total Protein 6.1 L (6.3-8.2) g/dL Albumin 3.3 L (3.5-5.0) g/dL 05/11/22 Range/Units 03:26 WBC (3.8-10.6) k/uL RBC (3.80-5.40) m/uL Hgb (11.4-16.0) gm/dL Hct (34.0-46.0) % RDW (11.5-15.5) % Plt Count (150-450) k/uL Lymphocytes # (1.0-4.8) k/uL APTT >200.0 H* (22.0-30.0) sec ABG pO2 (83-108) mmHg ABG HCO3 (21-25) mmol/L ABG Total CO2 (19-24) mmol/L ABG O2 Saturation (94-97) % ABG Hematocrit (34.0-46.0) % Hemoglobin (11.4-16.0) gm/dL Potassium (3.5-5.1) mmol/L Chloride (98-107) mmol/L BUN (7-17) mg/dL Glucose (74-99) mg/dL Alkaline Phosphatase (38-126) U/L Total Protein (6.3-8.2) g/dL Albumin (3.5-5.0) g/dL Assessment and Plan Plan: Sepsis/septic shock, secondary to presumed pneumonia. IV fluids Started on Levaquin in the ER, currently on Zosyn Blood pressure control, currently on low-dose levo Blood cultures UA negative, checked twice Acute hypoxic respiratory failure Secondary to fluid overload and pneumonia Initiated on Lasix Monitor urine output Zosyn Bronchodilators Hypothermia Acute metabolic encephalopathy. Treatment as above Hyperkalemia She was treated with Kayexalate, calcium gluconate, Lasix, albuterol Monitor potassium level History of DVT. Started on heparin drip instead of oral anticoagulation History of cerebral palsy DVT prophylaxis On heparin gtt
[2022-05-11 12:01] LABS: Potassium 5.4 mmol/L (3.5-5.1)
[2022-05-11] MEDS: HEPARIN SOD,PORK IN 0.45% NACL 25,000 UNIT in 0.45% NACL 1 250ML.BAG IV SCH (12:13)
[2022-05-11 12:20] LABS: Glucose,Whole Blood 72 mg/dL (70-110)
--- NOTE | 2022-05-11 13:46 | P.CRDCN ---
History of Present Illness History of present illness: HISTORY OF PRESENTING ILLNESS This is a pleasant 62-year-old with past medical history significant for developmental delay, Cerebral palsy, seizure disorder, hypertension, spinal fusion, anemia, status post permanent pacemaker and congestive heart failure who presents secondary to altered mental status, hypothermia, decreased appetite and was found to have urinary tract infection. Apparently at baseline she is nonverbal and currently not answering any questions and only withdrawing to pain. She was noted to be hypotensive on presentation and started on vasopressors. She was diagnosed with urinary tract infection and has been placed on antibiotics. Vasopressors have been weaned off over the last 3 hours. Currently blood pressures in the 90s over 60s. Cardiology was consulted for brief episodes of atrial fibrillation with heart rates up in the 110s to 130s range. She was recently hospitalized 4 weeks ago and had echocardiogram performed which showed low normal EF 45-50%. Per nursing patient has not been walking or on her feet in some time and is mostly bedbound. Patient not currently taking oral medications. She was placed on diuretics for lower extremity edema. REVIEW OF SYSTEMS At the time of my exam: Unable to obtain secondary to altered mental status PHYSICAL EXAMINATION Vital signs reviewed. CONSTITUTIONAL: No apparent distress, gurgling noted with concern of possible aspiration HEENT: Head is normocephalic. Pupils are equal, round. Sclerae anicteric. Mucous membranes of the mouth are moist. No JVD. No carotid bruit. CHEST EXAMINATION: Lungs are clear to auscultation. No chest wall tenderness is noted on palpation or with deep breathing. HEART EXAMINATION: Regular rate and rhythm. S1, S2 heard. No murmurs, gallops or rub. ABDOMEN: Soft, nontender. Positive bowel sounds. EXTREMITIES: 2+ peripheral pulses, 2+ lower extremity edema and no calf tenderness. NEUROLOGIC EXAMINATION: Patient is somnolent ASSESSMENT 1. Septic shock related to urinary tract infection 2. Paroxysmal atrial fibrillation currently sinus rhythm. May be exacerbated by electrolyte abnormalities and sepsis 3. Sick sinus syndrome status post permanent pacemaker 4. Mildly decreased EF 45-50% 5. Acute on chronic diastolic heart failure 6. Altered mental status 7. Cerebral palsy more recently bedbound PLAN Patient with episodes of atrial fibrillation with patient being on anticoagulation at home. Her CHADSVASC is 3 for CHF, HTN and female and therefore continue with Eliquis. Interrogate pacemaker for A. fib burden. Likely add metoprolol and attempt to optimize heart failure regimen with addition of losartan/lisinopril if blood pressure able to tolerate. Patient recently off of vasopressors and therefore will defer till tomorrow. Monitor potassium and patient may not be able to tolerate COURTNEY inhibitor if remains high. Continue with diuresis. Some of lower extremity edema may be exacerbated by amlodipine. Further recommendations to follow. Past Medical History Past Medical History: Hypertension, Pneumonia, Seizure Disorder History of Any Multi-Drug Resistant Organisms: Unobtainable Past Surgical History: AICD, Back Surgery Past Anesthesia/Blood Transfusion Reactions: No Reported Reaction Type of Cardiac Device: AICD Device Placement Date:: 2021 Past Psychological History: No Psychological Hx Reported Smoking Status: Unknown if ever smoked Past Alcohol Use History: None Reported Past Drug Use History: None Reported Medications and Allergies Home Medications Medication Instructions Recorded Confirmed Type Acetaminophen Tab [Tylenol] 650 mg PO Q4H PRN MDD 3000 04/19/22 05/10/22 History Apixaban [Eliquis] 5 mg PO BID@0700,1700 04/19/22 05/10/22 History Docusate [Colace] 100 mg PO BID@0700,1700 04/19/22 05/10/22 History Potassium Chloride [Potassium 20 meq PO DAILY@1700 04/19/22 05/10/22 History Chloride ER] amLODIPine [Norvasc] 5 mg PO DAILY@0700 04/19/22 05/10/22 History bisacodyL 10 mg RECTAL Q72H PRN 04/19/22 05/10/22 History Cholestyramine (with Sugar) 4 gm PO BID@1000,1800 #10 packet 04/29/22 05/10/22 Rx [Questran Packet] Ipratropium-Albuterol Nebulize 3 ml INHALATION RT-TID each 04/29/22 05/10/22 Rx [Duoneb 0.5 mg-3 mg/3 ml Soln] Furosemide [Lasix] 80 mg PO DAILY 05/10/22 05/10/22 History Ipratropium-Albuterol Nebulize 3 ml INHALATION RT-Q4H PRN 05/10/22 05/10/22 History [Duoneb 0.5 mg-3 mg/3 ml Soln] L.acidoph,Paracasei, B.lactis 1 cap PO DAILY 05/10/22 05/10/22 History [Probiotic] Magnesium Hydroxide [Milk of 7,200 mg PO DAILY PRN 05/10/22 05/10/22 History Magnesia Concentrate] Midodrine [ProAmatine] 5 mg PO TID 05/10/22 05/10/22 History Allergies Allergy/AdvReac Type Severity Reaction Status Date / Time cephalexin [From Keflex] Allergy Unknown Verified 05/10/22 14:36 doxycycline Allergy Unknown Verified 05/10/22 14:36 sulfamethoxazole Allergy Unknown Verified 05/10/22 14:36 [From Bactrim] trimethoprim [From Bactrim] Allergy Unknown Verified 05/10/22 14:36 vancomycin Allergy Unknown Verified 05/10/22 14:36 Physical Exam Vitals: Vital Signs Temp Pulse Resp BP Pulse Ox FiO2 05/11/22 13:15 77 16 97/54 96 05/11/22 13:12 71 16 05/11/22 13:00 76 18 94/52 96 05/11/22 12:45 74 16 90/54 95 05/11/22 12:30 75 16 103/54 95 05/11/22 12:15 76 15 107/62 98 05/11/22 12:00 82 17 100/54 94 L 50 05/11/22 11:45 78 14 90/52 94 L 05/11/22 11:30 77 16 105/58 95 05/11/22 11:15 78 16 103/54 95 05/11/22 11:00 97.6 F 73 14 103/52 97 50 05/11/22 10:45 77 14 103/60 95 05/11/22 10:30 76 16 106/56 95 05/11/22 10:15 77 12 97/57 98 05/11/22 10:00 97.7 F 75 18 104/55 96 50 05/11/22 09:45 75 14 101/57 96 05/11/22 09:30 74 15 96/54 98 05/11/22 09:15 70 18 96/53 96 05/11/22 09:00 94.6 F L 71 16 99/51 96 50 05/11/22 08:45 66 16 121/63 98 05/11/22 08:39 70 10 L 05/11/22 08:30 70 14 132/71 98 40 05/11/22 08:15 72 18 109/67 99 05/11/22 08:00 94.5 F L 71 16 122/64 99 50 05/11/22 07:45 70 18 109/66 99 05/11/22 07:30 71 12 111/57 99 05/11/22 07:15 71 16 85/50 99 05/11/22 07:00 71 13 85/50 98 05/11/22 06:45 72 10 L 92/54 99 05/11/22 06:30 73 11 L 146/72 99 05/11/22 06:15 74 15 99/48 99 05/11/22 06:00 64 10 L 108/55 99 05/11/22 05:45 75 14 97/51 98 05/11/22 05:30 75 20 91/75 96 05/11/22 05:15 76 12 100/50 98 05/11/22 05:00 77 13 103/49 97 05/11/22 04:45 76 10 L 100/47 97 05/11/22 04:30 78 12 105/48 97 05/11/22 04:15 68 12 119/56 98 05/11/22 04:00 62 15 98/49 99 50 05/11/22 03:45 66 13 126/48 98 05/11/22 03:35 98 50 05/11/22 03:30 59 L 16 108/50 98 05/11/22 03:15 59 L 16 104/48 99 05/11/22 03:00 60 21 101/50 99 05/11/22 02:45 59 L 17 98/50 98 05/11/22 02:30 60 26 H 99/46 99 05/11/22 02:15 59 L 22 100/46 98 05/11/22 02:00 60 22 104/49 98 05/11/22 01:45 68 18 94/53 97 05/11/22 01:30 86 15 110/55 98 05/11/22 01:15 89 21 117/57 97 05/11/22 01:00 84 16 112/61 99 05/11/22 00:45 85 15 109/61 98 05/11/22 00:30 88 16 108/58 98 05/11/22 00:15 89 16 113/54 98 05/11/22 00:00 97.3 F L 89 22 113/58 98 50 05/10/22 23:45 90 20 100/52 98 05/10/22 23:30 100 12 116/57 98 05/10/22 23:15 90 12 84/58 99 05/10/22 23:14 81 9 L 84/58 99 05/10/22 23:00 61 84/58 96 05/10/22 22:45 73 15 116/90 97 05/10/22 22:30 75 16 112/54 98 05/10/22 22:15 72 36 H 109/46 98 05/10/22 22:00 70 23 130/59 98 05/10/22 21:52 71 05/10/22 21:45 69 21 105/47 98 05/10/22 21:39 71 05/10/22 21:30 65 26 H 118/52 97 05/10/22 21:15 71 32 H 95/51 97 05/10/22 21:00 69 21 95/51 94 L 05/10/22 20:45 105 H 22 117/60 97 05/10/22 20:30 106 H 21 135/67 97 05/10/22 20:15 99 29 H 121/60 97 05/10/22 20:00 99.7 F H 114 H 18 103/65 98 50 05/10/22 19:45 70 12 123/55 99 05/10/22 19:31 50 05/10/22 19:25 97 05/10/22 19:11 60 05/10/22 19:01 62 05/10/22 19:00 98.1 F 60 13 126/60 96 05/10/22 18:30 97.2 F L 70 22 91/52 98 05/10/22 18:00 35.8 F L 60 22 78/45 96 05/10/22 17:37 95.9 F L 60 22 87/55 96 05/10/22 17:03 35.1 F L 60 22 83/53 98 05/10/22 16:33 60 22 86/45 98 05/10/22 15:35 92.8 F L 68 24 71/41 97 05/10/22 14:36 32.8 F L 60 22 97/59 97 Intake and Output 05/10/22 05/11/22 05/11/22 22:59 06:59 14:59 Intake Total 390 1492.271 334.372 Output Total 455 1050 975 Balance -65 442.271 -640.628 Intake: IV 390 1170 210 Sodium Chloride 0.9% 1, 390 1170 210 000 ml @ 20 mls/hr IV . Q24H MAC Rx#:[id number] Intake, IV Titration 322.271 124.372 Amount Heparin Sod,Pork in 0.45% 120.404 0.339 NaCl 25,000 unit In 0.45 % NaCl 1 250ml.bag @ 12 UNITS/KG/HR 15.241 mls/hr IV .[id number] MAC Rx#: [id number] Norepinephrine 4 mg In 201.867 24.033 Sodium Chloride 0.9% 250 ml @ 0.05 MCG/KG/MIN 24. 195 mls/hr IV .[id number] MAC Rx#:[id number] Piperacillin-Tazobactam 3 100 .375 gm In Sodium Chloride 0.9% 100 ml @ 25 mls/hr IVPB Q8HR MAC Rx# :[id number] Output: Urine 455 1050 975 Other: Voiding Method Indwelling Catheter Indwelling Catheter Indwelling Catheter # Bowel Movements 1 Weight 127.006 kg 133.2 kg Results 05/11/22 03:26 05/11/22 11:11 Cardiac Enzymes 05/11/22 Range/Units 03:26 AST 28 (14-36) U/L Coagulation 05/10/22 05/11/22 05/11/22 Range/Units 20:20 03:26 11:11 PT 10.7 (9.0-12.0) sec APTT 30.2 H >200.0 H* 46.4 H (22.0-30.0) sec CBC 05/10/22 05/11/22 Range/Units 19:29 03:26 WBC 3.1 L 4.5 (3.8-10.6) k/uL RBC 2.95 L 2.81 L (3.80-5.40) m/uL Hgb 9.2 L 8.9 L (11.4-16.0) gm/dL Hct 29.0 L 28.0 L (34.0-46.0) % Plt Count 105 L 106 L (150-450) k/uL Comprehensive Metabolic Panel 05/10/22 05/11/22 05/11/22 Range/Units 19:29 03:26 11:11 Sodium 141 143 (137-145) mmol/L Potassium 6.5 H* 5.8 H 5.4 H (3.5-5.1) mmol/L Chloride 109 H 110 H (98-107) mmol/L Carbon Dioxide 24 25 (22-30) mmol/L BUN 19 H 20 H (7-17) mg/dL Creatinine 0.52 0.67 (0.52-1.04) mg/dL Glucose 70 L 75 (74-99) mg/dL Calcium 9.2 9.2 (8.4-10.2) mg/dL AST 28 (14-36) U/L ALT 20 (4-34) U/L Alkaline Phosphatase 128 H (38-126) U/L Total Protein 6.1 L (6.3-8.2) g/dL Albumin 3.3 L (3.5-5.0) g/dL Current Medications Generic Name Dose Route Start Last Admin Trade Name Freq PRN Reason Stop Dose Admin Acetaminophen 650 mg 05/10/22 17:26 Acetaminophen Tab 325 Mg Tab PO Q4H PRN General Discomfort Albuterol/Ipratropium 3 ml 05/10/22 17:26 Ipratropium-Albuterol 3 Ml Neb INHALATION RT-Q4H PRN Shortness Of Breath Or Wheezing Albuterol/Ipratropium 3 ml 05/10/22 20:00 05/11/22 12:59 Ipratropium-Albuterol 3 Ml Neb INHALATION 3 ml RT-TID MAC Administration Apixaban 5 mg 05/11/22 07:00 05/11/22 06:13 Apixaban 5 Mg Tab PO Not Given BID@0700,1700 [facility] Protocol Bisacodyl 10 mg 05/10/22 17:26 Bisacodyl 10 Mg Supp RECTAL Q72H PRN Constipation Famotidine 20 mg 05/10/22 21:00 05/11/22 08:03 Famotidine 20 Mg/2 Ml Vial IV 20 mg BID MAC Administration Heparin Sodium (Porcine) 0 unit 05/10/22 19:42 Heparin Sodium 1,000 Un/Ml (10ml Vl) IV PER PROTOCOL PRN Low PTT Protocol Sodium Chloride 1,000 mls @ 20 mls/hr 05/10/22 14:15 05/11/22 05:09 Saline 0.9% IV 130 mls/hr .Q24H MAC Administration Norepinephrine Bitartrate 4 mg 254 mls @ 24.195 mls/hr 05/10/22 18:15 05/11/22 10:30 / Sodium Chloride IV 0 mcg/kg/min .[id number] MAC 0 mls/hr Titration Protocol 0.05 MCG/KG/MIN Heparin Sodium/Sodium Chloride 250 mls @ 15.241 mls/hr 05/10/22 19:45 05/11/22 12:13 25,000 unit/ Sodium Chloride IV Not Given .[id number] MAC Protocol 12 UNITS/KG/HR Piperacillin Sod/Tazobactam 100 mls @ 25 mls/hr 05/11/22 09:00 05/11/22 08:45 Sod 3.375 gm/ Sodium Chloride IVPB 25 mls/hr Q8HR MAC Administration Protocol Magnesium Hydroxide 7,200 mg 05/10/22 17:26 Magnesium Hydroxide 2,400 Mg/10 Ml Cup PO DAILY PRN NO BM FOR 2 - 3 DAYS Midodrine 5 mg 05/10/22 17:30 05/11/22 08:03 Midodrine 5 Mg Tab PO Not Given TID MAC Naloxone HCl 0.2 mg 05/10/22 17:25 Naloxone 0.4 Mg/Ml 1 Ml Vial IV Q2M PRN Opioid Reversal Pantoprazole Sodium 40 mg 05/11/22 11:45 Pantoprazole 40 Mg/10 Ml Vial IVP DAILY MAC Intake and Output 05/10/22 05/11/22 05/11/22 22:59 06:59 14:59 Intake Total 390 1492.271 334.372 Output Total 455 1050 975 Balance -65 442.271 -640.628 Intake: IV 390 1170 210 Sodium Chloride 0.9% 1, 390 1170 210 000 ml @ 20 mls/hr IV . Q24H MAC Rx#:[id number] Intake, IV Titration 322.271 124.372 Amount Heparin Sod,Pork in 0.45% 120.404 0.339 NaCl 25,000 unit In 0.45 % NaCl 1 250ml.bag @ 12 UNITS/KG/HR 15.241 mls/hr IV .[id number] [facility] Rx#: [id number] Norepinephrine 4 mg In 201.867 24.033 Sodium Chloride 0.9% 250 ml @ 0.05 MCG/KG/MIN 24. 195 mls/hr IV .[id number] [facility] Rx#:[id number] Piperacillin-Tazobactam 3 100 .375 gm In Sodium Chloride 0.9% 100 ml @ 25 mls/hr IVPB Q8HR [facility] Rx# :[id number] Output: Urine 455 1050 975 Other: Voiding Method Indwelling Catheter Indwelling Catheter Indwelling Catheter # Bowel Movements 1 Weight 127.006 kg 133.2 kg 05/11/22 03:26 05/11/22 11:11
[2022-05-11] MEDS: PANTOPRAZOLE 40 MG/10 ML VIAL IVP SCH (15:01)
[2022-05-11 18:08] LABS: Glucose,Whole Blood 74 mg/dL (70-110)
[2022-05-11 23:25] LABS: Glucose,Whole Blood 72 mg/dL (70-110)
[2022-05-12 02:19] LABS: Anisocytosis Slight; Basophils % (A) 1 %; Eosinophils # (A) 0.1 k/uL (0-0.7); Eosinophils % (A) 7 %; HCT 25.1 % (34.0-46.0); Hypochromasia Moderate; Lymphocytes # (A) 0.3 k/uL (1.0-4.8); Lymphocytes % (A) 14 %; MCH 31.3 pg (25.0-35.0); MCHC 31.7 g/dL (31.0-37.0); MCV 98.6 fL (80.0-100.0); Macrocytosis Slight; Mean Platelet Volume 10.6; Monocytes # (A) 0.1 k/uL (0-1.0); Monocytes % (A) 5 %; Neutrophils # (A) 1.4 k/uL (1.3-7.7); Neutrophils % (A) 73 %; RBC 2.54 m/uL (3.80-5.40); RDW 17.2 % (11.5-15.5); WBC 1.9 k/uL (3.8-10.6)
[2022-05-12] MEDS: NOREPINEPHRINE 4 MG in SODIUM CHLORIDE 0.9% 250 ML IV SCH ×3 (02:34→22:12)
[2022-05-12 02:37] LABS: African American GFR (CKD) >90 (>60 ml/min/1.73 sqM); Anion Gap 9 mmol/L; Blood Urea Nitrogen 16 mg/dL (7-17); Calcium 9.2 mg/dL (8.4-10.2); Carbon Dioxide 24 mmol/L (22-30); Chloride 107 mmol/L (98-107); Glucose 65 mg/dL (74-99); Non-African American GFR(CKD) >90 (>60 ml/min/1.73 sqM); Potassium 4.7 mmol/L (3.5-5.1); Sodium 140 mmol/L (137-145)
[2022-05-12 03:44] LABS: Platelet Count 57 k/uL (150-450)
[2022-05-12] MEDS: HEPARIN SOD,PORK IN 0.45% NACL 25,000 UNIT in 0.45% NACL 1 250ML.BAG IV SCH (04:35)
[2022-05-12 05:18] LABS: Glucose,Whole Blood 67 mg/dL (70-110)
[2022-05-12] MEDS: DEXTROSE 50% SYRINGE 50 ML IVP ONE (05:20)
[2022-05-12] MEDS: SODIUM CHLORIDE 0.9% 1,000 ML IV SCH (05:29)
[2022-05-12 05:40] LABS: Glucose,Whole Blood 145 mg/dL (70-110)
[2022-05-12] MEDS: APIXABAN 5 MG TAB PO SCH (06:29)
--- NOTE | 2022-05-12 07:15 | P.PN ---
Subjective Progress Note Date: 05/12/22 Principal diagnosis: Paroxysmal atrial fibrillation The patient is a pleasant 62-year-old female patient with a past medical history significant for developmental delay as well as cerebral palsy and also history of cardiomyopathy was EF around 45% and also history of sick sinus syndrome status post permanent pacemaker as well as paroxysmal atrial fibrillation who was admitted to the hospital with a change in mental status and she was diagnosed with septic shock related to UTI. The patient was seen this morning. She continues to have a change in mental status. She is stable hemodynamically. The pressure has been marginally low. She seems to be in the mattress on examination. I am going to give the patient a 20 mg dose of IV Lasix once. Beside that she continues to be in sinus mechanism. The platelets are low. For that reason I'm going to hold the heparin at this point and continue monitor the platelet. We can't give the patient oral anticoagulation he goes off possible issue with his swallowing and she is in process of having swallow evaluation later on today. One set evaluated further recommendation regarding the oral anticoagulation will be given. Objective - Vital Signs Vital signs: Vital Signs Temp 97.2 F L 05/12/22 04:00 Pulse 76 05/12/22 07:00 Resp 13 05/12/22 07:00 BP 116/63 05/12/22 07:00 Pulse Ox 97 05/12/22 07:00 FiO2 30 05/12/22 04:00 Intake & Output 05/11/22 05/12/22 05/12/22 18:59 06:59 18:59 Intake Total 554.372 364.334 20 Output Total 1515 945 50 Balance -960.628 -580.666 -30 Weight 134.9 kg Intake: IV 330 240 20 Sodium Chloride 0.9% 1, 330 240 20 000 ml @ 20 mls/hr IV . Q24H MAC Rx#:[id number] Intake, IV Titration 224.372 124.334 Amount Heparin Sod,Pork in 0.45% 0.339 124.334 NaCl 25,000 unit In 0.45 % NaCl 1 250ml.bag @ 12 UNITS/KG/HR 15.241 mls/hr IV .[id number] MAC Rx#: [id number] Norepinephrine 4 mg In 24.033 Sodium Chloride 0.9% 250 ml @ 0.05 MCG/KG/MIN 24. 195 mls/hr IV .[id number] MAC Rx#:[id number] Piperacillin-Tazobactam 3 200 .375 gm In Sodium Chloride 0.9% 100 ml @ 25 mls/hr IVPB Q8HR MAC Rx# :[id number] Output: Urine 1515 945 50 Other: Voiding Method Indwelling Catheter Indwelling Catheter # Bowel Movements 1 - Constitutional General appearance: Present: no acute distress - Respiratory Respiratory: bilateral: diminished - Cardiovascular Rhythm: regular Heart sounds: normal: S1, S2 - Labs CBC & Chem 7: 05/12/22 01:49 05/12/22 01:49 Labs: Abnormal Lab Results - Last 24 Hours (Table) 05/11/22 05/11/22 05/11/22 Range/Units 11:11 11:11 18:40 WBC (3.8-10.6) k/uL RBC (3.80-5.40) m/uL Hgb (11.4-16.0) gm/dL Hct (34.0-46.0) % RDW (11.5-15.5) % Plt Count (150-450) k/uL Lymphocytes # (1.0-4.8) k/uL APTT 46.4 H 133.8 H* (22.0-30.0) sec Potassium 5.4 H (3.5-5.1) mmol/L Glucose (74-99) mg/dL POC Glucose (mg/dL) (70-110) mg/dL 05/12/22 05/12/22 05/12/22 Range/Units 01:49 01:49 01:49 WBC 1.9 L (3.8-10.6) k/uL RBC 2.54 L (3.80-5.40) m/uL Hgb 8.0 L (11.4-16.0) gm/dL Hct 25.1 L (34.0-46.0) % RDW 17.2 H (11.5-15.5) % Plt Count 57 L (150-450) k/uL Lymphocytes # 0.3 L (1.0-4.8) k/uL APTT 79.4 H (22.0-30.0) sec Potassium (3.5-5.1) mmol/L Glucose 65 L (74-99) mg/dL POC Glucose (mg/dL) (70-110) mg/dL 05/12/22 05/12/22 Range/Units 05:16 05:38 WBC (3.8-10.6) k/uL RBC (3.80-5.40) m/uL Hgb (11.4-16.0) gm/dL Hct (34.0-46.0) % RDW (11.5-15.5) % Plt Count (150-450) k/uL Lymphocytes # (1.0-4.8) k/uL APTT (22.0-30.0) sec Potassium (3.5-5.1) mmol/L Glucose (74-99) mg/dL POC Glucose (mg/dL) 67 L 145 H (70-110) mg/dL Microbiology - Last 24 Hours (Table) 05/10/22 14:57 Blood Culture - Preliminary Blood No Growth after 24 hours 05/10/22 14:57 Blood Culture - Preliminary Blood No Growth after 24 hours Assessment and Plan Assessment: Assessment #1 septic shock related to UTI #2 paroxysmal atrial fibrillation #3 sick sinus syndrome status post permanent pacemaker #4 mild cardiomyopathy #5 multiple comorbid conditions Plan I would give the patient 20 mg dose of Lasix IV Continue monitoring the kidney function and electrolytes Continue monitoring the platelet Stop the heparin Swallow evaluation Consider oral anticoagulation after the swallow evaluation
[2022-05-12] MEDS: IPRATROPIUM-ALBUTEROL 3 ML NEB INHALATION SCH ×3 (07:30→19:15)
[2022-05-12] MEDS ORDERED: FUROSEMIDE 10 MG/ML 2 ML VIAL IV ONE (07:30)
[2022-05-12] MEDS: PANTOPRAZOLE 40 MG/10 ML VIAL IVP SCH (09:34)
[2022-05-12] MEDS: PIPERACILLIN-TAZOBACTAM 3.375 GM in SODIUM CHLORIDE 0.9% 100 ML IVPB SCH ×3 (09:35→23:20)
[2022-05-12] MEDS: MIDODRINE 5 MG TAB PO SCH ×3 (09:35→21:16)
--- NOTE | 2022-05-12 10:44 | P.PN ---
Subjective Progress Note Date: 05/12/22 Principal diagnosis: Sepsis, mental status changes. This is a 62-year-old female with history of cerebral palsy, seizure disorder, hypertension, chronic anemia, recurrent episodes of urosepsis, patient was transferred yesterday from [facility] to our ER mostly with concern of altered mental status, hypothermia, and apparently the patient was not able to feed herself although she normally does, and was not talking properly as she normally does. Apparently 3 weeks ago she had a similar episode where in she was found septic from UTI. Upon arrival to the ER, patient was evaluated, she was noted to be nonverbal, not answering any questions, she was noted to be hypothermic with a temp of 87.7, blood pressure was 87/60, patient was noted to be relatively leukopenic with WBC count of 1.65, her lactic acid was normal. Pro-calcitonin was normal. Her electrolytes were normal. Platelets were relatively low at 90,000. And her urinalysis were relatively unremarkable, no evidence of pyuria. CT of the brain was unremarkable. Chest x-ray showed pulmonary vascular congestion, no clear-cut evidence of pneumonia. Patient was given fluid boluses about 3 L in the ER, and considering her blood pressure remained relatively low and she remained hypothermic patient was admitted to the ICU and she was on a very low dose of norepinephrine which I will discontinue this morning. Overnight the patient was getting more and more congested, and I recommended Lasix 40 mg IV push given last night, patient responded well to Lasix, and she had a significant urine output. Today she is on 0.9 normal saline at 1 50 mL per hour and I'm cutting down to KVO. Patient had a swallow evaluation which she failed. She is now on 50% Ventimask continues to have gurgling with secretions in her upper airways, easily suctioned without any difficulty. She does follow simple instructions but does not seem to be verbal. Her temp today is up to 97.7, blood pressure is 103/52 with a mean of 70 she is on 50% Ventimask and her O2 sat is 97%. Heart rate is 73 and respirations 14. Obviously overnight the patient made a significant and dramatic improvement. And I plan to discontinue norepinephrine this morning. Patient tested negative for COVID-19, potassium is a bit high today at 5.8, but she also has a normal sodium. PTT is over 200. Patient is on heparin, normally on eliquis for DVT history Progress note dated 05/12/2022. This is a 62-year-old female that was recently inpatient, between April 19 and April 29. She came with a similar episode of mental status changes, and presumed infection. She was admitted this time with presumed pneumonia and sepsis. Her mental status is very poor. She cannot give much or any history. She's currently on 30% Venturi mask, and saline at 20 mL an hour. Her cultures are thus far negative. She is on Zosyn. She was transferred down from [facility], as she was before. White count 1.9, hemoglobin 8, hematocrit 25.1, and platelet count 57,000. PTT is 33. Sodium, potassium, chloride, CO2, anion gap, BUN, and creatinine, are all normal. Calcium is 9.2. Blood cultures are negative. Chest x-ray shows nothing acute. Objective - Vital Signs Vital signs: Vital Signs Temp 96.6 F L 05/12/22 08:00 Pulse 75 05/12/22 10:00 Resp 10 L 05/12/22 10:00 BP 117/59 05/12/22 10:00 Pulse Ox 96 05/12/22 10:00 FiO2 30 05/12/22 08:00 Intake & Output 05/11/22 05/12/22 05/12/22 18:59 06:59 18:59 Intake Total 554.372 364.334 80 Output Total 1515 945 250 Balance -960.628 -580.666 -170 Weight 134.9 kg Intake: IV 330 240 80 Sodium Chloride 0.9% 1, 330 240 80 000 ml @ 20 mls/hr IV . Q24H MAC Rx#:[id number] Intake, IV Titration 224.372 124.334 Amount Heparin Sod,Pork in 0.45% 0.339 124.334 NaCl 25,000 unit In 0.45 % NaCl 1 250ml.bag @ 12 UNITS/KG/HR 15.241 mls/hr IV .[id number] MCA Rx#: [id number] Norepinephrine 4 mg In 24.033 Sodium Chloride 0.9% 250 ml @ 0.05 MCG/KG/MIN 24. 195 mls/hr IV .[id number] MAC Rx#:[id number] Piperacillin-Tazobactam 3 200 .375 gm In Sodium Chloride 0.9% 100 ml @ 25 mls/hr IVPB Q8HR [facility] Rx# :[id number] Output: Urine 1515 945 250 Other: Voiding Method Indwelling Catheter Indwelling Catheter Indwelling Catheter # Bowel Movements 1 - Exam No acute distress, very lethargic/somnolent, with a blank stare. Venturi mask in place. HEENT examination is grossly unremarkable. Neck supple. Full range of motion. No adenopathy thyromegaly or neck vein distention. Cardiovascular examination reveals regular rhythm rate. S1-S2 normal. No S3 or S4. No discernible murmur noted. Heart sounds are distant. Heart rate 75 bpm. Lungs reveal mostly clear breath sounds. Minimal scattered rhonchi. No wheezes or crackles. Breath sounds equal bilaterally. Saturations are 97%. Abdomen soft bowel sounds are heard. No masses or tenderness. Extremities are intact. No cyanosis clubbing or edema. Skin is without rash or lesion. Neurologic examination is similar to her last visit. Eyes open. Blank stare. She mumbles. - Labs CBC & Chem 7: 05/12/22 01:49 05/12/22 01:49 Labs: Abnormal Lab Results - Last 24 Hours (Table) 05/11/22 05/11/22 05/11/22 Range/Units 11:11 11:11 18:40 WBC (3.8-10.6) k/uL RBC (3.80-5.40) m/uL Hgb (11.4-16.0) gm/dL Hct (34.0-46.0) % RDW (11.5-15.5) % Plt Count (150-450) k/uL Lymphocytes # (1.0-4.8) k/uL APTT 46.4 H 133.8 H* (22.0-30.0) sec Potassium 5.4 H (3.5-5.1) mmol/L Glucose (74-99) mg/dL POC Glucose (mg/dL) (70-110) mg/dL 05/12/22 05/12/22 05/12/22 Range/Units 01:49 01:49 01:49 WBC 1.9 L (3.8-10.6) k/uL RBC 2.54 L (3.80-5.40) m/uL Hgb 8.0 L (11.4-16.0) gm/dL Hct 25.1 L (34.0-46.0) % RDW 17.2 H (11.5-15.5) % Plt Count 57 L (150-450) k/uL Lymphocytes # 0.3 L (1.0-4.8) k/uL APTT 79.4 H (22.0-30.0) sec Potassium (3.5-5.1) mmol/L Glucose 65 L (74-99) mg/dL POC Glucose (mg/dL) (70-110) mg/dL 05/12/22 05/12/22 05/12/22 Range/Units 05:16 05:38 07:58 WBC (3.8-10.6) k/uL RBC (3.80-5.40) m/uL Hgb (11.4-16.0) gm/dL Hct (34.0-46.0) % RDW (11.5-15.5) % Plt Count (150-450) k/uL Lymphocytes # (1.0-4.8) k/uL APTT 33.0 H (22.0-30.0) sec Potassium (3.5-5.1) mmol/L Glucose (74-99) mg/dL POC Glucose (mg/dL) 67 L 145 H (70-110) mg/dL Microbiology - Last 24 Hours (Table) 05/10/22 14:57 Blood Culture - Preliminary Blood No Growth after 24 hours 05/10/22 14:57 Blood Culture - Preliminary Blood No Growth after 24 hours Assessment and Plan Assessment: Possible sepsis/septic shock. Dehydration. Hypothermia, possibly related to infection/sepsis. Metabolic encephalopathy, acute on chronic. History of cerebral palsy. History of DVT. History of hypertension. Recent admission to the hospital with a similar picture, April 19 through April 29. Plan: Plan dated 05/12/2022. We will continue with supportive measures. We will continue to monitor in the ICU. The patient's norepinephrine has been weaned down. She remains on 30% oxygen. Saturations are adequate. She also continues on Zosyn as an antibiotic. Thus far, cultures are negative. Labs, x-rays, and medications are reviewed. We will continue GI and DVT prophylaxis. Additional recommendations and suggestions are forthcoming. We will follow along and make recommendations where appropriate. Time with Patient: Greater than 30
[2022-05-12 11:32] LABS: Glucose,Whole Blood 77 mg/dL (70-110)
--- NOTE | 2022-05-12 13:16 | P.PN ---
Subjective Progress Note Date: 05/12/22 Principal diagnosis: Septic shock Hospital Course: 62-year-old female with history of CP, seizure disorder, hypertension, DVT, systolic heart failure, sick sinus syndrome status post pacemaker and anemia presenting from outside hospital with concerns of altered mental status and hypothermia. Patient having difficulty feeding herself per penitentiary staff. Nonambulatory at baseline. Patient admitted for septic shock secondary to pneumonia on vasopressors. Continues to be hypoxic requiring supplemental oxygen. During inpatient, had paroxysmal atrial fibrillation and was started on heparin, now held secondary to drop in platelet count Subjective: Patient seen and examined at bedside. No acute events overnight. Patient not following commands, but appears awake and alert. She is nonverbal. Pertinent positives and negatives as discussed above, a complete review of systems was performed and all other systems are negative. Vitals Signs Reviewed. General: nontoxic, no distress, appears at stated age Derm: warm, dry Head: atraumatic, normocephalic, symmetric Eyes: EOMI, no lid lag, anicteric sclera Mouth: no lip lesion, mucus membranes moist Cardiovascular: S1S2 reg, no murmur Lungs: Coarse rhonchi bilaterally, no accessory muscle use, on 9 L Ventimask Abdominal: soft, nontender to palpation, no guarding, no appreciable organomegaly Ext: no gross muscle atrophy, anasarca, no contractures Neuro: CN II-XI grossly intact, no focal neuro deficits Psych: Awake, appears alert, nonverbal Assessment and Plan: Septic shock secondary to pneumonia - resolving -On Zosyn -Weaned off of Levo -Negative blood cultures -Urine negative Acute hypoxic respiratory failure -Possibly secondary to systolic CHF exacerbation and pneumonia -required IV lasix today again -I's and O's -Antibiotics -Supplemental oxygen - continue weaning Acute encephalopathy -Likely in the setting of acute infection and fluid overload Aspiration risk -Swallow evaluation pending Paroxysmal atrial fibrillation -Currently in sinus rhythm -Off of anticoagulation given precipitous drop in platelets Thrombocytopenia -Patient was on heparin -Concern for HIT, panel pending History of DVT -Holding heparin drip given precipitous drop in platelets History of CP F: Oral if patient can tolerate E: Replete as needed N: Pending swallow evaluation A: Nonambulatory DVT ppx: SCD Code status: Full code Anticipated discharge place: retirement Anticipated discharge time: 3-4 days Objective - Vital Signs Vital signs: Vital Signs Temp 97.2 F L 09/12/22 04:00 Pulse 77 05/12/22 07:41 Resp 13 05/12/22 07:00 BP 116/63 05/12/22 07:00 Pulse Ox 97 05/12/22 07:00 FiO2 35 05/12/22 07:30 Intake & Output 05/11/22 05/12/22 05/12/22 18:59 06:59 18:59 Intake Total 554.372 364.334 20 Output Total 1515 945 50 Balance -960.628 -580.666 -30 Weight 134.9 kg Intake: IV 330 240 20 Sodium Chloride 0.9% 1, 330 240 20 000 ml @ 20 mls/hr IV . Q24H MAC Rx#:[id number] Intake, IV Titration 224.372 124.334 Amount Heparin Sod,Pork in 0.45% 0.339 124.334 NaCl 25,000 unit In 0.45 % NaCl 1 250ml.bag @ 12 UNITS/KG/HR 15.241 mls/hr IV .[id number] MAC Rx#: [id number] Norepinephrine 4 mg In 24.033 Sodium Chloride 0.9% 250 ml @ 0.05 MCG/KG/MIN 24. 195 mls/hr IV .[id number] MAC Rx#:[id number] Piperacillin-Tazobactam 3 200 .375 gm In Sodium Chloride 0.9% 100 ml @ 25 mls/hr IVPB Q8HR [facility] Rx# :[id number] Output: Urine 1515 945 50 Other: Voiding Method Indwelling Catheter Indwelling Catheter # Bowel Movements 1 - Labs CBC & Chem 7: 05/12/22 01:49 05/12/22 01:49 Labs: Abnormal Lab Results - Last 24 Hours (Table) 05/11/22 05/11/22 05/11/22 Range/Units 11:11 11:11 18:40 WBC (3.8-10.6) k/uL RBC (3.80-5.40) m/uL Hgb (11.4-16.0) gm/dL Hct (34.0-46.0) % RDW (11.5-15.5) % Plt Count (150-450) k/uL Lymphocytes # (1.0-4.8) k/uL APTT 46.4 H 133.8 H* (22.0-30.0) sec Potassium 5.4 H (3.5-5.1) mmol/L Glucose (74-99) mg/dL POC Glucose (mg/dL) (70-110) mg/dL 05/12/22 05/12/22 05/12/22 Range/Units 01:49 01:49 01:49 WBC 1.9 L (3.8-10.6) k/uL RBC 2.54 L (3.80-5.40) m/uL Hgb 8.0 L (11.4-16.0) gm/dL Hct 25.1 L (34.0-46.0) % RDW 17.2 H (11.5-15.5) % Plt Count 57 L (150-450) k/uL Lymphocytes # 0.3 L (1.0-4.8) k/uL APTT 79.4 H (22.0-30.0) sec Potassium (3.5-5.1) mmol/L Glucose 65 L (74-99) mg/dL POC Glucose (mg/dL) (70-110) mg/dL 05/12/22 05/12/22 Range/Units 05:16 05:38 WBC (3.8-10.6) k/uL RBC (3.80-5.40) m/uL Hgb (11.4-16.0) gm/dL Hct (34.0-46.0) % RDW (11.5-15.5) % Plt Count (150-450) k/uL Lymphocytes # (1.0-4.8) k/uL APTT (22.0-30.0) sec Potassium (3.5-5.1) mmol/L Glucose (74-99) mg/dL POC Glucose (mg/dL) 67 L 145 H (70-110) mg/dL Microbiology - Last 24 Hours (Table) 05/10/22 14:57 Blood Culture - Preliminary Blood No Growth after 24 hours 05/10/22 14:57 Blood Culture - Preliminary Blood No Growth after 24 hours
[2022-05-12 17:50] LABS: Glucose,Whole Blood 79 mg/dL (70-110)
[2022-05-12 23:27] LABS: Glucose,Whole Blood 83 mg/dL (70-110)
[2022-05-13 05:00] LABS: Anisocytosis Slight; Basophils % (A) 1 %; Eosinophils # (A) 0.2 k/uL (0-0.7); Eosinophils % (A) 7 %; HGB 8.5 gm/dL (11.4-16.0); Hypochromasia Moderate; Lymphocytes # (A) 0.3 k/uL (1.0-4.8); Lymphocytes % (A) 14 %; MCH 32.1 pg (25.0-35.0); MCHC 32.6 g/dL (31.0-37.0); MCV 98.5 fL (80.0-100.0); Macrocytosis Slight; Mean Platelet Volume 9.9; Monocytes # (A) 0.1 k/uL (0-1.0); Monocytes % (A) 6 %; Neutrophils # (A) 1.7 k/uL (1.3-7.7); Neutrophils % (A) 70 %; RBC 2.64 m/uL (3.80-5.40); RDW 16.6 % (11.5-15.5); WBC 2.4 k/uL (3.8-10.6)
[2022-05-13 05:13] LABS: Platelet Count 54 k/uL (150-450)
[2022-05-13 05:39] LABS: African American GFR (CKD) >90 (>60 ml/min/1.73 sqM); Anion Gap 8 mmol/L; Blood Urea Nitrogen 14 mg/dL (7-17); Carbon Dioxide 24 mmol/L (22-30); Chloride 107 mmol/L (98-107); Glucose 67 mg/dL (74-99); Magnesium 1.7 mg/dL (1.6-2.3); Non-African American GFR(CKD) >90 (>60 ml/min/1.73 sqM); Potassium 4.8 mmol/L (3.5-5.1); Sodium 139 mmol/L (137-145)
[2022-05-13 06:11] LABS: Glucose,Whole Blood 66 mg/dL (70-110)
[2022-05-13] MEDS ORDERED: DEXTROSE 50% SYRINGE 50 ML IVP ONE (06:14)
[2022-05-13] MEDS: DEXTROSE 50% SYRINGE 50 ML IVP ONE (06:14)
[2022-05-13 06:44] LABS: Glucose,Whole Blood 143 mg/dL (70-110)
[2022-05-13] MEDS ORDERED: FUROSEMIDE 10 MG/ML 2 ML VIAL IV ONE (07:01)
[2022-05-13] MEDS: SODIUM CHLORIDE 0.9% 1,000 ML IV SCH (07:02)
--- NOTE | 2022-05-13 07:03 | P.PN ---
Subjective Progress Note Date: 05/13/22 Principal diagnosis: Paroxysmal atrial fibrillation The patient is a pleasant 62-year-old female patient with a past medical history significant for developmental delay as well as cerebral palsy and also history of cardiomyopathy was EF around 45% and also history of sick sinus syndrome status post permanent pacemaker as well as paroxysmal atrial fibrillation who was admitted to the hospital with a change in mental status and she was diagnosed with septic shock related to UTI. The patient was seen this morning. Her mentation has been slightly better. She remains hemodynamically stable and she remains in normal sinus mechanism. On examination she continues to be erythematous with evidence of right heart failure with bilateral lower except his edema which has somewhat slightly improved compared to before. Yesterday she was given 20 mg Lasix IV and I'm going to repeat that today. Her platelet continues to be low and with that being saved I would suggest continue holding any anticoagulation at this point until the platelet improved. Objective - Vital Signs Vital signs: Vital Signs Temp 96.6 F L 05/13/22 04:00 Pulse 72 05/13/22 06:00 Resp 16 05/13/22 06:00 BP 114/65 05/13/22 06:00 Pulse Ox 92 L 05/13/22 06:00 FiO2 30 05/12/22 11:24 Intake & Output 05/12/22 05/13/22 05/13/22 18:59 06:59 18:59 Intake Total 240 340 20 Output Total 2275 900 50 Balance -2034 -560 -30 Weight 136 kg Intake: IV 240 240 20 Sodium Chloride 0.9% 1, 240 240 20 000 ml @ 20 mls/hr IV . Q24H [facility] Rx#:[id number] Intake, IV Titration 100 Amount Piperacillin-Tazobactam 3 100 .375 gm In Sodium Chloride 0.9% 100 ml @ 25 mls/hr IVPB Q8HR [facility] Rx# :[id number] Output: Urine 2275 900 50 Other: Voiding Method Indwelling Catheter Indwelling Catheter - Constitutional General appearance: Present: no acute distress - Respiratory Respiratory: bilateral: diminished - Cardiovascular Rhythm: regular - Labs CBC & Chem 7: 05/13/22 03:55 05/13/22 03:55 Labs: Abnormal Lab Results - Last 24 Hours (Table) 05/12/22 05/12/22 05/13/22 Range/Units 01:49 07:58 03:55 WBC 2.4 L (3.8-10.6) k/uL RBC 2.64 L (3.80-5.40) m/uL Hgb 8.5 L (11.4-16.0) gm/dL Hct 26.0 L (34.0-46.0) % RDW 16.6 H (11.5-15.5) % Plt Count 54 L (150-450) k/uL Lymphocytes # 0.3 L (1.0-4.8) k/uL APTT 33.0 H (22.0-30.0) sec Glucose (74-99) mg/dL POC Glucose (mg/dL) (70-110) mg/dL Procalcitonin 0.14 H (0.02-0.09) ng/mL 05/13/22 05/13/22 05/13/22 Range/Units 03:55 06:08 06:43 WBC (3.8-10.6) k/uL RBC (3.80-5.40) m/uL Hgb (11.4-16.0) gm/dL Hct (34.0-46.0) % RDW (11.5-15.5) % Plt Count (150-450) k/uL Lymphocytes # (1.0-4.8) k/uL APTT (22.0-30.0) sec Glucose 67 L (74-99) mg/dL POC Glucose (mg/dL) 66 L 143 H (70-110) mg/dL Procalcitonin (0.02-0.09) ng/mL Microbiology - Last 24 Hours (Table) 05/10/22 14:57 Blood Culture - Preliminary Blood No Growth after 48 hours 05/10/22 14:57 Blood Culture - Preliminary Blood No Growth after 48 hours Assessment and Plan Assessment: Assessment #1 septic shock related to UTI #2 paroxysmal atrial fibrillation #3 sick sinus syndrome status post permanent pacemaker #4 mild cardiomyopathy #5 multiple comorbid conditions Plan I would give the patient 20 mg dose of Lasix IV Continue monitoring the kidney function and electrolytes Continue monitoring the platelet Continue holding any anticoagulation at this point Follow-up with the patient
[2022-05-13] MEDS: IPRATROPIUM-ALBUTEROL 3 ML NEB INHALATION SCH ×3 (07:28→19:39)
[2022-05-13] MEDS: PANTOPRAZOLE 40 MG/10 ML VIAL IVP SCH (08:27)
[2022-05-13] MEDS: MAGNESIUM SULFATE-D5W PMX 1 GM in DEXTROSE/WATER 1 100ML.BAG IVPB SCH ×4 (08:27→13:30)
[2022-05-13] MEDS: PIPERACILLIN-TAZOBACTAM 3.375 GM in SODIUM CHLORIDE 0.9% 100 ML IVPB SCH ×2 (08:27→16:56)
[2022-05-13] MEDS: MIDODRINE 5 MG TAB PO SCH ×3 (08:27→20:23)
[2022-05-13] MEDS: NOREPINEPHRINE 4 MG in SODIUM CHLORIDE 0.9% 250 ML IV SCH (08:28)
--- NOTE | 2022-05-13 10:35 | US ---
EXAMINATION TYPE: US venous doppler duplex LE BI DATE OF EXAM: 05/13/2022 10:29 AM COMPARISON: NONE CLINICAL HISTORY: history of DVT. Exam done portable in ICU SIDE PERFORMED: Bilateral TECHNIQUE: The lower extremity deep venous system is examined utilizing real time linear array sonog rufus with graded compression, doppler sonography and color-flow sonography. VESSELS IMAGED: Common Femoral Vein Deep Femoral Vein Greater Saphenous Vein * Femoral Vein Popliteal Vein Small Saphenous Vein * Proximal Calf Veins (* superficial vessels) Difficult and limited study due to morbidly obese patient and bilateral leg swelling, bilateral dis marcie femoral vein not seen and left popliteal vein not seen Right Leg: Visualized portions appear negative for DVT Left Leg: Visualized portions appear negative for DVT IMPRESSION: 1. Limited exam as discussed by the technologist above demonstrates no diagnostic evidence of DVT as visualized. Note that portions of the deep venous system were not visualized as discussed above. Exam is incomplete as only partial evaluation the deep venous system. See above.
--- NOTE | 2022-05-13 10:35 | P.PN ---
Subjective Progress Note Date: 05/13/22 Principal diagnosis: Sepsis, mental status changes. This is a 62-year-old female with history of cerebral palsy, seizure disorder, hypertension, chronic anemia, recurrent episodes of urosepsis, patient was transferred yesterday from [facility] to our ER mostly with concern of altered mental status, hypothermia, and apparently the patient was not able to feed herself although she normally does, and was not talking properly as she normally does. Apparently 3 weeks ago she had a similar episode where in she was found septic from UTI. Upon arrival to the ER, patient was evaluated, she was noted to be nonverbal, not answering any questions, she was noted to be hypothermic with a temp of 87.7, blood pressure was 87/60, patient was noted to be relatively leukopenic with WBC count of 1.65, her lactic acid was normal. Pro-calcitonin was normal. Her electrolytes were normal. Platelets were relatively low at 90,000. And her urinalysis were relatively unremarkable, no evidence of pyuria. CT of the brain was unremarkable. Chest x-ray showed pulmonary vascular congestion, no clear-cut evidence of pneumonia. Patient was given fluid boluses about 3 L in the ER, and considering her blood pressure remained relatively low and she remained hypothermic patient was admitted to the ICU and she was on a very low dose of norepinephrine which I will discontinue this morning. Overnight the patient was getting more and more congested, and I recommended Lasix 40 mg IV push given last night, patient responded well to Lasix, and she had a significant urine output. Today she is on 0.9 normal saline at 1 50 mL per hour and I'm cutting down to KVO. Patient had a swallow evaluation which she failed. She is now on 50% Ventimask continues to have gurgling with secretions in her upper airways, easily suctioned without any difficulty. She does follow simple instructions but does not seem to be verbal. Her temp today is up to 97.7, blood pressure is 103/52 with a mean of 70 she is on 50% Ventimask and her O2 sat is 97%. Heart rate is 73 and respirations 14. Obviously overnight the patient made a significant and dramatic improvement. And I plan to discontinue norepinephrine this morning. Patient tested negative for COVID-19, potassium is a bit high today at 5.8, but she also has a normal sodium. PTT is over 200. Patient is on heparin, normally on eliquis for DVT history Progress note dated 05/12/2022. This is a 62-year-old female that was recently inpatient, between April 19 and April 29. She came with a similar episode of mental status changes, and presumed infection. She was admitted this time with presumed pneumonia and sepsis. Her mental status is very poor. She cannot give much or any history. She's currently on 30% Venturi mask, and saline at 20 mL an hour. Her cultures are thus far negative. She is on Zosyn. She was transferred down from [facility], as she was before. White count 1.9, hemoglobin 8, hematocrit 25.1, and platelet count 57,000. PTT is 33. Sodium, potassium, chloride, CO2, anion gap, BUN, and creatinine, are all normal. Calcium is 9.2. Blood cultures are negative. Chest x-ray shows nothing acute. Progress note dated 05/13/2022. 62-year-old female that was recently inpatient at this institution, between April 19 and April 29. She had a similar episode of mental status changes, and presumed infection. The patient was again transferred down from an outside hospital. Currently, she is on room air. She's getting saline at 20 mL an hour. The patient was on a factor X a inhibitor for deep venous thrombosis. The patient will have a Doppler today to rule out DVT in the bilateral lower extremities. Current laboratory data includes a white count of 2.4, hemoglobin 8.5, hematocrit 26, and a platelet count of 54,000. Sodium 139, potassium 4.8, chlorides 107, CO2 24, within normal BUN and creatinine. Calcium and magnesium are both normal. Blood cultures are currently negative. She remains on Zosyn. Microbiologic studies are negative thus far. No new chest x-ray to review. Objective - Vital Signs Vital signs: Vital Signs Temp 96.6 F L 05/13/22 04:00 Pulse 65 05/13/22 09:00 Resp 14 05/13/22 09:00 BP 115/96 05/13/22 09:00 Pulse Ox 92 L 05/13/22 09:00 FiO2 30 05/12/22 11:24 Intake & Output 05/12/22 05/13/22 05/13/22 18:59 06:59 18:59 Intake Total 240 340 220 Output Total 2275 900 275 Balance -2035 -560 -55 Weight 136 kg Intake: IV 240 240 220 Magnesium Sulfate-D5w Pmx 100 1 gm In Dextrose/Water 1 100ml.bag @ 100 mls/hr IVPB Q1H MAC Rx#: [id number] Piperacillin-Tazobactam 3 100 .375 gm In Sodium Chloride 0.9% 100 ml @ 25 mls/hr IVPB Q8HR MAC Rx# :[id number] Sodium Chloride 0.9% 1, 240 240 20 000 ml @ 20 mls/hr IV . Q24H MAC Rx#:[id number] Intake, IV Titration 100 Amount Piperacillin-Tazobactam 3 100 .375 gm In Sodium Chloride 0.9% 100 ml @ 25 mls/hr IVPB Q8HR MAC Rx# :[id number] Output: Urine 2275 900 275 Other: Voiding Method Indwelling Catheter Indwelling Catheter Indwelling Catheter - Exam No acute distress, very lethargic/somnolent, with a blank stare. Currently on room air. HEENT examination is grossly unremarkable. Neck supple. Full range of motion. No adenopathy thyromegaly or neck vein distention. Cardiovascular examination reveals regular rhythm rate. S1-S2 normal. No S3 or S4. No discernible murmur noted. Heart sounds are distant. Heart rate 65 bpm. Lungs reveal mostly clear breath sounds. Minimal scattered rhonchi. No wheezes or crackles. Breath sounds equal bilaterally. Saturations are 97 %. Abdomen soft bowel sounds are heard. No masses or tenderness. Extremities are intact. No cyanosis clubbing or edema. Skin is without rash or lesion. Neurologic examination is similar to her last visit. Eyes open. Blank stare. She mumbles. - Labs CBC & Chem 7: 05/13/22 03:55 05/13/22 03:55 Labs: Abnormal Lab Results - Last 24 Hours (Table) 05/12/22 05/13/22 05/13/22 Range/Units 01:49 03:55 03:55 WBC 2.4 L (3.8-10.6) k/uL RBC 2.64 L (3.80-5.40) m/uL Hgb 8.5 L (11.4-16.0) gm/dL Hct 26.0 L (34.0-46.0) % RDW 16.6 H (11.5-15.5) % Plt Count 54 L (150-450) k/uL Lymphocytes # 0.3 L (1.0-4.8) k/uL Glucose 67 L (74-99) mg/dL POC Glucose (mg/dL) (70-110) mg/dL Procalcitonin 0.14 H (0.02-0.09) ng/mL 05/13/22 05/13/22 Range/Units 06:08 06:43 WBC (3.8-10.6) k/uL RBC (3.80-5.40) m/uL Hgb (11.4-16.0) gm/dL Hct (34.0-46.0) % RDW (11.5-15.5) % Plt Count (150-450) k/uL Lymphocytes # (1.0-4.8) k/uL Glucose (74-99) mg/dL POC Glucose (mg/dL) 66 L 143 H (70-110) mg/dL Procalcitonin (0.02-0.09) ng/mL Microbiology - Last 24 Hours (Table) 05/10/22 14:57 Blood Culture - Preliminary Blood No Growth after 48 hours 05/10/22 14:57 Blood Culture - Preliminary Blood No Growth after 48 hours Assessment and Plan Assessment: Possible sepsis/septic shock. Encephalopathy, possibly related to underlying infection. Dehydration. Hypothermia, possibly related to infection/sepsis. Metabolic encephalopathy, acute on chronic. History of cerebral palsy. History of DVT. History of hypertension. Recent admission to the hospital with a similar picture, April 19 through April 29. Plan: Plan dated 05/12/2022. We will continue with supportive measures. We will continue to monitor in the ICU. The patient's norepinephrine has been weaned down. She remains on 30% oxygen. Saturations are adequate. She also continues on Zosyn as an anti biotic. Thus far, cultures are negative. Labs, x-rays, and medications are reviewed. We will continue GI and DVT prophylaxis. Additional recommendations and suggestions are forthcoming. We will follow along and make recommendations where appropriate. Plan dated 05/13/2022. The patient appears a bit more awake and alert today. This is how she behaves on her last visit, with antibiotics, she's did seem to improve. Cultures are thus far negative. She remains on Zosyn empirically. The patient could be transferred to general medical floor. She can take her pills with a bit of applesauce. The patient will have bilateral lower extremity Dopplers, to rule out DVT. We are not sure how long she needs to be on a factor X a inhibitor. Prognosis is poor. We will continue to follow make recommendations along the way. Time with Patient: Less than 30
--- NOTE | 2022-05-13 11:34 | P.PN ---
Subjective Progress Note Date: 05/13/22 Principal diagnosis: Septic shock Hospital Course: 62-year-old female with history of CP, seizure disorder, hypertension, DVT, systolic heart failure, sick sinus syndrome status post pacemaker and anemia presenting from outside hospital with concerns of altered mental status and hypothermia. Patient having difficulty feeding herself per [facility] staff. Nonambulatory at baseline. Patient admitted for septic shock secondary to pneumonia and was on vasopressors. No longer hypoxic. During inpatient, had paroxysmal atrial fibrillation and was started on heparin, now held secondary to drop in platelet count. Subjective: Patient seen and examined at bedside. No acute events overnight. Patient is awake and alert. She is able to verbalize needs and follow commands. Patient states that she is feeling better. She did not pass her swallow evaluation yesterday, and has been getting hypoglycemic occasionally requiring dextrose IV. She will have repeat swallow evaluation today. Plan is for her to get downgraded to general medical floor. Pertinent positives and negatives as discussed above, a complete review of systems was performed and all other systems are negative. Vitals Signs Reviewed. General: nontoxic, no distress, appears at stated age Derm: warm, dry Head: atraumatic, normocephalic, symmetric Eyes: EOMI, no lid lag, anicteric sclera Mouth: no lip lesion, mucus membranes moist Cardiovascular: S1S2 reg, no murmur Lungs: CTAB, no rales or rhonchi, No accessory muscle use, on room air Abdominal: soft, nontender to palpation, no guarding, no appreciable organomegaly Ext: no gross muscle atrophy, anasarca, no contractures Neuro: CN II-XI grossly intact, no focal neuro deficits, 4/5 strength in upper extremities, 3/5 strength in lower extremities bilaterally Psych: Awake, appears alert Assessment and Plan: Septic shock secondary to pneumonia -resolved -On Zosyn, will likely switch to Augmentin when tolerated oral diet -Weaned off of Levo -Negative blood cultures -Urine negative Acute hypoxic respiratory failure - resolved systolic CHF exacerbation -Cardiology following -Lasix IV 20 -I's and O's Hypomagnesemia -Replete Anasarca Lower extremity edema -Venous Doppler lower extremities - negative for DVT in the visualized areas Acute encephalopathy - resolved -Likely in the setting of acute infection and fluid overload Aspiration risk -Swallow evaluation pending again Paroxysmal atrial fibrillation -Currently in sinus rhythm -Off of anticoagulation given precipitous drop in platelets Thrombocytopenia -Patient was on heparin -Concern for HIT, panel pending History of DVT -Holding heparin drip given precipitous drop in platelets History of CP F: Oral if patient can tolerate E: Replete as needed N: Pending swallow evaluation A: Nonambulatory DVT ppx: SCD Code status: Full code Anticipated discharge place[facility] Anticipated discharge time: 3-4 days Objective - Vital Signs Vital signs: Vital Signs Temp 96.6 F L 05/13/22 04:00 Pulse 65 05/13/22 09:00 Resp 14 05/13/22 09:00 BP 115/96 05/13/22 09:00 Pulse Ox 92 L 05/13/22 09:00 FiO2 30 05/12/22 11:24 Intake & Output 05/12/22 05/13/22 05/13/22 18:59 06:59 18:59 Intake Total 240 340 320 Output Total 2275 900 1475 Balance -2035 -560 -1155 Weight 136 kg Intake: IV 240 240 320 Magnesium Sulfate-D5w Pmx 200 1 gm In Dextrose/Water 1 100ml.bag @ 100 mls/hr IVPB Q1H MAC Rx#: [id number] Piperacillin-Tazobactam 3 100 .375 gm In Sodium Chloride 0.9% 100 ml @ 25 mls/hr IVPB Q8HR MAC Rx# :[id number] Sodium Chloride 0.9% 1, 240 240 20 000 ml @ 20 mls/hr IV . Q24H MAC Rx#:[id number] Intake, IV Titration 100 Amount Piperacillin-Tazobactam 3 100 .375 gm In Sodium Chloride 0.9% 100 ml @ 25 mls/hr IVPB Q8HR MAC Rx# :[id number] Output: Urine 2275 900 1475 Other: Voiding Method Indwelling Catheter Indwelling Catheter Indwelling Catheter - Labs CBC & Chem 7: 05/13/22 03:55 05/13/22 03:55 Labs: Abnormal Lab Results - Last 24 Hours (Table) 05/12/22 05/13/22 05/13/22 Range/Units 01:49 03:55 03:55 WBC 2.4 L (3.8-10.6) k/uL RBC 2.64 L (3.80-5.40) m/uL Hgb 8.5 L (11.4-16.0) gm/dL Hct 26.0 L (34.0-46.0) % RDW 16.6 H (11.5-15.5) % Plt Count 54 L (150-450) k/uL Lymphocytes # 0.3 L (1.0-4.8) k/uL Glucose 67 L (74-99) mg/dL POC Glucose (mg/dL) (70-110) mg/dL Procalcitonin 0.14 H (0.02-0.09) ng/mL 05/13/22 05/13/22 Range/Units 06:08 06:43 WBC (3.8-10.6) k/uL RBC (3.80-5.40) m/uL Hgb (11.4-16.0) gm/dL Hct (34.0-46.0) % RDW (11.5-15.5) % Plt Count (150-450) k/uL Lymphocytes # (1.0-4.8) k/uL Glucose (74-99) mg/dL POC Glucose (mg/dL) 66 L 143 H (70-110) mg/dL Procalcitonin (0.02-0.09) ng/mL Microbiology - Last 24 Hours (Table) 05/10/22 14:57 Blood Culture - Preliminary Blood No Growth after 48 hours 05/10/22 14:57 Blood Culture - Preliminary Blood No Growth after 48 hours
[2022-05-13 11:50] LABS: Glucose,Whole Blood 111 mg/dL (70-110)
[2022-05-13 23:23] LABS: Glucose,Whole Blood 88 mg/dL (70-110)
[2022-05-14] MEDS: PIPERACILLIN-TAZOBACTAM 3.375 GM in SODIUM CHLORIDE 0.9% 100 ML IVPB SCH ×4 (00:18→23:44)
[2022-05-14 04:04] LABS: African American GFR (CKD) >90 (>60 ml/min/1.73 sqM); Anion Gap 10 mmol/L; Blood Urea Nitrogen 12 mg/dL (7-17); Carbon Dioxide 24 mmol/L (22-30); Chloride 105 mmol/L (98-107); Glucose 69 mg/dL (74-99); Magnesium 2.3 mg/dL (1.6-2.3); Non-African American GFR(CKD) 84 (>60 ml/min/1.73 sqM); Potassium 4.3 mmol/L (3.5-5.1); Sodium 139 mmol/L (137-145)
[2022-05-14 04:05] LABS: Calcium 9.1 mg/dL (8.4-10.2)
[2022-05-14 04:42] LABS: Anisocytosis Slight; HGB 8.8 gm/dL (11.4-16.0); Hypochromasia Slight; MCH 31.7 pg (25.0-35.0); MCHC 32.6 g/dL (31.0-37.0); MCV 97.2 fL (80.0-100.0); Macrocytosis Slight; Mean Platelet Volume 10.9; RBC 2.78 m/uL (3.80-5.40); WBC 3.4 k/uL (3.8-10.6)
[2022-05-14 04:46] LABS: Platelet Count 73 k/uL (150-450)
[2022-05-14] MEDS ORDERED: DEXTROSE 50% SYRINGE 50 ML IVP ONE (05:00)
[2022-05-14 05:01] LABS: Glucose,Whole Blood 69 mg/dL (70-110)
[2022-05-14] MEDS: SODIUM CHLORIDE 0.9% 1,000 ML IV SCH (05:07)
[2022-05-14 05:19] LABS: Glucose,Whole Blood 164 mg/dL (70-110)
--- NOTE | 2022-05-14 06:32 | P.PN ---
Subjective Progress Note Date: 05/14/22 Principal diagnosis: Paroxysmal atrial fibrillation The patient is a pleasant 62-year-old female patient with a past medical history significant for developmental delay as well as cerebral palsy and also history of cardiomyopathy was EF around 45% and also history of sick sinus syndrome status post permanent pacemaker as well as paroxysmal atrial fibrillation who was admitted to the hospital with a change in mental status and she was diagnosed with septic shock related to UTI. The patient was seen this morning. Her mentation has been slightly better. She remains hemodynamically stable and she remains in normal sinus mechanism. On examination she continues to be erythematous with evidence of right heart failure with bilateral lower except his edema which has somewhat slightly improved compared to before. Yesterday she was given 20 mg Lasix IV and I'm going to repeat that today. The platelet count are pending this morning. Objective - Vital Signs Vital signs: Vital Signs Temp 98.6 F 05/14/22 02:00 Pulse 75 05/14/22 02:00 Resp 18 05/14/22 02:00 BP 113/71 05/14/22 02:00 Pulse Ox 97 05/14/22 02:00 FiO2 30 05/12/22 11:24 Intake & Output 05/13/22 05/13/22 05/14/22 06:59 18:59 06:59 Intake Total 340 420 Output Total 900 2675 350 Balance -560 -2255 -350 Weight 136 kg Intake: IV 240 420 Magnesium Sulfate-D5w Pmx 200 1 gm In Dextrose/Water 1 100ml.bag @ 100 mls/hr IVPB Q1H MAC Rx#: [id number] Piperacillin-Tazobactam 3 200 .375 gm In Sodium Chloride 0.9% 100 ml @ 25 mls/hr IVPB Q8HR MAC Rx# :[id number] Sodium Chloride 0.9% 1, 240 20 000 ml @ 20 mls/hr IV . Q24H MAC Rx#:[id number] Intake, IV Titration 100 Amount Piperacillin-Tazobactam 3 100 .375 gm In Sodium Chloride 0.9% 100 ml @ 25 mls/hr IVPB Q8HR MAC Rx# :[id number] Output: Urine 900 2675 350 Other: Voiding Method Indwelling Catheter Indwelling Catheter Indwelling Catheter - Constitutional General appearance: Present: no acute distress - Respiratory Respiratory: bilateral: diminished - Cardiovascular Rhythm: regular - Labs CBC & Chem 7: 05/14/22 03:33 05/14/22 03:33 Labs: Abnormal Lab Results - Last 24 Hours (Table) 05/13/22 05/13/22 05/14/22 Range/Units 06:43 11:48 03:33 WBC 3.4 L (3.8-10.6) k/uL RBC 2.78 L (3.80-5.40) m/uL Hgb 8.8 L (11.4-16.0) gm/dL Hct 27.0 L (34.0-46.0) % RDW 17.0 H (11.5-15.5) % Glucose (74-99) mg/dL POC Glucose (mg/dL) 143 H 111 H (70-110) mg/dL 05/14/22 05/14/22 05/14/22 Range/Units 03:33 04:58 05:18 WBC (3.8-10.6) k/uL RBC (3.80-5.40) m/uL Hgb (11.4-16.0) gm/dL Hct (34.0-46.0) % RDW (11.5-15.5) % Glucose 69 L (74-99) mg/dL POC Glucose (mg/dL) 69 L 164 H (70-110) mg/dL Microbiology - Last 24 Hours (Table) 05/10/22 14:57 Blood Culture - Preliminary Blood No Growth after 72 hours 05/10/22 14:57 Blood Culture - Preliminary Blood No Growth after 72 hours Assessment and Plan Assessment: Assessment #1 septic shock related to UTI #2 paroxysmal atrial fibrillation #3 sick sinus syndrome status post permanent pacemaker #4 mild cardiomyopathy #5 multiple comorbid conditions Plan I would give the patient 20 mg dose of Lasix IV Continue monitoring the kidney function and electrolytes Continue monitoring the platelet Continue holding any anticoagulation at this point until we find out the platelet count Follow-up with the patient
[2022-05-14 06:33] LABS: Band Neutrophils % 5 %; Eosinophils # (M) 0.31 k/uL (0-0.7); Lymphocytes # (M) 0.75 k/uL (1.0-4.8); Monocytes # (M) 0.17 k/uL (0-1.0); Neutrophils % (M) 60 %; Nucleated Red Blood Cells 1 /100 WBC (0-0); Total Cells Counted 200
[2022-05-14 06:35] LABS: Poikilocytosis (M) Present; Polychromasia Present
--- NOTE | 2022-05-14 07:25 | XR ---
EXAMINATION TYPE: XR chest 1V portable DATE OF EXAM: 05/14/2022 5:36 AM COMPARISON: Chest radiographs from 05/10/2022 TECHNIQUE: XR chest 1V portable Portable AP radiograph of the chest. CLINICAL INDICATION:Female, 62 years old with history of pneumonia; FINDINGS: Lungs/Pleura: There is no evidence of pleural effusion, focal consolidation, or pneumothorax. Pulmonary vascularity: Unremarkable. Heart/mediastinum: Cardiomediastinal silhouette is prominent in size. Two lead cardiac conduction dev ice overlying the left hemithorax with lead tips projecting over the right ventricle and right atrium . Musculoskeletal: No acute osseous pathology. IMPRESSION: No acute cardiopulmonary disease/process.
[2022-05-14] MEDS: IPRATROPIUM-ALBUTEROL 3 ML NEB INHALATION SCH (07:32)
[2022-05-14] MEDS: PANTOPRAZOLE 40 MG/10 ML VIAL IVP SCH (08:02)
[2022-05-14] MEDS: MIDODRINE 5 MG TAB PO SCH ×3 (08:03→21:24)
--- NOTE | 2022-05-14 10:12 | P.PN ---
Subjective Progress Note Date: 05/14/22 Principal diagnosis: Septic shock Hospital Course: 62-year-old female with history of CP, seizure disorder, hypertension, DVT, systolic heart failure, sick sinus syndrome status post pacemaker and anemia presenting from outside hospital with concerns of altered mental status and hypothermia. [facility] Nonambulatory at baseline. Patient admitted for septic shock secondary to pneumonia and was on vasopressors. No longer hypoxic. During inpatient, had paroxysmal atrial fibrillation and was started on heparin, held secondary to drop in platelet count. HIT antibody negative. Will confirm with cardiology with regards to anticoagulation. Subjective: Patient seen and examined at bedside. No acute events overnight. Patient is awake and alert. She is able to verbalize needs and follow commands. Patient states that she is feeling better. She is now able to tolerate pureed diet and nectar thick liquids. Patient to be downgraded to general medical floor. Pertinent positives and negatives as discussed above, a complete review of systems was performed and all other systems are negative. Vitals Signs Reviewed. General: nontoxic, no distress, appears at stated age Derm: warm, dry Head: atraumatic, normocephalic, symmetric Eyes: EOMI, no lid lag, anicteric sclera Mouth: no lip lesion, mucus membranes moist Cardiovascular: S1S2 reg, no murmur Lungs: CTAB, no rales or rhonchi, No accessory muscle use, on room air Abdominal: soft, nontender to palpation, no guarding, no appreciable org anomegaly Ext: no gross muscle atrophy, anasarca, no contractures Neuro: CN II-XI grossly intact, no focal neuro deficits, 4/5 strength in upper extremities, 3/5 strength in lower extremities bilaterally Psych: Awake, appears alert Assessment and Plan: Systolic CHF exacerbation -Cardiology following -Lasix IV 20 -I's and O's Paroxysmal atrial fibrillation -Currently in sinus rhythm -Off of anticoagulation given precipitous drop in platelets -HIT antibody negative -will confirm with cardiology with regards to restarting AC Septic shock secondary to pneumonia -resolved Acute hypoxic respiratory failure - resolved -On Zosyn, will likely switch to Augmentin when tolerated oral diet -Weaned off of Levo -Negative blood cultures -Urine negative Anasarca Lower extremity edema -Venous Doppler lower extremities - negative for DVT in the visualized areas Acute encephalopathy - resolved -Likely in the setting of acute infection and fluid overload Aspiration risk -on pureed diet Pancytopenia -possibly in the setting of acute illness and antibiotic use -counts are improving History of DVT -Holding heparin drip given precipitous drop in platelets History of CP F: Oral if patient can tolerate E: Replete as needed N: pureed diet, nectar thick liquids A: Nonambulatory DVT ppx: SCD Code status: Full code Anticipated discharge place: [facility] Anticipated discharge time: 2-3 days Objective - Vital Signs Vital signs: Vital Signs Temp 97.6 F 05/14/22 08:00 Pulse 74 05/14/22 08:00 Resp 18 05/14/22 08:00 BP 125/79 05/14/22 08:00 Pulse Ox 97 05/14/22 08:00 FiO2 30 05/12/22 11:24 Intake & Output 05/13/22 05/14/22 05/14/22 18:59 06:59 18:59 Intake Total 420 100 100 Output Total 2675 650 60 Balance -2255 -550 40 Intake: IV 420 100 100 Magnesium Sulfate-D5w Pmx 200 1 gm In Dextrose/Water 1 100ml.bag @ 100 mls/hr IVPB Q1H MAC Rx#: [id number] Piperacillin-Tazobactam 3 200 100 100 .375 gm In Sodium Chloride 0.9% 100 ml @ 25 mls/hr IVPB Q8HR MAC Rx# :[id number] Sodium Chloride 0.9% 1, 20 000 ml @ 20 mls/hr IV . Q24H MAC Rx#:[id number] Output: Urine 2675 650 60 Other: Voiding Method Indwelling Catheter Indwelling Catheter - Labs CBC & Chem 7: 05/14/22 03:33 05/14/22 03:33 Labs: Abnormal Lab Results - Last 24 Hours (Table) 05/13/22 05/14/22 05/14/22 Range/Units 11:48 03:33 03:33 WBC 3.4 L (3.8-10.6) k/uL RBC 2.78 L (3.80-5.40) m/uL Hgb 8.8 L (11.4-16.0) gm/dL Hct 27.0 L (34.0-46.0) % RDW 17.0 H (11.5-15.5) % Plt Count 73 L (150-450) k/uL Lymphocytes # (Manual) 0.75 L (1.0-4.8) k/uL Nucleated RBCs 1 H (0-0) /100 WBC Glucose 69 L (74-99) mg/dL POC Glucose (mg/dL) 111 H (70-110) mg/dL 05/14/22 05/14/22 Range/Units 04:58 05:18 WBC (3.8-10.6) k/uL RBC (3.80-5.40) m/uL Hgb (11.4-16.0) gm/dL Hct (34.0-46.0) % RDW (11.5-15.5) % Plt Count (150-450) k/uL Lymphocytes # (Manual) (1.0-4.8) k/uL Nucleated RBCs (0-0) /100 WBC Glucose (74-99) mg/dL POC Glucose (mg/dL) 69 L 164 H (70-110) mg/dL Microbiology - Last 24 Hours (Table) 05/10/22 14:57 Blood Culture - Preliminary Blood No Growth after 72 hours 05/10/22 14:57 Blood Culture - Preliminary Blood No Growth after 72 hours
--- NOTE | 2022-05-14 10:33 | P.PN ---
Subjective Progress Note Date: 05/14/22 Principal diagnosis: Sepsis, mental status changes. This is a 62-year-old female with history of cerebral palsy, seizure disorder, hypertension, chronic anemia, recurrent episodes of urosepsis, patient was transferred yesterday from [facility] to our ER mostly with concern of altered mental status, hypothermia, and apparently the patient was not able to feed herself although she normally does, and was not talking properly as she normally does. Apparently 3 weeks ago she had a similar episode where in she was found septic from UTI. Upon arrival to the ER, patient was evaluated, she was noted to be nonverbal, not answering any questions, she was noted to be hypothermic with a temp of 87.7, blood pressure was 87/60, patient was noted to be relatively leukopenic with WBC count of 1.65, her lactic acid was normal. Pro-calcitonin was normal. Her electrolytes were normal. Platelets were relatively low at 90,000. And her urinalysis were relatively unremarkable, no evidence of pyuria. CT of the brain was unremarkable. Chest x-ray showed pulmonary vascular congestion, no clear-cut evidence of pneumonia. Patient was given fluid boluses about 3 L in the ER, and considering her blood pressure remained relatively low and she remained hypothermic patient was admitted to the ICU and she was on a very low dose of norepinephrine which I will discontinue this morning. Overnight the patient was getting more and more congested, and I recommended Lasix 40 mg IV push given last night, patient responded well to Lasix, and she had a significant urine output. Today she is on 0.9 normal saline at 1 50 mL per hour and I'm cutting down to KVO. Patient had a swallow evaluation which she failed. She is now on 50% Ventimask continues to have gurgling with secretions in her upper airways, easily suctioned without any difficulty. She does follow simple instructions but does not seem to be verbal. Her temp today is up to 97.7, blood pressure is 103/52 with a mean of 70 she is on 50% Ventimask and her O2 sat is 97%. Heart rate is 73 and respirations 14. Obviously overnight the patient made a significant and dramatic improvement. And I plan to discontinue norepinephrine this morning. Patient tested negative for COVID-19, potassium is a bit high today at 5.8, but she also has a normal sodium. PTT is over 200. Patient is on heparin, normally on eliquis for DVT history Progress note dated 05/12/2022. This is a 62-year-old female that was recently inpatient, between April 19 and April 29. She came with a similar episode of mental status changes, and presumed infection. She was admitted this time with presumed pneumonia and sepsis. Her mental status is very poor. She cannot give much or any history. She's currently on 30% Venturi mask, and saline at 20 mL an hour. Her cultures are thus far negative. She is on Zosyn. She was transferred down from [facility], as she was before. White count 1.9, hemoglobin 8, hematocrit 25.1, and platelet count 57,000. PTT is 33. Sodium, potassium, chloride, CO2, anion gap, BUN, and creatinine, are all normal. Calcium is 9.2. Blood cultures are negative. Chest x-ray shows nothing acute. Progress note dated 05/13/2022. 62-year-old female that was recently inpatient at this institution, between April 19 and April 29. She had a similar episode of mental status changes, and presumed infection. The patient was again transferred down from an outside hospital. Currently, she is on room air. She's getting saline at 20 mL an hour. The patient was on a factor X a inhibitor for deep venous thrombosis. The patient will have a Doppler today to rule out DVT in the bilateral lower extremities. Current laboratory data includes a white count of 2.4, hemoglobin 8.5, hematocrit 26, and a platelet count of 54,000. Sodium 139, potassium 4.8, chlorides 107, CO2 24, within normal BUN and creatinine. Calcium and magnesium are both normal. Blood cultures are currently negative. She remains on Zosyn. Microbiologic studies are negative thus far. No new chest x-ray to review. Progress note dated 05/14/2022. 62-year-old female seen again in room 254. Currently she is on room air. She's getting saline at 10 mL an hour. She's getting Zosyn empirically. The patient is stable enough to be transferred to the general medical floor. Her mental status is improved only a bit. Current laboratory includes a white count 3.4, hemoglobin 8.8, hematocrit 27, and platelet count 73,000. Sodium 139, potassium 4.3, chlorides 105, CO2 24, anion gap 10, BUN 12, creatinine 0.76. Chest x-ray shows no acute cardiopulmonary abnormality. Dopplers of the lower extremities negative for DVT. Objective - Vital Signs Vital signs: Vital Signs Temp 97.6 F 05/14/22 08:00 Pulse 74 05/14/22 08:00 Resp 18 05/14/22 08:00 BP 125/79 05/14/22 08:00 Pulse Ox 97 05/14/22 08:00 FiO2 30 05/12/22 11:24 Intake & Output 05/13/22 05/14/22 05/14/22 18:59 06:59 18:59 Intake Total 420 100 100 Output Total 2675 650 60 Balance -2255 -550 40 Intake: IV 420 100 100 Magnesium Sulfate-D5w Pmx 200 1 gm In Dextrose/Water 1 100ml.bag @ 100 mls/hr IVPB Q1H [facility] Rx#: [id number] Piperacillin-Tazobactam 3 200 100 100 .375 gm In Sodium Chloride 0.9% 100 ml @ 25 mls/hr IVPB Q8HR [facility] Rx# :[id number] Sodium Chloride 0.9% 1, 20 000 ml @ 20 mls/hr IV . Q24H [facility] Rx#:[id number] Output: Urine 2675 650 60 Other: Voiding Method Indwelling Catheter Indwelling Catheter - Exam No acute distress, very lethargic/somnolent, with a blank stare. Currently on room air. HEENT examination is grossly unremarkable. Neck supple. Full range of motion. No adenopathy thyromegaly or neck vein distention. Cardiovascular examination reveals regular rhythm rate. S1-S2 normal. No S3 or S4. No discernible murmur noted. Heart sounds are distant. Heart rate 64 bpm. Lungs reveal mostly clear breath sounds. Minimal scattered rhonchi. No wheezes or crackles. Breath sounds equal bilaterally. Saturations are 97 %. Abdomen soft bowel sounds are heard. No masses or tenderness. Extremities are intact. No cyanosis clubbing or edema. Skin is without rash or lesion. Neurologic examination is similar to her last visit. Eyes open. Blank stare. She mumbles. - Labs CBC & Chem 7: 05/14/22 03:33 05/14/22 03:33 Labs: Abnormal Lab Results - Last 24 Hours (Table) 05/13/22 05/14/22 05/14/22 Range/Units 11:48 03:33 03:33 WBC 3.4 L (3.8-10.6) k/uL RBC 2.78 L (3.80-5.40) m/uL Hgb 8.8 L (11.4-16.0) gm/dL Hct 27.0 L (34.0-46.0) % RDW 17.0 H (11.5-15.5) % Plt Count 73 L (150-450) k/uL Lymphocytes # (Manual) 0.75 L (1.0-4.8) k/uL Nucleated RBCs 1 H (0-0) /100 WBC Glucose 69 L (74-99) mg/dL POC Glucose (mg/dL) 111 H (70-110) mg/dL 05/14/22 05/14/22 Range/Units 04:58 05:18 WBC (3.8-10.6) k/uL RBC (3.80-5.40) m/uL Hgb (11.4-16.0) gm/dL Hct (34.0-46.0) % RDW (11.5-15.5) % Plt Count (150-450) k/uL Lymphocytes # (Manual) (1.0-4.8) k/uL Nucleated RBCs (0-0) /100 WBC Glucose (74-99) mg/dL POC Glucose (mg/dL) 69 L 164 H (70-110) mg/dL Microbiology - Last 24 Hours (Table) 05/10/22 14:57 Blood Culture - Preliminary Blood No Growth after 72 hours 05/10/22 14:57 Blood Culture - Preliminary Blood No Growth after 72 hours Assessment and Plan Assessment: Possible sepsis/septic shock. Encephalopathy, possibly related to underlying infection. Dehydration. Hypothermia, possibly related to infection/sepsis. Metabolic encephalopathy, acute on chronic. History of cerebral palsy. History of DVT, bilateral lower extremity Dopplers are negative. History of hypertension. Recent admission to the hospital with a similar picture, April 19 through April 29. Plan: Plan dated 05/12/2022. We will continue with supportive measures. We will continue to monitor in the ICU. The patient's norepinephrine has been weaned down. She remains on 30% oxygen. Saturations are adequate. She also continues on Zosyn as an antibiotic. Thus far, cultures are negative. Labs, x-rays, and medications are reviewed. We will continue GI and DVT prophylaxis. Additional recommendations and suggestions are forthcoming. We will follow along and make recommendations where appropriate. Plan dated 05/13/2022. The patient appears a bit more awake and alert today. This is how she behaves on her last visit, with antibiotics, she's did seem to improve. Cultures are thus far negative. She remains on Zosyn empirically. The patient could be transferred to general medical floor. She can take her pills with a bit of applesauce. The patient will have bilateral lower extremity Dopplers, to rule out DVT. We are not sure how long she needs to be on a factor X a inhibitor. Prognosis is poor. We will continue to follow make recommendations along the way. Plan dated 05/14/2022. The patient continues to improve on a daily basis. She seen in room 254. The patient could be transferred to general medical floor without telemetry. Updrafts are discontinued. Oxygenation is good. The patient's getting saline at 10 mL now which can be discontinued. Labs, x-rays, and medications are reviewed. At this point, would not restart her factor X a inhibitor. Time with Patient: Less than 30
[2022-05-14 11:23] LABS: Glucose,Whole Blood 78 mg/dL (70-110)
[2022-05-14 17:10] LABS: Glucose,Whole Blood 102 mg/dL (70-110)
[2022-05-14 20:10] LABS: Glucose,Whole Blood 82 mg/dL (70-110)
[2022-05-15] MEDS: SODIUM CHLORIDE 0.9% 1,000 ML IV SCH (06:43)
[2022-05-15 06:49] LABS: Glucose,Whole Blood 65 mg/dL (70-110)
--- NOTE | 2022-05-15 06:53 | P.PN ---
Subjective Progress Note Date: 05/15/22 Principal diagnosis: Paroxysmal atrial fibrillation The patient is a pleasant 62-year-old female patient with a past medical history significant for developmental delay as well as cerebral palsy and also history of cardiomyopathy was EF around 45% and also history of sick sinus syndrome status post permanent pacemaker as well as paroxysmal atrial fibrillation who was admitted to the hospital with a change in mental status and she was diagnosed with septic shock related to UTI. May 142021 The patient was seen this morning. Her mentation has been slightly better. She remains hemodynamically stable and she remains in normal sinus mechanism. On examination she continues to be erythematous with evidence of right heart failure with bilateral lower except his edema which has somewhat slightly improved compared to before. Yesterday she was given 20 mg Lasix IV and I'm going to repeat that today. The platelet count are pending this morning. May 152021 The patient was seen and evaluated this morning. Overall she's stable from a cardiovascular standpoint of view. Her mentation definitely has improved. She has been maintaining normal sinus mechanism. She has been responding to Lasix IV on daily basis. Her lower extremities edema has improved somewhat. She was on Lasix at 80 mg by mouth daily. I'm going to start the patient on by mouth Lasix at 40 mg by mouth daily. From the cardiac standpoint of view, the patient can be transferred out of the intensive care unit. Beside that the platelet count has been trending up but continues to be below 100,000. Oral anticoagulation is on hold at this point. Also heparin products are on hold. Objective - Vital Signs Vital signs: Vital Signs Temp 96.3 F L 05/15/22 02:00 Pulse 60 05/15/22 02:00 Resp 18 05/15/22 02:00 BP 111/62 05/15/22 02:00 Pulse Ox 95 05/15/22 02:00 FiO2 30 05/12/22 11:24 Intake & Output 05/14/22 05/14/22 05/15/22 06:59 18:59 06:59 Intake Total 100 300 50 Output Total 650 510 475 Balance -743 -985 -783 Intake: IV 100 200 Piperacillin-Tazobactam 3 100 200 .375 gm In Sodium Chloride 0.9% 100 ml @ 25 mls/hr IVPB Q8HR [facility] Rx# :[id number] Oral 100 50 Output: Urine 650 510 475 Other: Voiding Method Indwelling Catheter Indwelling Catheter Indwelling Catheter - Constitutional General appearance: Present: no acute distress - Respiratory Respiratory: bilateral: diminished - Cardiovascular Rhythm: regular - Labs CBC & Chem 7: 05/14/22 03:33 05/14/22 03:33 Labs: Abnormal Lab Results - Last 24 Hours (Table) 05/15/22 Range/Units 06:47 POC Glucose (mg/dL) 65 L (70-110) mg/dL Microbiology - Last 24 Hours (Table) 05/10/22 14:57 Blood Culture - Preliminary Blood No Growth after 96 hours 05/10/22 14:57 Blood Culture - Preliminary Blood No Growth after 96 hours Assessment and Plan Assessment: Assessment #1 septic shock related to UTI #2 paroxysmal atrial fibrillation #3 sick sinus syndrome status post permanent pacemaker #4 mild cardiomyopathy #5 multiple comorbid conditions Plan Start the patient on Lasix by mouth 40 mg by mouth daily Continue holding any heparin products Continue monitoring the platelet. The platelet has been trending up Restart the patient back on oral anticoagulation once the platelet count improved The patient can be transferred out of the ICU
[2022-05-15] MEDS ORDERED: DEXTROSE 50% SYRINGE 50 ML IVP ONE (06:56)
[2022-05-15 07:14] LABS: Glucose,Whole Blood 136 mg/dL (70-110)
--- NOTE | 2022-05-15 07:15 | P.PN ---
Subjective Progress Note Date: 05/15/22 Principal diagnosis: Sepsis, mental status changes. This is a 62-year-old female with history of cerebral palsy, seizure disorder, hypertension, chronic anemia, recurrent episodes of urosepsis, patient was transferred yesterday from [facility] to our ER mostly with concern of altered mental status, hypothermia, and apparently the patient was not able to feed herself although she normally does, and was not talking properly as she normally does. Apparently 3 weeks ago she had a similar episode where in she was found septic from UTI. Upon arrival to the ER, patient was evaluated, she was noted to be nonverbal, not answering any questions, she was noted to be hypothermic with a temp of 87.7, blood pressure was 87/60, patient was noted to be relatively leukopenic with WBC count of 1.65, her lactic acid was normal. Pro-calcitonin was normal. Her electrolytes were normal. Platelets were relatively low at 90,000. And her urinalysis were relatively unremarkable, no evidence of pyuria. CT of the brain was unremarkable. Chest x-ray showed pulmonary vascular congestion, no clear-cut evidence of pneumonia. Patient was given fluid boluses about 3 L in the ER, and considering her blood pressure remained relatively low and she remained hypothermic patient was admitted to the ICU and she was on a very low dose of norepinephrine which I will discontinue this morning. Overnight the patient was getting more and more congested, and I recommended Lasix 40 mg IV push given last night, patient responded well to Lasix, and she had a significant urine output. Today she is on 0.9 normal saline at 1 50 mL per hour and I'm cutting down to KVO. Patient had a swallow evaluation which she failed. She is now on 50% Ventimask continues to have gurgling with secretions in her upper airways, easily suctioned without any difficulty. She does follow simple instructions but does not seem to be verbal. Her temp today is up to 97.7, blood pressure is 103/52 with a mean of 70 she is on 50% Ventimask and her O2 sat is 97%. Heart rate is 73 and respirations 14. Obviously overnight the patient made a significant and dramatic improvement. And I plan to discontinue norepinephrine this morning. Patient tested negative for COVID-19, potassium is a bit high today at 5.8, but she also has a normal sodium. PTT is over 200. Patient is on heparin, normally on eliquis for DVT history Progress note dated 05/12/2022. This is a 62-year-old female that was recently inpatient, between April 19 and April 29. She came with a similar episode of mental status changes, and presumed infection. She was admitted this time with presumed pneumonia and sepsis. Her mental status is very poor. She cannot give much or any history. She's currently on 30% Venturi mask, and saline at 20 mL an hour. Her cultures are thus far negative. She is on Zosyn. She was transferred down from [facility], as she was before. White count 1.9, hemoglobin 8, hematocrit 25.1, and platelet count 57,000. PTT is 33. Sodium, potassium, chloride, CO2, anion gap, BUN, and creatinine, are all normal. Calcium is 9.2. Blood cultures are negative. Chest x-ray shows nothing acute. Progress note dated 05/13/2022. 62-year-old female that was recently inpatient at this institution, between April 19 and April 29. She had a similar episode of mental status changes, and presumed infection. The patient was again transferred down from an outside hospital. Currently, she is on room air. She's getting saline at 20 mL an hour. The patient was on a factor X a inhibitor for deep venous thrombosis. The patient will have a Doppler today to rule out DVT in the bilateral lower extremities. Current laboratory data includes a white count of 2.4, hemoglobin 8.5, hematocrit 26, and a platelet count of 54,000. Sodium 139, potassium 4.8, chlorides 107, CO2 24, within normal BUN and creatinine. Calcium and magnesium are both normal. Blood cultures are currently negative. She remains on Zosyn. Microbiologic studies are negative thus far. No new chest x-ray to review. Progress note dated 05/14/2022. 62-year-old female seen again in room 254. Currently she is on room air. She's getting saline at 10 mL an hour. She's getting Zosyn empirically. The patient is stable enough to be transferred to the general medical floor. Her mental status is improved only a bit. Current laboratory includes a white count 3.4, hemoglobin 8.8, hematocrit 27, and platelet count 73,000. Sodium 139, potassium 4.3, chlorides 105, CO2 24, anion gap 10, BUN 12, creatinine 0.76. Chest x-ray shows no acute cardiopulmonary abnormality. Dopplers of the lower extremities negative for DVT. Progress note dated 05/15/2022. 62-year-old female seen again in room 254. She's currently on room air. She's not receiving any IV fluids. She continues on Zosyn empirically. The patient is stable for transfer to the general medical floor. She has had slow improvement in her mental status. No new labs today other than a glucose 65. All culture data has been negative. Dopplers of the lower extremities were negative. Objective - Vital Signs Vital signs: Vital Signs Temp 97.7 F 05/15/22 05:00 Pulse 60 05/15/22 02:00 Resp 18 05/15/22 02:00 BP 111/62 05/15/22 02:00 Pulse Ox 95 05/15/22 02:00 FiO2 30 05/12/22 11:24 Intake & Output 05/14/22 05/15/22 05/15/22 18:59 06:59 18:59 Intake Total 300 50 Output Total 510 475 Balance -210 -425 Intake: IV 200 Piperacillin-Tazobactam 3 200 .375 gm In Sodium Chloride 0.9% 100 ml @ 25 mls/hr IVPB Q8HR [facility] Rx# :[id number] Oral 100 50 Output: Urine 510 475 Other: Voiding Method Indwelling Catheter Indwelling Catheter - Exam No acute distress, very lethargic/somnolent, with a blank stare. Currently on room air. Saturations are 95%. HEENT examination is grossly unremarkable. Neck supple. Full range of motion. No adenopathy thyromegaly or neck vein distention. Cardiovascular examination reveals regular rhythm rate. S1-S2 normal. No S3 or S4. No discernible murmur noted. Heart sounds are distant. Heart rate 60 bpm. Lungs reveal mostly clear breath sounds. Minimal scattered rhonchi. No wheezes or crackles. Breath sounds equal bilaterally. Saturations are 95 %. Abdomen soft bowel sounds are heard. No masses or tenderness. Extremities are intact. No cyanosis clubbing or edema. Skin is without rash or lesion. Neurologic examination is similar to her last visit. Eyes open. Blank stare. She mumbles. - Labs CBC & Chem 7: 05/14/22 03:33 05/14/22 03:33 Labs: Abnormal Lab Results - Last 24 Hours (Table) 05/15/22 Range/Units 06:47 POC Glucose (mg/dL) 65 L (70-110) mg/dL Microbiology - Last 24 Hours (Table) 05/10/22 14:57 Blood Culture - Preliminary Blood No Growth after 96 hours 05/10/22 14:57 Blood Culture - Preliminary Blood No Growth after 96 hours Assessment and Plan Assessment: Possible sepsis/septic shock. Patient remains on Zosyn empirically. Cultures have been negative. Encephalopathy, possibly related to underlying infection. Dehydration. Hypothermia, possibly related to infection/sepsis. Metabolic encephalopathy, acute on chronic. History of cerebral palsy. History of DVT, bilateral lower extremity Dopplers are negative. History of hypertension. Recent admission to the hospital with a similar picture, April 19 through April 29. Plan: Plan dated 05/12/2022. We will continue with supportive measures. We will continue to monitor in the ICU. The patient's norepinephrine has been weaned down. She remains on 30% ox ygen. Saturations are adequate. She also continues on Zosyn as an antibiotic. Thus far, cultures are negative. Labs, x-rays, and medications are reviewed. We will continue GI and DVT prophylaxis. Additional recommendations and suggestions are forthcoming. We will follow along and make recommendations where appropriate. Plan dated 05/13/2022. The patient appears a bit more awake and alert today. This is how she behaves on her last visit, with antibiotics, she's did seem to improve. Cultures are thus far negative. She remains on Zosyn empirically. The patient could be transferred to general medical floor. She can take her pills with a bit of applesauce. The patient will have bilateral lower extremity Dopplers, to rule out DVT. We are not sure how long she needs to be on a factor X a inhibitor. Prognosis is poor. We will continue to follow make recommendations along the wa y. Plan dated 05/14/2022. The patient continues to improve on a daily basis. She seen in room 254. The patient could be transferred to general medical floor without telemetry. Updrafts are discontinued. Oxygenation is good. The patient's getting saline at 10 mL now which can be discontinued. Labs, x-rays, and medications are reviewed. At this point, would not restart her factor X a inhibitor. Plan dated 05/15/2022. The patient continues to improve on a daily basis. She remains on Zosyn. She seen in room 254. Her mental status is improved slightly on a daily basis. Oxygenation is good. Labs are reviewed. Medications and x-rays are reviewed. Dopplers of the lower extremities were negative. We will continue to follow. Prognosis is certainly guarded. Time with Patient: Less than 30
[2022-05-15] MEDS: PANTOPRAZOLE 40 MG/10 ML VIAL IVP SCH (07:51)
[2022-05-15] MEDS: MIDODRINE 5 MG TAB PO SCH ×3 (07:51→22:42)
[2022-05-15] MEDS: FUROSEMIDE 40 MG TAB PO SCH (07:51)
[2022-05-15] MEDS: PIPERACILLIN-TAZOBACTAM 3.375 GM in SODIUM CHLORIDE 0.9% 100 ML IVPB SCH ×2 (07:51→16:17)
[2022-05-15 11:17] LABS: Glucose,Whole Blood 124 mg/dL (70-110)
[2022-05-15 11:17] LABS: Glucose,Whole Blood 62 mg/dL (70-110)
[2022-05-15 11:23] VITALS: BMI 49.8
--- NOTE | 2022-05-15 11:36 | P.PN ---
Subjective Progress Note Date: 05/15/22 Principal diagnosis: Septic shock Hospital Course: 62-year-old female with history of CP, seizure disorder, hypertension, DVT, systolic heart failure, sick sinus syndrome status post pacemaker and anemia presenting from outside hospital with concerns of altered mental status and hypothermia. Patient having difficulty feeding herself per residential staff. Nonambulatory at baseline. Patient admitted for septic shock secondary to pneumonia and was on vasopressors. No longer hypoxic. During inpatient, had paroxysmal atrial fibrillation and was started on heparin, held secondary to drop in platelet count. HIT antibody negative. Will confirm with Cardiology and ICU with regards to restarting oral AC. Subjective: Patient seen and examined at bedside. No acute events overnight. Patient is a little less awake compared to yesterday. However, the nurse states that she has been awake in the morning. She was able to take about 20% of her meal this morning. Patient to be downgraded to general medical floor. Pertinent positives and negatives as discussed above, a complete review of systems was performed and all other systems are negative. Vitals Signs Reviewed. General: nontoxic, no distress, appears at stated age Derm: warm, dry Head: atraumatic, normocephalic, symmetric Eyes: EOMI, no lid lag, anicteric sclera Mouth: no lip lesion, mucus membranes moist Cardiovascular: S1S2 reg, no murmur Lungs: CTAB, no rales or rhonchi, No accessory muscle use, on room air Abdominal: soft, nontender to palpation, no guarding, no appreciable organome jazmin Ext: no gross muscle atrophy, anasarca, no contractures Neuro: CN II-XI grossly intact, no focal neuro deficits, 4/5 strength in upper extremities, 3/5 strength in lower extremities bilaterally Psych: sleepy and not engaged Assessment and Plan: Systolic CHF exacerbation -Cardiology following -lasix switched to PO -I's and O's Paroxysmal atrial fibrillation -Currently in sinus rhythm -Off of anticoagulation given precipitous drop in platelets -HIT antibody negative -will confirm with cardiology with regards to restarting AC Septic shock secondary to pneumonia -resolved Acute hypoxic respiratory failure - resolved -On Zosyn, will likely switch to Augmentin when tolerating oral diet -Weaned off of Levo -Negative blood cultures -Urine negative Anasarca Lower extremity edema -Venous Doppler lower extremities - negative for DVT in the visualized areas Acute encephalopathy - resolved -Likely in the setting of acute infection and fluid overload Aspiration risk -on pureed diet Pancytopenia -possibly in the setting of acute illness and antibiotic use -counts are improving History of DVT -Holding heparin drip and oral AC given precipitous drop in platelets History of CP F: Oral if patient can tolerate E: Replete as needed N: pureed diet, nectar thick liquids A: Nonambulatory DVT ppx: SCD Code status: Full code Anticipated discharge place: [facility] Anticipated discharge time: 2-3 days Objective - Vital Signs Vital signs: Vital Signs Temp 97.0 F L 05/15/22 08:00 Pulse 73 05/15/22 08:00 Resp 18 05/15/22 08:00 BP 94/45 05/15/22 08:00 Pulse Ox 95 05/15/22 08:00 FiO2 30 05/12/22 11:24 Intake & Output 05/14/22 05/15/22 05/15/22 18:59 06:59 18:59 Intake Total 300 50 Output Total 510 475 Balance -210 -425 Weight 136 kg Intake: IV 200 Piperacillin-Tazobactam 3 200 .375 gm In Sodium Chloride 0.9% 100 ml @ 25 mls/hr IVPB Q8HR [facility] Rx# :[id number] Oral 100 50 Output: Urine 510 475 Other: Voiding Method Indwelling Catheter Indwelling Catheter Indwelling Catheter - Labs CBC & Chem 7: 05/14/22 03:33 05/14/22 03:33 Labs: Abnormal Lab Results - Last 24 Hours (Table) 05/15/22 05/15/22 05/15/22 Range/Units 06:47 07:12 11:14 POC Glucose (mg/dL) 65 L 136 H 62 L (70-110) mg/dL 05/15/22 Range/Units 11:15 POC Glucose (mg/dL) 124 H (70-110) mg/dL Microbiology - Last 24 Hours (Table) 05/10/22 14:57 Blood Culture - Preliminary Blood No Growth after 96 hours 05/10/22 14:57 Blood Culture - Preliminary Blood No Growth after 96 hours
[2022-05-15 12:36] LABS: Anisocytosis Slight; HCT 28.2 % (34.0-46.0); Hypochromasia Moderate; MCH 31.5 pg (25.0-35.0); MCHC 31.9 g/dL (31.0-37.0); MCV 98.8 fL (80.0-100.0); Macrocytosis Slight; Mean Platelet Volume 10.5; RBC 2.86 m/uL (3.80-5.40); RDW 16.5 % (11.5-15.5); WBC 3.8 k/uL (3.8-10.6)
[2022-05-15 12:38] LABS: Platelet Count 82 k/uL (150-450)
[2022-05-15 16:33] LABS: Glucose,Whole Blood 136 mg/dL (70-110)
[2022-05-15 21:34] LABS: Glucose,Whole Blood 87 mg/dL (70-110)
[2022-05-16] MEDS: PIPERACILLIN-TAZOBACTAM 3.375 GM in SODIUM CHLORIDE 0.9% 100 ML IVPB SCH ×2 (00:53→07:30)
[2022-05-16 06:33] LABS: Anisocytosis Slight; Basophils % (A) 0 %; Eosinophils # (A) 0.2 k/uL (0-0.7); Eosinophils % (A) 7 %; HCT 26.9 % (34.0-46.0); HGB 8.6 gm/dL (11.4-16.0); Hypochromasia Moderate; Lymphocytes # (A) 0.6 k/uL (1.0-4.8); Lymphocytes % (A) 18 %; MCH 31.7 pg (25.0-35.0); MCV 98.9 fL (80.0-100.0); Macrocytosis Slight; Mean Platelet Volume 9.6; Monocytes # (A) 0.2 k/uL (0-1.0); Monocytes % (A) 6 %; Neutrophils # (A) 2.2 k/uL (1.3-7.7); Neutrophils % (A) 66 %; RBC 2.72 m/uL (3.80-5.40); WBC 3.3 k/uL (3.8-10.6)
[2022-05-16 06:36] LABS: Platelet Count 92 k/uL (150-450)
[2022-05-16 07:11] LABS: Glucose,Whole Blood 71 mg/dL (70-110)
[2022-05-16] MEDS: PANTOPRAZOLE 40 MG/10 ML VIAL IVP SCH (07:31)
[2022-05-16] MEDS: MIDODRINE 5 MG TAB PO SCH ×3 (07:31→22:32)
[2022-05-16] MEDS: FUROSEMIDE 40 MG TAB PO SCH (07:31)
--- NOTE | 2022-05-16 08:01 | P.PN ---
Subjective Progress Note Date: 05/16/22 Principal diagnosis: Paroxysmal atrial fibrillation The patient is a pleasant 62-year-old female patient with a past medical history significant for developmental delay as well as cerebral palsy and also history of cardiomyopathy was EF around 45% and also history of sick sinus syndrome status post permanent pacemaker as well as paroxysmal atrial fibrillation who was admitted to the hospital with a change in mental status and she was diagnosed with septic shock related to UTI. May 142021 The patient was seen this morning. Her mentation has been slightly better. She remains hemodynamically stable and she remains in normal sinus mechanism. On examination she continues to be erythematous with evidence of right heart failure with bilateral lower except his edema which has somewhat slightly improved compared to before. Yesterday she was given 20 mg Lasix IV and I'm going to repeat that today. The platelet count are pending this morning. May [id number] The patient was seen and evaluated this morning. Overall she's stable from a cardiovascular standpoint of view. Her mentation definitely has improved. She has been maintaining normal sinus mechanism. She has been responding to Lasix IV on daily basis. Her lower extremities edema has improved somewhat. She was on Lasix at 80 mg by mouth daily. I'm going to start the patient on by mouth Lasix at 40 mg by mouth daily. From the cardiac standpoint of view, the patient can be transferred out of the intensive care unit. Beside that the platelet count has been trending up but continues to be below 100,000. Oral anticoagulation is on hold at this point. Also heparin products are on hold. May 16 The patient was seen this morning. She remains asymptomatic and hemodynamic is stable from a cardiovascular standpoint overview. The platelet has been trending up. From the cardiac standpoint of view, would continue the current medical regimen and follow-up with the patient. The patient can be transferred out of the intensive care unit. Objective - Vital Signs Vital signs: Vital Signs Temp 97 F L 05/16/22 02:00 Pulse 60 05/16/22 02:00 Resp 20 05/16/22 02:00 BP 101/56 05/16/22 02:00 Pulse Ox 93 L 05/16/22 02:00 FiO2 30 05/12/22 11:24 Intake & Output 05/15/22 05/16/22 05/16/22 18:59 06:59 18:59 Intake Total 200 100 Output Total 300 400 Balance -100 -300 Weight 136 kg Intake: IV 200 100 Piperacillin-Tazobactam 3 200 100 .375 gm In Sodium Chloride 0.9% 100 ml @ 25 mls/hr IVPB Q8HR [facility] Rx# :[id number] Output: Urine 300 400 Other: Voiding Method Indwelling Catheter External Catheter - Labs CBC & Chem 7: 05/16/22 05:35 05/14/22 03:33 Labs: Abnormal Lab Results - Last 24 Hours (Table) 05/15/22 05/15/22 05/15/22 Range/Units 11:14 11:15 11:49 WBC (3.8-10.6) k/uL RBC 2.86 L (3.80-5.40) m/uL Hgb 9.0 L (11.4-16.0) gm/dL Hct 28.2 L (34.0-46.0) % RDW 16.5 H (11.5-15.5) % Plt Count 82 L (150-450) k/uL Lymphocytes # (1.0-4.8) k/uL POC Glucose (mg/dL) 62 L 124 H (70-110) mg/dL 05/15/22 05/16/22 Range/Units 16:32 05:35 WBC 3.3 L (3.8-10.6) k/uL RBC 2.72 L (3.80-5.40) m/uL Hgb 8.6 L (11.4-16.0) gm/dL Hct 26.9 L (34.0-46.0) % RDW 17.0 H (11.5-15.5) % Plt Count 92 L (150-450) k/uL Lymphocytes # 0.6 L (1.0-4.8) k/uL POC Glucose (mg/dL) 136 H (70-110) mg/dL Microbiology - Last 24 Hours (Table) 05/10/22 14:57 Blood Culture - Preliminary Blood No Growth after 120 hours 05/10/22 14:57 Blood Culture - Preliminary Blood No Growth after 120 hours
--- NOTE | 2022-05-16 08:07 | P.PN ---
Subjective Progress Note Date: 05/16/22 Principal diagnosis: Sepsis, mental status changes. This is a 62-year-old female with history of cerebral palsy, seizure disorder, hypertension, chronic anemia, recurrent episodes of urosepsis, patient was transferred yesterday from [facility] to our ER mostly with concern of altered mental status, hypothermia, and apparently the patient was not able to feed herself although she normally does, and was not talking properly as she normally does. Apparently 3 weeks ago she had a similar episode where in she was found septic from UTI. Upon arrival to the ER, patient was evaluated, she was noted to be nonverbal, not answering any questions, she was noted to be hypothermic with a temp of 87.7, blood pressure was 87/60, patient was noted to be relatively leukopenic with WBC count of 1.65, her lactic acid was normal. Pro-calcitonin was normal. Her electrolytes were normal. Platelets were relatively low at 90,000. And her urinalysis were relatively unremarkable, no evidence of pyuria. CT of the brain was unremarkable. Chest x-ray showed pulmonary vascular congestion, no clear-cut evidence of pneumonia. Patient was given fluid boluses about 3 L in the ER, and considering her blood pressure remained relatively low and she remained hypothermic patient was admitted to the ICU and she was on a very low dose of norepinephrine which I will discontinue this morning. Overnight the patient was getting more and more congested, and I recommended Lasix 40 mg IV push given last night, patient responded well to Lasix, and she had a significant urine output. Today she is on 0.9 normal saline at 1 50 mL per hour and I'm cutting down to KVO. Patient had a swallow evaluation which she failed. She is now on 50% Ventimask continues to have gurgling with secretions in her upper airways, easily suctioned without any difficulty. She does follow simple instructions but does not seem to be verbal. Her temp today is up to 97.7, blood pressure is 103/52 with a mean of 70 she is on 50% Ventimask and her O2 sat is 97%. Heart rate is 73 and respirations 14. Obviously overnight the patient made a significant and dramatic improvement. And I plan to discontinue norepinephrine this morning. Patient tested negative for COVID-19, potassium is a bit high today at 5.8, but she also has a normal sodium. PTT is over 200. Patient is on heparin, normally on eliquis for DVT history Progress note dated 05/12/2022. This is a 62-year-old female that was recently inpatient, between April 19 and April 29. She came with a similar episode of mental status changes, and presumed infection. She was admitted this time with presumed pneumonia and sepsis. Her mental status is very poor. She cannot give much or any history. She's currently on 30% Venturi mask, and saline at 20 mL an hour. Her cultures are thus far negative. She is on Zosyn. She was transferred down from [facility], as she was before. White count 1.9, hemoglobin 8, hematocrit 25.1, and platelet count 57,000. PTT is 33. Sodium, potassium, chloride, CO2, anion gap, BUN, and creatinine, are all normal. Calcium is 9.2. Blood cultures are negative. Chest x-ray shows nothing acute. Progress note dated 05/13/2022. 62-year-old female that was recently inpatient at this institution, between April 19 and April 29. She had a similar episode of mental status changes, and presumed infection. The patient was again transferred down from an outside hospital. Currently, she is on room air. She's getting saline at 20 mL an hour. The patient was on a factor X a inhibitor for deep venous thrombosis. The patient will have a Doppler today to rule out DVT in the bilateral lower extremities. Current laboratory data includes a white count of 2.4, hemoglobin 8.5, hematocrit 26, and a platelet count of 54,000. Sodium 139, potassium 4.8, chlorides 107, CO2 24, within normal BUN and creatinine. Calcium and magnesium are both normal. Blood cultures are currently negative. She remains on Zosyn. Microbiologic studies are negative thus far. No new chest x-ray to review. Progress note dated 05/14/2022. 62-year-old female seen again in room 254. Currently she is on room air. She's getting saline at 10 mL an hour. She's getting Zosyn empirically. The patient is stable enough to be transferred to the general medical floor. Her mental status is improved only a bit. Current laboratory includes a white count 3.4, hemoglobin 8.8, hematocrit 27, and platelet count 73,000. Sodium 139, potassium 4.3, chlorides 105, CO2 24, anion gap 10, BUN 12, creatinine 0.76. Chest x-ray shows no acute cardiopulmonary abnormality. Dopplers of the lower extremities negative for DVT. Progress note dated 05/15/2022. 62-year-old female seen again in room 254. She's currently on room air. She's not receiving any IV fluids. She continues on Zosyn empirically. The patient is stable for transfer to the general medical floor. She has had slow improvement in her mental status. No new labs today other than a glucose 65. All culture data has been negative. Dopplers of the lower extremities were negative. Progress note dated 05/16/2022. The patient is again seen in room 254. The patient's currently on room air. She's not receiving any IV fluids she may be transferred out to the general medical floor later today. She remains on Tylenol, Dulcolax, Lasix, milk of magnesia, midodrine, Narcan, Protonix, and Zosyn. According to the nurse who had her, she had an uneventful night. No issues whatsoever. Her neurologic status is improved. White count 3.3, hemoglobin 8.6, hematocrit 26.9, and platelet count 92,000. Blood cultures, and all other culture data is negative. Objective - Vital Signs Vital signs: Vital Signs Temp 97 F L 05/16/22 02:00 Pulse 60 05/16/22 02:00 Resp 20 05/16/22 02:00 BP 101/56 05/16/22 02:00 Pulse Ox 93 L 05/16/22 02:00 FiO2 30 05/12/22 11:24 Intake & Output 05/15/22 05/16/22 05/16/22 18:59 06:59 18:59 Intake Total 200 100 Output Total 300 400 Balance -100 -300 Weight 136 kg Intake: IV 200 100 Piperacillin-Tazobactam 3 200 100 .375 gm In Sodium Chloride 0.9% 100 ml @ 25 mls/hr IVPB Q8HR [facility] Rx# :[id number] Output: Urine 300 400 Other: Voiding Method Indwelling Catheter External Catheter - Exam No acute distress, very lethargic/somnolent, with a blank stare. Currently on room air. Saturations are 94 %. HEENT examination is grossly unremarkable. Neck supple. Full range of motion. No adenopathy thyromegaly or neck vein distention. Cardiovascular examination reveals regular rhythm rate. S1-S2 normal. No S3 or S4. No discernible murmur noted. Heart sounds are distant. Heart rate 60 bpm. Lungs reveal mostly clear breath sounds. Minimal scattered rhonchi. No wheezes or crackles. Breath sounds equal bilaterally. Saturations are 94 %. Abdomen soft bowel sounds are heard. No masses or tenderness. Extremities are intact. No cyanosis clubbing or edema. Skin is without rash or lesion. Neurologic examination is similar to her last visit. Eyes open. Blank stare. She mumbles. - Labs CBC & Chem 7: 05/16/22 05:35 05/14/22 03:33 Labs: Abnormal Lab Results - Last 24 Hours (Table) 05/15/22 05/15/22 05/15/22 Range/Units 11:14 11:15 11:49 WBC (3.8-10.6) k/uL RBC 2.86 L (3.80-5.40) m/uL Hgb 9.0 L (11.4-16.0) gm/dL Hct 28.2 L (34.0-46.0) % RDW 16.5 H (11.5-15.5) % Plt Count 82 L (150-450) k/uL Lymphocytes # (1.0-4.8) k/uL POC Glucose (mg/dL) 62 L 124 H (70-110) mg/dL 05/15/22 05/16/22 Range/Units 16:32 05:35 WBC 3.3 L (3.8-10.6) k/uL RBC 2.72 L (3.80-5.40) m/uL Hgb 8.6 L (11.4-16.0) gm/dL Hct 26.9 L (34.0-46.0) % RDW 17.0 H (11.5-15.5) % Plt Count 92 L (150-450) k/uL Lymphocytes # 0.6 L (1.0-4.8) k/uL POC Glucose (mg/dL) 136 H (70-110) mg/dL Microbiology - Last 24 Hours (Table) 05/10/22 14:57 Blood Culture - Preliminary Blood No Growth after 120 hours 05/10/22 14:57 Blood Culture - Preliminary Blood No Growth after 120 hours Assessment and Plan Assessment: Possible sepsis/septic shock. Patient remains on Zosyn empirically. Cultures have been negative. Encephalopathy, possibly related to underlying infection. Dehydration. Hypothermia, possibly related to infection/sepsis. Metabolic encephalopathy, acute on chronic. History of cerebral palsy. History of DVT, bilateral lower extremity Dopplers are negative. History of hypertension. Recent admission to the hospital with a similar picture, April 19 through April 29. Plan: Plan dated 05/12/2022. We will continue with supportive measures. We will continue to monitor in the ICU. The patient's norepinephrine has been weaned down. She remains on 30% oxygen. Saturations are adequate. She also continues on Zosyn as an antibiotic. Thus far, cultures are negative. Labs, x-rays, and medications are reviewed. We will continue GI and DVT prophylaxis. Additional recommendations and suggestions are forthcoming. We will follow along and make recommendations where appropriate. Plan dated 05/13/2022. The patient appears a bit more awake and alert today. This is how she behaves on her last visit, with antibiotics, she's did seem to improve. Cultures are thus far negative. She remains on Zosyn empirically. The patient could be transferred to general medical floor. She can take her pills with a bit of applesauce. The patient will have bilateral lower extremity Dopplers, to rule out DVT. We are not sure how long she needs to be on a factor X a inhibitor. Prognosis is poor. We will continue to follow make recommendations along the way. Plan dated 05/14/2022. The patient continues to improve on a daily basis. She seen in room 254. The patient could be transferred to general medical floor without telemetry. Updrafts are discontinued. Oxygenation is good. The patient's getting saline at 10 mL now which can be discontinued. Labs, x-rays, and medications are reviewed. At this point, would not restart her factor X a inhibitor. Plan dated 05/15/2022. The patient continues to improve on a daily basis. She remains on Zosyn. She seen in room 254. Her mental status is improved slightly on a daily basis. Oxygenation is good. Labs are reviewed. Medications and x-rays are reviewed. Dopplers of the lower extremities were negative. We will continue to follow. Prognosis is certainly guarded. Plan dated 05/16/2022. The patient's most recent pro-calcitonin level was only 0.14. She's been on Zosyn since May 11. All culture data is negative. Zosyn will be discontinued. No additional recommendations are made. Dopplers of the lower extremities were negative. Prognosis is guarded. The patient will be transf erred out of the intensive care unit, to 5 N. Laboratory data, medications, and all x-rays are reviewed. Time with Patient: Less than 30
[2022-05-16] MEDS: SODIUM CHLORIDE 0.9% 1,000 ML IV SCH (08:14)
--- NOTE | 2022-05-16 11:31 | P.PN ---
Subjective Progress Note Date: 05/16/22 Principal diagnosis: Septic shock Hospital Course: 62-year-old female with history of CP, seizure disorder, hypertension, DVT, systolic heart failure, sick sinus syndrome status post pacemaker and anemia presenting from outside hospital with concerns of altered mental status and hypothermia. Patient having difficulty feeding herself per retirement staff. Nonambulatory at baseline. Patient admitted for septic shock secondary to pneumonia and was on vasopressors. No longer hypoxic. During inpatient, had paroxysmal atrial fibrillation and was started on heparin, held secondary to drop in platelet count. HIT antibody negative. Patient transferred out of the ICU. Subjective: Patient seen and examined at bedside. No acute events overnight. Patient denies any pain, nausea, vomiting, diarrhea or constipation, or urinary complaints. Patient transferred out of the ICU. Patient continues to have poor oral intake. Pertinent positives and negatives as discussed above, a complete review of systems was performed and all other systems are negative. Vitals Signs Reviewed. General: nontoxic, no distress, appears at stated age Derm: warm, dry Head: atraumatic, normocephalic, symmetric Eyes: EOMI, no lid lag, anicteric sclera Mouth: no lip lesion, mucus membranes moist Cardiovascular: S1S2 reg, no murmur Lungs: CTAB, no rales or rhonchi, No accessory muscle use, on room air Abdominal: soft, nontender to palpation, no guarding, no appreciable organomegaly Ext: no gross muscle atrophy, anasarca, no contractures Neuro: CN II-XI grossly intact, no focal neuro deficits, 4/5 strength in upper extremities, 3/5 strength in lower extremities bilaterally Psych: Awake and alert Assessment and Plan: Systolic CHF exacerbation -Cardiology following -lasix switched to PO -I's and O's Paroxysmal atrial fibrillation -Currently in sinus rhythm -Off of anticoagulation given precipitous drop in platelets -HIT antibody negative -Pending further cardiology recommendations Septic shock secondary to pneumonia -resolved Acute hypoxic respiratory failure - resolved -will discontinue Zosyn per pulmonology -Negative blood cultures -Urine negative -Pro calcitonin slightly elevated Anasarca Lower extremity edema -Venous Doppler lower extremities - negative for DVT in the visualized areas Acute encephalopathy - resolved -Likely in the setting of acute infection and fluid overload Aspiration risk -on pureed diet Pancytopenia -possibly in the setting of acute illness and antibiotic use -counts are improving History of DVT -Unsure if it was provoked or unprovoked -Holding AC given precipitous drop in platelets History of CP F: Oral if patient can tolerate E: Replete as needed N: pureed diet, nectar thick liquids A: Nonambulatory DVT ppx: SCD Code status: Full code Anticipated discharge place: half-way Anticipated discharge time: Thursday Objective - Vital Signs Vital signs: Vital Signs Temp 97.9 F 05/16/22 08:53 Pulse 64 05/16/22 08:53 Resp 16 05/16/22 08:53 BP 94/58 05/16/22 08:53 Pulse Ox 94 L 05/16/22 08:53 FiO2 30 05/12/22 11:24 Intake & Output 05/15/22 05/16/22 05/16/22 18:59 06:59 18:59 Intake Total 200 100 Output Total 300 400 Balance -100 -300 Weight 136 kg Intake: IV 200 100 Piperacillin-Tazobactam 3 200 100 .375 gm In Sodium Chloride 0.9% 100 ml @ 25 mls/hr IVPB Q8HR [facility] Rx# :[id number] Output: Urine 300 400 Other: Voiding Method Indwelling Catheter External Catheter External Catheter - Labs CBC & Chem 7: 05/16/22 05:35 05/14/22 03:33 Labs: Abnormal Lab Results - Last 24 Hours (Table) 05/15/22 05/15/22 05/16/22 Range/Units 11:49 16:32 05:35 WBC 3.3 L (3.8-10.6) k/uL RBC 2.86 L 2.72 L (3.80-5.40) m/uL Hgb 9.0 L 8.6 L (11.4-16.0) gm/dL Hct 28.2 L 26.9 L (34.0-46.0) % RDW 16.5 H 17.0 H (11.5-15.5) % Plt Count 82 L 92 L (150-450) k/uL Lymphocytes # 0.6 L (1.0-4.8) k/uL POC Glucose (mg/dL) 136 H (70-110) mg/dL Microbiology - Last 24 Hours (Table) 05/10/22 14:57 Blood Culture - Preliminary Blood No Growth after 120 hours 05/10/22 14:57 Blood Culture - Preliminary Blood No Growth after 120 hours
[2022-05-16 12:06] LABS: Glucose,Whole Blood 129 mg/dL (70-110)
[2022-05-16 17:08] LABS: Glucose,Whole Blood 92 mg/dL (70-110)
[2022-05-16 20:18] LABS: Glucose,Whole Blood 125 mg/dL (70-110)
[2022-05-17 07:47] LABS: Glucose,Whole Blood 63 mg/dL (70-110)
[2022-05-17] MEDS: PANTOPRAZOLE 40 MG/10 ML VIAL IVP SCH (08:12)
[2022-05-17] MEDS: SODIUM CHLORIDE 0.9% 1,000 ML IV SCH (08:12)
[2022-05-17] MEDS: FUROSEMIDE 40 MG TAB PO SCH (08:12)
[2022-05-17] MEDS: MIDODRINE 5 MG TAB PO SCH ×3 (08:12→22:05)
--- NOTE | 2022-05-17 08:47 | P.PN ---
Subjective Progress Note Date: 05/17/22 Principal diagnosis: Paroxysmal atrial fibrillation The patient is a pleasant 62-year-old female patient with a past medical history significant for developmental delay as well as cerebral palsy and also history of cardiomyopathy was EF around 45% and also history of sick sinus syndrome status post permanent pacemaker as well as paroxysmal atrial fibrillation who was admitted to the hospital with a change in mental status and she was diagnosed with septic shock related to UTI. May 142021 The patient was seen this morning. Her mentation has been slightly better. She remains hemodynamically stable and she remains in normal sinus mechanism. On examination she continues to be erythematous with evidence of right heart failure with bilateral lower except his edema which has somewhat slightly improved compared to before. Yesterday she was given 20 mg Lasix IV and I'm going to repeat that today. The platelet count are pending this morning. May 152021 The patient was seen and evaluated this morning. Overall she's stable from a cardiovascular standpoint of view. Her mentation definitely has improved. She has been maintaining normal sinus mechanism. She has been responding to Lasix IV on daily basis. Her lower extremities edema has improved somewhat. She was on Lasix at 80 mg by mouth daily. I'm going to start the patient on by mouth Lasix at 40 mg by mouth daily. From the cardiac standpoint of view, the patient can be transferred out of the intensive care unit. Beside that the platelet count has been trending up but continues to be below 100,000. Oral anticoagulation is on hold at this point. Also heparin products are on hold. May 16 The patient was seen this morning. She remains asymptomatic and hemodynamic is stable from a cardiovascular standpoint overview. The platelet has been trending up. From the cardiac standpoint of view, would continue the current medical regimen and follow-up with the patient. The patient can be transferred out of the intensive care unit. May 172021. The patient was seen on the fifth floor. She remains asymptomatic from a cardiovascular standpoint of view, she remains hemodynamically stable. No platelet count from today. Daily CBC was ordered. She needs to be started back on oral anticoagulation once the platelet count improved. Otherwise she doesn't have any active cardiovascular issues going on with her gait she has been maintaining normal sinus mechanism Objective - Vital Signs Vital signs: Vital Signs Temp 97.0 F L 05/17/22 04:08 Pulse 62 09/17/22 04:08 Resp 16 05/17/22 04:08 BP 106/69 05/17/22 04:08 Pulse Ox 97 05/17/22 04:08 FiO2 30 05/12/22 11:24 Intake & Output 05/16/22 05/17/22 05/17/22 18:59 06:59 18:59 Intake Total 480 Output Total 450 Balance 30 Intake: Oral 480 Output: Urine 450 Other: Voiding Method External Catheter Diaper Incontinent External Catheter # Voids 3 # Bowel Movements 0 - Constitutional General appearance: Present: no acute distress - Respiratory Respiratory: bilateral: diminished - Cardiovascular Rhythm: regular - Labs CBC & Chem 7: 05/16/22 05:35 05/14/22 03:33 Labs: Abnormal Lab Results - Last 24 Hours (Table) 05/16/22 05/16/22 05/17/22 Range/Units 12:03 20:17 07:45 POC Glucose (mg/dL) 129 H 125 H 63 L (70-110) mg/dL Microbiology - Last 24 Hours (Table) 05/10/22 14:57 Blood Culture - Final Blood No Growth after 144 hours 05/10/22 14:57 Blood Culture - Final Blood No Growth after 144 hours Assessment and Plan Assessment: Assessment #1 septic shock related to UTI #2 paroxysmal atrial fibrillation #3 sick sinus syndrome status post permanent pacemaker #4 mild cardiomyopathy #5 multiple comorbid conditions Plan Continue the current dose of Lasix CBC on daily basis Restart the patient on anticoagulation once platelet improve
[2022-05-17 10:10] LABS: HCT 25.4 % (37.2-46.3); HGB 8.1 g/dL (12.0-15.0); MCH 30.7 pg (27.0-32.0); MCHC 31.9 g/dL (32.0-37.0); MCV 96.2 fL (80.0-97.0); Mean Platelet Volume 11.6 fL (9.5-12.2); NRBC Per 100 WBC 0 /100 WBCS (0.0-0.0); Platelet Count 101 X 10*3/uL (140-440); RBC 2.64 X 10*6/uL (4.10-5.20); RDW 16.6 % (11.5-14.5); WBC 3.14 X 10*3/uL (4.50-10.00)
--- NOTE | 2022-05-17 10:58 | P.PN ---
Subjective Progress Note Date: 05/17/22 Principal diagnosis: Septic shock Hospital Course: 62-year-old female with history of CP, seizure disorder, hypertension, DVT, systolic heart failure, sick sinus syndrome status post pacemaker and anemia presenting from outside hospital with concerns of altered mental status and hypothermia. Patient having difficulty feeding herself [facility]. Nonambulatory at baseline. Patient admitted for septic shock secondary to pneumonia and was on vasopressors. No longer hypoxic. During inpatient, had paroxysmal atrial fibrillation and was started on heparin, held secondary to drop in platelet count. HIT antibody negative. Started on eliquis. Patient transferred out of the ICU. [facility]. Subjective: Patient seen and examined at bedside. No acute events overnight. Patient denies any pain, nausea, vomiting, diarrhea or constipation, or urinary complaints. Oral intake has slightly improved. Patient was able to take 100% of her dinner but refused breakfast and lunch. Pertinent positives and negatives as discussed above, a complete review of systems was performed and all other systems are negative. Vitals Signs Reviewed. General: nontoxic, no distress, appears at stated age Derm: warm, dry Head: atraumatic, normocephalic, symmetric Eyes: EOMI, no lid lag, anicteric sclera Mouth: no lip lesion, mucus membranes moist Cardiovascular: S1S2 reg, no murmur Lungs: CTAB, no rales or rhonchi, No accessory muscle use, on room air Abdominal: soft, nontender to palpation, no guarding, no appreciable organomegaly Ext: no gross muscle atrophy, anasarca, no contractures Neuro: CN II-XI grossly intact, no focal neuro deficits, 4/5 strength in upper extremities, 3/5 strength in lower extremities bilaterally Psych: Awake and alert Assessment and Plan: Systolic CHF exacerbation -Cardiology following -lasix switched to PO -I's and O's Paroxysmal atrial fibrillation -Currently in sinus rhythm -Off of anticoagulation given precipitous drop in platelets -HIT antibody negative -Pending further cardiology recommendations -Started eliquis Septic shock secondary to pneumonia -resolved Acute hypoxic respiratory failure - resolved -will discontinue Zosyn per pulmonology -Negative blood cultures -Urine negative -Pro calcitonin slightly elevated Anasarca Lower extremity edema -Venous Doppler lower extremities - negative for DVT in the visualized areas Acute encephalopathy - resolved -Likely in the setting of acute infection and fluid overload Aspiration risk -on pureed diet Pancytopenia -possibly in the setting of acute illness and antibiotic use -counts are improving History of DVT -Unsure if it was provoked or unprovoked -Started on eliquis History of CP F: Oral if patient can tolerate E: Replete as needed N: pureed diet, nectar thick liquids A: Nonambulatory DVT ppx: eliquis Code status: Full code Anticipated discharge place: senior living Anticipated discharge time: Thursday Objective - Vital Signs Vital signs: Vital Signs Temp 97.0 F L 05/17/22 04:08 Pulse 62 05/17/22 04:08 Resp 16 05/17/22 04:08 BP 106/69 05/17/22 04:08 Pulse Ox 97 05/17/22 04:08 FiO2 30 05/12/22 11:24 Intake & Output 05/16/22 05/17/22 05/17/22 18:59 06:59 18:59 Intake Total 480 Output Total 450 Balance 30 Intake: Oral 480 Output: Urine 450 Other: Voiding Method External Catheter Diaper Incontinent External Catheter # Voids 3 # Bowel Movements 0 - Labs CBC & Chem 7: 05/17/22 06:17 05/14/22 03:33 Labs: Abnormal Lab Results - Last 24 Hours (Table) 05/16/22 05/16/22 05/17/22 Range/Units 12:03 20:17 06:17 WBC 3.14 L (4.50-10.00) X 10*3/uL RBC 2.64 L (4.10-5.20) X 10*6/uL Hgb 8.1 L (12.0-15.0) g/dL Hct 25.4 L (37.2-46.3) % MCHC 31.9 L (32.0-37.0) g/dL RDW 16.6 H (11.5-14.5) % Plt Count 101 L (140-440) X 10*3/uL POC Glucose (mg/dL) 129 H 125 H (70-110) mg/dL 05/17/22 Range/Units 07:45 WBC (4.50-10.00) X 10*3/uL RBC (4.10-5.20) X 10*6/uL Hgb (12.0-15.0) g/dL Hct (37.2-46.3) % MCHC (32.0-37.0) g/dL RDW (11.5-14.5) % Plt Count (140-440) X 10*3/uL POC Glucose (mg/dL) 63 L (70-110) mg/dL Microbiology - Last 24 Hours (Table) 05/10/22 14:57 Blood Culture - Final Blood No Growth after 144 hours 05/10/22 14:57 Blood Culture - Final Blood No Growth after 144 hours
[2022-05-17] MEDS: APIXABAN 5 MG TAB PO SCH ×2 (11:57→20:03)
[2022-05-17 12:31] LABS: Glucose,Whole Blood 103 mg/dL (70-110)
--- NOTE | 2022-05-17 13:21 | P.PN ---
Subjective Progress Note Date: 05/17/22 Principal diagnosis: Sepsis, mental status changes. This is a 62-year-old female with history of cerebral palsy, seizure disorder, hypertension, chronic anemia, recurrent episodes of urosepsis, patient was transferred yesterday from [facility] to our ER mostly with concern of altered mental status, hypothermia, and apparently the patient was not able to feed herself although she normally does, and was not talking properly as she normally does. Apparently 3 weeks ago she had a similar episode where in she was found septic from UTI. Upon arrival to the ER, patient was evaluated, she was noted to be nonverbal, not answering any questions, she was noted to be hypothermic with a temp of 87.7, blood pressure was 87/60, patient was noted to be relatively leukopenic with WBC count of 1.65, her lactic acid was normal. Pro-calcitonin was normal. Her electrolytes were normal. Platelets were relatively low at 90,000. And her urinalysis were relatively unremarkable, no evidence of pyuria. CT of the brain was unremarkable. Chest x-ray showed pulmonary vascular congestion, no clear-cut evidence of pneumonia. Patient was given fluid boluses about 3 L in the ER, and considering her blood pressure remained relatively low and she remained hypothermic patient was admitted to the ICU and she was on a very low dose of norepinephrine which I will discontinue this morning. Overnight the patient was getting more and more congested, and I recommended Lasix 40 mg IV push given last night, patient responded well to Lasix, and she had a significant urine output. Today she is on 0.9 normal saline at 1 50 mL per hour and I'm cutting down to KVO. Patient had a swallow evaluation which she failed. She is now on 50% Ventimask continues to have gurgling with secretions in her upper airways, easily suctioned without any difficulty. She does follow simple instructions but does not seem to be verbal. Her temp today is up to 97.7, blood pressure is 103/52 with a mean of 70 she is on 50% Ventimask and her O2 sat is 97%. Heart rate is 73 and respirations 14. Obviously overnight the patient made a significant and dramatic improvement. And I plan to discontinue norepinephrine this morning. Patient tested negative for COVID-19, potassium is a bit high today at 5.8, but she also has a normal sodium. PTT is over 200. Patient is on heparin, normally on eliquis for DVT history Progress note dated 05/12/2022. This is a 62-year-old female that was recently inpatient, between April 19 and April 29. She came with a similar episode of mental status changes, and presumed infection. She was admitted this time with presumed pneumonia and sepsis. Her mental status is very poor. She cannot give much or any history. She's currently on 30% Venturi mask, and saline at 20 mL an hour. Her cultures are thus far negative. She is on Zosyn. She was transferred down from [facility], as she was before. White count 1.9, hemoglobin 8, hematocrit 25.1, and platelet count 57,000. PTT is 33. Sodium, potassium, chloride, CO2, anion gap, BUN, and creatinine, are all normal. Calcium is 9.2. Blood cultures are negative. Chest x-ray shows nothing acute. Progress note dated 05/13/2022. 62-year-old female that was recently inpatient at this institution, between April 19 and April 29. She had a similar episode of mental status changes, and presumed infection. The patient was again transferred down from an outside hospital. Currently, she is on room air. She's getting saline at 20 mL an hour. The patient was on a factor X a inhibitor for deep venous thrombosis. The patient will have a Doppler today to rule out DVT in the bilateral lower extremities. Current laboratory data includes a white count of 2.4, hemoglobin 8.5, hematocrit 26, and a platelet count of 54,000. Sodium 139, potassium 4.8, chlorides 107, CO2 24, within normal BUN and creatinine. Calcium and magnesium are both normal. Blood cultures are currently negative. She remains on Zosyn. Microbiologic studies are negative thus far. No new chest x-ray to review. Progress note dated 05/14/2022. 62-year-old female seen again in room 254. Currently she is on room air. She's getting saline at 10 mL an hour. She's getting Zosyn empirically. The patient is stable enough to be transferred to the general medical floor. Her mental status is improved only a bit. Current laboratory includes a white count 3.4, hemoglobin 8.8, hematocrit 27, and platelet count 73,000. Sodium 139, potassium 4.3, chlorides 105, CO2 24, anion gap 10, BUN 12, creatinine 0.76. Chest x-ray shows no acute cardiopulmonary abnormality. Dopplers of the lower extremities negative for DVT. Progress note dated 05/15/2022. 62-year-old female seen again in room 254. She's currently on room air. She's not receiving any IV fluids. She continues on Zosyn empirically. The patient is stable for transfer to the general medical floor. She has had slow improvement in her mental status. No new labs today other than a glucose 65. All culture data has been negative. Dopplers of the lower extremities were negative. Progress note dated 05/16/2022. The patient is again seen in room 254. The patient's currently on room air. She's not receiving any IV fluids she may be transferred out to the general medical floor later today. She remains on Tylenol, Dulcolax, Lasix, milk of magnesia, midodrine, Narcan, Protonix, and Zosyn. According to the nurse who had her, she had an uneventful night. No issues whatsoever. Her neurologic status is improved. White count 3.3, hemoglobin 8.6, hematocrit 26.9, and platelet count 92,000. Blood cultures, and all other culture data is negative. Progress note dated 05/17/2022. The patient was in the intensive care unit yesterday. She's been moved out to the floor. Today, she is seen in room 515, in the [facility]. She's currently not on any supplemental oxygen, and she's not receiving any IV fluids. Her mental status is pretty much at baseline. Current laboratory data includes a white count of 3.14, hemoglobin 8.1, hematocrit 25.4, and a platelet count of 101,000. No recent chest x-ray to mention. All culture data has been negative. Objective - Vital Signs Vital signs: Vital Signs Temp 97.4 F L 05/17/22 12:58 Pulse 60 05/17/22 12:58 Resp 16 05/17/22 12:58 BP 113/75 05/17/22 12:58 Pulse Ox 97 05/17/22 12:58 FiO2 30 05/12/22 11:24 Intake & Output 09/05/17/22 05/17/22 18:59 06:59 18:59 Intake Total 480 Output Total 450 Balance 30 Intake: Oral 480 Output: Urine 450 Other: Voiding Method External Catheter Diaper Diaper Incontinent Incontinent External Catheter External Catheter # Voids 3 # Bowel Movements 0 - Exam No acute distress, very lethargic/somnolent, with a blank stare. Currently on room air. Saturations are 97 %. HEENT examination is grossly unremarkable. Neck supple. Full range of motion. No adenopathy or thyromegaly or neck vein distention. Cardiovascular examination reveals regular rhythm rate. S1-S2 normal. No S3 or S4. No discernible murmur noted. Heart sounds are distant. Heart rate 60 bpm. Lungs reveal mostly clear breath sounds. Minimal scattered rhonchi. No wheezes or crackles. Breath sounds equal bilaterally. Saturations are 97 %. Abdomen soft bowel sounds are heard. No masses or tenderness. Extremities are intact. No cyanosis clubbing or edema. Skin is without rash or lesion. Neurologic examination is similar to her last visit. Eyes open. Blank stare. She mumbles. - Labs CBC & Chem 7: 05/17/22 06:17 05/14/22 03:33 Labs: Abnormal Lab Results - Last 24 Hours (Table) 05/16/22 05/17/22 05/17/22 Range/Units 20:17 06:17 07:45 WBC 3.14 L (4.50-10.00) X 10*3/uL RBC 2.64 L (4.10-5.20) X 10*6/uL Hgb 8.1 L (12.0-15.0) g/dL Hct 25.4 L (37.2-46.3) % MCHC 31.9 L (32.0-37.0) g/dL RDW 16.6 H (11.5-14.5) % Plt Count 101 L (140-440) X 10*3/uL POC Glucose (mg/dL) 125 H 63 L (70-110) mg/dL Microbiology - Last 24 Hours (Table) 05/10/22 14:57 Blood Culture - Final Blood No Growth after 144 hours 05/10/22 14:57 Blood Culture - Final Blood No Growth after 144 hours Assessment and Plan Assessment: Possible sepsis/septic shock. Cultures negative, patient treated with Zosyn empirically. Encephalopathy, possibly related to underlying infection. Dehydration. Hypothermia, possibly related to infection/sepsis. Metabolic encephalopathy, acute on chronic. History of cerebral palsy. History of DVT, bilateral lower extremity Dopplers are negative. History of hypertension. Recent admission to the hospital with a similar picture, April 19 through April 29. Plan: Plan dated 05/12/2022. We will continue with supportive measures. We will continue to monitor in the ICU. The patient's norepinephrine has been weaned down. She remains on 30% oxygen. Saturations are adequate. She also continues on Zosyn as an antibiotic. Thus far, cultures are negative. Labs, x-rays, and medications are reviewed. We will continue GI and DVT prophylaxis. Additional recommendations and suggestions are forthcoming. We will follow along and make recommendations where appropriate. Plan dated 05/13/2022. The patient appears a bit more awake and alert today. This is how she behaves on her last visit, with antibiotics, she's did seem to improve. Cultures are thus far negative. She remains on Zosyn empirically. The patient could be transferred to general medical floor. She can take her pills with a bit of applesauce. The patient will have bilateral lower extremity Dopplers, to rule out DVT. We are not sure how long she needs to be on a factor X a inhibitor. Prognosis is poor. We will continue to follow make recommendations along the way. Plan dated 05/14/2022. The patient continues to improve on a daily basis. She seen in room 254. The patient could be transferred to general medical floor without telemetry. Updrafts are discontinued. Oxygenation is good. The patient's getting saline at 10 mL now which can be discontinued. Labs, x-rays, and medications are reviewed. At this point, would not restart her factor X a inhibitor. Plan dated 05/15/2022. The patient continues to improve on a daily basis. She remains on Zosyn. She seen in room 254. Her mental status is improved slightly on a daily basis. Oxygenation is good. Labs are reviewed. Medications and x-rays are reviewed. Dopplers of the lower extremities were negative. We will continue to follow. Prognosis is certainly guarded. Plan dated 05/16/2022. The patient's most recent pro-calcitonin level was only 0.14. She's been on Zosyn since May 11. All culture data is negative. Zosyn will be discontinued. No additional recommendations are made. Dopplers of the lower extremities were negative. Prognosis is guarded. The patient will be transferred out of the intensive care unit, to [facility]. Laboratory data, medications, and all x-rays are reviewed. Plan dated 05/17/2022 The patient was transferred out of the intensive care unit yesterday. The deisie nt is currently now on the fifth floor, in the [facility]. Labs are reviewed. The patient's mental status is pretty much at baseline. All cultures are negative. The patient was treated with Zosyn empirically. No additional recommendations are made. Prognosis is guarded. The patient was placed back on her factor X a inhibitor. Time with Patient: Less than 30
[2022-05-17 17:43] LABS: Glucose,Whole Blood 94 mg/dL (70-110)
[2022-05-17 20:35] LABS: Glucose,Whole Blood 140 mg/dL (70-110)
[2022-05-18 02:28] LABS: Glucose,Whole Blood 95 mg/dL (70-110)
[2022-05-18 07:33] LABS: Glucose,Whole Blood 58 mg/dL (70-110)
[2022-05-18 08:05] LABS: Glucose,Whole Blood 74 mg/dL (70-110)
[2022-05-18] MEDS: APIXABAN 5 MG TAB PO SCH ×2 (08:39→20:07)
[2022-05-18] MEDS: PANTOPRAZOLE 40 MG/10 ML VIAL IVP SCH (08:39)
[2022-05-18] MEDS: FUROSEMIDE 40 MG TAB PO SCH (08:39)
[2022-05-18] MEDS: MIDODRINE 5 MG TAB PO SCH ×3 (08:39→22:19)
[2022-05-18] MEDS: SODIUM CHLORIDE 0.9% 1,000 ML IV SCH (08:41)
--- NOTE | 2022-05-18 09:09 | P.PN ---
Subjective Progress Note Date: 05/18/22 Principal diagnosis: Paroxysmal atrial fibrillation The patient is a pleasant 62-year-old female patient with a past medical history significant for developmental delay as well as cerebral palsy and also history of cardiomyopathy was EF around 45% and also history of sick sinus syndrome status post permanent pacemaker as well as paroxysmal atrial fibrillation who was admitted to the hospital with a change in mental status and she was diagnosed with septic shock related to UTI. May 142021 The patient was seen this morning. Her mentation has been slightly better. She remains hemodynamically stable and she remains in normal sinus mechanism. On examination she continues to be erythematous with evidence of right heart failure with bilateral lower except his edema which has somewhat slightly improved compared to before. Yesterday she was given 20 mg Lasix IV and I'm going to repeat that today. The platelet count are pending this morning. May 152021 The patient was seen and evaluated this morning. Overall she's stable from a cardiovascular standpoint of view. Her mentation definitely has improved. She has been maintaining normal sinus mechanism. She has been responding to Lasix IV on daily basis. Her lower extremities edema has improved somewhat. She was on Lasix at 80 mg by mouth daily. I'm going to start the patient on by mouth Lasix at 40 mg by mouth daily. From the cardiac standpoint of view, the patient can be transferred out of the intensive care unit. Beside that the platelet count has been trending up but continues to be below 100,000. Oral anticoagulation is on hold at this point. Also heparin products are on hold. May 16 The patient was seen this morning. She remains asymptomatic and hemodynamic is stable from a cardiovascular standpoint overview. The platelet has been trending up. From the cardiac standpoint of view, would continue the current medical regimen and follow-up with the patient. The patient can be transferred out of the intensive care unit. May 172021. The patient was seen on the fifth floor. She remains asymptomatic from a cardiovascular standpoint of view, she remains hemodynamically stable. No platelet count from today. Daily CBC was ordered. She needs to be started back on oral anticoagulation once the platelet count improved. Otherwise she doesn't have any active cardiovascular issues going on with her gait she has been maintaining normal sinus mechanism May 182021 The patient was seen this morning. She is asymptomatic and she is hemodynamically stable. Her platelet has improved. She was started on Eliquis at 5 mg by mouth twice a day daily yesterday by the primary care team. From the cardiac standpoint of view, the patient seems to be stable and will follow-up with the patient on when necessary case Objective - Vital Signs Vital signs: Vital Signs Temp 98.0 F 05/18/22 05:00 Pulse 60 05/18/22 05:00 Resp 16 05/18/22 05:00 BP 113/71 05/18/22 05:00 Pulse Ox 97 05/18/22 05:00 FiO2 30 05/12/22 11:24 Intake & Output 05/17/22 05/18/22 05/18/22 18:59 06:59 18:59 Intake Total 600 Output Total 650 300 Balance -650 300 Intake: Oral 600 Output: Urine 650 300 Other: Voiding Method Diaper Diaper Incontinent Incontinent External Catheter External Catheter # Bowel Movements 0 - Constitutional General appearance: Present: no acute distress - Respiratory Respiratory: bilateral: CTA - Cardiovascular Rhythm: regular - Labs CBC & Chem 7: 05/17/22 06:17 05/14/22 03:33 Labs: Abnormal Lab Results - Last 24 Hours (Table) 05/17/22 05/17/22 05/18/22 Range/Units 06:17 20:34 07:28 WBC 3.14 L (4.50-10.00) X 10*3/uL RBC 2.64 L (4.10-5.20) X 10*6/uL Hgb 8.1 L (12.0-15.0) g/dL Hct 25.4 L (37.2-46.3) % MCHC 31.9 L (32.0-37.0) g/dL RDW 16.6 H (11.5-14.5) % Plt Count 101 L (140-440) X 10*3/uL POC Glucose (mg/dL) 140 H 58 L (70-110) mg/dL Assessment and Plan Assessment: Assessment #1 septic shock related to UTI #2 paroxysmal atrial fibrillation #3 sick sinus syndrome status post permanent pacemaker #4 mild cardiomyopathy #5 multiple comorbid conditions Plan Continue the current dose of Lasix Agree about starting the patient on Eliquis Follow-up with the patient
[2022-05-18 09:21] LABS: Basophils # (A) 0.02 X 10*3/uL (0.00-0.10); Basophils % (A) 0.7 %; Eosinophils # (A) 0.18 X 10*3/uL (0.04-0.35); Eosinophils % (A) 6.5 %; HCT 26.7 % (37.2-46.3); HGB 8.4 g/dL (12.0-15.0); Immature Grans, Automated 0.7 %; Lymphocytes # (A) 0.78 X 10*3/uL (0.90-5.00); Lymphocytes % (A) 28.2 %; MCH 30.9 pg (27.0-32.0); MCHC 31.5 g/dL (32.0-37.0); MCV 98.2 fL (80.0-97.0); Mean Platelet Volume 11.8 fL (9.5-12.2); Monocytes # (A) 0.23 X 10*3/uL (0.20-1.00); Monocytes % (A) 8.3 %; NRBC Per 100 WBC 0 /100 WBCS (0.0-0.0); Neutrophils # (A) 1.54 X 10*3/uL (1.80-7.70); Neutrophils % (A) 55.6 %; Platelet Count 123 X 10*3/uL (140-440); RBC 2.72 X 10*6/uL (4.10-5.20); RDW 16.7 % (11.5-14.5); WBC 2.77 X 10*3/uL (4.50-10.00)
--- NOTE | 2022-05-18 10:17 | P.PN ---
Subjective Progress Note Date: 05/18/22 Principal diagnosis: Septic shock Hospital Course: 62-year-old female with history of CP, seizure disorder, hypertension, DVT, systolic heart failure, sick sinus syndrome status post pacemaker and anemia presenting from outside hospital with concerns of altered mental status and hypothermia. Patient was also having difficulty feeding herself per intermediate staff. Nonambulatory at baseline. Patient admitted for septic shock secondary to pneumonia and was on vasopressors. No longer hypoxic. During ICU stay, had paroxysmal atrial fibrillation and was started on heparin, held secondary to drop in platelet count. HIT antibody negative. Started on her home eliquis. Patient transferred out of the ICU. Oral intake improved. Likely discharge back to intermediate on Thursday. Subjective: Patient seen and examined at bedside. No acute events overnight. Patient denies any pain, nausea, vomiting, diarrhea or constipation, or urinary complaints. Oral intake has significantly improved. Pertinent positives and negatives as discussed above, a complete review of systems was performed and all other systems are negative. Vitals Signs Reviewed. General: nontoxic, no distress, appears at stated age Derm: warm, dry Head: atraumatic, normocephalic, symmetric Eyes: EOMI, no lid lag, anicteric sclera Mouth: no lip lesion, mucus membranes moist Cardiovascular: S1S2 reg, no murmur Lungs: CTAB, no rales or rhonchi, No accessory muscle use, on room air Abdominal: soft, nontender to palpation, no guarding, no appreciable organomegaly Ext: no gross muscle atrophy, anasarca, no contractures Neuro: CN II-XI grossly intact, no focal neuro deficits, 4/5 strength in upper extremities, 3/5 strength in lower extremities bilaterally Psych: Awake and alert Assessment and Plan: Systolic CHF exacerbation -Cardiology following -on PO lasix Paroxysmal atrial fibrillation -Currently in sinus rhythm -on eliquis Septic shock secondary to pneumonia -resolved Acute hypoxic respiratory failure - resolved -Pulm following -off abx and supplement oxygen Anasarca Lower extremity edema -Venous Doppler lower extremities - negative for DVT in the visualized areas Acute encephalopathy - resolved Aspiration risk -on pureed diet Pancytopenia -possibly in the setting of acute illness and antibiotic use -counts are improving History of DVT -on eliquis History of CP F: Oral if patient can tolerate E: Replete as needed N: pureed diet, nectar thick liquids A: Nonambulatory DVT ppx: eliquis Code status: Full code Anticipated discharge place: alf Anticipated discharge time: Thursday Objective - Vital Signs Vital signs: Vital Signs Temp 98.0 F 05/18/22 05:00 Pulse 60 05/18/22 05:00 Resp 16 05/18/22 05:00 BP 113/71 05/18/22 05:00 Pulse Ox 97 05/18/22 05:00 FiO2 30 05/12/22 11:24 Intake & Output 05/17/22 05/18/22 05/18/22 18:59 06:59 18:59 Intake Total 600 Output Total 650 300 Balance -650 300 Intake: Oral 600 Output: Urine 650 300 Other: Voiding Method Diaper Diaper Diaper Incontinent Incontinent Incontinent External Catheter External Catheter External Catheter # Bowel Movements 0 - Labs CBC & Chem 7: 05/18/22 05:00 05/14/22 03:33 Labs: Abnormal Lab Results - Last 24 Hours (Table) 05/17/22 05/18/22 05/18/22 Range/Units 20:34 05:00 07:28 WBC 2.77 L (4.50-10.00) X 10*3/uL RBC 2.72 L (4.10-5.20) X 10*6/uL Hgb 8.4 L (12.0-15.0) g/dL Hct 26.7 L (37.2-46.3) % MCV 98.2 H (80.0-97.0) fL MCHC 31.5 L (32.0-37.0) g/dL RDW 16.7 H (11.5-14.5) % Plt Count 123 L (140-440) X 10*3/uL Neutrophils # 1.54 L (1.80-7.70) X 10*3/uL Lymphocytes # 0.78 L (0.90-5.00) X 10*3/uL POC Glucose (mg/dL) 140 H 58 L (70-110) mg/dL
--- NOTE | 2022-05-18 11:57 | P.PN ---
Subjective Progress Note Date: 05/18/22 Principal diagnosis: Sepsis, mental status changes. This is a 62-year-old female with history of cerebral palsy, seizure disorder, hypertension, chronic anemia, recurrent episodes of urosepsis, patient was transferred yesterday from [facility] to our ER mostly with concern of altered mental status, hypothermia, and apparently the patient was not able to feed herself although she normally does, and was not talking properly as she normally does. Apparently 3 weeks ago she had a similar episode where in she was found septic from UTI. Upon arrival to the ER, patient was evaluated, she was noted to be nonverbal, not answering any questions, she was noted to be hypothermic with a temp of 87.7, blood pressure was 87/60, patient was noted to be relatively leukopenic with WBC count of 1.65, her lactic acid was normal. Pro-calcitonin was normal. Her electrolytes were normal. Platelets were relatively low at 90,000. And her urinalysis were relatively unremarkable, no evidence of pyuria. CT of the brain was unremarkable. Chest x-ray showed pulmonary vascular congestion, no clear-cut evidence of pneumonia. Patient was given fluid boluses about 3 L in the ER, and considering her blood pressure remained relatively low and she remained hypothermic patient was admitted to the ICU and she was on a very low dose of norepinephrine which I will discontinue this morning. Overnight the patient was getting more and more congested, and I recommended Lasix 40 mg IV push given last night, patient responded well to Lasix, and she had a significant urine output. Today she is on 0.9 normal saline at 1 50 mL per hour and I'm cutting down to KVO. Patient had a swallow evaluation which she failed. She is now on 50% Ventimask continues to have gurgling with secretions in her upper airways, easily suctioned without any difficulty. She does follow simple instructions but does not seem to be verbal. Her temp today is up to 97.7, blood pressure is 103/52 with a mean of 70 she is on 50% Ventimask and her O2 sat is 97%. Heart rate is 73 and respirations 14. Obviously overnight the patient made a significant and dramatic improvement. And I plan to discontinue norepinephrine this morning. Patient tested negative for COVID-19, potassium is a bit high today at 5.8, but she also has a normal sodium. PTT is over 200. Patient is on heparin, normally on eliquis for DVT history Progress note dated 05/12/2022. This is a 62-year-old female that was recently inpatient, between April 19 and April 29. She came with a similar episode of mental status changes, and presumed infection. She was admitted this time with presumed pneumonia and sepsis. Her mental status is very poor. She cannot give much or any history. She's currently on 30% Venturi mask, and saline at 20 mL an hour. Her cultures are thus far negative. She is on Zosyn. She was transferred down from [facility], as she was before. White count 1.9, hemoglobin 8, hematocrit 25.1, and platelet count 57,000. PTT is 33. Sodium, potassium, chloride, CO2, anion gap, BUN, and creatinine, are all normal. Calcium is 9.2. Blood cultures are negative. Chest x-ray shows nothing acute. Progress note dated 05/13/2022. 62-year-old female that was recently inpatient at this institution, between April 19 and April 29. She had a similar episode of mental status changes, and presumed infection. The patient was again transferred down from an outside hospital. Currently, she is on room air. She's getting saline at 20 mL an hour. The patient was on a factor X a inhibitor for deep venous thrombosis. The patient will have a Doppler today to rule out DVT in the bilateral lower extremities. Current laboratory data includes a white count of 2.4, hemoglobin 8.5, hematocrit 26, and a platelet count of 54,000. Sodium 139, potassium 4.8, chlorides 107, CO2 24, within normal BUN and creatinine. Calcium and magnesium are both normal. Blood cultures are currently negative. She remains on Zosyn. Microbiologic studies are negative thus far. No new chest x-ray to review. Progress note dated 05/14/2022. 62-year-old female seen again in room 254. Currently she is on room air. She's getting saline at 10 mL an hour. She's getting Zosyn empirically. The patient is stable enough to be transferred to the general medical floor. Her mental status is improved only a bit. Current laboratory includes a white count 3.4, hemoglobin 8.8, hematocrit 27, and platelet count 73,000. Sodium 139, potassium 4.3, chlorides 105, CO2 24, anion gap 10, BUN 12, creatinine 0.76. Chest x-ray shows no acute cardiopulmonary abnormality. Dopplers of the lower extremities negative for DVT. Progress note dated 05/15/2022. 62-year-old female seen again in room 254. She's currently on room air. She's not receiving any IV fluids. She continues on Zosyn empirically. The patient is stable for transfer to the general medical floor. She has had slow improvement in her mental status. No new labs today other than a glucose 65. All culture data has been negative. Dopplers of the lower extremities were negative. Progress note dated 05/16/2022. The patient is again seen in room 254. The patient's currently on room air. She's not receiving any IV fluids she may be transferred out to the general medical floor later today. She remains on Tylenol, Dulcolax, Lasix, milk of magnesia, midodrine, Narcan, Protonix, and Zosyn. According to the nurse who had her, she had an uneventful night. No issues whatsoever. Her neurologic status is improved. White count 3.3, hemoglobin 8.6, hematocrit 26.9, and platelet count 92,000. Blood cultures, and all other culture data is negative. Progress note dated 05/17/2022. The patient was in the intensive care unit yesterday. She's been moved out to the floor. Today, she is seen in room 515, in the [facility]. She's currently not on any supplemental oxygen, and she's not receiving any IV fluids. Her mental status is pretty much at baseline. Current laboratory data includes a white count of 3.14, hemoglobin 8.1, hematocrit 25.4, and a platelet count of 101,000. No recent chest x-ray to mention. All culture data has been negative. Progress note dated 05/18/2022. 62-year-old female seen in room 5:15. She's currently on room air. She's getting saline at 5 mL an hour. This is a patient who has had 2 admissions recently, sent down from [facility] in [place]. Current laboratory data includes a white count of 2.8, hemoglobin 8.4, hematocrit 26.7, and a platelet count of 123,000. No recent chest x-ray. Blood cultures have been negative. Clinically, she's doing about the same. Objective - Vital Signs Vital signs: Vital Signs Temp 98.0 F 05/18/22 05:00 Pulse 60 05/18/22 05:00 Resp 16 05/18/22 05:00 BP 113/71 05/18/22 05:00 Pulse Ox 97 05/18/22 05:00 FiO2 30 05/12/22 11:24 Intake & Output 05/17/22 05/18/22 05/18/22 18:59 06:59 18:59 Intake Total 600 Output Total 650 300 Balance -650 300 Intake: Oral 600 Output: Urine 650 300 Other: Voiding Method Diaper Diaper Diaper Incontinent Incontinent Incontinent External Catheter External Catheter External Catheter # Bowel Movements 0 - Exam No acute distress. Mental status remains unchanged. No respiratory distress. HEENT examination is grossly unremarkable. Neck supple. Full range of motion. No adenopathy or thyromegaly or neck vein distention. Cardiovascular examination reveals regular rhythm rate. S1-S2 normal. No S3 or S4. No discernible murmur noted. Heart sounds are distant. Heart rate 60 bpm. Lungs reveal mostly clear breath sounds. Minimal scattered rhonchi. No wheezes or crackles. Breath sounds equal bilaterally. Saturations are 97 %. Abdomen soft bowel sounds are heard. No masses or tenderness. Extremities are intact. No cyanosis clubbing or edema. Skin is without rash or lesion. Neurologic examination is similar to her last visit. Eyes open. Blank stare. She mumbles. - Labs CBC & Chem 7: 05/18/22 05:00 05/14/22 03:33 Labs: Abnormal Lab Results - Last 24 Hours (Table) 05/17/22 05/18/22 05/18/22 Range/Units 20:34 05:00 07:28 WBC 2.77 L (4.50-10.00) X 10*3/uL RBC 2.72 L (4.10-5.20) X 10*6/uL Hgb 8.4 L (12.0-15.0) g/dL Hct 26.7 L (37.2-46.3) % MCV 98.2 H (80.0-97.0) fL MCHC 31.5 L (32.0-37.0) g/dL RDW 16.7 H (11.5-14.5) % Plt Count 123 L (140-440) X 10*3/uL Neutrophils # 1.54 L (1.80-7.70) X 10*3/uL Lymphocytes # 0.78 L (0.90-5.00) X 10*3/uL POC Glucose (mg/dL) 140 H 58 L (70-110) mg/dL Assessment and Plan Assessment: Possible sepsis/septic shock. Cultures negative, patient treated with Zosyn empirically. Encephalopathy, possibly related to underlying infection. Dehydration. Hypothermia, possibly related to infection/sepsis. Metabolic encephalopathy, acute on chronic. History of cerebral palsy. History of DVT, bilateral lower extremity Dopplers are negative. History of hypertension. Recent admission to the hospital with a similar picture, April 19 through April 29. Plan: Plan dated 05/12/2022. We will continue with supportive measures. We will continue to monitor in the ICU. The patient's norepinephrine has been weaned down. She remains on 30% oxygen. Saturations are adequate. She also continues on Zosyn as an antibiotic. Thus far, cultures are negative. Labs, x-rays, and medications are reviewed. We will continue GI and DVT prophylaxis. Additional recommendations and suggestions are forthcoming. We will follow along and make recommendations where appropriate. Plan dated 05/13/2022. The patient appears a bit more awake and alert today. This is how she behaves on her last visit, with antibiotics, she's did seem to improve. Cultures are thus far negative. She remains on Zosyn empirically. The patient could be transferred to general medical floor. She can take her pills with a bit of applesauce. The patient will have bilateral lower extremity Dopplers, to rule out DVT. We are not sure how long she needs to be on a factor X a inhibitor. Prognosis is poor. We will continue to follow make recommendations along the way. Plan dated 05/14/2022. The patient continues to improve on a daily basis. She seen in room 254. The patient could be transferred to general medical floor without telemetry. Updrafts are discontinued. Oxygenation is good. The patient's getting saline a t 10 mL now which can be discontinued. Labs, x-rays, and medications are reviewed. At this point, would not restart her factor X a inhibitor. Plan dated 05/15/2022. The patient continues to improve on a daily basis. She remains on Zosyn. She seen in room 254. Her mental status is improved slightly on a daily basis. Oxygenation is good. Labs are reviewed. Medications and x-rays are reviewed. Dopplers of the lower extremities were negative. We will continue to follow. Prognosis is certainly guarded. Plan dated 05/16/2022. The patient's most recent pro-calcitonin level was only 0.14. She's been on Zosyn since May 11. All culture data is negative. Zosyn will be discontinued. No additional recommendations are made. Dopplers of the lower extremities were negative. Prognosis is guarded. The patient will be transferred out of the intensive care unit, to [facility]. Laboratory data, medications, and all x-rays are reviewed. Plan dated 05/17/2022 The patient was transferred out of the intensive care unit yesterday. The patient is currently now on the fifth floor, in the [facility]. Labs are reviewed. The patient's mental status is pretty much at baseline. All cultures are negative. The patient was treated with Zosyn empirically. No additional recommendations are made. Prognosis is guarded. The patient was placed back on her factor X a inhibitor. Plan dated 05/18/2022. The patient was transferred out of the intensive care unit, 2 days ago. The patient is seen again today. Her mental status is probably baseline, and is unchanged over the last couple of days. The patient's not requiring any supplemental oxygen. Room air saturation is 97%. Blood cultures were negative. Labs are reviewed. She was treated empirically with Zosyn for a number of days. The patient could probably be transferred back to [facility], or alf in that area. This is her second admission to this hospital, with a similar clinical scenario. Time with Patient: Less than 30
[2022-05-18 12:39] LABS: Glucose,Whole Blood 116 mg/dL (70-110)
[2022-05-18 17:02] LABS: Glucose,Whole Blood 117 mg/dL (70-110)
[2022-05-18] MEDS ORDERED: APIXABAN 5 MG TAB PO SCH (21:00)
[2022-05-18 22:55] LABS: Glucose,Whole Blood 128 mg/dL (70-110)
[2022-05-19 01:57] LABS: Glucose,Whole Blood 114 mg/dL (70-110)
[2022-05-19 05:40] LABS: Glucose,Whole Blood 225 mg/dL (70-110)
[2022-05-19 07:00] LABS: Glucose,Whole Blood 51 mg/dL (70-110)
[2022-05-19 07:17] LABS: Glucose,Whole Blood 64 mg/dL (70-110)
[2022-05-19 07:37] LABS: Glucose,Whole Blood 86 mg/dL (70-110)
[2022-05-19] MEDS: SODIUM CHLORIDE 0.9% 1,000 ML IV SCH (07:57)
[2022-05-19] MEDS: MIDODRINE 5 MG TAB PO SCH ×3 (08:25→20:24)
[2022-05-19] MEDS: PANTOPRAZOLE 40 MG TABLET PO SCH (08:25)
[2022-05-19] MEDS: APIXABAN 5 MG TAB PO SCH ×2 (08:25→20:22)
[2022-05-19] MEDS: FUROSEMIDE 40 MG TAB PO SCH (08:25)
--- NOTE | 2022-05-19 10:43 | P.PN ---
Subjective Progress Note Date: 05/19/22 Hospital Course: Patient is a very pleasant 62-year-old female with history of cerebral palsy, seizure disorder, hypertension, DVT, systolic heart failure with previously known EF of 45-50%, sick sinus syndrome status post pacemaker and anemia presenting from outside hospital with concerns of altered mental status and hypothermia. Patient was also having difficulty feeding herself per correction staff. Nonambulatory at baseline. Patient admitted for septic shock secondary to pneumonia and was on vasopressors. No longer hypoxic. During ICU stay, had paroxysmal atrial fibrillation and was started on heparin, held secondary to drop in platelet count. HIT antibody negative. Restarted pt back on her home eliquis and she was transferred out of the ICU. Oral intake improve d. Plan for discharge back to [facility] within the next 24 hours. Physical exam: Patient seen and examined at bedside. Overnight pt had abnormal hypothermic temperatures with reported rectal temp of 94.5F requiring being placed back on bearhugger. Currently patient normothermic temp of 97.6F. Patient denies any chest pain, shortness of breath, abdominal pain, nausea, vomiting, diarrhea or constipation, or urinary complaints. Pt to remain off of barehugger, nursing communication order placed to recheck temp with a different thermometer in the event it is less than 96F. Plan to monitor temp over the next 24 hours and likely discharge back to SNF tomorrow morning. Vitals Signs Reviewed and stable. General: nontoxic, no distress, appears at stated age Derm: warm, dry Head: atraumatic, normocephalic, symmetric Eyes: EOMI, no lid lag, anicteric sclera Mouth: no lip lesion, mucus membranes moist Cardiovascular: S1S2 reg, no murmur Lungs: Lungs CTAB, no rales or rhonchi, No accessory muscle use, on room air Abdominal: obese abdomen that is soft, nontender to palpation, no guarding, no appreciable organomegaly Ext: no gross muscle atrophy, anasarca, no contractures Neuro: CN II-XI grossly intact, no focal neuro deficits, 4/5 strength in upper extremities, 3/5 strength in lower extremities bilaterally Psych: Awake and alert Assessment and Plan of Care: Systolic CHF exacerbation with a previously known EF of 45-50% -Cardiology following -Continue oral lasix Paroxysmal atrial fibrillation -Maintaining sinus mechanism -Continue oral anticoagulant with Eliquis Septic shock secondary to pneumonia -resolved Acute hypoxic respiratory failure - resolved -Pulm following -Completed antibiotics and supplement oxygen Anasarca Lower extremity edema -Venous Doppler lower extremities - negative for DVT in the visualized areas -Continue oral Lasix 40 mg daily Acute encephalopathy - resolved Aspiration risk -on pureed diet Pancytopenia -possibly in the setting of acute illness and antibiotic use History of DVT -Continue oral anticoagulant with Eliquis CODE STATUS: Full code DVT prophylaxis: Eliquis Discussed with: Pt and RN Anticipated discharge date: tomorrow morning Anticipated discharge place: [facility] A total of 34 minutes was spent on the care of this complex patient more than 50% of the time was spent in counseling and care coordination. Persistent AM hypoglycemia, mild. If less than 60 again check Insulin level, C- peptide, and pro-insulin, will check AM cortisol level Objective - Vital Signs Vital signs: Vital Signs Temp 97.6 F 05/19/22 08:24 Pulse 68 05/19/22 08:24 Resp 15 05/19/22 03:56 BP 115/68 05/19/22 08:24 Pulse Ox 94 L 05/19/22 03:56 FiO2 30 05/12/22 11:24 Intake & Output 05/18/22 05/19/22 05/19/22 18:59 06:59 18:59 Output Total 250 Balance -250 Output: Urine 250 Other: Voiding Method Diaper External Catheter Incontinent External Catheter - Labs CBC & Chem 7: 05/18/22 05:00 05/14/22 03:33 Labs: Abnormal Lab Results - Last 24 Hours (Table) 05/18/22 05/18/22 05/18/22 Range/Units 05:00 12:36 17:00 WBC 2.77 L (4.50-10.00) X 10*3/uL RBC 2.72 L (4.10-5.20) X 10*6/uL Hgb 8.4 L (12.0-15.0) g/dL Hct 26.7 L (37.2-46.3) % MCV 98.2 H (80.0-97.0) fL MCHC 31.5 L (32.0-37.0) g/dL RDW 16.7 H (11.5-14.5) % Plt Count 123 L (140-440) X 10*3/uL Neutrophils # 1.54 L (1.80-7.70) X 10*3/uL Lymphocytes # 0.78 L (0.90-5.00) X 10*3/uL POC Glucose (mg/dL) 116 H 117 H (70-110) mg/dL 05/18/22 05/19/22 05/19/22 Range/Units 22:52 01:50 05:38 WBC (4.50-10.00) X 10*3/uL RBC (4.10-5.20) X 10*6/uL Hgb (12.0-15.0) g/dL Hct (37.2-46.3) % MCV (80.0-97.0) fL MCHC (32.0-37.0) g/dL RDW (11.5-14.5) % Plt Count (140-440) X 10*3/uL Neutrophils # (1.80-7.70) X 10*3/uL Lymphocytes # (0.90-5.00) X 10*3/uL POC Glucose (mg/dL) 128 H 114 H 225 H (70-110) mg/dL 05/19/22 05/19/22 Range/Units 06:58 07:16 WBC (4.50-10.00) X 10*3/uL RBC (4.10-5.20) X 10*6/uL Hgb (12.0-15.0) g/dL Hct (37.2-46.3) % MCV (80.0-97.0) fL MCHC (32.0-37.0) g/dL RDW (11.5-14.5) % Plt Count (140-440) X 10*3/uL Neutrophils # (1.80-7.70) X 10*3/uL Lymphocytes # (0.90-5.00) X 10*3/uL POC Glucose (mg/dL) 51 L 64 L (70-110) mg/dL
[2022-05-19 11:16] LABS: Glucose,Whole Blood 115 mg/dL (70-110)
--- NOTE | 2022-05-19 13:55 | P.PN ---
Subjective Progress Note Date: 05/19/22 This is a 62-year-old female with history of cerebral palsy, seizure disorder, hypertension, chronic anemia, recurrent episodes of urosepsis, patient was transferred yesterday from [facility] [place] to our ER mostly with concern of altered mental status, hypothermia, and apparently the patient was not able to feed herself although she normally does, and was not talking properly as she normally does. Apparently 3 weeks ago she had a similar episode where in she was found septic from UTI. Upon arrival to the ER, patient was evaluated, she was noted to be nonverbal, not answering any questions, she was noted to be hypothermic with a temp of 87.7, blood pressure was 87/60, patient was noted to be relatively leukopenic with WBC count of 1.65, her lactic acid was normal. Pro-calcitonin was normal. Her electrolytes were normal. Platelets were relatively low at 90,000. And her urinalysis were relatively unremarkable, no evidence of pyuria. CT of the brain was unremarkable. Chest x-ray showed pulmonary vascular congestion, no clear-cut evidence of pneumonia. Patient was given fluid boluses about 3 L in the ER, and considering her blood pressure remained relatively low and she remained hypothermic patient was admitted to the ICU and she was on a very low dose of norepinephrine which I will discontinue this morning. Overnight the patient was getting more and more congested, and I recommended Lasix 40 mg IV push given last night, patient responded well to Lasix, and she had a significant urine output. Today she is on 0.9 normal saline at 1 50 mL per hour and I'm cutting down to KVO. Patient had a swallow evaluation which she failed. She is now on 50% Ventimask continues to have gurgling with secretions in her upper airways, easily suctioned without any difficulty. She does follow simple instructions but does not seem to be verbal. Her temp today is up to 97.7, blood pressure is 103/52 with a mean of 70 she is on 50% Ventimask and her O2 sat is 97%. Heart rate is 73 and respirations 14. Obviously overnight the patient made a significant and dramatic improvement. And I plan to discontinue norepinephrine this morning. Patient tested negative for COVID-19, potassium is a bit high today at 5.8, but she also has a normal sodium. PTT is over 200. Patient is on heparin, normally on eliquis for DVT history Progress note dated 05/12/2022. This is a 62-year-old female that was recently inpatient, between April 19 and April 29. She came with a similar episode of mental status changes, and presumed infection. She was admitted this time with presumed pneumonia and sepsis. Her mental status is very poor. She cannot give much or any history. She's currently on 30% Venturi mask, and saline at 20 mL an hour. Her cultures are thus far negative. She is on Zosyn. She was transferred down from [facility], [place], as she was before. White count 1.9, hemoglobin 8, hematocrit 25.1, and platelet count 57,000. PTT is 33. Sodium, potassium, chloride, CO2, anion gap, BUN, and creatinine, are all normal. Calcium is 9.2. Blood cultures are negative. Chest x-ray shows nothing acute. Progress note dated 05/13/2022. 62-year-old female that was recently inpatient at this institution, between April 19 and April 29. She had a similar episode of mental status changes, and presumed infection. The patient was again transferred down from an outside hospital. Currently, she is on room air. She's getting saline at 20 mL an hour. The patient was on a factor X a inhibitor for deep venous thrombosis. The patient will have a Doppler today to rule out DVT in the bilateral lower extremities. Current laboratory data includes a white count of 2.4, hemoglobin 8.5, hematocrit 26, and a platelet count of 54,000. Sodium 139, potassium 4.8, chlorides 107, CO2 24, within normal BUN and creatinine. Calcium and magnesium are both normal. Blood cultures are currently negative. She remains on Zosyn. Microbiologic studies are negative thus far. No new chest x-ray to review. Progress note dated 05/14/2022. 62-year-old female seen again in room 254. Currently she is on room air. She's getting saline at 10 mL an hour. She's getting Zosyn empirically. The patient is stable enough to be transferred to the general medical floor. Her mental st atus is improved only a bit. Current laboratory includes a white count 3.4, hemoglobin 8.8, hematocrit 27, and platelet count 73,000. Sodium 139, potassium 4.3, chlorides 105, CO2 24, anion gap 10, BUN 12, creatinine 0.76. Chest x-ray shows no acute cardiopulmonary abnormality. Dopplers of the lower extremities negative for DVT. Progress note dated 05/15/2022. 62-year-old female seen again in room 254. She's currently on room air. She's not receiving any IV fluids. She continues on Zosyn empirically. The patient is stable for transfer to the general medical floor. She has had slow i mprovement in her mental status. No new labs today other than a glucose 65. All culture data has been negative. Dopplers of the lower extremities were negative. Progress note dated 05/16/2022. The patient is again seen in room 254. The patient's currently on room air. She's not receiving any IV fluids she may be transferred out to the general medical floor later today. She remains on Tylenol, Dulcolax, Lasix, milk of magnesia, midodrine, Narcan, Protonix, and Zosyn. According to the nurse who had her, she had an uneventful night. No issues whatsoever. Her neurologic status is improved. White count 3.3, hemoglobin 8.6, hematocrit 26.9, and platelet count 92,000. Blood cultures, and all other culture data is negative. Progress note dated 05/17/2022. The patient was in the intensive care unit yesterday. She's been moved out to the floor. Today, she is seen in room 515, in the [facility]. She's currently not on any supplemental oxygen, and she's not receiving any IV fluids. Her mental status is pretty much at baseline. Current laboratory data includes a white count of 3.14, hemoglobin 8.1, hematocrit 25.4, and a platelet count of 101,000. No recent chest x-ray to mention. All culture data has been negative. Progress note dated 05/18/2022. 62-year-old female seen in room 5:15. She's currently on room air. She's getting saline at 5 mL an hour. This is a patient who has had 2 admissions recently, sent down from [facility] [place] in [place]. Current laboratory data includes a white count of 2.8, hemoglobin 8.4, hematocrit 26.7, and a platelet count of 123,000. No recent chest x-ray. Blood cultures have been negative. Clinically, she's doing about the same. 05/19/2022, I'm seeing the patient for a follow-up. She is doing well. No specific complaints. Breathing is nonlabored and the patient is communicating. She is aware that she is in the hospital for now. IV fluids at the rate of 20 mL an hour. She is afebrile. No leukocytosis. As mentioned earlier, all of the cultures of been negative and the patient has no active complaints. No aspiration. She is edentulous. No skin rashes. Trace edema lower extremities bilaterally.She is currently on no antibiotic coverage she is on no antibiotic coverage Objective - Vital Signs Vital signs: Vital Signs Temp 97.8 F 05/19/22 11:21 Pulse 62 05/19/22 11:21 Resp 15 05/19/22 11:21 BP 93/61 05/19/22 11:21 Pulse Ox 98 05/19/22 11:21 FiO2 30 05/12/22 11:24 Intake & Output 05/18/22 05/19/22 05/19/22 18:59 06:59 18:59 Output Total 250 Balance -250 Output: Urine 250 Other: Voiding Method Diaper External Catheter External Catheter Incontinent External Catheter - Exam No acute distress. Mental status remains unchanged. No respiratory distress. HEENT examination is grossly unremarkable. Neck supple. Full range of motion. No adenopathy or thyromegaly or neck vein distention. Cardiovascular examination reveals regular rhythm rate. S1-S2 normal. No S3 or S4. No discernible murmur noted. Heart sounds are distant. Heart rate 60 bpm. Lungs reveal mostly clear breath sounds. Minimal scattered rhonchi. No wheezes or crackles. Breath sounds equal bilaterally. Saturations are 97 %. Abdomen soft bowel sounds are heard. No masses or tenderness. Extremities are intact. No cyanosis clubbing or edema. Skin is without rash or lesion. Neurologic examination is similar to her last visit. Eyes open. Blank stare. She mumbles. The patient is answering simple questions and following simple commands at this point in time. - Labs CBC & Chem 7: 05/18/22 05:00 05/14/22 03:33 Labs: Abnormal Lab Results - Last 24 Hours (Table) 0905/18/22 05/19/22 Range/Units 17:00 22:52 01:50 POC Glucose (mg/dL) 117 H 128 H 114 H (70-110) mg/dL 05/19/22 05/19/22 05/19/22 Range/Units 05:38 06:58 07:16 POC Glucose (mg/dL) 225 H 51 L 64 L (70-110) mg/dL 05/19/22 Range/Units 11:14 POC Glucose (mg/dL) 115 H (70-110) mg/dL Assessment and Plan Plan: Possible sepsis/septic shock. Cultures negative, patient treated with Zosyn empirically. The patient is hemodynamically stable. No fever. No leukocytosis. All of the cultures are negative and the patient is currently off antibiotics. Encephalopathy, possibly related to underlying infection. It seems that the patient is back to her baseline Dehydration, recovered Hypothermia, possibly related to infection/sepsis, recovered Metabolic encephalopathy, acute on chronic. History of cerebral palsy. History of DVT, bilateral lower extremity Dopplers are negative. History of hypertension. Recent admission to the hospital with a similar picture, April 19 through April 29. Plan: Continue supportive care Monitor fever pattern No signs of any acute infection at this point in time The patient had venous Dopplers of the lower extremities were negative for DVT and the patient is on long-term anticoagulants. Ejection fraction is order of 45-50%. She is on oral Lasix. She is normal sinus mechanism. No oxygen therapy yet. Diet is pured. We'll follow.
[2022-05-19 16:59] LABS: Glucose,Whole Blood 95 mg/dL (70-110)
[2022-05-19 20:15] LABS: Glucose,Whole Blood 82 mg/dL (70-110)
[2022-05-20 01:50] LABS: Glucose,Whole Blood 76 mg/dL (70-110)
[2022-05-20] MEDS: SODIUM CHLORIDE 0.9% 1,000 ML IV SCH (06:09)
[2022-05-20 07:04] LABS: Glucose,Whole Blood 73 mg/dL (70-110)
[2022-05-20] MEDS: PANTOPRAZOLE 40 MG TABLET PO SCH (08:38)
[2022-05-20] MEDS: MIDODRINE 5 MG TAB PO SCH (08:39)
[2022-05-20] MEDS: FUROSEMIDE 40 MG TAB PO SCH (08:39)
[2022-05-20] MEDS: APIXABAN 5 MG TAB PO SCH (08:39)
[2022-05-20 09:31] LABS: African American GFR (CKD) 111.6 (60.0-200.0); Albumin 3.3 g/dL (3.8-4.9); Albumin/Globulin Ratio 1.22 (1.60-3.17); Anion Gap 8.7 mmol/L (10.00-18.00); BUN/Creat Ratio 27.33 Ratio (12.00-20.00); Blood Urea Nitrogen 16.4 mg/dL (9.0-27.0); Calcium 8.9 mg/dL (8.7-10.3); Carbon Dioxide 29.3 mmol/L (20.0-27.5); Globulin 2.7 g/dL (1.6-3.3); Non-African American GFR(CKD) 96.3 (60.0-200.0); Potassium 4.1 mmol/L (3.5-5.5); Total Bilirubin 0.2 mg/dL (0.30-1.20)
[2022-05-20 10:25] LABS: HCT 27.5 % (37.2-46.3); HGB 8.5 g/dL (12.0-15.0); MCH 30.6 pg (27.0-32.0); MCHC 30.9 g/dL (32.0-37.0); MCV 98.9 fL (80.0-97.0); NRBC Per 100 WBC 0 /100 WBCS (0.0-0.0); Platelet Count 194 X 10*3/uL (140-440); RBC 2.78 X 10*6/uL (4.10-5.20); RDW 17.2 % (11.5-14.5); WBC 4.25 X 10*3/uL (4.50-10.00)
--- NOTE | 2022-05-20 10:25 | P.DS ---
Providers Date of admission: 05/10/22 14:07 Expected date of discharge: 05/20/22 Attending physician: Precious James MD Consults: 05/10/22 19:07 Consult Physician Stat Consulting Provider: Guanako Auguste Consult Reason/Comments: ICU management Do you want consulting provider notified?: Already Contacted 05/10/22 19:31 Consult Physician Urgent Consulting Provider: Isacc Escobedo Consult Reason/Comments: New Afib Do you want consulting provider notified?: Already Contacted Primary care physician: Allan Coats [facility] Course: Discharge Diagnosis: Systolic CHF exacerbation with a previously known EF of 45-50%. New-onset Paroxysmal atrial fibrillation. Maintaining sinus mechanism. Continue oral anticoagulant with Eliquis Septic shock secondary to pneumonia. Resolved, patient completed antibiotic treatment for pneumonia and was successfully weaned off of IV vasopressors. Patient's amlodipine was discontinued and patient discharged back home on her midodrine 5 mg 3 times daily. Acute hypoxic respiratory failure. Resolved, patient was successfully weaned off of supplementary oxygen. Recurrent episodes of hypoglycemia. Patient to continue to be encouraged to increase oral intake. Recommend protein supplement/shake 3 times daily between meals. Patient discharged to nursing facility with instructions for close monitoring of blood glucose levels every 6 hours. Anasarca with moderate lower extremity edema. Bilateral lower extremity venous dopplers were negative for DVT. Continue oral Lasix 40 mg daily Acute encephalopathy resulting from acute infection resulting in septic shock due to pneumonia, Resolved Aspiration risk. Continue on pureed diet with nectar thickened liquids. Pancytopenia. Believed to have resulted in setting of acute illness and antibiotic use. Leukopenia improved daily with WBCs on discharge 4.25. Hemoglobin stable upon discharge at 8.5. In thrombocytopenia resolved with platelet count of 194 upon discharge. History of DVT. Continue oral anticoagulant with Eliquis Hospital Course: Patient is a very pleasant 62-year-old female with history of cerebral palsy, seizure disorder, hypertension, DVT, systolic heart failure with previously known EF of 45-50%, sick sinus syndrome status post pacemaker and anemia presenting from outside hospital with concerns of altered mental status and hypothermia. Patient was also having difficulty feeding herself per [facility]. Nonambulatory at baseline. Upon arrival to the emergency department, patient was noted to be nonverbal, nonresponsive, hypothermic with a temp of 89.1F (31.7C) and hypotensive with a blood pressure of 71/41. Labs completed. CBC revealed pancytopenia with WBC count of 3.1, hemoglobin 9.2, and platelet count of 105, significant hyperkalemia with potassium of 6.5, and magnesium 1.7. Urinalysis was negative for infection. Chest x-ray revealed coarsening of interstitial markings. EKG revealed atrial paced rhythm at 61 bpm. Patient received 3 L bolus for septic shock and started on antibiotics and vasopressors. Patient admitted to ICU for septic shock secondary to pneumonia. Shortly after arrival to the hospital patient became hypoxic and required placement on venturi mask. During her ICU stay, patient developed paroxysmal atrial fibrillation and was started on heparin, this was later held secondary to drop in platelet count. HIT antibody negative. She was then restarted back on her home eliquis. Patient was weaned off of IV vasopressors and restarted on her oral midodrine. Vital signs stabilized in patient no longer requiring oxygen supplementation. She was transferred out of the ICU and her oral intake slowly improved. Patient completed treatment for septic shock secondary to pneumonia. 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 This improved as patient's appetite improved. Patient medically stable at this time. She is being discharged back to nursing facility, [facility]. Physical exam: Vitals Signs Reviewed and stable. General: nontoxic, no distress, appears at stated age Derm: warm, dry Head: atraumatic, normocephalic, symmetric Eyes: EOMI, no lid lag, anicteric sclera Mouth: no lip lesion, mucus membranes moist Cardiovascular: S1S2 reg, no murmur. Pacemaker left anterior chest. Lungs: Lungs CTAB, no rales or rhonchi, No accessory muscle use, on room air Abdominal: obese abdomen that is soft, nontender to palpation, no guarding, no appreciable organomegaly Ext: no gross muscle atrophy, anasarca, no contractures Neuro: CN II-XI grossly intact, no focal neuro deficits, 4/5 strength in upper extremities, 3/5 strength in lower extremities bilaterally Psych: Awake and alert to person and place A total of 39 minutes of time were spent preparing this complex discharge summary. Pt was discharged on 05/20/22 at 8:18 AM. Garcia Donohue NP rendered care for this patient independently, reviewed the findings and plan as documented in the note above. I did not physically speak with or examine the patient on this date. Patient Condition at Discharge: Stable Plan - Discharge Summary New Discharge Prescriptions: New Furosemide [Lasix] 40 mg PO DAILY tab Pantoprazole [Protonix] 40 mg PO AC-BRKFST tab Continue Apixaban [Eliquis] 5 mg PO BID@0700,1700 Docusate [Colace] 100 mg PO BID@0700,1700 Acetaminophen Tab [Tylenol] 650 mg PO Q4H PRN MDD 3000 PRN Reason: General Discomfort Potassium Chloride [Potassium Chloride ER] 20 meq PO DAILY@1700 Cholestyramine (with Sugar) [Questran Packet] 4 gm PO BID@1000,1800 #10 packet Magnesium Hydroxide [Milk of Magnesia Concentrate] 7,200 mg PO DAILY PRN PRN Reason: NO BM FOR 2 - 3 DAYS L.acidoph,Paracasei, B.lactis [Probiotic] 1 cap PO DAILY bisacodyL 10 mg RECTAL Q72H PRN PRN Reason: Constipation Ipratropium-Albuterol Nebulize [Duoneb 0.5 mg-3 mg/3 ml Soln] 3 ml INHALATION RT-TID each Midodrine [ProAmatine] 5 mg PO TID Ipratropium-Albuterol Nebulize [Duoneb 0.5 mg-3 mg/3 ml Soln] 3 ml INHALATION RT-Q4H PRN PRN Reason: Shortness Of Breath Or Wheezing Discontinued Furosemide [Lasix] 80 mg PO DAILY amLODIPine [Norvasc] 5 mg PO DAILY@0700 Discharge Medication List Acetaminophen Tab [Tylenol] 650 mg PO Q4H PRN MDD 3000 04/19/22 [History] Apixaban [Eliquis] 5 mg PO BID@0700,1700 04/19/22 [History] Docusate [Colace] 100 mg PO BID@0700,1700 04/19/22 [History] Potassium Chloride [Potassium Chloride ER] 20 meq PO DAILY@1700 04/19/22 [History] bisacodyL 10 mg RECTAL Q72H PRN 04/19/22 [History] Cholestyramine (with Sugar) [Questran Packet] 4 gm PO BID@1000,1800 #10 packet 04/29/22 [Rx] Ipratropium-Albuterol Nebulize [Duoneb 0.5 mg-3 mg/3 ml Soln] 3 ml INHALATION RT-TID each 04/29/22 [Rx] Ipratropium-Albuterol Nebulize [Duoneb 0.5 mg-3 mg/3 ml Soln] 3 ml INHALATION RT-Q4H PRN 05/10/22 [History] L.acidoph,Paracasei, B.lactis [Probiotic] 1 cap PO DAILY 05/10/22 [History] Magnesium Hydroxide [Milk of Magnesia Concentrate] 7,200 mg PO DAILY PRN 05/10/22 [History] Midodrine [ProAmatine] 5 mg PO TID 05/10/22 [History] Furosemide [Lasix] 40 mg PO DAILY tab 05/20/22 [Rx] Pantoprazole [Protonix] 40 mg PO AC-BRKFST tab 05/20/22 [Rx] Follow up Appointment(s)/Referral(s): Allan Coats DO [Primary Care Provider] - 1-2 days Giovany Dupont DO [STAFF PHYSICIAN] - 1 Week Activity/Diet/Wound Care/Special Instructions: Activity: As tolerated. Take breaks as needed. Diet: Pureed diet with nectar thickened liquids, encourage protein supplement such as ensure 3 times daily between meals. Special Instructions: Take all of your medications as directed and remember to keep all of your doctor's appointments and follow-up as needed. Patient will require hypoglycemic protocols to be in place and she was found to have recurrent hypoglycemia early mornings throughout admission. Encourage oral intake and patient will require blood glucose checks every 6 hours. Thank you for allowing us to participate in your care, it was truly a pleasure having you for our patient!!! Patient will need ambulance transfer to facility at discharge. Discharge Disposition: TRANSFER TO SNF/ECF
[2022-05-20 11:14] LABS: Glucose,Whole Blood 96 mg/dL (70-110)
[2022-05-20 11:55] VITALS: BP 103/61; PULSE 60; RESP 14; TEMP 97.2
--- NOTE | 2022-05-20 14:33 | P.PN ---
Subjective Progress Note Date: 05/20/22 This is a 62-year-old female with history of cerebral palsy, seizure disorder, hypertension, chronic anemia, recurrent episodes of urosepsis, patient was transferred yesterday from [facility] to our ER mostly with concern of altered mental status, hypothermia, and apparently the patient was not able to feed herself although she normally does, and was not talking properly as she normally does. Apparently 3 weeks ago she had a similar episode where in she was found septic from UTI. Upon arrival to the ER, patient was evaluated, she was noted to be nonverbal, not answering any questions, she was noted to be hypothermic with a temp of 87.7, blood pressure was 87/60, patient was noted to be relatively leukopenic with WBC count of 1.65, her lactic acid was normal. Pro-calcitonin was normal. Her electrolytes were normal. Platelets were relatively low at 90,000. And her urinalysis were relatively unremarkable, no evidence of pyuria. CT of the brain was unremarkable. Chest x-ray showed pulmonary vascular congestion, no clear-cut evidence of pneumonia. Patient was given fluid boluses about 3 L in the ER, and considering her blood pressure remained relatively low and she remained hypothermic patient was admitted to the ICU and she was on a very low dose of norepinephrine which I will discontinue this morning. Overnight the patient was getting more and more congested, and I recommended Lasix 40 mg IV push given last night, patient responded well to Lasix, and she had a significant urine output. Today she is on 0.9 normal saline at 1 50 mL per hour and I'm cutting down to KVO. Patient had a swallow evaluation which she failed. She is now on 50% Ventimask continues to have gurgling with secretions in her upper airways, easily suctioned without any difficulty. She does follow simple instructions but does not seem to be verbal. Her temp today is up to 97.7, blood pressure is 103/52 with a mean of 70 she is on 50% Ventimask and her O2 sat is 97%. Heart rate is 73 and respirations 14. Obviously overnight the patient made a significant and dramatic improvement. And I plan to discontinue norepinephrine this morning. Patient tested negative for COVID-19, potassium is a bit high today at 5.8, but she also has a normal sodium. PTT is over 200. Patient is on heparin, normally on eliquis for DVT history Progress note dated 05/12/2022. This is a 62-year-old female that was recently inpatient, between April 19 and April 29. She came with a similar episode of mental status changes, and presumed infection. She was admitted this time with presumed pneumonia and sepsis. Her mental status is very poor. She cannot give much or any history. She's currently on 30% Venturi mask, and saline at 20 mL an hour. Her cultures are thus far negative. She is on Zosyn. She was transferred down from [facility], as she was before. White count 1.9, hemoglobin 8, hematocrit 25.1, and platelet count 57,000. PTT is 33. Sodium, potassium, chloride, CO2, anion gap, BUN, and creatinine, are all normal. Calcium is 9.2. Blood cultures are negative. Chest x-ray shows nothing acute. Progress note dated 05/13/2022. 62-year-old female that was recently inpatient at this institution, between April 19 and April 29. She had a similar episode of mental status changes, and presumed infection. The patient was again transferred down from an outside hospital. Currently, she is on room air. She's getting saline at 20 mL an hour. The patient was on a factor X a inhibitor for deep venous thrombosis. The patient will have a Doppler today to rule out DVT in the bilateral lower extremities. Current laboratory data includes a white count of 2.4, hemoglobin 8.5, hematocrit 26, and a platelet count of 54,000. Sodium 139, potassium 4.8, chlorides 107, CO2 24, within normal BUN and creatinine. Calcium and magnesium are both normal. Blood cultures are currently negative. She remains on Zosyn. Microbiologic studies are negative thus far. No new chest x-ray to review. Progress note dated 05/14/2022. 62-year-old female seen again in room 254. Currently she is on room air. She's getting saline at 10 mL an hour. She's getting Zosyn empirically. The patient is stable enough to be transferred to the general medical floor. Her mental st atus is improved only a bit. Current laboratory includes a white count 3.4, hemoglobin 8.8, hematocrit 27, and platelet count 73,000. Sodium 139, potassium 4.3, chlorides 105, CO2 24, anion gap 10, BUN 12, creatinine 0.76. Chest x-ray shows no acute cardiopulmonary abnormality. Dopplers of the lower extremities negative for DVT. Progress note dated 05/15/2022. 62-year-old female seen again in room 254. She's currently on room air. She's not receiving any IV fluids. She continues on Zosyn empirically. The patient is stable for transfer to the general medical floor. She has had slow i mprovement in her mental status. No new labs today other than a glucose 65. All culture data has been negative. Dopplers of the lower extremities were negative. Progress note dated 05/16/2022. The patient is again seen in room 254. The patient's currently on room air. She's not receiving any IV fluids she may be transferred out to the general medical floor later today. She remains on Tylenol, Dulcolax, Lasix, milk of magnesia, midodrine, Narcan, Protonix, and Zosyn. According to the nurse who had her, she had an uneventful night. No issues whatsoever. Her neurologic status is improved. White count 3.3, hemoglobin 8.6, hematocrit 26.9, and platelet count 92,000. Blood cultures, and all other culture data is negative. Progress note dated 05/17/2022. The patient was in the intensive care unit yesterday. She's been moved out to the floor. Today, she is seen in room 515, in the [facility]. She's currently not on any supplemental oxygen, and she's not receiving any IV fluids. Her mental status is pretty much at baseline. Current laboratory data includes a white count of 3.14, hemoglobin 8.1, hematocrit 25.4, and a platelet count of 101,000. No recent chest x-ray to mention. All culture data has been negative. Progress note dated 05/18/2022. 62-year-old female seen in room 5:15. She's currently on room air. She's getting saline at 5 mL an hour. This is a patient who has had 2 admissions recently, sent down from [facility] in [place]. Current laboratory data includes a white count of 2.8, hemoglobin 8.4, hematocrit 26.7, and a platelet count of 123,000. No recent chest x-ray. Blood cultures have been negative. Clinically, she's doing about the same. 05/19/2022, I'm seeing the patient for a follow-up. She is doing well. No specific complaints. Breathing is nonlabored and the patient is communicating. She is aware that she is in the hospital for now. IV fluids at the rate of 20 mL an hour. She is afebrile. No leukocytosis. As mentioned earlier, all of the cultures of been negative and the patient has no active complaints. No aspiration. She is edentulous. No skin rashes. Trace edema lower extremities bilaterally.She is currently on no antibiotic coverage she is on no antibiotic coverage 05/20/2000, the patient well. The patient remains on room air oxygen. No respiratory difficulties for now. Labs show white cell count of 4.2 with hemoglobin 8.5 and a platelet count of 194. Degenerative 16 with a creatinine 0 .6 and the sodium level of 142. As mentioned earlier, the patient has systolic heart failure with an ejection fraction of 45-50%. The patient also has paroxysmal atrial fibrillation and the patient is currently in a normal sinus rhythm and the patient is adequately sedated with liquids. The septic shock has recovered. No hypoglycemia. The patient on oral Lasix 40 mg by mouth daily. Encephalopathy has resolved. The patient is able to tolerate diet without having any aspiration. She is edentulous. Objective - Vital Signs Vital signs: Vital Signs Temp 97.2 F L 05/20/22 11:19 Pulse 60 05/20/22 11:19 Resp 14 05/20/22 11:19 BP 103/61 05/20/22 11:19 Pulse Ox 98 05/20/22 11:19 FiO2 30 05/12/22 11:24 Intake & Output 05/19/22 05/20/22 05/20/22 18:59 06:59 18:59 Output Total 200 400 Balance -200 -400 Weight 136 kg Output: Urine 200 400 Other: Voiding Method External Catheter External Catheter External Catheter # Voids 2 2 # Bowel Movements 1 - Exam No acute distress. Mental status remains unchanged. No respiratory distress. HEENT examination is grossly unremarkable. Neck supple. Full range of motion. No adenopathy or thyromegaly or neck vein distention. Cardiovascular examination reveals regular rhythm rate. S1-S2 normal. No S3 or S4. No discernible murmur noted. Heart sounds are distant. Heart rate 60 bpm. Lungs reveal mostly clear breath sounds. Minimal scattered rhonchi. No wheezes or crackles. Breath sounds equal bilaterally. Saturations are 97 %. Abdomen soft bowel sounds are heard. No masses or tenderness. Extremities are intact. No cyanosis clubbing or edema. Skin is without rash or lesion. Neurologic examination is similar to her last visit. Eyes open. Blank stare. She mumbles. The patient is answering simple questions and following simple commands at this point in time. - Labs CBC & Chem 7: 05/20/22 04:30 05/20/22 04:30 Labs: Abnormal Lab Results - Last 24 Hours (Table) 05/20/22 05/20/22 Range/Units 04:30 04:30 WBC 4.25 L (4.50-10.00) X 10*3/uL RBC 2.78 L (4.10-5.20) X 10*6/uL Hgb 8.5 L (12.0-15.0) g/dL Hct 27.5 L (37.2-46.3) % MCV 98.9 H (80.0-97.0) fL MCHC 30.9 L (32.0-37.0) g/dL RDW 17.2 H (11.5-14.5) % Carbon Dioxide 29.3 H (20.0-27.5) mmol/L Anion Gap 8.70 L (10.00-18.00) mmol/L BUN/Creatinine Ratio 27.33 H (12.00-20.00) Ratio Glucose 68 L (70-110) mg/dL Total Bilirubin 0.20 L (0.30-1.20) mg/dL Total Protein 6.0 L (6.2-8.2) g/dL Albumin 3.3 L (3.8-4.9) g/dL Albumin/Globulin Ratio 1.22 L (1.60-3.17) g/dL Assessment and Plan Plan: Possible sepsis/septic shock. Cultures negative, patient treated with Zosyn empirically. The patient is hemodynamically stable. No fever. No leukocytosis. All of the cultures are negative and the patient is currently off antibiotics. Encephalopathy, possibly related to underlying infection. It seems that the patient is back to her baseline Dehydration, recovered Hypothermia, possibly related to infection/sepsis, recovered Metabolic encephalopathy, acute on chronic. History of cerebral palsy. History of DVT, bilateral lower extremity Dopplers are negative. History of hypertension. Recent admission to the hospital with a similar picture, April 19 through April 29. Plan: Clinically stable Patient is on room air oxygen Patient is in normal sinus mechanism Encephalopathy and dehydration recovered Continue Lasix 40 mg by mouth daily Continue anticoagulation with a request The patient had venous Dopplers of the lower extremities were negative for DVT and the patient is on long-term anticoagulants. Ejection fraction is order of 45-50%. She is on oral Lasix. She is normal sinus mechanism. No oxygen therapy yet. Diet is pured. We'll follow. Agree for discharge
== END 2022-05-20 16:06 | DRG 871 ==
LOC: EC 12:51 → 4SSUR 14:07 → 2SICU 18:08 → 5NMEDONC 05-16 08:12
PROVIDERS: ADMIT Internal Medicine; ATTEND Internal Medicine
PROC: 3E043XZ Introduction of Vasopressor into Central Vein, Percutaneous Approach (ICD-10-PCS; 2022-05-10)
PROC: 05HD33Z Insertion of Infusion Device into Right Cephalic Vein, Percutaneous Approach (ICD-10-PCS; principal; 2022-05-15 11:35)
DX: A41.9 Sepsis, unspecified organism (principal); G93.41 Metabolic encephalopathy; I50.43 Acute on chronic combined systolic (congestive) and diastolic (congestive) heart failure; J18.9 Pneumonia, unspecified organism; J96.01 Acute respiratory failure with hypoxia; R65.21 Severe sepsis with septic shock; D61.818 Other pancytopenia; I42.9 Cardiomyopathy, unspecified; N39.0 Urinary tract infection, site not specified; E16.2 Hypoglycemia, unspecified; E83.42 Hypomagnesemia; E86.0 Dehydration; E87.5 Hyperkalemia; G40.909 Epilepsy, unspecified, not intractable, without status epilepticus; G80.9 Cerebral palsy, unspecified; I11.0 Hypertensive heart disease with heart failure; I48.0 Paroxysmal atrial fibrillation; I49.5 Sick sinus syndrome; I50.82 Biventricular heart failure; Z20.822 Contact with and (suspected) exposure to COVID-19; Z74.01 Bed confinement status; Z79.01 Long term (current) use of anticoagulants; Z79.899 Other long term (current) drug therapy; Z86.718 Personal history of other venous thrombosis and embolism; Z95.810 Presence of automatic (implantable) cardiac defibrillator; Z98.1 Arthrodesis status; Z87.01 Personal history of pneumonia (recurrent); R68.0 Hypothermia, not associated with low environmental temperature; Z88.1 Allergy status to other antibiotic agents; Z88.2 Allergy status to sulfonamides
CPT/HCPCS: 36410; 36600; 71045; 76937; 80048; 80053; 81003; 82272; 82533; 82805; 83605; 83735; 84132; 84145; 84443; 85025; 85027; 85610; 85730; 86022; 87040; 87635; 93005; 93970; 94640; 99285

== ENCOUNTER 2023-10-08 19:47 | Observation (INO) | payer MEDICARE, OTHER ==
--- NOTE | 2023-10-08 20:19 | ED ---
General Adult HPI - General Chief complaint: Vaginal Bleeding Stated complaint: Vaginal bleeding Time Seen by Provider: 10/08/23 20:01 Source: patient, EMS, RN notes reviewed, old records reviewed Mode of arrival: EMS - History of Present Illness Initial comments: 63-year-old female presents to the emergency department [facility] vaginal bleeding. This has been going on for multiple weeks but according to the patient's paperwork it has been worse today with clots. Patient was sent over from [place] at the request of Dr. Giordano. Ana Maria karly does admit to some lower abdominal cramping occasionally. Denies recent fever, chills, nausea, vomiting. - Related Data Home Medications Medication Instructions Recorded Confirmed Acetaminophen Tab [Tylenol] 650 mg PO Q4H PRN MDD 3000 04/19/22 10/09/23 Apixaban [Eliquis] 5 mg PO BID 04/19/22 10/09/23 Potassium Chloride [Potassium 30 meq PO BID 04/19/22 10/09/23 Chloride ER] bisacodyL 10 mg RECTAL Q72H PRN 04/19/22 10/09/23 Magnesium Hydroxide [Milk of 7,200 mg PO DAILY PRN 05/10/22 10/09/23 Magnesia Concentrate] Atorvastatin [Lipitor] 20 mg PO DAILY 10/09/23 10/09/23 Carboxymethylcellulose Sodium 1 drop BOTH EYES Q6H PRN 10/09/23 10/09/23 [Refresh Tears] Furosemide [Lasix] 80 mg PO DAILY 10/09/23 10/09/23 Health Shake 1 dose PO BID 10/09/23 10/09/23 Juice Supplement 1 dose PO DAILY 10/09/23 10/09/23 Na Phos,M-B/Na Phos,Di-Ba [Fleet 133 ml RECTAL Q96H PRN 10/09/23 10/09/23 Adult] Omeprazole 20 mg PO DAILY 10/09/23 10/09/23 Ondansetron [Zofran] 4 mg PO Q8H PRN 10/09/23 10/09/23 Roflumilast [Zoryve] 1 applic TOPICAL DAILY 10/09/23 10/09/23 Sennosides [Senokot] 8.6 mg PO BID 10/09/23 10/09/23 Sodium Chloride 0.9% [Saline 0.9%] 100 ml IV DIRECTED 10/09/23 10/09/23 polyethylene glycoL 3350 [Miralax] 17 gm PO DAILY 10/09/23 10/09/23 Allergies Allergy/AdvReac Type Severity Reaction Status Date / Time cephalexin [From Keflex] Allergy Unknown Verified 10/09/23 07:16 doxycycline Allergy Unknown Verified 10/09/23 07:16 sulfamethoxazole Allergy Unknown Verified 10/09/23 07:16 [From Bactrim] trimethoprim [From Bactrim] Allergy Unknown Verified 10/09/23 07:16 vancomycin Allergy Unknown Verified 10/09/23 07:16 Review of Systems ROS Statement: Those systems with pertinent positive or pertinent negative responses have been documented in the HPI. ROS Other: All systems not noted in ROS Statement are negative. Past Medical History Past Medical History: Atrial Fibrillation, Hypertension, Pneumonia, Pulmonary Embolus (PE), Seizure Disorder, Sleep Apnea/CPAP/BIPAP Additional Past Medical History / Comment(s): cerebal palsy History of Any Multi-Drug Resistant Organisms: Unobtainable Past Surgical History: AICD, Back Surgery, Pacemaker Past Anesthesia/Blood Transfusion Reactions: No Reported Reaction Type of Cardiac Device: AICD Device Placement Date:: 2021 Past Psychological History: No Psychological Hx Reported Smoking Status: Unknown if ever smoked Past Alcohol Use History: None Reported Past Drug Use History: None Reported General Exam Limitations: no limitations General appearance: alert, in no apparent distress Head exam: Present: atraumatic, normocephalic, normal inspection Eye exam: Present: normal appearance, PERRL, EOMI. Absent: scleral icterus, conjunctival injection, periorbital swelling ENT exam: Present: normal exam, mucous membranes moist Neck exam: Present: normal inspection. Absent: tenderness, meningismus, lymphadenopathy Respiratory exam: Present: normal lung sounds bilaterally. Absent: respiratory distress, wheezes, rales, rhonchi, stridor Cardiovascular Exam: Present: regular rate, normal rhythm, normal heart sounds. Absent: systolic murmur, diastolic murmur, rubs, gallop, clicks GI/Abdominal exam: Present: soft, normal bowel sounds. Absent: distended, tenderness, guarding, rebound, rigid Speculum exam: Present: vaginal bleeding Neurological exam: Present: alert Psychiatric exam: Present: normal affect, normal mood Skin exam: Present: warm, dry, intact, other (Discoloration of the mons pubis and inner thighs). Absent: rash Course Vital Signs 10/08/23 10/08/23 10/08/23 19:52 22:00 23:00 Temperature 97.9 F Pulse Rate 101 H 93 92 Respiratory 20 22 20 Rate Blood Pressure 122/61 114/79 106/53 O2 Sat by Pulse 98 93 L 95 Oximetry 10/09/23 10/09/23 10/09/23 00:00 02:00 04:00 Temperature Pulse Rate 95 87 91 Respiratory 18 18 18 Rate Blood Pressure 114/68 109/68 107/54 O2 Sat by Pulse 94 L 95 94 L Oximetry 10/09/23 10/09/23 10/09/23 06:00 08:52 13:31 Temperature Pulse Rate 81 86 86 Respiratory 14 18 18 Rate Blood Pressure 98/57 104/59 110/64 O2 Sat by Pulse 98 95 96 Oximetry 10/09/23 15:23 Temperature Pulse Rate 88 Respiratory 18 Rate Blood Pressure 106/64 O2 Sat by Pulse 96 Oximetry Medical Decision Making - Medical Decision Making Was pt. sent in by a medical professional or institution (, PA, [facility], urgent care, hospital, or longterm...) When possible be specific @ -No Did you speak to anyone other than the patient for history (EMS, parent, family, police, friend...)? What history was obtained from this source @ -No Did you review nursing and triage notes (agree or disagree)? Why? @ -I reviewed and agree with nursing and triage notes Were old charts reviewed (outside hosp., previous admission, EMS record, old EKG, old radiological studies, urgent care reports/EKG's, longterm records)? Report findings @ -No old charts were reviewed Differential Diagnosis (chest pain, altered mental status, abdominal pain women, abdominal pain men, vaginal bleeding, weakness, fever, dyspnea, syncope, headache, dizziness, GI bleed, back pain, seizure, CVA, palpatations, mental health, musculoskeletal)? @ -Differential Vaginal Bleeding: Spontaneous , threatened , molar , ectopic , bloody show, incompetent cervix, abruptioplacenta, placenta previa, uterine rupture, dysfunctional uterine bleeding, hemorrhage, uterine fibroids, this is not meant to be an all-inclusive list. EKG interpreted by me (3pts min.). @ -None X-rays interpreted by me (1pt min.). @ -None done CT interpreted by me (1pt min.). @ -None done U/S interpreted by me (1pt. min.). @ -None done What testing was considered but not performed or refused? (CT, X-rays, U/S, labs)? Why? @ -None What meds were considered but not given or refused? Why? @ -None Did you discuss the management of the patient with other professionals (professionals i.e. , PA, [facility]TER, lab, RT, psych nurse, dialysis social worker, clinical nursing manager, teacher, retail loss prevention officer, counter caser)? Give summary @ -Dr. Zhou discussed the case with the transferring physician from [facility] along with Dr. Giordano's nurse practitioner. Management discussed with Dr. Valencia with [facility] Was smoking cessation discussed for >3mins.? @ -No Was critical care preformed (if so, how long)? @ -No Were there social determinants of health that impacted care today? How? (Ho melessness, low income, unemployed, alcoholism, drug addiction, transportation, low edu. Level, literacy, decrease access to med. care, correction, rehab)? @ -No Was there de-escalation of care discussed even if they declined (Discuss DNR or withdrawal of care, Hospice)? DNR status @ -No What co-morbidities impacted this encounter? (DM, HTN, Smoking, COPD, CAD, Cancer, CVA, ARF, Chemo, Hep., AIDS, mental health diagnosis, sleep apnea, morbid obesity)? @ -Cerebral palsy Was patient admitted / discharged? Hospital course, mention meds given and route, prescriptions, significant lab abnormalities, going to OR and other pertinent info. @ -Manage. Patient presented to the emergency department for vaginal bleeding. Patient was a transfer from [facility], accepted by Dr. Zhou. Dr. Giordano, the patient's stablehand's, nurse practitioner called ahead and states that they would like the patient to be evaluated here. Patient has had a significant drop in her hemoglobin over the past week. Laboratory studies obtained. Hemoglobin today 10.8.Normal coagulation studies; pelvic ultrasound obtained which shows a thickened endometrium. Patient will be admitted for gynecology and hematology/oncology consultation. Patient discussed with Dr. Valencia who is accepting of the admission Undiagnosed new problem with uncertain prognosis? @ -No Drug Therapy requiring intensive monitoring for toxicity (Heparin, Nitro, Insulin, Cardizem)? @ -No Were any procedures done? @ -No Diagnosis/symptom? @ -Vaginal bleeding, thickened endometrium, anemia Acute, or Chronic, or Acute on Chronic? @ -Acute Uncomplicated (without systemic symptoms) or Complicated (systemic symptoms)? @ -Uncomplicated Side effects of treatment? @ -No Exacerbation, Progression, or Severe Exacerbation? @ -No Poses a threat to life or bodily function? How? (Chest pain, [place], [place], pneumonia, PE, COPD, DKA, ARF, appy, cholecystitis, CVA, Diverticulitis, Homicidal, Suicidal, threat to staff... and all critical care pts) @ -No - Lab Data Result diagrams: 10/09/23 17:31 10/08/23 20:15 Lab Results 10/08/23 10/08/23 10/08/23 Range/Units 20:15 20:15 20:30 WBC 8.9 (3.8-10.6) k/uL RBC 3.56 L (3.80-5.40) m/uL Hgb 10.8 L (11.4-16.0) gm/dL Hct 31.3 L (34.0-46.0) % MCV 87.7 (80.0-100.0) fL MCH 30.4 (25.0-35.0) pg MCHC 34.6 (31.0-37.0) g/dL RDW 13.6 (11.5-15.5) % Plt Count 257 (150-450) k/uL MPV 8.4 Neutrophils % 68 % Lymphocytes % 23 % Monocytes % 4 % Eosinophils % 3 % Basophils % 0 % Neutrophils # 6.1 (1.3-7.7) k/uL Lymphocytes # 2.1 (1.0-4.8) k/uL Monocytes # 0.4 (0-1.0) k/uL Eosinophils # 0.3 (0-0.7) k/uL Basophils # 0.0 (0-0.2) k/uL PT (10.0-12.5) sec INR (<1.2) APTT (22.0-30.0) sec Sodium 137 (137-145) mmol/L Potassium 4.3 (3.5-5.1) mmol/L Chloride 108 H (98-107) mmol/L Carbon Dioxide 23 (22-30) mmol/L Anion Gap 6 mmol/L BUN 7 (7-17) mg/dL Creatinine 0.40 L (0.52-1.04) mg/dL Est GFR (CKD-EPI)AfAm >90 (>60 ml/min/1.73 sqM) Est GFR (CKD-EPI)NonAf >90 (>60 ml/min/1.73 sqM) Glucose 115 H (74-99) mg/dL Calcium 8.1 L (8.4-10.2) mg/dL Total Bilirubin 0.6 (0.2-1.3) mg/dL AST 24 (14-36) U/L ALT 16 (4-34) U/L Alkaline Phosphatase 116 (38-126) U/L Total Protein 6.4 (6.3-8.2) g/dL Albumin 3.2 L (3.5-5.0) g/dL Blood Type Blood Type Confirm O Positive Blood Type Recheck Bld Type Recheck Status Antibody Screen Spec Expiration Date 10/08/23 10/08/23 Range/Units 20:35 23:44 WBC (3.8-10.6) k/uL RBC (3.80-5.40) m/uL Hgb (11.4-16.0) gm/dL Hct (34.0-46.0) % MCV (80.0-100.0) fL MCH (25.0-35.0) pg MCHC (31.0-37.0) g/dL RDW (11.5-15.5) % Plt Count (150-450) k/uL MPV Neutrophils % % Lymphocytes % % Monocytes % % Eosinophils % % Basophils % % Neutrophils # (1.3-7.7) k/uL Lymphocytes # (1.0-4.8) k/uL Monocytes # (0-1.0) k/uL Eosinophils # (0-0.7) k/uL Basophils # (0-0.2) k/uL PT 12.0 (10.0-12.5) sec INR 1.1 (<1.2) APTT 29.7 (22.0-30.0) sec Sodium (137-145) mmol/L Potassium (3.5-5.1) mmol/L Chloride (98-107) mmol/L Carbon Dioxide (22-30) mmol/L Anion Gap mmol/L BUN (7-17) mg/dL Creatinine (0.52-1.04) mg/dL Est GFR (CKD-EPI)AfAm (>60 ml/min/1.73 sqM) Est GFR (CKD-EPI)NonAf (>60 ml/min/1.73 sqM) Glucose (74-99) mg/dL Calcium (8.4-10.2) mg/dL Total Bilirubin (0.2-1.3) mg/dL AST (14-36) U/L ALT (4-34) U/L Alkaline Phosphatase (38-126) U/L Total Protein (6.3-8.2) g/dL Albumin (3.5-5.0) g/dL Blood Type O Positive Blood Type Confirm Blood Type Recheck No Previous Record Bld Type Recheck Status CABO Indicated Antibody Screen NEGATIVE Spec Expiration Date 10/11/20232334 Disposition Clinical Impression: Vaginal bleeding, Thickened endometrium, Anemia Disposition: ADMITTED IP TO THIS [facility] Condition: Stable Is patient prescribed a controlled substance at d/c from ED?: No
[2023-10-08 20:27] LABS: Basophils % (A) 0 %; Eosinophils # (A) 0.3 k/uL (0-0.7); Eosinophils % (A) 3 %; HCT 31.3 % (34.0-46.0); HGB 10.8 gm/dL (11.4-16.0); Lymphocytes # (A) 2.1 k/uL (1.0-4.8); Lymphocytes % (A) 23 %; MCH 30.4 pg (25.0-35.0); MCHC 34.6 g/dL (31.0-37.0); MCV 87.7 fL (80.0-100.0); Mean Platelet Volume 8.4; Monocytes # (A) 0.4 k/uL (0-1.0); Monocytes % (A) 4 %; Neutrophils # (A) 6.1 k/uL (1.3-7.7); Neutrophils % (A) 68 %; Platelet Count 257 k/uL (150-450); RBC 3.56 m/uL (3.80-5.40); RDW 13.6 % (11.5-15.5); WBC 8.9 k/uL (3.8-10.6)
[2023-10-08 20:47] LABS: ALT 16 U/L (4-34); AST 24 U/L (14-36); African American GFR (CKD) >90 (>60 ml/min/1.73 sqM); Albumin 3.2 g/dL (3.5-5.0); Alkaline Phosphatase 116 U/L (38-126); Anion Gap 6 mmol/L; Blood Urea Nitrogen 7 mg/dL (7-17); Calcium 8.1 mg/dL (8.4-10.2); Carbon Dioxide 23 mmol/L (22-30); Chloride 108 mmol/L (98-107); Glucose 115 mg/dL (74-99); Non-African American GFR(CKD) >90 (>60 ml/min/1.73 sqM); Potassium 4.3 mmol/L (3.5-5.1); Sodium 137 mmol/L (137-145); Total Bilirubin 0.6 mg/dL (0.2-1.3); Total Protein 6.4 g/dL (6.3-8.2)
--- NOTE | 2023-10-08 21:54 | US ---
EXAMINATION TYPE: US pelvic complete DATE OF EXAM: 10/08/2023 COMPARISON: CT: 04/19/22 CLINICAL INDICATION: Female, 63 years old with history of bleeding; vaginal bleeding. Possible cervic al cancer. Pt has cerebral palsy and is not alert and oriented. TECHNIQUE: Transabdominal sonographic images of the pelvis were acquired. Transvaginal exam not perfo rmed due to pt's AMS. Date of LMP: Unknown EXAM MEASUREMENTS: Uterus: 8.1 x 4.7 x 4.2 cm Endometrial Stripe: 7 mm, but not well visualized. Right Ovary/adnexa: Not visualized. Left Ovary/adnexa: 4.2 x 3.6 x 3.2 cm. Anechoic mass measuring 3.2 x 2.9 x 2.5 cm, demonstrating pos terior wall enhancement with through sound transmission, consistent with left ovarian cyst. Cul-de-sac: No fluid. IMPRESSION: 63-year-old patient with limited sonographic visualization but suspicious endometrial thickening pres ent.
[2023-10-09 00:20] LABS: INR 1.1 (<1.2); Partial Thromboplastin Time 29.7 sec (22.0-30.0)
[2023-10-09] MEDS ORDERED: NALOXONE 0.4 MG/ML 1 ML VIAL IV PRN (00:25)
[2023-10-09] MEDS ORDERED: ACETAMINOPHEN TAB 325 MG TAB PO PRN ×2 (00:31→14:31)
[2023-10-09] MEDS: SODIUM CHLORIDE 0.9% 1,000 ML IV SCH (02:15)
[2023-10-09 03:07] LABS: Appearance,Urine Turbid (Clear); Bacteria,Urine Many /hpf; Bilirubin,Urine Negative (Negative); Blood,Urine Large (Negative); Color,Urine Red; Glucose,Urine (UA) Negative (Negative); Ketones,Urine 1+ (Negative); Leukocyte Esterase,Urine Small (Negative); Nitrite,Urine Negative (Negative); Protein,Urine 1+ (Negative); RBC,Urine >182 /hpf (0-5); Specific Gravity,Urine 1.018 (1.001-1.035); Urobilinogen,Urine <2.0 mg/dL (<2.0); WBC,Urine 25 /hpf (0-5)
--- NOTE | 2023-10-09 05:08 | P.HPIM ---
History of Present Illness H&P Date: 10/09/23 Chief Complaint: Vaginal bleeding 63-year-old female with cerebral palsy aphasia unable to provide any meaningful history which was obtained by reviewing medical record and speaking with the ED staff Patient was transferred to our facility from [facility] for evaluation of vaginal bleeding this has been going on for few weeks she is a [facility] resident hemoglobin has been monitored however seems like bleeding has gotten worse today with increased blood clots for which her doctor at the [place] [facility] recommended that she goes to the hospital for evaluation. Patient has been following up with hematology for concerns regarding pancytopenia for the past couple years she has been worked up for possible MGUS, looks like her baseline hemoglobin level was around 13 up until last month and today has dropped down to 10.8. Ultrasound was done and showed increased end ometrial thickening No other history is available at this time review of systems Patient is aphasic unable to answer any questions on exam Constitutional: No acute distress, makes brief eye contact Eyes: Anicteric sclerae, moist conjunctiva, Pupils equal round reactive to light Lungs: Clear to auscultation Clear to percussion Normal respiratory effort, no accessory muscle use Cardiovascular: Heart regular in rate and rhythm, No murmurs, gallops, or rubs No peripheral edema Abdominal: Soft Nontender, no guarding, rebound or rigidity Abdomen moving with respiration Normoactive bowel sounds Skin: Small 1 x 1 cm nonblanchable over the right heel Extremities: No digital cyanosis No clubbing Pedal pulses intact and symmetrical Radial pulses intact and symmetrical No calf tenderness Psychiatric: Awake makes eye contact however she has aphasia Neuro history of cerebral palsy, patient does not follow any commands Past Medical History Past Medical History: Atrial Fibrillation, Hypertension, Pneumonia, Pulmonary Embolus (PE), Seizure Disorder, Sleep Apnea/CPAP/BIPAP Additional Past Medical History / Comment(s): cerebal palsy History of Any Multi-Drug Resistant Organisms: Unobtainable Past Surgical History: AICD, Back Surgery, Pacemaker Past Anesthesia/Blood Transfusion Reactions: No Reported Reaction Type of Cardiac Device: AICD Device Placement Date:: 2021 Past Psychological History: No Psychological Hx Reported Smoking Status: Unknown if ever smoked Past Alcohol Use History: None Reported Past Drug Use History: None Reported Medications and Allergies Home Medications Medication Instructions Recorded Confirmed Type Acetaminophen Tab [Tylenol] 650 mg PO Q4H PRN MDD 3000 04/19/22 05/10/22 History Apixaban [Eliquis] 5 mg PO BID@0700,1700 04/19/22 05/10/22 History Docusate [Colace] 100 mg PO BID@0700,1700 04/19/22 05/10/22 History Potassium Chloride [Potassium 20 meq PO DAILY@1700 04/19/22 05/10/22 History Chloride ER] bisacodyL 10 mg RECTAL Q72H PRN 04/19/22 05/10/22 History Cholestyramine (with Sugar) 4 gm PO BID@1000,1800 #10 packet 04/29/22 05/10/22 Rx [Questran Packet] Ipratropium-Albuterol Nebulize 3 ml INHALATION RT-TID each 04/29/22 05/10/22 Rx [Duoneb 0.5 mg-3 mg/3 ml Soln] Ipratropium-Albuterol Nebulize 3 ml INHALATION RT-Q4H PRN 05/10/22 05/10/22 History [Duoneb 0.5 mg-3 mg/3 ml Soln] L.acidoph,Paracasei, B.lactis 1 cap PO DAILY 05/10/22 05/10/22 History [Probiotic] Magnesium Hydroxide [Milk of 7,200 mg PO DAILY PRN 05/10/22 05/10/22 History Magnesia Concentrate] Midodrine [ProAmatine] 5 mg PO TID 05/10/22 05/10/22 History Furosemide [Lasix] 40 mg PO DAILY tab 05/20/22 Rx Pantoprazole [Protonix] 40 mg PO AC-BRKFST tab 05/20/22 Rx Allergies Allergy/AdvReac Type Severity Reaction Status Date / Time cephalexin [From Keflex] Allergy Unknown Verified 10/08/23 20:04 doxycycline Allergy Unknown Verified 10/08/23 20:04 sulfamethoxazole Allergy Unknown Verified 10/08/23 20:04 [From Bactrim] trimethoprim [From Bactrim] Allergy Unknown Verified 10/08/23 20:04 vancomycin Allergy Unknown Verified 10/08/23 20:04 Physical Exam Vitals: Vital Signs Temp Pulse Resp BP Pulse Ox 10/08/23 19:52 97.9 F 101 H 20 122/61 98 Intake and Output 10/08/23 10/08/2324 14:59 22:59 06:59 Other: Weight 136.078 kg Results CBC & Chem 7: 10/08/23 20:15 10/08/23 20:15 Labs: Abnormal Lab Results - Last 24 Hours (Table) 10/08/23 10/08/23 Range/Units 20:15 20:15 RBC 3.56 L (3.80-5.40) m/uL Hgb 10.8 L (11.4-16.0) gm/dL Hct 31.3 L (34.0-46.0) % Chloride 108 H (98-107) mmol/L Creatinine 0.40 L (0.52-1.04) mg/dL Glucose 115 H (74-99) mg/dL Calcium 8.1 L (8.4-10.2) mg/dL Albumin 3.2 L (3.5-5.0) g/dL Assessment and Plan Assessment: 63-year-old female with cerebral palsy [facility] resident, with history of A- fib on blood thinners coming in due to increased vaginal bleeding over the past couple weeks baseline hemoglobin seems to be around 13 today was 10.8 upon recommendation of her doctor she was sent to our facility for further evaluation and discussed the case with ED doctor and accepted the admission for acute anemia secondary to vaginal bleeding for [facility] evaluation with anticipated length of stay more than 2 midnights Abnormal vaginal bleeding Acute anemia Baseline hemoglobin around 13 currently 10.8 continue to monitor hemoglobin Hold Eliquis RECREATION CLERK consultation Pelvic ultrasound suggestive of thickened endometrium Gentle IV fluid hydration with normal saline 75 cc/h Chronic conditions Cerebral palsy Chronic hypoxic respiratory failure on 2 L oxygen Paroxysmal A-fib on Eliquis Hypertension Chronic systolic CHF with left ventricular ejection fraction 45% currently compensated Renal function unremarkable BUN 7 creatinine 0.4 sodium 137 potassium 4.3 Albumin 3.2 White count 3.9 unremarkable Verify home medications Full code DVT prophylaxis mechanical secondary to vaginal bleeding
[2023-10-09] MEDS: PANTOPRAZOLE 40 MG TABLET PO SCH (08:39)
[2023-10-09] MEDS: MIDODRINE 5 MG TAB PO SCH (08:39)
[2023-10-09 17:52] LABS: Basophils % (A) 0 %; Eosinophils # (A) 0.3 k/uL (0-0.7); Eosinophils % (A) 2 %; HCT 33.5 % (34.0-46.0); HGB 10.9 gm/dL (11.4-16.0); Lymphocytes % (A) 19 %; MCH 29.2 pg (25.0-35.0); MCHC 32.4 g/dL (31.0-37.0); MCV 90.3 fL (80.0-100.0); Mean Platelet Volume 8.3; Monocytes # (A) 0.4 k/uL (0-1.0); Monocytes % (A) 4 %; Neutrophils # (A) 7.8 k/uL (1.3-7.7); Neutrophils % (A) 73 %; Platelet Count 294 k/uL (150-450); RBC 3.71 m/uL (3.80-5.40); RDW 13.6 % (11.5-15.5); WBC 10.7 k/uL (3.8-10.6)
--- NOTE | 2023-10-09 18:09 | P.OBCN ---
History of Present Illness Consult date: 10/09/23 Reason for consult: other (Menopausal bleeding) Chief complaint: Vaginal bleed History of present illness: This is a 63-year-old female with known cerebral palsy presents on transfer from [facility] for evaluation of vaginal bleeding that is been going on for a few weeks. She is currently residing in a care home facility that noted a drop in her hemoglobin and the bleeding that had gotten worse with passage of blood clots. Physician did see her at [facility] and recommended transfer for evaluation. Patient is unable to give any history and physical. Chart review was performed. Per RN I was able to get that she has a guardian, previously her sister who is now . Review of Systems Unable to ascertain any review of systems other than she has noted vaginal bleeding. She does complain of some lower quadrant pain. Past Medical History Past Medical History: Atrial Fibrillation, Hypertension, Pneumonia, Pulmonary Embolus (PE), Seizure Disorder, Sleep Apnea/CPAP/BIPAP Additional Past Medical History / Comment(s): cerebal palsy, anemia History of Any Multi-Drug Resistant Organisms: Unobtainable Past Surgical History: AICD, Back Surgery, Pacemaker Past Anesthesia/Blood Transfusion Reactions: No Reported Reaction Type of Cardiac Device: AICD Device Placement Date:: 2021 Past Psychological History: No Psychological Hx Reported Smoking Status: Unknown if ever smoked Past Alcohol Use History: None Reported Past Drug Use History: None Reported Medications and Allergies Home Medications Medication Instructions Recorded Confirmed Type Acetaminophen Tab [Tylenol] 650 mg PO Q4H PRN MDD 3000 04/19/22 10/09/23 History Apixaban [Eliquis] 5 mg PO BID 04/19/22 10/09/23 History Potassium Chloride [Potassium 30 meq PO BID 04/19/22 10/09/23 History Chloride ER] bisacodyL 10 mg RECTAL Q72H PRN 04/19/22 10/09/23 History Magnesium Hydroxide [Milk of 7,200 mg PO DAILY PRN 05/10/22 10/09/23 History Magnesia Concentrate] Atorvastatin [Lipitor] 20 mg PO DAILY 10/09/23 10/09/23 History Carboxymethylcellulose Sodium 1 drop BOTH EYES Q6H PRN 10/09/23 10/09/23 History [Refresh Tears] Furosemide [Lasix] 80 mg PO DAILY 10/09/23 10/09/23 History Health Shake 1 dose PO BID 10/09/23 10/09/23 History Juice Supplement 1 dose PO DAILY 10/09/23 10/09/23 History Na Phos,M-B/Na Phos,Di-Ba [Fleet 133 ml RECTAL Q96H PRN 10/09/23 10/09/23 History Adult] Omeprazole 20 mg PO DAILY 10/09/23 10/09/23 History Ondansetron [Zofran] 4 mg PO Q8H PRN 10/09/23 10/09/23 History Roflumilast [Zoryve] 1 applic TOPICAL DAILY 10/09/23 10/09/23 History Sennosides [Senokot] 8.6 mg PO BID 10/09/23 10/09/23 History Sodium Chloride 0.9% [Saline 0.9%] 100 ml IV DIRECTED 10/09/23 10/09/23 History polyethylene glycoL 3350 [Miralax] 17 gm PO DAILY 10/09/23 10/09/23 History Allergies Allergy/AdvReac Type Severity Reaction Status Date / Time cephalexin [From Keflex] Allergy Unknown Verified 10/09/23 07:16 doxycycline Allergy Unknown Verified 10/09/23 07:16 sulfamethoxazole Allergy Unknown Verified 10/09/23 07:16 [From Bactrim] trimethoprim [From Bactrim] Allergy Unknown Verified 10/09/23 07:16 vancomycin Allergy Unknown Verified 10/09/23 07:16 Exam Osteopathic Statement: *. No significant issues noted on an osteopathic structural exam other than those noted in the History and Physical/Consult. Vital Signs Temp Pulse Pulse Resp BP BP Pulse Ox 10/09/23 17:06 97.8 F 84 18 115/78 97 10/09/23 15:23 88 18 106/64 96 10/09/23 13:31 86 18 110/64 96 10/09/23 08:52 86 18 104/59 95 10/09/23 06:00 81 14 98/57 98 10/09/23 04:00 91 18 107/54 94 L 10/09/23 02:00 87 18 109/68 95 10/09/23 00:00 95 18 114/68 94 L 10/08/23 23:00 92 20 106/53 95 10/08/23 22:00 93 22 114/79 93 L 10/08/23 19:52 97.9 F 101 H 20 122/61 98 Intake and Output 10/09/23 10/09/23 10/09/23 06:59 14:59 22:59 Other: Voiding Method External Catheter Weight 119.5 kg Minimal physical exam was performed patient is aphasic and unable to answer questions she does not appear to be in any distress. Breathing appears unlabored abdomen is soft on vaginal exam minimal exam was performed a slow trickle of maroon-colored blood was appreciated. No clots were noted in the patient's brief. A catheter was in place Unable to position her left leg as she had prior history of knee surgery. Results Result Diagrams: 10/09/23 17:31 10/08/23 20:15 Abnormal Lab Results - Last 24 Hours (Table) 10/08/23 10/08/23 10/09/23 Range/Units 20:15 20:15 02:30 WBC (3.8-10.6) k/uL RBC 3.56 L (3.80-5.40) m/uL Hgb 10.8 L (11.4-16.0) gm/dL Hct 31.3 L (34.0-46.0) % Neutrophils # (1.3-7.7) k/uL Chloride 108 H (98-107) mmol/L Creatinine 0.40 L (0.52-1.04) mg/dL Glucose 115 H (74-99) mg/dL Calcium 8.1 L (8.4-10.2) mg/dL Albumin 3.2 L (3.5-5.0) g/dL Urine Appearance Turbid H (Clear) Urine Protein 1+ H (Negative) Urine Ketones 1+ H (Negative) Urine Blood Large H (Negative) Ur Leukocyte Esterase Small H (Negative) Urine RBC >182 H (0-5) /hpf Urine WBC 25 H (0-5) /hpf Urine Bacteria Many H (None) /hpf 10/09/23 Range/Units 17:31 WBC 10.7 H (3.8-10.6) k/uL RBC 3.71 L (3.80-5.40) m/uL Hgb 10.9 L (11.4-16.0) gm/dL Hct 33.5 L (34.0-46.0) % Neutrophils # 7.8 H (1.3-7.7) k/uL Chloride (98-107) mmol/L Creatinine (0.52-1.04) mg/dL Glucose (74-99) mg/dL Calcium (8.4-10.2) mg/dL Albumin (3.5-5.0) g/dL Urine Appearance (Clear) Urine Protein (Negative) Urine Ketones (Negative) Urine Blood (Negative) Ur Leukocyte Esterase (Negative) Urine RBC (0-5) /hpf Urine WBC (0-5) /hpf Urine Bacteria (None) /hpf Assessment and Plan (1) Postmenopausal bleeding Current Visit: Yes Status: Acute Code(s): N95.0 - POSTMENOPAUSAL BLEEDING SNOMED Code(s): 92639118 (2) Anemia Current Visit: Yes Status: Acute Priority: High Code(s): D64.9 - ANEMIA, UNSPECIFIED SNOMED Code(s): 635156707 (3) Thickened endometrium Current Visit: Yes Status: Acute Code(s): R93.89 - ABNORMAL FINDINGS ON DX IMAGING OF OTH BODY STRUCTURES SNOMED Code(s): 512813460 Plan: 63-year-old female seen for postmenopausal bleeding. Patient is currently residing in a care home and history is unable to be obtained from family member as her family members . Chart review was reviewed. Hemoglobin was ordered upon my consultation. Hemoglobin on 10/08 was 10.8, today 10.9. Ultrasound was done prior to my consultation where showing in thickened endometrial lining. I do have a suspicion for endometrial hyperplasia versus endometrial cancer. We can medically treat with Megace to slow the bleeding. For definitive diagnosis she would need to undergo hysteroscopy, dilation and curettage, as I do not believe she would tolerate an exam without anesthesia. She is medically complicated and would need medical clearance prior to taking her to the operating room. In addition she would need consent from her legal guardian. I will go ahead and order Megace and attempt to slow the bleeding. I will continue to follow this patient through her stay.
[2023-10-09] MEDS: SENNOSIDES 8.6 MG TAB PO SCH (21:24)
[2023-10-09] MEDS: medroxyPROGESTERone 10 MG TABLET PO SCH (21:24)
[2023-10-10] MEDS: ATORVASTATIN 20 MG TAB PO SCH (08:39)
[2023-10-10] MEDS: FUROSEMIDE 80 MG TAB PO SCH (08:40)
[2023-10-10] MEDS: polyethylene glycoL 3350 17 GM POWD.PACK PO SCH (08:40)
[2023-10-10] MEDS ORDERED: NON FORMULARY DRUG (Omeprazole [Omeprazole] 20 MG Capsule.Dr) PO SCH (09:00)
--- NOTE | 2023-10-10 09:00 | P.CONS ---
History of Present Illness - Reason for Consult Consult date: 10/09/23 vaginal bleeding, endometrial thickening Requesting physician: Maria De Jesus Loepz - Chief Complaint vaginal bleeding - History of Present Illness Ms Brownlee is a 63 year old female with a significant history of pancytopenia and follows with Dr. Giordano. She was initially referred in 01/2022 for pancytopenia. Labs in 03/20, showing WBC of 4.6, platelets 190 and hemoglobin of 11.8. On 12/04/21 WBC was 2.4, hemoglobin 9.3 and platelets 92. WBC differential was normal with ANC persistently above 1000. Patient has history of cerebral palsy, as well as PT and PE, atrial fibrillation, and hypertension, anticoagulated with eliquis. She had extensive cytopenia workup done that was all negative, Other than increased kappa lambda ratio with mild kappa elevation ( 55.1 mg/L, and ratio 2.54). The patient had additional workup for the light chain abnormality, with 24-hour urine studies and bone survey being negative. Both light chains remained elevated with ratio in the same range at 1.97. 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 Ultrasound of the abdomen showed heterogenous appearing liver and spleen in the upper end of normal in size, indicating probable chronic liver disease. She was referred to GI, who confirmed evidence of chronic liver disease due to TAMEZ. At her last follow-up on 09/28/23, notes from the ECF describes the patient complaining of some intermittent lower abdominal discomfort, as well as vaginal versus urinary bleeding over the past few days. The patient's labs do not show any evidence of significant bleeding, with hemoglobin actually further increased to 14.4 from 13.2 on 09/01/23. She was referred to [facility] MEAT PROCESSOR, and recommended that the patient be sent to the ER, if the bleeding persists and/or increases. Workup from that visit showed SPEP negative for m spike, K/L ratio improved to 1.63, from 1.98. Patient presented to the emergency room with complaints of vaginal bleeding. History was provided by sister at bedside. Sister reports vaginal bleeding has been ongoing for approximately 2 weeks but began increasing with clots over the last couple days which caused patient to present to the emergency room for further evaluation. Sister also reports patient was experiencing nausea and vomiting and complaining of intermittent lower abdominal cramping. Also states diminished appetite over the last couple months. Last Pap smear was approximately 5 to 10 years ago. No personal history of cancer. Mother had history of ovarian cancer. Upon admission CBC revealed WBC 8.9, hemoglobin 10.8, platelets 257,000. Pelvic ultrasound revealed endometrial thickening, endometrial stripe measuring 7 mm, and left ovarian cyst. CRAB MEAT PROCESSOR has been consulted. Review of Systems 10 point ROS is negative except as stated in the HPI Past Medical History Past Medical History: Atrial Fibrillation, Hypertension, Pneumonia, Pulmonary Embolus (PE), Seizure Disorder, Sleep Apnea/CPAP/BIPAP Additional Past Medical History / Comment(s): cerebal palsy History of Any Multi-Drug Resistant Organisms: Unobtainable Past Surgical History: AICD, Back Surgery, Pacemaker Past Anesthesia/Blood Transfusion Reactions: No Reported Reaction Type of Cardiac Device: AICD Device Placement Date:: 2021 Past Psychological History: No Psychological Hx Reported Smoking Status: Unknown if ever smoked Past Alcohol Use History: None Reported Past Drug Use History: None Reported Medications and Allergies Home Medications Medication Instructions Recorded Confirmed Type Acetaminophen Tab [Tylenol] 650 mg PO Q4H PRN MDD 3000 04/19/22 10/09/23 History Apixaban [Eliquis] 5 mg PO BID 04/19/22 10/09/23 History Potassium Chloride [Potassium 30 meq PO BID 04/19/22 10/09/23 History Chloride ER] bisacodyL 10 mg RECTAL Q72H PRN 04/19/22 10/09/23 History Magnesium Hydroxide [Milk of 7,200 mg PO DAILY PRN 05/10/22 10/09/23 History Magnesia Concentrate] Atorvastatin [Lipitor] 20 mg PO DAILY 10/09/23 10/09/23 History Carboxymethylcellulose Sodium 1 drop BOTH EYES Q6H PRN 10/09/23 10/09/23 History [Refresh Tears] Furosemide [Lasix] 80 mg PO DAILY 10/09/23 10/09/23 History Health Shake 1 dose PO BID 10/09/23 10/09/23 History Juice Supplement 1 dose PO DAILY 10/09/23 10/09/23 History Na Phos,M-B/Na Phos,Di-Ba [Fleet 133 ml RECTAL Q96H PRN 10/09/23 10/09/23 History Adult] Omeprazole 20 mg PO DAILY 10/09/23 10/09/23 History Ondansetron [Zofran] 4 mg PO Q8H PRN 10/09/23 10/09/23 History Roflumilast [Zoryve] 1 applic TOPICAL DAILY 10/09/23 10/09/23 History Sennosides [Senokot] 8.6 mg PO BID 10/09/23 10/09/23 History Sodium Chloride 0.9% [Saline 0.9%] 100 ml IV DIRECTED 10/09/23 10/09/23 History polyethylene glycoL 3350 [Miralax] 17 gm PO DAILY 10/09/23 10/09/23 History Allergies Allergy/AdvReac Type Severity Reaction Status Date / Time cephalexin [From Keflex] Allergy Unknown Verified 10/09/23 07:16 doxycycline Allergy Unknown Verified 10/09/23 07:16 sulfamethoxazole Allergy Unknown Verified 10/09/23 07:16 [From Bactrim] trimethoprim [From Bactrim] Allergy Unknown Verified 10/09/23 07:16 vancomycin Allergy Unknown Verified 10/09/23 07:16 Physical Exam Vitals: Vital Signs Temp Pulse Resp BP Pulse Ox 10/09/23 08:52 86 18 104/59 95 10/09/23 06:00 81 14 98/57 98 10/09/23 04:00 91 18 107/54 94 L 10/09/23 02:00 87 18 109/68 95 10/09/23 00:00 95 18 114/68 94 L 10/08/23 23:00 92 20 106/53 95 10/08/23 22:00 93 22 114/79 93 L 10/08/23 19:52 97.9 F 101 H 20 122/61 98 Intake and Output 10/08/23 10/09/23 10/09/23 22:59 06:59 14:59 Other: Weight 136.078 kg - Constitutional General appearance: no acute distress, obese - EENT Eyes: anicteric sclerae, EOMI ENT: hearing grossly normal - Respiratory Respiratory: bilateral: CTA - Cardiovascular Rhythm: regular Heart sounds: normal: S1, S2 - Gastrointestinal General gastrointestinal: soft, no tenderness - Integumentary Integumentary: no cyanotic - Musculoskeletal Musculoskeletal: strength equal bilaterally - Psychiatric baseline mentation Results CBC & Chem 7: 10/09/23 17:31 10/08/23 20:15 Labs: Abnormal Lab Results - Last 24 Hours (Table) 10/08/23 10/08/23 10/09/23 Range/Units 20:15 20:15 02:30 RBC 3.56 L (3.80-5.40) m/uL Hgb 10.8 L (11.4-16.0) gm/dL Hct 31.3 L (34.0-46.0) % Chloride 108 H (98-107) mmol/L Creatinine 0.40 L (0.52-1.04) mg/dL Glucose 115 H (74-99) mg/dL Calcium 8.1 L (8.4-10.2) mg/dL Albumin 3.2 L (3.5-5.0) g/dL Urine Appearance Turbid H (Clear) Urine Protein 1+ H (Negative) Urine Ketones 1+ H (Negative) Urine Blood Large H (Negative) Ur Leukocyte Esterase Small H (Negative) Urine RBC >182 H (0-5) /hpf Urine WBC 25 H (0-5) /hpf Urine Bacteria Many H (None) /hpf Comments: pelvic US reviewed Assessment and Plan (1) Anemia Current Visit: Yes Status: Acute Priority: High Code(s): D64.9 - ANEMIA, UNSPECIFIED SNOMED Code(s): 533668842 (2) Thickened endometrium Current Visit: Yes Status: Acute Code(s): R93.89 - ABNORMAL FINDINGS ON DX IMAGING OF OTH BODY STRUCTURES SNOMED Code(s): 155330321 (3) Vaginal bleeding Current Visit: Yes Status: Acute Priority: High Code(s): N93.9 - ABNORMAL UTERINE AND VAGINAL BLEEDING, UNSPECIFIED SNOMED Code(s): 651385567 (4) Pancytopenia Current Visit: No Status: Acute Priority: High Code(s): D61.818 - OTHER PANCYTOPENIA SNOMED Code(s): 348939727 Plan: Vaginal bleeding: -Sister reports vaginal bleeding has been ongoing for approximately 2 weeks but began increasing with clots over the last couple days which caused patient to present to the emergency room. Also reports nausea and vomiting and intermittent lower abdominal cramping. Also states diminished appetite over the last couple months. Last Pap smear was approximately 5 to 10 years ago. No personal h istory of cancer. Mother had history of ovarian cancer. -Pelvic ultrasound revealed endometrial thickening, endometrial stripe measuring 7 mm, and left ovarian cyst. [facility] ME[employer] PROCESSOR has been consulted for further evaluation Anemia: -Significant history of pancytopenia and follows with Dr. Giordano. She had extensive cytopenia workup done that was all negative, Other than increased kappa lambda ratio with mild kappa elevation ( 55.1 mg/L, and ratio 2.54). The patient had additional workup for the light chain abnormality, with 24-hour urine studies and bone survey being negative. Both light chains remained elevated with ratio in the same range at 1.97. It is felt that this could potentially indicate a s mall MGUS, although a normal variant remained possible. Ultrasound of the abdomen showed heterogenous appearing liver and spleen in the upper end of normal in size, indicating probable chronic liver disease. She was referred to GI, who confirmed evidence of chronic liver disease due to TAMEZ. At her last follow-up on 09/28/23, notes from the ECF describes the patient complaining of some intermittent lower abdominal discomfort, as well as vaginal versus urinary bleeding over the past few days. The patient's labs did not show any evidence of significant bleeding, with hemoglobin actually further increased to 14.4 from 13.2 on 09/01/23. She was referred to [facility] ME[employer] PROCESSOR, and recommended that the patient be sent to the ER, if the bleeding persists and/or increases. Workup from that visit showed SPEP negative for m spike, K/L ratio improved to 1.63, from 1.98. -Hgb upon admit 10.8, MCV 87.7. Hgb in clinic on 09/28 was 14.4. WBC and platelets normal, 8.9 and 257,000, respectively. Recommend holding eliquis at this time until evaluated by [facility] MEAT PROCESSOR and vaginal bleeding has stopped -Will repeat anemia workup -Worsening anemia r/t acute blood loss from vaginal bleeding -Please transfuse for hgb <7 or if symptomatic attests: I have seen and examined patient, performed H&P, developed impression and plan of care. Discussed with dictator. Agree with documentation, dictated as a scribe
[2023-10-10 12:13] LABS: Blood Urea Nitrogen 9.8 mg/dL (9.0-27.0); Calcium 8.9 mg/dL (8.7-10.3); Carbon Dioxide 24.6 mmol/L (21.6-31.8); Chloride 105 mmol/L (96-109); Glucose 134 mg/dL (70-110); Iron 20 UG/DL (50-170); Potassium 3.2 mmol/L (3.5-5.5); Sodium 143 mmol/L (135-145); Total Iron Binding Capacity 196 UG/DL (228-460)
--- NOTE | 2023-10-10 12:18 | P.PN ---
Subjective Progress Note Date: 10/10/23 No new complaints. Pt started on megace to improve vaginal bleeding by adult ministries director. Gen: In NAD, non-toxic HEENT: normocephalic, atraumatic, hearing acuity is intant, mucous membranes moist CVS: perfusing all extremities well, no pitting edema, Respiratory: symmetric chest expansion, no accessory muscle use, GI: soft, NTTP, ND, : no suprapubic tenderness, no CVA tenderness MSK/Derm: no rashes, cyanosis Neuro: CN II-XII intact, no motor weakness, Psych: cooperative, euthymic mood, judgment and insight is intact Hospital Course: 63-year-old female with cerebral palsy aphasia was transferred to our facility from [facility] for evaluation of vaginal bleeding. Renal function unremarkable BUN 7 creatinine 0.4 sodium 137 potassium 4.3. Albumin 3.2 White count 3.9. Pelvic Ultrasound was done and showed increased endometrial thickening. Assessment/plan: Abnormal vaginal bleeding Acute anemia Hold Eliquis SUPERVISOR SANDING consultation Pelvic ultrasound suggestive of thickened endometrium Gentle IV fluid hydration with normal saline 75 cc/h Repeat CBC today at 12 Oncology consult appreciated Chronic conditions Cerebral palsy Chronic hypoxic respiratory failure on 2 L oxygen Paroxysmal A-fib on Eliquis Hypertension Chronic systolic CHF with left ventricular ejection fraction 45% currently com pensated Full code DVT prophylaxis mechanical secondary to vaginal bleeding Objective - Vital Signs Vital signs: Vital Signs Temp 97.6 F 10/10/23 07:23 Pulse 73 10/10/23 09:00 Resp 16 10/10/23 09:00 BP 104/67 10/10/23 07:23 Pulse Ox 95 10/10/23 07:23 FiO2 Intake & Output 10/09/23 10/10/23 10/10/23 18:59 06:59 18:59 Output Total 100 Balance -100 Weight 119.5 kg Output: Urine 100 Other: Voiding Method External Catheter External Catheter External Catheter # Bowel Movements 0 - Labs CBC & Chem 7: 10/09/23 17:31 10/10/23 06:02 Labs: Abnormal Lab Results - Last 24 Hours (Table) 10/09/23 10/10/23 Range/Units 17:31 06:02 WBC 10.7 H (3.8-10.6) k/uL RBC 3.71 L (3.80-5.40) m/uL Hgb 10.9 L (11.4-16.0) gm/dL Hct 33.5 L (34.0-46.0) % Neutrophils # 7.8 H (1.3-7.7) k/uL Potassium 3.2 L (3.5-5.5) mmol/L Anion Gap 13.40 H (4.00-12.00) mmol/L Creatinine 0.4 L (0.6-1.5) mg/dL BUN/Creatinine Ratio 24.50 H (12.00-20.00) Ratio Glucose 134 H (70-110) mg/dL Iron 20 L (50-170) UG/DL TIBC 196 L (228-460) UG/DL % Saturation 10.20 L (12.00-45.00) Transferrin 140.0 L (204.0-354.0) mg/dL
[2023-10-10 12:33] VITALS: BMI 42.5
[2023-10-10 13:40] LABS: Basophils % (A) 0 %; Eosinophils # (A) 0.3 k/uL (0-0.7); Eosinophils % (A) 4 %; HGB 10.3 gm/dL (11.4-16.0); Lymphocytes # (A) 1.7 k/uL (1.0-4.8); Lymphocytes % (A) 18 %; MCH 29.9 pg (25.0-35.0); MCHC 33.3 g/dL (31.0-37.0); MCV 89.8 fL (80.0-100.0); Monocytes # (A) 0.5 k/uL (0-1.0); Monocytes % (A) 5 %; Neutrophils # (A) 6.8 k/uL (1.3-7.7); Neutrophils % (A) 73 %; Platelet Count 288 k/uL (150-450); RBC 3.45 m/uL (3.80-5.40); RDW 13.9 % (11.5-15.5); WBC 9.3 k/uL (3.8-10.6)
--- NOTE | 2023-10-11 10:57 | P.PN ---
Subjective Progress Note Date: 10/11/23 No new complaints. Gen: In NAD, non-toxic HEENT: normocephalic, atraumatic, hearing acuity is intant, mucous membranes moist CVS: perfusing all extremities well, no pitting edema, Respiratory: symmetric chest expansion, no accessory muscle use, GI: soft, NTTP, ND, : no suprapubic tenderness, no CVA tenderness MSK/Derm: no rashes, cyanosis Neuro: CN II-XII intact, no motor weakness, Psych: cooperative, euthymic mood, judgment and insight is intact Hospital Course: 63-year-old female with cerebral palsy aphasia was transferred to our facility from [facility] for evaluation of vaginal bleeding. Renal function unremarkable BUN 7 creatinine 0.4 sodium 137 potassium 4.3. Albumin 3.2 White count 3.9. Pelvic Ultrasound was done and showed increased endometrial thickening. Assessment/plan: Abnormal vaginal bleeding Acute anemia Hold Eliquis BIT SHAVER consultation Pelvic ultrasound suggestive of thickened endometrium Gentle IV fluid hydration with normal saline 75 cc/h Oncology consult appreciated Chronic conditions Cerebral palsy Chronic hypoxic respiratory failure on 2 L oxygen Paroxysmal A-fib on Eliquis Hypertension Chronic systolic CHF with left ventricular ejection fraction 45% currently compensated Full code DVT prophylaxis mechanical secondary to vaginal bleeding Objective - Vital Signs Vital signs: Vital Signs Temp 97.6 F 10/11/23 08:00 Pulse 84 10/11/23 08:00 Resp 16 10/11/23 08:00 BP 94/59 10/11/23 08:00 Pulse Ox 96 10/11/23 08:00 FiO2 Intake & Output 10/10/23 10/11/23 10/11/23 18:59 06:59 18:59 Intake Total 240 Output Total 900 Balance -660 Weight 119.5 kg Intake: Oral 240 Output: Urine 900 Other: Voiding Method External Catheter External Catheter External Catheter # Voids 1 1 - Labs CBC & Chem 7: 10/10/23 13:20 10/10/23 06:02 Labs: Abnormal Lab Results - Last 24 Hours (Table) 10/10/23 10/10/23 Range/Units 06:02 13:20 RBC 3.45 L (3.80-5.40) m/uL Hgb 10.3 L (11.4-16.0) gm/dL Hct 31.0 L (34.0-46.0) % Potassium 3.2 L (3.5-5.5) mmol/L Anion Gap 13.40 H (4.00-12.00) mmol/L Creatinine 0.4 L (0.6-1.5) mg/dL BUN/Creatinine Ratio 24.50 H (12.00-20.00) Ratio Glucose 134 H (70-110) mg/dL Iron 20 L (50-170) UG/DL TIBC 196 L (228-460) UG/DL % Saturation 10.20 L (12.00-45.00) Transferrin 140.0 L (204.0-354.0) mg/dL
--- NOTE | 2023-10-11 12:46 | P.PN ---
Subjective Progress Note Date: 10/11/23 Principal diagnosis: Vaginal bleeding -Afebrile, no acute events overnight -Nay denies any specific complaints -Vaginal bleeding has decreased since initiation of Medroxyprogesterone and no longer passing clots per nursing staff Objective - Vital Signs Vital signs: Vital Signs Temp 97.7 F 10/11/23 12:12 Pulse 86 10/11/23 12:12 Resp 17 10/11/23 12:12 BP 101/64 10/11/23 12:12 Pulse Ox 96 10/11/23 12:12 FiO2 Intake & Output 10/10/23 10/11/23 10/11/23 18:59 06:59 18:59 Intake Total 240 Output Total 900 Balance -660 Weight 119.5 kg Intake: Oral 240 Output: Urine 900 Other: Voiding Method External Catheter External Catheter External Catheter # Voids 1 1 - Constitutional General appearance: Present: cooperative, no acute distress - EENT Eyes: Present: EOMI - Respiratory Details: Nonlabored breathing - Cardiovascular Rhythm: regular - Gastrointestinal General gastrointestinal: Present: soft. Absent: distended, tenderness - Integumentary Integumentary Comment(s): Chronic venous stasis in the lower extremities bilaterally - Neurologic Neurologic: Absent: focal deficits - Labs CBC & Chem 7: 10/10/23 13:20 10/10/23 06:02 Labs: Abnormal Lab Results - Last 24 Hours (Table) 10/10/23 Range/Units 13:20 RBC 3.45 L (3.80-5.40) m/uL Hgb 10.3 L (11.4-16.0) gm/dL Hct 31.0 L (34.0-46.0) % Assessment and Plan (1) Anemia Current Visit: Yes Status: Acute Priority: High Code(s): D64.9 - ANEMIA, UNSPECIFIED SNOMED Code(s): 917123253 (2) Vaginal bleeding Current Visit: Yes Status: Acute Priority: High Code(s): N93.9 - ABNORMAL UTERINE AND VAGINAL BLEEDING, UNSPECIFIED SNOMED Code(s): 092679696 Plan: Vaginal bleeding: -Sister reports vaginal bleeding has been ongoing for approximately 2 weeks but began increasing with clots over the last couple days which caused patient to present to the emergency room. Also reports nausea and vomiting and intermittent lower abdominal cramping. Also states diminished appetite over the last couple months. Last Pap smear was approximately 5 to 10 years ago. No personal history of cancer. Mother had history of ovarian cancer. -Pelvic ultrasound revealed endometrial thickening, endometrial stripe measuring 7 mm, and left ovarian cyst -Started on medroxyprogesterone per gynecology with decreased vaginal bleeding -Noted that there would need family/guardian permission for more in-depth examination or other interventions Normocytic anemia: -Significant history of pancytopenia and follows with Dr. Giordano. She had extensive cytopenia workup done that was all negative, Other than increased kappa lambda ratio with mild kappa elevation ( 55.1 mg/L, and ratio 2.54). The patient had additional workup for the light chain abnormality, with 24-hour urine studies and bone survey being negative. Both light chains remained elevated with ratio in the same range at 1.97. 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 Ultrasound of the abdomen showed heterogenous appearing liver and spleen in the upper end of normal in size, indicating probable chronic liver disease. She was referred to GI, who confirmed evidence of chronic liver disease due to TAMEZ. At her last follow-up on 09/28/23, notes from the [facility] describes the patient complaining of some intermittent lower abdominal discomfort, as well as vaginal versus urinary bleeding over the past few days. The patient's labs did not show any evidence of significant bleeding, with hemoglobin actually further increased to 14.4 from 13.2 on 09/01/23. She was referred to ASE CERTIFIED TECHNICIAN, and recommended that the patient be sent to the ER, if the bleeding persists and/or increases. Workup from that visit showed SPEP negative for m spike, K/L ratio improved to 1.63, from 1.98 -hemoglobin stable in the 10 range since admission, but is significantly lower than hemoglobin in clinic on 09/28/2023, which was 14.4 -Workup on admission noted normal vitamin B12 with ferritin of 147 and iron saturation 10.2% -Given the drop in hemoglobin of approximately 4 g as well as the low iron saturation, this could be indicative of iron deficiency secondary to acute blood loss -IV iron ordered today for total of 3 doses -Continue holding Eliquis at this time -Please transfuse for hgb less than or equal to7 or if symptomatic Pito Westbrook MD
[2023-10-11 12:49] LABS: Basophils % (A) 0 %; Eosinophils # (A) 0.2 k/uL (0-0.7); Eosinophils % (A) 3 %; HGB 9.4 gm/dL (11.4-16.0); Lymphocytes # (A) 1.4 k/uL (1.0-4.8); Lymphocytes % (A) 19 %; MCH 29.1 pg (25.0-35.0); MCHC 32.6 g/dL (31.0-37.0); MCV 89.2 fL (80.0-100.0); Mean Platelet Volume 9.6; Monocytes # (A) 0.2 k/uL (0-1.0); Monocytes % (A) 3 %; Neutrophils # (A) 5.1 k/uL (1.3-7.7); Neutrophils % (A) 73 %; Platelet Count 274 k/uL (150-450); RBC 3.25 m/uL (3.80-5.40)
--- NOTE | 2023-10-11 13:05 | P.PN ---
Progress Note - Text Progress Note Date: 10/11/23 63-year-old female admitted for vaginal bleeding. Patient had an ultrasound at [place] prior to transfer to [facility] revealing a thickened endometrial stripe of 2 cm. Patient's sister is at the bedside today and did offer more family history stating her mom of ovarian cancer at the age of 62 diagnosed actively 7 years prior with hysterectomy. Her sister states she of an aortic aneurysm not her ovarian cancer. Bleeding has been stable throughout her stay, hemoglobin has been stable. Assessment/Plan Postmenopausal bleeding Concerns for endometrial hyperplasia versus endometrial cancer. Patient is currently on Eliquis and will need medical clearance and to be off Eliquis 3 to 5 days prior to hysteroscopy dilation and curettage. Discussed need for biopsy or tissue sample to evaluate further plan of care. Discussed with shahnaz Malone. He is willing to do risk assessment and medical clearance for D&C. Patient's family seems desirous of D&C. Given that she has been medically stable throughout her admission agreeable to clear patient medically, plan if acceptable off Eliquis and my office will contact her residential facility to schedule D&C. ( [facility] [phone])
[2023-10-11 13:06] LABS: African American GFR (CKD) >90 (>60 ml/min/1.73 sqM); Anion Gap 6 mmol/L; Blood Urea Nitrogen 13 mg/dL (7-17); Calcium 8.3 mg/dL (8.4-10.2); Carbon Dioxide 27 mmol/L (22-30); Chloride 107 mmol/L (98-107); Glucose 141 mg/dL (74-99); Non-African American GFR(CKD) >90 (>60 ml/min/1.73 sqM); Potassium 3.2 mmol/L (3.5-5.1); Sodium 140 mmol/L (137-145)
[2023-10-11] MEDS ORDERED: Potassium Replacement Protocol 1 EACH MISC MISCELLANE PRN (13:12)
[2023-10-11] MEDS: POTASSIUM CHLORIDE ER 20 MEQ TAB.ER PO SCH (13:24)
[2023-10-11] MEDS: SODIUM FERRIC GLUCONAT-SUCROSE 125 MG in SODIUM CHLORIDE 0.9% 100 ML IVPB SCH (13:24)
[2023-10-11 20:51] VITALS: RESP 16
--- NOTE | 2023-10-12 11:40 | P.DS ---
Providers Date of admission: 10/09/23 00:35 Expected date of discharge: 10/12/23 Attending physician: Clare Valencia MD Consults: 10/09/23 00:31 Consult Physician Routine Consulting Provider: William Giordano Consult Reason/Comments: vaginal bleeding, thickened endome Do you want consulting provider notified?: Yes, Notify in am Consult Physician Routine Consulting Provider: Richy Moran Consult Reason/Comments: vag bleeding, thickened endometrium Do you want consulting provider notified?: Yes, Notify in am Primary care physician: Allan Coats [place] [facility] Course: Pre-operative clearance Abnormal vaginal bleeding Acute anemia Cerebral palsy Chronic hypoxic respiratory failure on 2 L oxygen Paroxysmal A-fib on Eliquis Hypertension Chronic systolic CHF with left ventricular ejection fraction 45% currently compensated Gen: In NAD, non-toxic HEENT: normocephalic, atraumatic, hearing acuity is intant, mucous membranes moist CVS: perfusing all extremities well, no pitting edema, Respiratory: symmetric chest expansion, no accessory muscle use, GI: soft, NTTP, ND, : no suprapubic tenderness, no CVA tenderness MSK/Derm: no rashes, cyanosis Neuro: CN II-XII intact, no motor weakness, Psych: cooperative, euthymic mood, judgment and insight is intact Hospital Course: 63-year-old female with cerebral palsy aphasia was transferred to our facility from [facility] for evaluation of vaginal bleeding. Renal function unremarkable BUN 7 creatinine 0.4 sodium 137 potassium 4.3. Albumin 3.2 White count 3.9. Pelvic Ultrasound was done and showed increased endometrial thickening. Pt seen in consultation with timber spotter and hematology. Pt was started on methylhydroxy progresterone and vaginal bleeding improved. Pts hgb remained stable. Pt was subsequently cleared for discharge. Pt will f/u with timber spotter to schedule D+C. Medicine was asked for preoeprative evaluation and I am placing this below. Eliquis should remain on hold until this procedure is completed. NSQIP estimates risk of MACE as 0.2% for this procedure. Pt is medically optimized at this time and may proceed without further need of testing. She would benefit from a pre-operative EKG for baseline. I spent 40 minutes coordinating this discharge on 10/12 Patient Condition at Discharge: Good Plan - Discharge Summary New Discharge Prescriptions: New Midodrine [ProAmatine] 5 mg PO AC-TID #90 tab medroxyPROGESTERone [Provera] 10 mg PO DAILY #30 tab Continue Acetaminophen Tab [Tylenol] 650 mg PO Q4H PRN MDD 3000 PRN Reason: General Discomfort Potassium Chloride [Potassium Chloride ER] 30 meq PO BID Magnesium Hydroxide [Milk of Magnesia Concentrate] 7,200 mg PO DAILY PRN PRN Reason: NO BM FOR 2 - 3 DAYS Roflumilast [Zoryve] 1 applic TOPICAL DAILY polyethylene glycoL 3350 [Miralax] 17 gm PO DAILY Omeprazole 20 mg PO DAILY Juice Supplement 1 dose PO DAILY bisacodyL 10 mg RECTAL Q72H PRN PRN Reason: 3 days no BM Sennosides [Senokot] 8.6 mg PO BID Ondansetron [Zofran] 4 mg PO Q8H PRN PRN Reason: Nausea/decreased appetite Carboxymethylcellulose Sodium [Refresh Tears] 1 drop BOTH EYES Q6H PRN PRN Reason: Dry Eye(S) Na Phos,M-B/Na Phos,Di-Ba [Fleet Adult] 133 ml RECTAL Q96H PRN PRN Reason: Constipation Furosemide [Lasix] 80 mg PO DAILY Atorvastatin [Lipitor] 20 mg PO DAILY Health Shake 1 dose PO BID Sodium Chloride 0.9% [Saline 0.9%] 100 ml IV DIRECTED Discontinued Apixaban [Eliquis] 5 mg PO BID Discharge Medication List Acetaminophen Tab [Tylenol] 650 mg PO Q4H PRN MDD 3000 04/19/22 [History] Potassium Chloride [Potassium Chloride ER] 30 meq PO BID 04/19/22 [History] bisacodyL 10 mg RECTAL Q72H PRN 04/19/22 [History] Magnesium Hydroxide [Milk of Magnesia Concentrate] 7,200 mg PO DAILY PRN 05/10/22 [History] Atorvastatin [Lipitor] 20 mg PO DAILY 10/09/23 [History] Carboxymethylcellulose Sodium [Refresh Tears] 1 drop BOTH EYES Q6H PRN 10/09/23 [History] Furosemide [Lasix] 80 mg PO DAILY 10/09/23 [History] Health Shake 1 dose PO BID 10/09/23 [History] Juice Supplement 1 dose PO DAILY 10/09/23 [History] Na Phos,M-B/Na Phos,Di-Ba [Fleet Adult] 133 ml RECTAL Q96H PRN 10/09/23 [History] Omeprazole 20 mg PO DAILY 10/09/23 [History] Ondansetron [Zofran] 4 mg PO Q8H PRN 10/09/23 [History] Roflumilast [Zoryve] 1 applic TOPICAL DAILY 10/09/23 [History] Sennosides [Senokot] 8.6 mg PO BID 10/09/23 [History] Sodium Chloride 0.9% [Saline 0.9%] 100 ml IV DIRECTED 10/09/23 [History] polyethylene glycoL 3350 [Miralax] 17 gm PO DAILY 10/09/23 [History] Midodrine [ProAmatine] 5 mg PO AC-TID #90 tab 10/12/23 [Rx] medroxyPROGESTERone [Provera] 10 mg PO DAILY #30 tab 10/12/23 [Rx] Follow up Appointment(s)/Referral(s): Allan Coats DO [Primary Care Provider] - 1-2 days Tory Aguirre DO [Doctor of Osteopathic Medicine] - 1 Week Discharge Disposition: OTHER INSTITUTION NOT DEFINED
[2023-10-12 13:34] VITALS: BP 119/75; PULSE 95; TEMP 98.2
[2023-10-13 07:11] LABS: Methylmalonic Acid 0.11 umol/L (<0.40)
== END 2023-10-12 17:32 | disposition other institution (70) ==
LOC: EC 19:47 → 5NMEDONC 10-09 00:35
PROVIDERS: ADMIT Internal Medicine; ATTEND Internal Medicine
DX: N93.9 Abnormal uterine and vaginal bleeding, unspecified (principal); N95.0 Postmenopausal bleeding; D61.818 Other pancytopenia; R47.01 Aphasia; I48.0 Paroxysmal atrial fibrillation; I11.0 Hypertensive heart disease with heart failure; I50.22 Chronic systolic (congestive) heart failure; J96.11 Chronic respiratory failure with hypoxia; G40.909 Epilepsy, unspecified, not intractable, without status epilepticus; R93.89 Abnormal findings on diagnostic imaging of other specified body structures; G80.9 Cerebral palsy, unspecified; D75.9 Disease of blood and blood-forming organs, unspecified; N83.202 Unspecified ovarian cyst, left side; Z86.711 Personal history of pulmonary embolism; Z79.01 Long term (current) use of anticoagulants; Z95.810 Presence of automatic (implantable) cardiac defibrillator; Z88.1 Allergy status to other antibiotic agents; Z88.2 Allergy status to sulfonamides; Z79.899 Other long term (current) drug therapy; Z99.81 Dependence on supplemental oxygen
CPT/HCPCS: 96365; 96366; 99285; 36415; 86900; 86901; 83921; 82747; 80053; 80048 ×2; 82607; 82728; 83540; 83550; 83605; 85025 ×4; 85610; 85730; 86850; 81001; 76856; G0378 ×4; J2916 ×2